=== PATIENT | female | born 1960 | race Caucasian/White ===

== ENCOUNTER → 2018-04-08 | Outpatient (CLI) | payer OTHER ==
--- NOTE | 2018-04-08 16:23 | XR ---
EXAMINATION TYPE: XR chest 2V DATE OF EXAM: 04/08/2018 COMPARISON: Chest x-ray October 20, 2015 HISTORY: History of breast cancer with asthma per order. TECHNIQUE: Frontal and lateral views of the chest are obtained. FINDINGS: Interval extubation noted. There is stable appearing left internal jugular Mediport cathete r. There is no focal air space opacity, pleural effusion, or pneumothorax seen. The cardiac silhouet te size is within normal limits. The osseous structures are intact. IMPRESSION: No acute cardiopulmonary process.
== END | disposition home or self-care (01) ==
LOC: RADXRYALE 16:02
PROVIDERS: ATTEND Internal Medicine
DX: J45.41 Moderate persistent asthma with (acute) exacerbation (principal)
CPT/HCPCS: 71046

== ENCOUNTER → 2018-04-22 | Outpatient (CLI) | payer OTHER ==
--- NOTE | 2018-04-25 13:59 | MM ---
Reason for exam: history of breast cancer, mastectomy. Last mammogram was performed 2 years and 9 months ago. History: Patient is postmenopausal, has history of breast cancer at age 52, and had first child at age 34. Family history of breast cancer in paternal cousin at age 60. Took hormonal contraceptives for 16 years. Taking antineoplastic for 5 years beginning at age 52. Physical Findings: Nurse Summary: A 0.5 cm mass at 1 o'clock left breast. MG Diagnostic Mammo LT w CAD CC, MLO, and ML view(s) were taken of the left breast. Prior study comparison: July 21, 2015, left breast MG diagnostic mammo LT w CAD. August 30, 2013, bilateral MG diagnostic mammo w CAD [place]. The breast tissue is heterogeneously dense. This may lower the sensitivity of mammography. There are stable benign calcifications. No discrete abnormality, including area of concern. ASSESSMENT: Incomplete: need additional imaging evaluation, BI-RAD 0 RECOMMENDATION: Ultrasound of the left breast. Plus the right axilla
--- NOTE | 2018-04-25 14:03 | USB ---
History: Patient is postmenopausal, has history of breast cancer at age 52, and had first child at age 34. Family history of breast cancer in paternal cousin at age 60. Took hormonal contraceptives for 16 years. Taking antineoplastic for 5 years beginning at age 52. US Breast Limited BILAT Left limited breast ultrasound including focal area of concern, retroareolar and axilla demonstrates No cystic or solid lesion seen. The right axilla was scanned and a 1.5 x 1.2 x 0.8 cm oval node was seen. a 3 month follow up of this area is recommended. These results were verbally communicated with the patient and result sheet given to the patient on 04/22/18. ASSESSMENT: Probably benign, BI-RAD 3 RECOMMENDATION: Clinical management. Ultrasound of the right breast in 3 months the axilla
== END | disposition home or self-care (01) ==
LOC: RADMAMWWP 12:40
PROVIDERS: ATTEND Internal Medicine
DX: R92.8 Other abnormal and inconclusive findings on diagnostic imaging of breast (principal); Z85.3 Personal history of malignant neoplasm of breast
CPT/HCPCS: 77065

== ENCOUNTER → 2018-07-15 | Outpatient (CLI) | payer OTHER | END | disposition home or self-care (01) | LOC: RADMAMWWP 12:40 | PROVIDERS: ATTEND Internal Medicine | DX: Z53.9 Procedure and treatment not carried out, unspecified reason (principal) ==

== ENCOUNTER → 2018-07-15 | Outpatient (CLI) | payer OTHER ==
--- NOTE | 2018-07-15 14:25 | USB ---
Reason for exam: clinical finding. History: Patient is postmenopausal, has history of breast cancer at age 52, and had first child at age 34. Family history of breast cancer in paternal cousin at age 60. Mastectomy of the right breast, 2013. Chemotherapy, 2013. Radiation therapy of the right breast, 2013. Took hormonal contraceptives for 16 years. Taking antineoplastic for 5 years beginning at age 52. Physical Findings: Nurse Summary: Patient complains of right axilla swelling, lateral itching (nurse rizwan). US Breast RT Right complete breast ultrasound includes all four quadrants, the retroareolar region and axilla. Finding demonstrates no cystic or solid lesion seen. These results were verbally communicated with the patient and result sheet given to the patient on 07/15/18. ASSESSMENT: Negative, BI-RAD 1 RECOMMENDATION: Clinical management of the right breast. Manage patient on a clinical basis.
== END | disposition home or self-care (01) ==
LOC: RADUSWWP 12:48
PROVIDERS: ATTEND Internal Medicine
DX: C50.211 Malignant neoplasm of upper-inner quadrant of right female breast (principal)

== ENCOUNTER → 2019-11-12 | Outpatient (CLI) | payer OTHER | END | disposition home or self-care (01) | LOC: RADMAMWWP 10-12 12:49 | PROVIDERS: ATTEND Internal Medicine Hematology & Oncology | DX: Z53.9 Procedure and treatment not carried out, unspecified reason (principal) | CPT/HCPCS: 77065 ==

== ENCOUNTER → 2020-02-09 | Outpatient (CLI) | payer OTHER | END | disposition home or self-care (01) | LOC: LABWHC1 15:21 | PROVIDERS: ATTEND Internal Medicine | DX: Z20.828 Contact with and (suspected) exposure to other viral communicable diseases (principal); R05 Cough; R50.9 Fever, unspecified | CPT/HCPCS: U0003; C9803 ==

== ENCOUNTER 2022-10-14 14:59 | Emergency (ER) | payer OTHER ==
[2022-10-14] MEDS ORDERED: SODIUM CHLORIDE 0.9% 1,000 ML IV ONE (15:50)
[2022-10-14] MEDS ORDERED: DICYCLOMINE 10 MG/ML 2 ML AMP IM STA (15:51)
[2022-10-14] MEDS ORDERED: ONDANSETRON 4 MG/2 ML VIAL IVP STA (15:51)
[2022-10-14 16:12] LABS: Basophils % (A) 0 %; Eosinophils # (A) 0.3 k/uL (0-0.7); Eosinophils % (A) 3 %; HGB 15.9 gm/dL (11.4-16.0); Lymphocytes % (A) 21 %; MCH 33.8 pg (25.0-35.0); MCHC 34.6 g/dL (31.0-37.0); MCV 97.7 fL (80.0-100.0); Mean Platelet Volume 7.6; Monocytes # (A) 0.9 k/uL (0-1.0); Monocytes % (A) 9 %; Neutrophils # (A) 6.4 k/uL (1.3-7.7); Neutrophils % (A) 66 %; Platelet Count 233 k/uL (150-450); RDW 12.6 % (11.5-15.5); WBC 9.7 k/uL (3.8-10.6)
[2022-10-14 16:16] LABS: Appearance,Urine Clear (Clear); Bilirubin,Urine Negative (Negative); Blood,Urine Trace (Negative); Color,Urine Yellow; Glucose,Urine (UA) Negative (Negative); Hyaline Casts,Urine 1 /lpf (0-2); Ketones,Urine Negative (Negative); Leukocyte Esterase,Urine Negative (Negative); Mucus,Urine Moderate /hpf; Nitrite,Urine Negative (Negative); PH, Urine 5.5 (5.0-8.0); Protein,Urine Negative (Negative); RBC,Urine 1 /hpf (0-5); Specific Gravity,Urine 1.007 (1.001-1.035); Squamous Epithelial Cell,Urine 2 /hpf (0-4); Urobilinogen,Urine <2.0 mg/dL (<2.0)
[2022-10-14 16:22] LABS: ALT 18 U/L (4-34); AST 22 U/L (14-36); African American GFR (CKD) >90 (>60 ml/min/1.73 sqM); Albumin 3.9 g/dL (3.5-5.0); Alkaline Phosphatase 70 U/L (38-126); Anion Gap 7 mmol/L; Blood Urea Nitrogen 9 mg/dL (7-17); Calcium 9.1 mg/dL (8.4-10.2); Carbon Dioxide 25 mmol/L (22-30); Chloride 104 mmol/L (98-107); Glucose 102 mg/dL (74-99); Non-African American GFR(CKD) >90 (>60 ml/min/1.73 sqM); Potassium 4.2 mmol/L (3.5-5.1); Sodium 136 mmol/L (137-145); Total Bilirubin 1.1 mg/dL (0.2-1.3); Total Protein 6.9 g/dL (6.3-8.2)
--- NOTE | 2022-10-14 16:41 | XR ---
EXAMINATION TYPE: XR KUB DATE OF EXAM: 10/14/2022 4:34 PM INDICATION: Patient age:Female; 61 years old; Reason for study: abdominal pain. COMPARISON: None. TECHNIQUE: One radiographic view of the abdomen was obtained. FINDINGS: The bowel gas pattern is nonspecific without dilated loops of small or large bowel. There i s no evidence for organomegaly or pneumoperitoneum. The osseous structures are intact. Multilevel de generation changes throughout the spine. Fecal material and gas are demonstrated throughout the colon and rectum. IMPRESSION: Nonspecific bowel gas pattern without radiographic evidence for acute process.
--- NOTE | 2022-10-14 17:37 | ED ---
General Adult HPI - General Chief complaint: Abdominal Pain Stated complaint: abd pain Time Seen by Provider: 10/14/22 15:31 Source: patient, RN notes reviewed Mode of arrival: ambulatory Limitations: no limitations - History of Present Illness Initial comments: 61-year-old female with past medical history significant for COPD presents to the emergency department with a chief complaint of lower abdominal pain 5 days. She reports the pain as a dull ache and rates the pain as 5 out of 10. It does not radiate. She is complaining of accompanying symptoms of nausea and one episode of vomiting 3 days ago. She denies any known fevers however reports feeling chills. She has not taken anything for his symptoms. She reports her last bowel movement was this morning and was harder than normal however denies any dysuria, flank pain, melena, hematochezia. Reports a history of diverticulosis - Related Data Home Medications Medication Instructions Recorded Confirmed ALPRAZolam [Xanax] 0.5 mg PO HS 10/20/15 10/14/22 Albuterol Inhaler [Ventolin Hfa 2 puff INHALATION RT-Q6H PRN 10/21/15 10/14/22 Inhaler] ALPRAZolam [Xanax] 0.125 mg PO BID PRN 10/14/22 10/14/22 Albuterol Nebulized [Ventolin 2.5 mg INHALATION RT-QID PRN 10/14/22 10/14/22 Nebulized] Anastrozole [Arimidex] 1 mg PO DAILY 10/14/22 10/14/22 Cetirizine HCl [Zyrtec] 10 mg PO DAILY 10/14/22 10/14/22 Citalopram Hydrobromide [CeleXA] 40 mg PO DAILY 10/14/22 10/14/22 Famotidine [Pepcid] 20 mg PO DAILY 10/14/22 10/14/22 Rosuvastatin Calcium 5 mg PO DAILY 10/14/22 10/14/22 Previous Rx's Medication Instructions Recorded Ondansetron Odt [Zofran Odt] 4 mg PO Q8HR PRN #10 tab 10/14/22 Allergies Allergy/AdvReac Type Severity Reaction Status Date / Time No Known Allergies Allergy Verified 10/14/22 16:21 Review of Systems ROS Statement: Those systems with pertinent positive or pertinent negative responses have been documented in the HPI. ROS Other: All systems not noted in ROS Statement are negative. Past Medical History Past Medical History: Asthma, Cancer, Hyperlipidemia Additional Past Medical History / Comment(s): 10-18-14 LT ANKLE FX, diverticulitis, RT BREAST CANCER, History of Any Multi-Drug Resistant Organisms: None Reported Past Surgical History: Hernia Repair Additional Past Surgical History / Comment(s): Right breast removal LT UPPER CHEST MEDIPORT, ECTOPIC , Past Anesthesia/Blood Transfusion Reactions: No Reported Reaction Past Psychological History: Anxiety, Depression Smoking Status: Current every day smoker Past Alcohol Use History: Occasional Past Drug Use History: Marijuana - Past Family History Father Family Medical History: Myocardial Infarction (AR) Additional Family Medical History / Comment(s): AGE 56 FROM [place] Mother Family Medical History: COPD, Myocardial Infarction ([place]) Additional Family Medical History / Comment(s): AGE 54 MASSIVE AR General Exam - General Exam Comments Initial Comments: General: Alert, in no acute distress Head: atraumatic normocephalic. Eyes PERRL, EOMI intact, mucous membranes moist Respiratory: Lungs clear to auscultation bilaterally Cardiovascular: Heart rate regular rate and rhythm Abdominal: Soft without guarding or rebound Extremities: Normal inspection with full range of motion and normal capillary refill Neuroogic: alert and oriented 3, CN II-XII intact, able to ambulate with steady gait Skin: warm dry and intact with normal color Limitations: no limitations Course Vital Signs 10/14/22 10/14/22 10/14/22 15:01 16:02 18:04 Temperature 97.9 F 97 F L Pulse Rate 106 H 93 86 Respiratory 18 20 16 Rate Blood Pressure 129/79 138/93 153/77 O2 Sat by Pulse 95 95 Oximetry Medical Decision Making - Medical Decision Making Was pt. sent in by a medical professional or institution (, PA, PROJECT DEVELOPMENT MANAGER, urgent care, hospital, or prison...) When possible be specific @ -[No] Did you speak to anyone other than the patient for history (EMS, parent, family, police, friend...)? What history was obtained from this source @ -[No] Did you review nursing and triage notes (agree or disagree)? Why? @ -[I reviewed and agree with nursing and triage notes] Were old charts reviewed (outside hosp., previous admission, EMS record, old EKG, old radiological studies, urgent care reports/EKG's, prison records)? Report findings @ -[No old charts were reviewed] Differential Diagnosis (chest pain, altered mental status, abdominal pain women, abdominal pain men, vaginal bleeding, weakness, fever, dyspnea, syncope, headache, dizziness, GI bleed, back pain, seizure, CVA, palpatations, mental health, musculoskeletal)? @ -[not applicable] EKG interpreted by me (3pts min.). @ -[As above] X-rays interpreted by me (1pt min.). @ KUB x-ray negative for any evidence of obstruction. There is nonspecific bowel pattern present CT interpreted by me (1pt min.). @ -[None done] U/S interpreted by me (1pt. min.). @ -[None done] What testing was considered but not performed or refused? (CT, X-rays, U/S, labs)? Why? @ -[None] What meds were considered but not given or refused? Why? @ -[None] Did you discuss the management of the patient with other professionals (professionals i.e. , PA, PROJECT DEVELOPMENT MANAGER, lab, RT, psych nurse, social worker masters, boot turner, teacher, flight communications officer, supportive employment case manager)? Give summary @ -[No] Was smoking cessation discussed for >3mins.? @ -[No] Was critical care preformed (if so, how long)? @ -[No] Were there social determinants of health that impacted care today? How? (Homelessness, low income, unemployed, alcoholism, drug addiction, transportation, low edu. Level, literacy, decrease access to med. care, group home, rehab)? @ -[No] Was there de-escalation of care discussed even if they declined (Discuss DNR or withdrawal of care, Hospice)? DNR status @ -[No] What co-morbidities impacted this encounter? (DM, HTN, Smoking, COPD, CAD, Cancer, CVA, ARF, Chemo, Hep., AIDS, mental health diagnosis, sleep apnea, morb id obesity)? @ -[None] Was patient admitted / discharged? Hospital course, mention meds given and route, prescriptions, significant lab abnormalities, going to OR and other pertinent info. @ -Discharged. This is a pleasant 61-year-old female who presents the emergency department with abdominal pain. Patient had a thorough history and physical exam performed on the ED. Physical exam is essentially unremarkable. Heart rate regular rate and rhythm lungs clear to auscultation bilaterally abdomen is soft and nontender. Patient had lab work and imaging were essentially unremarkable. I discussed with the patient patient verbalized understanding all questions were addressed. She was given Toradol, 1 L IV fluids for symptomatic relief. She'll be discharged home with a prescription for Zofran. Return precautions were discussed at length. Patient discharged in stable condition. Case discussed with Dr. Partida [facility] [place] who agrees with plan of care Undiagnosed new problem with uncertain prognosis? @ -[No] Drug Therapy requiring intensive monitoring for toxicity (Heparin, Nitro, Insulin, Cardizem)? @ -[No] Were any procedures done? @ -[No] Diagnosis/symptom? @ -Abdominal Pain Acute, or Chronic, or Acute on Chronic? @ -Acute Uncomplicated (without systemic symptoms) or Complicated (systemic symptoms)? @ -Uncomplicated Side effects of treatment? @ -[No] Exacerbation, Progression, or Severe Exacerbation? @ -[No] Poses a threat to life or bodily function? How? (Chest pain, [place], [place], pneumonia, PE, COPD, DKA, ARF, appy, cholecystitis, CVA, Diverticulitis, Homicidal, Suicidal, threat to staff... and all critical care pts) @ -Low likelihood - Lab Data Result diagrams: 10/14/22 15:49 10/14/22 15:49 Lab Results 10/14/22 10/14/22 10/14/22 Range/Units 15:49 15:49 15:49 WBC 9.7 (3.8-10.6) k/uL RBC 4.70 (3.80-5.40) m/uL Hgb 15.9 (11.4-16.0) gm/dL Hct 46.0 (34.0-46.0) % MCV 97.7 (80.0-100.0) fL MCH 33.8 (25.0-35.0) pg MCHC 34.6 (31.0-37.0) g/dL RDW 12.6 (11.5-15.5) % Plt Count 233 (150-450) k/uL MPV 7.6 Neutrophils % 66 % Lymphocytes % 21 % Monocytes % 9 % Eosinophils % 3 % Basophils % 0 % Neutrophils # 6.4 (1.3-7.7) k/uL Lymphocytes # 2.0 (1.0-4.8) k/uL Monocytes # 0.9 (0-1.0) k/uL Eosinophils # 0.3 (0-0.7) k/uL Basophils # 0.0 (0-0.2) k/uL Sodium 136 L (137-145) mmol/L Potassium 4.2 (3.5-5.1) mmol/L Chloride 104 (98-107) mmol/L Carbon Dioxide 25 (22-30) mmol/L Anion Gap 7 mmol/L BUN 9 (7-17) mg/dL Creatinine 0.60 (0.52-1.04) mg/dL Est GFR (CKD-EPI)AfAm >90 (>60 ml/min/1.73 sqM) Est GFR (CKD-EPI)NonAf >90 (>60 ml/min/1.73 sqM) Glucose 102 H (74-99) mg/dL Calcium 9.1 (8.4-10.2) mg/dL Total Bilirubin 1.1 (0.2-1.3) mg/dL AST 22 (14-36) U/L ALT 18 (4-34) U/L Alkaline Phosphatase 70 (38-126) U/L Total Protein 6.9 (6.3-8.2) g/dL Albumin 3.9 (3.5-5.0) g/dL Urine Color Yellow Urine Appearance Clear (Clear) Urine pH 5.5 (5.0-8.0) Ur Specific [place] 1.007 (1.001-1.035) Urine Protein Negative (Negative) Urine Glucose (UA) Negative (Negative) Urine Ketones Negative (Negative) Urine Blood Trace H (Negative) Urine Nitrite Negative (Negative) Urine Bilirubin Negative (Negative) Urine Urobilinogen <2.0 (<2.0) mg/dL Ur Leukocyte Esterase Negative (Negative) Urine RBC 1 (0-5) /hpf Ur Squamous Epith Cells 2 (0-4) /hpf Hyaline Casts 1 (0-2) /lpf Urine Mucus Moderate H (None) /hpf Influenza Type A (PCR) (Not Detectd) Influenza Type B (PCR) (Not Detectd) RSV (PCR) (Not Detectd) SARS-CoV-2 (PCR) (Not Detectd) 10/14/22 Range/Units 15:49 WBC (3.8-10.6) k/uL RBC (3.80-5.40) m/uL Hgb (11.4-16.0) gm/dL Hct (34.0-46.0) % MCV (80.0-100.0) fL MCH (25.0-35.0) pg MCHC (31.0-37.0) g/dL RDW (11.5-15.5) % Plt Count (150-450) k/uL MPV Neutrophils % % Lymphocytes % % Monocytes % % Eosinophils % % Basophils % % Neutrophils # (1.3-7.7) k/uL Lymphocytes # (1.0-4.8) k/uL Monocytes # (0-1.0) k/uL Eosinophils # (0-0.7) k/uL Basophils # (0-0.2) k/uL Sodium (137-145) mmol/L Potassium (3.5-5.1) mmol/L Chloride (98-107) mmol/L Carbon Dioxide (22-30) mmol/L Anion Gap mmol/L BUN (7-17) mg/dL Creatinine (0.52-1.04) mg/dL Est GFR (CKD-EPI)AfAm (>60 ml/min/1.73 sqM) Est GFR (CKD-EPI)NonAf (>60 ml/min/1.73 sqM) Glucose (74-99) mg/dL Calcium (8.4-10.2) mg/dL Total Bilirubin (0.2-1.3) mg/dL AST (14-36) U/L ALT (4-34) U/L Alkaline Phosphatase (38-126) U/L Total Protein (6.3-8.2) g/dL Albumin (3.5-5.0) g/dL Urine Color Urine Appearance (Clear) Urine pH (5.0-8.0) Ur Specific [place] (1.001-1.035) Urine Protein (Negative) Urine Glucose (UA) (Negative) Urine Ketones (Negative) Urine Blood (Negative) Urine Nitrite (Negative) Urine Bilirubin (Negative) Urine Urobilinogen (<2.0) mg/dL Ur Leukocyte Esterase (Negative) Urine RBC (0-5) /hpf Ur Squamous Epith Cells (0-4) /hpf Hyaline Casts (0-2) /lpf Urine Mucus (None) /hpf Influenza Type A (PCR) Not Detected (Not Detectd) Influenza Type B (PCR) Not Detected (Not Detectd) RSV (PCR) Not Detected (Not Detectd) SARS-CoV-2 (PCR) Not Detected (Not Detectd) Disposition Clinical Impression: Abdominal pain Disposition: HOME SELF-CARE Condition: Good Instructions (If sedation given, give patient instructions): Abdominal Pain (ED) Additional Instructions: Please return to the nearest emergency department if symptoms worsen or persist Prescriptions: Ondansetron Odt [Zofran Odt] 4 mg PO Q8HR PRN #10 tab PRN Reason: Nausea Is patient prescribed a controlled substance at d/c from ED?: No Referrals: Samreen Webb MD [Primary Care Provider] - 1-2 days Time of Disposition: 17:36
[2022-10-14 18:05] VITALS: BP 153/77; PULSE 86; RESP 16; TEMP 97
== END 2022-10-14 18:04 | disposition home or self-care (01) ==
LOC: EC 14:59
DX: R10.30 Lower abdominal pain, unspecified (principal); J45.909 Unspecified asthma, uncomplicated; E78.5 Hyperlipidemia, unspecified; F41.9 Anxiety disorder, unspecified; F32.A Depression, unspecified; F12.90 Cannabis use, unspecified, uncomplicated; F17.200 Nicotine dependence, unspecified, uncomplicated; Z79.899 Other long term (current) drug therapy; Z20.822 Contact with and (suspected) exposure to COVID-19
CPT/HCPCS: 36415; 80053; 85025; 81001; 87636; 74018; 99284; 96372; 96374; 96361 ×2; J0500; J2405

== ENCOUNTER 2023-05-13 11:37 | Inpatient (IN) | payer OTHER ==
--- NOTE | 2023-05-13 12:11 | ED ---
Abdominal Pain HPI - General Chief Complaint: Abdominal Pain Stated Complaint: Abd Pain, Back Pain Time Seen by Provider: 05/13/23 11:47 Source: patient, RN notes reviewed Mode of arrival: ambulatory Limitations: no limitations - History of Present Illness Initial Comments: This is a 62-year-old female who presents to the emergency department for abdominal pain. States that this is in the epigastric region with radiation into the back. Symptoms started about 5 days ago. She has had intermittent bouts of nausea and low-grade fevers. Pain is worse after eating, but she is unsure if this relates any specific foods. Denies any history of similar s ymptoms in the past. Denies any changes in bowel/bladder habits. Also denies any shortness of breath. MD Complaint: abdominal pain - Related Data Home Medications Medication Instructions Recorded Confirmed ALPRAZolam [Xanax] 0.5 mg PO HS 10/20/15 05/13/23 Albuterol Inhaler [Ventolin Hfa 2 puff INHALATION RT-Q6H PRN 10/21/15 05/13/23 Inhaler] ALPRAZolam [Xanax] 0.125 - 0.25 mg PO DAILY PRN 10/14/22 05/13/23 Anastrozole [Arimidex] 1 mg PO DAILY 10/14/22 05/13/23 Cetirizine HCl [Zyrtec] 10 mg PO DAILY PRN 10/14/22 05/13/23 Citalopram Hydrobromide [CeleXA] 40 mg PO DAILY 10/14/22 05/13/23 Famotidine [Pepcid] 20 mg PO DAILY 10/14/22 05/13/23 Rosuvastatin Calcium 5 mg PO DAILY 10/14/22 05/13/23 Allergies Allergy/AdvReac Type Severity Reaction Status Date / Time No Known Allergies Allergy Verified 05/13/23 14:20 Review of Systems ROS Statement: Those systems with pertinent positive or pertinent negative responses have been documented in the HPI. ROS Other: All systems not noted in ROS Statement are negative. Past Medical History Past Medical History: Asthma, Cancer, Hyperlipidemia Additional Past Medical History / Comment(s): 10-18-14 LT ANKLE FX, diverticulitis, RT BREAST CANCER, History of Any Multi-Drug Resistant Organisms: None Reported Past Surgical History: Hernia Repair Additional Past Surgical History / Comment(s): Right breast removal LT UPPER CHEST MEDIPORT, ECTOPIC , Past Anesthesia/Blood Transfusion Reactions: No Reported Reaction Past Psychological History: Anxiety, Depression Smoking Status: Current every day smoker Past Alcohol Use History: Occasional Past Drug Use History: Marijuana - Past Family History Father Family Medical History: Myocardial Infarction ([place]) Additional Family Medical History / Comment(s): AGE 56 FROM [place] Mother Family Medical History: COPD, Myocardial Infarction ([place]) Additional Family Medical History / Comment(s): AGE 54 MASSIVE [place] General Exam Limitations: no limitations General appearance: alert, in no apparent distress Head exam: Present: atraumatic, normocephalic, normal inspection Respiratory exam: Present: normal lung sounds bilaterally. Absent: respiratory distress, wheezes, rales, rhonchi, stridor Cardiovascular Exam: Present: regular rate, normal rhythm, normal heart sounds. Absent: systolic murmur, diastolic murmur, rubs, gallop, clicks GI/Abdominal exam: Present: soft, tenderness (epigastric), normal bowel sounds. Absent: distended Neurological exam: Present: alert, oriented X3, CN II-XII intact Psychiatric exam: Present: normal affect, normal mood Skin exam: Present: warm, dry, intact, normal color. Absent: rash Course Vital Signs 05/13/23 11:39 Temperature 98.1 F Pulse Rate 100 Respiratory 20 Rate Blood Pressure 167/86 O2 Sat by Pulse 100 Oximetry Medical Decision Making - Medical Decision Making This is a 62-year-old female who presents to the emergency department for abdominal pain. Was pt. sent in by a medical professional or institution? @ -No Did you speak to anyone other than the patient for history? @ -No Did you review nursing and triage notes? @ -Yes, and I agree, it is accurate with regards to the patient's symptoms. Were old charts reviewed? @ -No Differential Diagnosis? @ -Differential Abdominal Pain Women: Appendicitis, Cholecystitis, diverticulosis, ischemic bowel, pancreatitis, hepatitis, UTI, gastroenteritis, AAA, incarcerated hernia, bowel obstruction, constipation, inflammatory bowel, hepatitis, peptic ulcer disease, splenic infarction, perforated viscus, vulvitis, ovarian torsion, PID, kidney stone, placenta abruption, this is not meant to be an all-inclusive list EKG interpreted by me (3pts min.)? @ -EKG interpreted by me demonstrating the following: Sinus rhythm. Ve ntricular rate 90 beats per minute, SD interval 153 ms, QRS duration 88 ms, QTC 438 milliseconds. X-rays interpreted by me (1pt min.)? @ -Not obtained CT interpreted by me (1pt min.)? @ -Not obtained U/S interpreted by me (1pt. min.)? @ -Gallbladder US obtained. My interpretation identifies no evidence of cholelithiasis. What testing was considered but not performed? (CT, X-rays, U/S, labs)? Why? @ -None What meds were considered but not given? Why? @ -None Did you discuss the management of the patient with other professionals? @ -Yes, Dr. Butts, who accepts the patient for admission. Did you reconcile home meds? @ -No Was smoking cessation discussed for >3mins.? @ -I discussed smoking cessation for greater than 3 minutes. The risk of smoking were discussed with the patient including but not limited to risks of cancer, stroke, coronary artery disease and COPD. Also discussed with patient were multiple methods of quitting smoking. Lastly we discussed the financial cost of smoking. Was critical care preformed (if so, how long)? @ -No Were there social determinants of health that impacted care today? How? (Homelessness, low income, unemployed, alcoholism, drug addiction, transportation, low edu. Level, literacy, decrease access to med. care, custodial, rehab)? @ -No Was there de-escalation of care discussed even if they declined? (Discuss DNR or withdrawal of care, Hospice)? @ -No What co-morbidities impacted this encounter? (DM, HTN, Smoking, COPD, CAD, Cancer, CVA, Hep., AIDS, mental health diagnosis, sleep apnea, morbid obesity)? @ -Hyperlipidemia, smoking Was patient admitted / discharged? @ -Admitted. Lab work obtained revealing an elevated lipase of 2727 and elevated amylase of 198 suggestive of acute pancreatitis. LFTs are within normal limits. Covid, influenza, and RSV testing were negative. Given the associated right upper quadrant pain, gallbladder ultrasound was obtained. They did not identify any evidence of cholelithiasis. On the ultrasound they were unable to exclude an underlying 2.6 cm lesion of the pancreas at the junction of the neck and body. There is also a 3.9 cm mass at the posterior right liver lobe. They advised possible CT or MRI for further evaluation. Patient admitted to medicine for acute pancreatitis. Consult placed for GI. Undiagnosed new problem with uncertain prognosis? @ -None Drug Therapy requiring intensive monitoring for toxicity (Heparin, Nitro, Insulin, Cardizem)? @ -None Were any procedures done? @ -None Diagnosis/symptom? @ -Acute pancreatitis Acute, or Chronic, or Acute on Chronic? @ -Acute Uncomplicated (without systemic symptoms) or Complicated (systemic symptoms)? @ -Uncomplicated Side effects of treatment? @ -None Exacerbation, Progression, or Severe Exacerbation] @ -Not applicable Poses a threat to life or bodily function? @ -Yes This case was discussed in detail with the attending ED physician, Dr. Castillo. Presentation, findings, and treatment plan discussed in detail as well. - Lab Data Result diagrams: 05/13/23 12:05 05/13/23 12:05 Lab Results 05/13/23 05/13/23 05/13/23 Range/Units 11:48 12:05 12:05 WBC 7.3 (3.8-10.6) k/uL RBC 4.72 (3.80-5.40) m/uL Hgb 15.4 (11.4-16.0) gm/dL Hct 45.9 (34.0-46.0) % MCV 97.3 (80.0-100.0) fL MCH 32.7 (25.0-35.0) pg MCHC 33.6 (31.0-37.0) g/dL RDW 11.9 (11.5-15.5) % Plt Count 259 (150-450) k/uL MPV 7.3 Neutrophils % 62 % Lymphocytes % 22 % Monocytes % 9 % Eosinophils % 5 % Basophils % 1 % Neutrophils # 4.5 (1.3-7.7) k/uL Lymphocytes # 1.6 (1.0-4.8) k/uL Monocytes # 0.6 (0-1.0) k/uL Eosinophils # 0.3 (0-0.7) k/uL Basophils # 0.1 (0-0.2) k/uL Sodium 140 (137-145) mmol/L Potassium 4.1 (3.5-5.1) mmol/L Chloride 109 H (98-107) mmol/L Carbon Dioxide 23 (22-30) mmol/L Anion Gap 8 mmol/L BUN 14 (7-17) mg/dL Creatinine 0.53 (0.52-1.04) mg/dL Est GFR (CKD-EPI)AfAm >90 (>60 ml/min/1.73 sqM) Est GFR (CKD-EPI)NonAf >90 (>60 ml/min/1.73 sqM) Glucose 117 H (74-99) mg/dL Plasma Lactic Acid Bi (0.7-2.0) mmol/L Calcium 9.3 (8.4-10.2) mg/dL Total Bilirubin 0.6 (0.2-1.3) mg/dL AST 26 (14-36) U/L ALT 16 (4-34) U/L Alkaline Phosphatase 70 (38-126) U/L Troponin I (0.000-0.034) ng/mL Total Protein 6.9 (6.3-8.2) g/dL Albumin 4.0 (3.5-5.0) g/dL Amylase 198 H (30-110) U/L Lipase 2727 H (23-300) U/L Influenza Type A (PCR) Not Detected (Not Detectd) Influenza Type B (PCR) Not Detected (Not Detectd) RSV (PCR) Not Detected (Not Detectd) SARS-CoV-2 (PCR) Not Detected (Not Detectd) 05/13/23 05/13/23 Range/Units 12:05 12:12 WBC (3.8-10.6) k/uL RBC (3.80-5.40) m/uL Hgb (11.4-16.0) gm/dL Hct (34.0-46.0) % MCV (80.0-100.0) fL MCH (25.0-35.0) pg MCHC (31.0-37.0) g/dL RDW (11.5-15.5) % Plt Count (150-450) k/uL MPV Neutrophils % % Lymphocytes % % Monocytes % % Eosinophils % % Basophils % % Neutrophils # (1.3-7.7) k/uL Lymphocytes # (1.0-4.8) k/uL Monocytes # (0-1.0) k/uL Eosinophils # (0-0.7) k/uL Basophils # (0-0.2) k/uL Sodium (137-145) mmol/L Potassium (3.5-5.1) mmol/L Chloride (98-107) mmol/L Carbon Dioxide (22-30) mmol/L Anion Gap mmol/L BUN (7-17) mg/dL Creatinine (0.52-1.04) mg/dL Est GFR (CKD-EPI)AfAm (>60 ml/min/1.73 sqM) Est GFR (CKD-EPI)NonAf (>60 ml/min/1.73 sqM) Glucose (74-99) mg/dL Plasma Lactic Acid Bi 1.1 (0.7-2.0) mmol/L Calcium (8.4-10.2) mg/dL Total Bilirubin (0.2-1.3) mg/dL AST (14-36) U/L ALT (4-34) U/L Alkaline Phosphatase (38-126) U/L Troponin I <0.012 (0.000-0.034) ng/mL Total Protein (6.3-8.2) g/dL Albumin (3.5-5.0) g/dL Amylase (30-110) U/L Lipase (23-300) U/L Influenza Type A (PCR) (Not Detectd) Influenza Type B (PCR) (Not Detectd) RSV (PCR) (Not Detectd) SARS-CoV-2 (PCR) (Not Detectd) - Radiology Data Radiology results: report reviewed, image reviewed Disposition Clinical Impression: Pancreatitis, Nicotine dependence Disposition: ADMITTED IP TO THIS [facility] Time of Disposition: 13:55
[2023-05-13] MEDS: KETOROLAC 15 MG/ML 1 ML VIAL IVP STA (12:16)
[2023-05-13 12:17] LABS: Basophils # (A) 0.1 k/uL (0-0.2); Basophils % (A) 1 %; Eosinophils # (A) 0.3 k/uL (0-0.7); Eosinophils % (A) 5 %; HCT 45.9 % (34.0-46.0); HGB 15.4 gm/dL (11.4-16.0); Lymphocytes # (A) 1.6 k/uL (1.0-4.8); Lymphocytes % (A) 22 %; MCH 32.7 pg (25.0-35.0); MCHC 33.6 g/dL (31.0-37.0); MCV 97.3 fL (80.0-100.0); Mean Platelet Volume 7.3; Monocytes # (A) 0.6 k/uL (0-1.0); Monocytes % (A) 9 %; Neutrophils # (A) 4.5 k/uL (1.3-7.7); Neutrophils % (A) 62 %; Platelet Count 259 k/uL (150-450); RBC 4.72 m/uL (3.80-5.40); RDW 11.9 % (11.5-15.5); WBC 7.3 k/uL (3.8-10.6)
[2023-05-13] MEDS: SODIUM CHLORIDE 0.9% 1,000 ML IV STA (12:17)
[2023-05-13] MEDS: PANTOPRAZOLE 40 MG/10 ML VIAL IVP STA (12:17)
[2023-05-13 12:43] LABS: ALT 16 U/L (4-34); AST 26 U/L (14-36); African American GFR (CKD) >90 (>60 ml/min/1.73 sqM); Alkaline Phosphatase 70 U/L (38-126); Amylase 198 U/L (30-110); Anion Gap 8 mmol/L; Blood Urea Nitrogen 14 mg/dL (7-17); Calcium 9.3 mg/dL (8.4-10.2); Carbon Dioxide 23 mmol/L (22-30); Chloride 109 mmol/L (98-107); Glucose 117 mg/dL (74-99); Non-African American GFR(CKD) >90 (>60 ml/min/1.73 sqM); Potassium 4.1 mmol/L (3.5-5.1); Sodium 140 mmol/L (137-145); Total Bilirubin 0.6 mg/dL (0.2-1.3); Total Protein 6.9 g/dL (6.3-8.2)
[2023-05-13 12:51] LABS: Lipase 2727 U/L (23-300)
--- NOTE | 2023-05-13 13:36 | US ---
EXAMINATION TYPE: US gallbladder DATE OF EXAM: 05/13/2023 COMPARISON: CT 2012 CLINICAL INDICATION: Female, 62 years old with history of RUQ and epigastric pain; Pain x 6 days. TECHNIQUE: Multiple sonographic images of the right upper quadrant are obtained. FINDINGS: EXAM MEASUREMENTS: Liver Length: 15.4 cm Gallbladder Wall: 0.21 cm CBD: 0.6 cm Right Kidney: 10.7 x 5.4 x 4.9 cm [employer] NOTES: Exam is limited due to gas. Pancreas: Hypoechoic area at the neck/body junction measuring 1.6 x 2.6 x 1.1 cm. Liver: *Hypoechoic round lesion within the posterior right liver lobe measuring 3.5 x 3.9 x 3.3 cm. Gallbladder: Limited visibility of fundus due to gas. No abnormal distention, wall thickening, or sh adowing stones are seen. Evidence for sonographic Fang's sign: No CBD: Measures upper limits of normal. Right Kidney: No hydronephrosis or masses seen IMPRESSION: 1. Unable to exclude an underlying 2.6 cm lesion of the pancreas at the junction of the neck and body . Further evaluation with pancreas protocol CT or MRI is recommended. 2. There appears to be a 3.9 cm mass posterior right liver lobe as well. This can also be further go racterized on the patient's multiphasic, contrast-enhanced MRI. 3. No gallstones. Bile duct upper limits of normal in caliber at 6 mm may be acceptable for patient's age. Correlate with alkaline phosphatase and bilirubin levels.
[2023-05-13] MEDS ORDERED: KETOROLAC 15 MG/ML 1 ML VIAL IVP PRN (13:57)
[2023-05-13] MEDS ORDERED: NALOXONE 0.4 MG/ML 1 ML VIAL IV PRN ×2 (13:57→14:31)
[2023-05-13] MEDS ORDERED: HYDROmorphone 0.5 MG/0.5 ML SYRINGE IVP PRN (13:57)
[2023-05-13] MEDS ORDERED: ONDANSETRON 4 MG/2 ML VIAL IVP PRN (13:57)
[2023-05-13] MEDS ORDERED: ACETAMINOPHEN TAB 325 MG TAB PO PRN (13:57)
[2023-05-13] MEDS ORDERED: MAG HYDROX/AL HYDROX/SIMETH 30 ML CUP PO PRN (14:31)
[2023-05-13] MEDS ORDERED: MELATONIN 3 MG TABLET PO PRN (14:31)
[2023-05-13] MEDS ORDERED: TEMAZEPAM 15 MG CAP PO PRN (14:31)
[2023-05-13] MEDS ORDERED: ALBUTEROL NEBULIZED 2.5 MG/3 ML INHALATION PRN (14:32)
--- NOTE | 2023-05-13 14:33 | P.HPIM ---
History of Present Illness H&P Date: 05/13/23 History of present illness; 62-year-old lady with past medical history significant for breast cancer, hyperlipidemia who presented to the ER for abdominal pain. Patient stated that she was all right 5 days ago when she started developing abdominal pain that was located in epigastric area, constant, sharp in nature,Radiating to the back, aggravated by eating and drinking, no relieving factor associated with this epigastric pain. Patient was complaining of nausea but no vomiting. There was no complaint of altered bowel movements. Patient stated that initially she kept tolerating this pain and did not seek any medical help. Over the last 24 hours the pain has worsened and she decided to come to the ER Initial lab work done in the ER showed WBC 7.3, hemoglobin 15.4, platelet count 259, sodium 140, potassium 4.1, BUN 14, creatinine 0.53, glucose 117, calcium 9.3 AST 26, ALT 16, troponin 0.012 lipase 2727, amylase 198 Influenza A not detected Influenza B not detected RSV not detected COVID-19 not detected EKG done in the ER showed heart rate of 90, no ST segment elevation or depression seen, no T-wave inversions seen. Ultrasound abdominal done showed unable to exclude an underlying 2.6 cm lesion of the pancreas at the junction of the neck and and body. There appears to be a 3.9 cm mass posterior right liver lobe as well Patient admitted to internal medicine service REVIEW OF SYSTEMS: CONSTITUTIONAL: No fever, no malaise, no fatigue. HEENT: No recent visual problems or hearing problems. Denied any sore throat. CARDIOVASCULAR: No chest pain, orthopnea, PND, no palpitations, no syncope. PULMONARY: No shortness of breath, no cough, no hemoptysis. GASTROINTESTINAL: As mentioned above NEUROLOGICAL: No headaches, no weakness, no numbness. HEMATOLOGICAL: Denies any bleeding or petechiae. GENITOURINARY: Denies any burning micturition, frequency, or urgency. MUSCULOSKELETAL/RHEUMATOLOGICAL: Denies any joint pain, swelling, or any muscle pain. ENDOCRINE: Denies any polyuria or polydipsia. The rest of the 14-point review of systems is negative. PHYSICAL EXAMINATION: GENERAL: The patient is alert and oriented x3, not in any acute distress. Well developed, well nourished. HEENT: Pupils are round and equally reacting to light. EOMI. No scleral icterus. No conjunctival pallor. Normocephalic, atraumatic. No pharyngeal erythema. No thyromegaly. CARDIOVASCULAR: S1 and S2 present. No murmurs, rubs, or gallops. PULMONARY: Chest is clear to auscultation, no wheezing or crackles. ABDOMEN: Soft, tender in epigastric area, normoactive bowel sounds. No palpable organomegaly. MUSCULOSKELETAL: No joint swelling or deformity. EXTREMITIES: No cyanosis, clubbing, or pedal edema. NEUROLOGICAL: Gross neurological examination did not reveal any focal deficits. SKIN: No rashes. Assessment and plan Acute pancreatitis Pancreatic mass 3.9 cm liver lobe mass Hyperlipidemia History of breast cancer Monitor vital signs Monitor CBC Monitor CMP Continue IV fluid Continue pain management Continue antiemetics Ordered MRI of pancreas Ordered lipid panel Consult GI Labs and medication were reviewed.. Continue same treatment. Continue with symptomatic treatment. Resume home medication. Monitor labs and vitals. DVT and GI prophylaxis. Further recommendations as per clinical course of the patient Dictation was produced using [employer] dictation software. please excuse any grammatical, word or spelling errors. Past Medical History Past Medical History: Asthma, Cancer, Hyperlipidemia Additional Past Medical History / Comment(s): 10-18-14 LT ANKLE FX, diverticulitis, RT BREAST CANCER, History of Any Multi-Drug Resistant Organisms: None Reported Past Surgical History: Hernia Repair Additional Past Surgical History / Comment(s): Right breast removal LT UPPER CHEST MEDIPORT, ECTOPIC , Past Anesthesia/Blood Transfusion Reactions: No Reported Reaction Past Psychological History: Anxiety, Depression Smoking Status: Current every day smoker Past Alcohol Use History: Occasional Past Drug Use History: Marijuana - Past Family History Father Family Medical History: Myocardial Infarction ([place]) Additional Family Medical History / Comment(s): AGE 56 FROM [place] Mother Family Medical History: COPD, Myocardial Infarction ([place]) Additional Family Medical History / Comment(s): AGE 54 MASSIVE [place] Medications and Allergies Home Medications Medication Instructions Recorded Confirmed Type ALPRAZolam [Xanax] 0.5 mg PO HS 10/19/10/14/22 History Albuterol Inhaler [Ventolin Hfa 2 puff INHALATION RT-Q6H PRN 10/21/15 10/14/22 History Inhaler] ALPRAZolam [Xanax] 0.125 mg PO BID PRN 10/14/22 10/14/22 History Albuterol Nebulized [Ventolin 2.5 mg INHALATION RT-QID PRN 10/14/22 10/14/22 H istory Nebulized] Anastrozole [Arimidex] 1 mg PO DAILY 10/14/22 10/14/22 History Cetirizine HCl [Zyrtec] 10 mg PO DAILY 10/14/22 10/14/22 History Citalopram Hydrobromide [CeleXA] 40 mg PO DAILY 10/14/22 10/14/22 History Famotidine [Pepcid] 20 mg PO DAILY 10/14/22 10/14/22 History Ondansetron Odt [Zofran Odt] 4 mg PO Q8HR PRN #10 tab 10/14/22 Rx Rosuvastatin Calcium 5 mg PO DAILY 10/14/22 10/14/22 History Allergies Allergy/AdvReac Type Severity Reaction Status Date / Time No Known Allergies Allergy Verified 10/14/22 16:21 Physical Exam Vitals: Vital Signs Temp Pulse Resp BP Pulse Ox 05/13/23 11:39 98.1 F 100 20 167/86 100 Intake and Output 05/12/23 05/13/23 05/13/23 22:59 06:59 14:59 Other: Weight 66.224 kg Results CBC & Chem 7: 05/13/23 12:05 05/13/23 12:05 Labs: Abnormal Lab Results - Last 24 Hours (Table) 05/13/23 Range/Units 12:05 Chloride 109 H (98-107) mmol/L Glucose 117 H (74-99) mg/dL Amylase 198 H (30-110) U/L Lipase 2727 H (23-300) U/L
[2023-05-13] MEDS: SODIUM CHLORIDE 0.9% 1,000 ML IV SCH (14:43)
[2023-05-13] MEDS: HYDROcodone/APAP 5-325MG 1 EACH TAB PO PRN (17:41)
[2023-05-13] MEDS: ALPRAZolam 0.5 MG TAB PO SCH (21:29)
[2023-05-14 02:24] LABS: Chol/HDL Ratio 2.76 Ratio; LDL Cholesterol,Calculated 82.1 mg/dL (0.0-131.0); VLDL Calculation 15.44 mg/dL (5.00-40.00)
[2023-05-14] MEDS: PANTOPRAZOLE 40 MG/10 ML VIAL IVP SCH (08:05)
[2023-05-14] MEDS: ATORVASTATIN 10 MG TAB PO SCH (08:05)
[2023-05-14 11:06] LABS: Basophils # (A) 0.07 X 10*3/uL (0.00-0.10); Basophils % (A) 1.1 %; Eosinophils # (A) 0.48 X 10*3/uL (0.04-0.35); Eosinophils % (A) 7.7 %; HCT 40.3 % (37.2-46.3); HGB 13.6 g/dL (12.0-15.0); Immature Grans, Automated 0 %; Lymphocytes # (A) 2.16 X 10*3/uL (0.90-5.00); Lymphocytes % (A) 34.8 %; MCH 32.2 pg (27.0-32.0); MCHC 33.7 g/dL (32.0-37.0); MCV 95.3 FL (80.0-97.0); Monocytes # (A) 0.78 X 10*3/uL (0.20-1.00); Monocytes % (A) 12.6 %; NRBC Per 100 WBC 0 X 10*3/uL (0.00-0.01); Neutrophils # (A) 2.72 X 10*3/uL (1.80-7.70); Neutrophils % (A) 43.8 %; Platelet Count 222 X 10*3/uL (140-440); RBC 4.23 X 10*6/uL (4.10-5.20); RDW 11.8 % (11.5-14.5); WBC 6.21 X 10*3/uL (4.50-10.00)
--- NOTE | 2023-05-14 12:15 | P.CONS ---
History of Present Illness - Reason for Consult Consult date: 05/14/23 Pancreatitis Requesting physician: Geno Aaron - Chief Complaint Abdominal pain - History of Present Illness Is a pleasant 62-year-old white female who presented to the emergency department yesterday for complaints of abdominal pain mostly in the epigastric region and radiating to her back. States that have been ongoing for the last few days and she was concerned as it was not going away. She came into the emergency department for further evaluation was noted to have elevated amylase and lipase. She underwent ultrasound of the gallbladder that was concerning for pancreatic lesion as well as a liver lesion. Gastroenterology was consulted for pancreatitis. She has a past medical history fluting breast cancer status post right mastectomy, asthma, and hyperlipidemia. Patient is a current every day smoker. She denies any regular alcohol use or previous history of alcoholism. No previous history of pancreatitis or liver disease. WBC 6.2 hemoglobin 13.6 platelet count 222,000 triglycerides 77 total bilirubin 0.6 AST 26 ALT 16 alkaline phosphatase 70 amylase 198 lipase 2727 Review of Systems REVIEW OF SYSTEMS: CARDIOPULMONARY: No chest pain or shortness of breath. Gastrointestinal: Epiastric pain radiating to her back. No nausea or vomiting. No hematemesis, coffee-ground emesis. No rectal bleeding, or melena. GENITOURINARY: No dysuria or hematuria. MUSCULOSKELETAL: Reports normal range of motion., Joint pain. SKIN: No rashes. No jaundice. ENDOCRINE: No chills, fevers. No excessive weight gain or loss. No polydipsia or polyuria. PSYCHIATRIC: Unremarkable. NEUROLOGY: No change in mental status. Denies dizziness, headache. ENT: Vision unremarkable. CONSTITUTIONAL: No recent weight loss. No fever, chills, night sweats. Past Medical History Past Medical History: Asthma, Cancer, Hyperlipidemia Additional Past Medical History / Comment(s): 10-18-14 LT ANKLE FX, diverticulitis, RT BREAST CANCER, History of Any Multi-Drug Resistant Organisms: None Reported Past Surgical History: Hernia Repair Additional Past Surgical History / Comment(s): Right breast removal LT UPPER CHEST MEDIPORT (patient states it is 6 years old and hasnt been used since cancer) , ECTOPIC , Past Anesthesia/Blood Transfusion Reactions: No Reported Reaction Past Psychological History: Anxiety, Depression Additional Psychological History / Comment(s): CELEXA AND XANAX. LIVES WITH SIG OTHER FOR 30 YEARS. Smoking Status: Current every day smoker Past Alcohol Use History: Occasional Additional Past Alcohol Use History / Comment(s): STARTED SMOKING AT AGE 15 SMOKES LESS THAN 1 PPD Past Drug Use History: Marijuana Additional Drug Use History / Comment(s): 1/2 joint daily - Past Family History Father Family Medical History: Myocardial Infarction ([place]) Additional Family Medical History / Comment(s): AGE 56 FROM [place] Mother Family Medical History: COPD, Myocardial Infarction ([place]) Additional Family Medical History / Comment(s): AGE 54 MASSIVE [place] Medications and Allergies Home Medications Medication Instructions Recorded Confirmed Type ALPRAZolam [Xanax] 0.5 mg PO HS 10/20/15 05/13/23 History Albuterol Inhaler [Ventolin Hfa 2 puff INHALATION RT-Q6H PRN 10/21/15 05/13/23 H istory Inhaler] ALPRAZolam [Xanax] 0.125 - 0.25 mg PO DAILY PRN 10/14/22 05/13/23 History Anastrozole [Arimidex] 1 mg PO DAILY 10/14/22 05/13/23 History Cetirizine HCl [Zyrtec] 10 mg PO DAILY PRN 10/14/22 05/13/23 History Citalopram Hydrobromide [CeleXA] 40 mg PO DAILY 10/14/22 05/13/23 History Famotidine [Pepcid] 20 mg PO DAILY 10/14/22 05/13/23 History Rosuvastatin Calcium 5 mg PO DAILY 10/14/22 05/13/23 History Allergies Allergy/AdvReac Type Severity Reaction Status Date / Time No Known Allergies Allergy Verified 05/13/23 14:20 Physical Exam Vitals: Vital Signs Temp Pulse Pulse Resp BP BP Pulse Ox 05/14/23 07:26 14 05/14/23 07:00 97.8 F 70 18 122/76 95 05/14/23 01:40 97.9 F 83 18 134/82 95 05/13/23 20:45 98.1 F 65 18 146/76 93 L 05/13/23 20:00 78 18 139/80 96 05/13/23 19:15 97.4 F L 70 18 129/76 96 Intake and Output 05/13/23 05/14/23 05/14/23 22:59 06:59 14:59 Other: Voiding Method Toilet Toilet # Voids 0 0 Weight 66.224 kg General appearance: The patient is alert, oriented, appears in no acute distress. HET: Head is normocephalic and atraumatic. Conjunctiva pink. Sclera anicteric. Neck: Supple without lymphadenopathy. Trachea midline. Heart: Regular. Lungs: Equal expansion, normal respiratory effort. Abdomen: Soft, right upper quadrant and epigastric tenderness, nondistended with bowel sounds. No guarding or rigidity. Skin: No rashes. No jaundice. Extremities: Normal skin color and turgor. No pedal edema. Neurological: No focal deficits. Alert and oriented x3. Results CBC & Chem 7: 05/14/23 06:50 05/13/23 12:05 Labs: Abnormal Lab Results - Last 24 Hours (Table) 05/13/23 05/14/23 Range/Units 12:05 06:50 MCH 32.2 H (27.0-32.0) pg Eosinophils # 0.48 H (0.04-0.35) X 10*3/uL Chloride 109 H (98-107) mmol/L Glucose 117 H (74-99) mg/dL Amylase 198 H (30-110) U/L Lipase 2727 H (23-300) U/L Comments: Gallbladder ultrasound Unable to exclude an underlying 2.6 cm lesion of the pancreas at the junction of the neck and body. Further evaluation with pancreas protocol CT or MRI is recommended. There appears to be a 3.9 cm mass posterior right liver lobe as well. This can be further characterized on the patient with multiphasic contrast-enhanced MRI. No gallstones. Bile duct upper limits of normal in caliber at 6 mm may be acceptable for patient's age. Correlate with alkaline phosphatase and bilirubin levels. Assessment and Plan (1) Pancreatitis Narrative/Plan: 62-year-old female presenting to the emergency department with epigastric pain radiating to her back. She was noted to have elevated amylase and lipase consistent with pancreatitis and underwent ultrasound of the gallbladder. No previous history of pancreatitis no history of gallstones, and denies any new medications or history of alcoholism. Gallbladder ultrasound concerning for liver mass as well as pancreatic head lesion. CA 19-9 ordered, await MRI MRCP of pancreas. Likely etiology of pancreatitis is related to the pancreatic head lesion. Likely patient will need to follow-up with advanced civil engineering manager for ERCP with EUS for further evaluation and biopsy. Current Visit: Yes Status: Acute Code(s): K85.90 - ACUTE PANCREATITIS WITHOUT NECROSIS OR INFECTION, UNSP SNOMED Code(s): 71980239 (2) Nicotine dependence Current Visit: Yes Status: Acute Code(s): F17.200 - NICOTINE DEPENDENCE, UNSPECIFIED, UNCOMPLICATED SNOMED Code(s): 10807973 Plan: 1. Continue symptomatic and supportive care 2. Patient may have clear liquid diet 3. Agree with MRI MRCP of the pancreas 4. CA 19-9 ordered 5. Daily CMP, lipase 6. Further recommendations forthcoming based on clinical course Thank you for this consultation, we will continue to follow. Dr. Yolande Mendoza I agree with the dictator's note, documented as a scribe by Alexsandra Brandon.
[2023-05-14 12:37] LABS: ALT 16 U/L (8-44); AST 22 U/L (13-35); Albumin 3.4 g/dL (3.8-4.9); Albumin/Globulin Ratio 1.62 Ratio (1.60-3.17); Alkaline Phosphatase 57 U/L (41-126); Blood Urea Nitrogen 7.6 mg/dL (9.0-27.0); Calcium 8.5 mg/dL (8.7-10.3); Carbon Dioxide 22.7 mmol/L (21.6-31.8); Chloride 108 mmol/L (96-109); Chol/HDL Ratio 2.94 Ratio; Globulin 2.1 g/dL (1.6-3.3); Glucose 75 mg/dL (70-110); LDL Cholesterol,Calculated 75.8 mg/dL (0.0-131.0); Potassium 4.1 mmol/L (3.5-5.5); Sodium 141 mmol/L (135-145); Total Bilirubin 0.5 mg/dL (0.3-1.2); Total Protein 5.5 g/dL (6.2-8.2)
--- NOTE | 2023-05-14 13:20 | P.PN ---
Subjective Progress Note Date: 05/14/23 62-year-old lady with past medical history significant for breast cancer, hyperlipidemia who presented to the ER for abdominal pain. Patient stated that she was all right 5 days ago when she started developing abdominal pain that was located in epigastric area, constant, sharp in nature,Radiating to the back, aggravated by eating and drinking, no relieving factor associated with this epigastric pain. Patient was complaining of nausea but no vomiting. There was no complaint of altered bowel movements. Patient stated that initially she kept tolerating this pain and did not seek any medical help. Over the last 24 hours the pain has worsened and she decided to come to the ER Initial lab work done in the ER showed WBC 7.3, hemoglobin 15.4, platelet count 259, sodium 140, potassium 4.1, BUN 14, creatinine 0.53, glucose 117, calcium 9.3 AST 26, ALT 16, troponin 0.012 lipase 2727, amylase 198 Influenza A not detected Influenza B not detected RSV not detected COVID-19 not detected EKG done in the ER showed heart rate of 90, no ST segment elevation or depression seen, no T-wave inversions seen. Ultrasound abdominal done showed unable to exclude an underlying 2.6 cm lesion of the pancreas at the junction of the neck and and body. There appears to be a 3.9 cm mass posterior right liver lobe as well Patient admitted to internal medicine service 05/14. Patient seen and examined. Still having epigastric pain, denies any nausea or vomiting. Denies any fever or chills. REVIEW OF SYSTEMS: CONSTITUTIONAL: No fever, no malaise,. CARDIOVASCULAR: No chest pain, no palpitations, no syncope. PULMONARY: No shortness of breath, no cough, GASTROINTESTINAL: As mentioned above NEUROLOGICAL: No headaches, no weakness, PHYSICAL EXAMINATION: GENERAL: The patient is alert and oriented x3, not in any acute distress. Well developed, well nourished. HEENT: Pupils are round and equally reacting to light. EOMI. No scleral icterus. No conjunctival pallor. Normocephalic, atraumatic. No pharyngeal erythema. No thyromegaly. CARDIOVASCULAR: S1 and S2 present. No murmurs, rubs, or gallops. PULMONARY: Chest is clear to auscultation, no wheezing or crackles. ABDOMEN: Soft, nontender, nondistended, normoactive bowel sounds. No palpable organomegaly. MUSCULOSKELETAL: No joint swelling or deformity. EXTREMITIES: No cyanosis, clubbing, or pedal edema. NEUROLOGICAL: Gross neurological examination did not reveal any focal deficits. SKIN: No rashes. Assessment and plan Acute pancreatitis Pancreatic mass 3.9 cm liver lobe mass Hyperlipidemia History of breast cancer Monitor vital signs Monitor CBC Monitor CMP Continue IV fluid Continue pain management Continue antiemetics Ordered MRI of pancreas Results of lipid panel reviewed. Keep patient clear liquid diet. GI following Labs and medication were reviewed.. Continue same treatment. Continue with symptomatic treatment. Resume home medication. Monitor labs and vitals. DVT and GI prophylaxis. Further recommendations as per clinical course of the patient Dictation was produced using [employer] dictation software. please excuse any grammatical, word or spelling errors. Objective - Vital Signs Vital signs: Vital Signs Temp 97.8 F 05/14/23 07:00 Pulse 70 05/14/23 07:00 Resp 14 05/14/23 07:26 BP 122/76 05/14/23 07:00 Pulse Ox 95 05/14/23 07:00 FiO2 Intake & Output 05/13/23 05/14/23 05/14/23 18:59 06:59 18:59 Weight 66.224 kg 66.224 kg Other: Voiding Method Toilet Toilet # Voids 0 - Labs CBC & Chem 7: 05/14/23 06:50 05/14/23 06:50 Labs: Abnormal Lab Results - Last 24 Hours (Table) 05/14/23 05/14/23 Range/Units 06:50 06:50 MCH 32.2 H (27.0-32.0) pg Eosinophils # 0.48 H (0.04-0.35) X 10*3/uL BUN 7.6 L (9.0-27.0) mg/dL Creatinine 0.5 L (0.6-1.5) mg/dL Calcium 8.5 L (8.7-10.3) mg/dL Total Protein 5.5 L (6.2-8.2) g/dL Albumin 3.4 L (3.8-4.9) g/dL
[2023-05-15 10:23] LABS: HCT 40.9 % (37.2-46.3); HGB 14.1 g/dL (12.0-15.0); MCH 32.3 pg (27.0-32.0); MCHC 34.5 g/dL (32.0-37.0); MCV 93.6 FL (80.0-97.0); Mean Platelet Volume 9.9 FL (9.5-12.2); NRBC Per 100 WBC 0 X 10*3/uL (0.00-0.01); Platelet Count 230 X 10*3/uL (140-440); RBC 4.37 X 10*6/uL (4.10-5.20); RDW 11.4 % (11.5-14.5); WBC 5.84 X 10*3/uL (4.50-10.00)
[2023-05-15 10:50] LABS: ALT 13 U/L (8-44); AST 21 U/L (13-35); Albumin 3.5 g/dL (3.8-4.9); Albumin/Globulin Ratio 1.52 Ratio (1.60-3.17); Alkaline Phosphatase 58 U/L (41-126); BUN/Creat Ratio 10.67 Ratio (12.00-20.00); Blood Urea Nitrogen 6.4 mg/dL (9.0-27.0); Calcium 8.7 mg/dL (8.7-10.3); Carbon Dioxide 24.7 mmol/L (21.6-31.8); Chloride 104 mmol/L (96-109); Globulin 2.3 g/dL (1.6-3.3); Glucose 81 mg/dL (70-110); Potassium 4.1 mmol/L (3.5-5.5); Sodium 138 mmol/L (135-145); Total Bilirubin 0.4 mg/dL (0.3-1.2); Total Protein 5.8 g/dL (6.2-8.2)
--- NOTE | 2023-05-15 12:45 | P.PN ---
Subjective Progress Note Date: 05/15/23 62-year-old lady with past medical history significant for breast cancer, hyperlipidemia who presented to the ER for abdominal pain. Patient stated that she was all right 5 days ago when she started developing abdominal pain that was located in epigastric area, constant, sharp in nature,Radiating to the back, aggravated by eating and drinking, no relieving factor associated with this epigastric pain. Patient was complaining of nausea but no vomiting. There was no complaint of altered bowel movements. Patient stated that initially she kept tolerating this pain and did not seek any medical help. Over the last 24 hours the pain has worsened and she decided to come to the ER Initial lab work done in the ER showed WBC 7.3, hemoglobin 15.4, platelet count 259, sodium 140, potassium 4.1, BUN 14, creatinine 0.53, glucose 117, calcium 9.3 AST 26, ALT 16, troponin 0.012 lipase 2727, amylase 198 Influenza A not detected Influenza B not detected RSV not detected COVID-19 not detected EKG done in the ER showed heart rate of 90, no ST segment elevation or depression seen, no T-wave inversions seen. Ultrasound abdominal done showed unable to exclude an underlying 2.6 cm lesion of the pancreas at the junction of the neck and and body. There appears to be a 3.9 cm mass posterior right liver lobe as well Patient admitted to internal medicine service 05/14. Patient seen and examined. Still having epigastric pain, denies any nausea or vomiting. Denies any fever or chills. 05/15. Patient seen and examined. Abdominal pain has improved. CA 19-9 was normal. MRI pancreas still pending. Complaining of nausea this morning REVIEW OF SYSTEMS: CONSTITUTIONAL: No fever, no malaise,. CARDIOVASCULAR: No chest pain, no palpitations, no syncope. PULMONARY: No shortness of breath, no cough, GASTROINTESTINAL: As mentioned above NEUROLOGICAL: No headaches, no weakness, PHYSICAL EXAMINATION: GENERAL: The patient is alert and oriented x3, not in any acute distress. Well developed, well nourished. HEENT: Pupils are round and equally reacting to light. EOMI. No scleral icterus. No conjunctival pallor. Normocephalic, atraumatic. No pharyngeal erythema. No thyromegaly. CARDIOVASCULAR: S1 and S2 present. No murmurs, rubs, or gallops. PULMONARY: Chest is clear to auscultation, no wheezing or crackles. ABDOMEN: Soft, nontender, nondistended, normoactive bowel sounds. No palpable organomegaly. MUSCULOSKELETAL: No joint swelling or deformity. EXTREMITIES: No cyanosis, clubbing, or pedal edema. NEUROLOGICAL: Gross neurological examination did not reveal any focal deficits. SKIN: No rashes. Assessment and plan Acute pancreatitis Pancreatic mass 3.9 cm liver lobe mass Hyperlipidemia History of breast cancer Monitor vital signs Monitor CBC Monitor CMP Continue IV fluid Continue pain management Continue antiemetics Ordered MRI of pancreas Results of lipid panel reviewed. Keep patient clear liquid diet. GI following Labs and medication were reviewed.. Continue same treatment. Continue with symptomatic treatment. Resume home medication. Monitor labs and vitals. DVT a nd GI prophylaxis. Further recommendations as per clinical course of the patient Dictation was produced using [employer] dictation software. please excuse any grammatical, word or spelling errors. Objective - Vital Signs Vital signs: Vital Signs Temp 98.3 F 05/15/23 07:00 Pulse 77 05/15/23 07:45 Resp 19 05/15/23 07:45 BP 139/81 05/15/23 07:00 Pulse Ox 93 L 05/15/23 07:00 FiO2 Intake & Output 05/14/23 05/15/23 05/15/23 18:59 06:59 18:59 Other: Voiding Method Toilet Toilet Toilet # Voids 1 1 - Labs CBC & Chem 7: 05/15/23 07:34 05/15/23 07:34 Labs: Abnormal Lab Results - Last 24 Hours (Table) 05/14/23 05/14/23 05/14/23 Range/Units 06:50 06:50 06:50 MCH 32.2 H (27.0-32.0) pg Eosinophils # 0.48 H (0.04-0.35) X 10*3/uL BUN 7.6 L (9.0-27.0) mg/dL Creatinine 0.5 L (0.6-1.5) mg/dL Calcium 8.5 L (8.7-10.3) mg/dL Total Protein 5.5 L (6.2-8.2) g/dL Albumin 3.4 L (3.8-4.9) g/dL Lipase 537 H (14-63) U/L
--- NOTE | 2023-05-15 16:10 | P.PN ---
Subjective Progress Note Date: 05/15/23 Principal diagnosis: Abdominal pain, pancreatitis This is a pleasant 62-year-old white female who presented to the emergency department yesterday for complaints of abdominal pain mostly in the epigastric region and radiating to her back. States that have been ongoing for the last few days and she was concerned as it was not going away. She came into the emergency department for further evaluation was noted to have elevated amylase and lipase. She underwent ultrasound of the gallbladder that was concerning for pancreatic lesion as well as a liver lesion. Gastroenterology was consulted for pancreatitis. She has a past medical history fluting breast cancer status post right mastectomy, asthma, and hyperlipidemia. Patient is a current every day smoker. She denies any regular alcohol use or previous history of alcoholism. No previous history of pancreatitis or liver disease. WBC 6.2 hemoglobin 13.6 platelet count 222,000 triglycerides 77 total bilirubin 0.6 AST 26 ALT 16 alkaline phosphatase 70 amylase 198 lipase 2727 05/15/2023 Patient seen and examined today as a follow-up. States that she still having quite a bit of pain and requiring pain medication. Pain is mostly in the right upper quadrant and radiating into her right shoulder. However she is resting comfortably. She is awaiting MRI. WBC 5.8 hemoglobin 14 platelet count 230,000 total bilirubin 0.4 AST 21 ALT 13 alkaline phosphatase 58 lipase had come down to 537 from yesterday AFP less than 3.0 CA 19-9 less than 4.0 Objective - Vital Signs Vital signs: Vital Signs Temp 98.3 F 05/15/23 07:00 Pulse 77 05/15/23 07:45 Resp 19 05/15/23 07:45 BP 139/81 05/15/23 07:00 Pulse Ox 93 L 05/15/23 07:00 FiO2 Intake & Output 05/14/23 05/15/23 05/15/23 18:59 06:59 18:59 Other: Voiding Method Toilet Toilet Toilet # Voids 1 1 - Exam General appearance: The patient is alert, oriented, appears in no acute distress. HET: Head is normocephalic and atraumatic. Conjunctiva pink. Sclera anicteric. Neck: Supple without lymphadenopathy. Trachea midline. Heart: Regular. Lungs: Equal expansion, normal respiratory effort. Abdomen: Soft, right upper quadrant tenderness, nondistended with bowel sounds. No guarding or rigidity. Skin: No rashes. No jaundice. Extremities: Normal skin color and turgor. No pedal edema. Neurological: No focal deficits. Alert and oriented x3. - Labs CBC & Chem 7: 05/15/23 07:34 05/15/23 07:34 Labs: Abnormal Lab Results - Last 24 Hours (Table) 05/14/23 05/14/23 05/14/23 Range/Units 06:50 06:50 06:50 MCH 32.2 H (27.0-32.0) pg Eosinophils # 0.48 H (0.04-0.35) X 10*3/uL BUN 7.6 L (9.0-27.0) mg/dL Creatinine 0.5 L (0.6-1.5) mg/dL Calcium 8.5 L (8.7-10.3) mg/dL Total Protein 5.5 L (6.2-8.2) g/dL Albumin 3.4 L (3.8-4.9) g/dL Lipase 537 H (14-63) U/L Assessment and Plan (1) Pancreatitis Narrative/Plan: 62-year-old female presenting to the emergency department with epigastric pain radiating to her back. She was noted to have elevated amylase and lipase consistent with pancreatitis and underwent ultrasound of the gallbladder. No previous history of pancreatitis no history of gallstones, and denies any new medications or history of alcoholism. Gallbladder ultrasound concerning for liver mass as well as pancreatic head lesion. CA 19-9 ordered, await MRI MRCP of pancreas. Likely etiology of pancreatitis is related to the pancreatic head lesion. Likely patient will need to follow-up with advanced asset protection representative for ERCP with EUS for further evaluation and biopsy. Current Visit: Yes Status: Acute Code(s): K85.90 - ACUTE PANCREATITIS WITHOUT NECROSIS OR INFECTION, UNSP SNOMED Code(s): 31691989 (2) Nicotine dependence Current Visit: Yes Status: Acute Code(s): F17.200 - NICOTINE DEPENDENCE, UNSPECIFIED, UNCOMPLICATED SNOMED Code(s): 98507671 Plan: 1. Continue symptomatic and supportive care 2. Patient may advance to low-fat diet after MRCP 3. Await MRI MRCP of the pancreas 4. Repeat lipase tomorrow 6. Further recommendations forthcoming based on clinical course Thank you for this consultation, we will continue to follow. Dr. Yolande Mendoza I agree with the dictator's note, documented as a scribe by Alexsandra Brandon.
[2023-05-16 02:22] VITALS: TEMP 98.6
[2023-05-16 07:39] VITALS: BP 121/80; PULSE 80; RESP 19
[2023-05-16 11:04] LABS: Basophils # (A) 0.08 X 10*3/uL (0.00-0.10); Basophils % (A) 1.4 %; Eosinophils # (A) 0.43 X 10*3/uL (0.04-0.35); Eosinophils % (A) 7.5 %; HCT 41.8 % (37.2-46.3); HGB 14.3 g/dL (12.0-15.0); Lymphocytes # (A) 1.95 X 10*3/uL (0.90-5.00); Lymphocytes % (A) 34.2 %; MCHC 34.2 g/dL (32.0-37.0); MCV 93.5 FL (80.0-97.0); Mean Platelet Volume 9.6 FL (9.5-12.2); Monocytes # (A) 0.65 X 10*3/uL (0.20-1.00); Monocytes % (A) 11.4 %; NRBC Per 100 WBC 0 X 10*3/uL (0.00-0.01); Neutrophils # (A) 2.59 X 10*3/uL (1.80-7.70); Neutrophils % (A) 45.3 %; Platelet Count 228 X 10*3/uL (140-440); RBC 4.47 X 10*6/uL (4.10-5.20); RDW 11.4 % (11.5-14.5); WBC 5.71 X 10*3/uL (4.50-10.00)
--- NOTE | 2023-05-16 11:12 | MR ---
EXAMINATION TYPE: MR pancreas / mrcp wo/w con DATE OF EXAM: 05/15/2023 2:52 PM CLINICAL INDICATION:Female, 62 years old with history of pancreatic mass; COMPARISON: Ultrasound 05/13/2023 TECHNIQUE MRI ABDOMEN WITH CONTRAST: Multiplanar multi-sequence imaging was performed without and wit h IV contrast/gadolinium. The patient was given 7 cc gadolinium intravenously and dynamic post-VIBE (volumetric interpolated breath-hold gradient recall echo) imaging was performed. IV Contrast: 7 cc Gadavist TECHNIQUE MRCP ABDOMEN WITHOUT CONTRAST: Multi planar, T2-weighted imaging with and without fat satur ation and chemical shift imaging was performed of the abdomen. Then, heavily T2 weighted imaging (kane f-Fourier acquisition single-shot turbo spin-echo) was utilized in order to study the biliary system. Maximum intensity projection images were reconstructed from the original data of the biliary tree. 3D reconstructions and MIP imaging performed on a separate workstation. FINDINGS: MRCP: * The common bile duct at the level of the pancreatic head measures 7 mm in size. * The common hepatic duct measures 6 mm in size. * The pancreatic duct is prominent extending away from the mass in the pancreatic tail/body region. * The gallbladder demonstrates fundal adenomyomatosis. Series 301 image 7. LOWER CHEST: No gross irregularity. ABDOMEN Liver: No evidence for hepatic steatosis or cirrhosis. Gallbladder and Bile ducts: No evidence for ductal dilation, or biliary stricture or evidence of chol edocholithiasis. The gallbladder is within normal limits. Pancreas: Pancreatic body/tail mass measuring 29 x 27 mm. There is delayed heterogenous enhancement o f this mass. Mild dilation of the intra-arterial main pancreatic duct extending away from this lesion . Spleen: Normal for size. Adrenal glands: Right adrenal mass findings 37 x 33 mm. No dropout was identified on chemical shift i maging. There is heterogenous enhancement within this lesion. Kidneys: No evidence for obstructive uropathy. No suspicious renal masses. Stomach and Bowel: No evidence for bowel wall thickening or evidence for obstruction. Scattered colon ic diverticula are seen throughout the colon. Peritoneum: No evidence of pneumoperitoneum or free fluid. Vasculature: No aortic aneurysm. Musculoskeletal: The osseous structures appear intact. Lymph Nodes: No gross evidence for lymphadenopathy. Abdominal wall: Unremarkable. IMPRESSION: 1. Pancreatic tail/body mass measuring up to 29 mm concerning for pancreatic adenocarcinoma. 2. Indeterminate right adrenal mass concerning for metastatic disease until proven otherwise. No othe r adenopathy visualized. 3. No evidence to suggest ductal stricture, choledocholithiasis, or biliary ductal dilatation. 4. Gallbladder fundal adenomyomatosis. 5. Colonic diverticulosis.
[2023-05-16 11:25] LABS: ALT 12 U/L (8-44); AST 21 U/L (13-35); Albumin 3.5 g/dL (3.8-4.9); Albumin/Globulin Ratio 1.59 Ratio (1.60-3.17); Alkaline Phosphatase 55 U/L (41-126); Blood Urea Nitrogen 8.7 mg/dL (9.0-27.0); Carbon Dioxide 25.6 mmol/L (21.6-31.8); Chloride 110 mmol/L (96-109); Globulin 2.2 g/dL (1.6-3.3); Glucose 85 mg/dL (70-110); Potassium 4.1 mmol/L (3.5-5.5); Sodium 142 mmol/L (135-145); Total Bilirubin 0.3 mg/dL (0.3-1.2); Total Protein 5.7 g/dL (6.2-8.2)
[2023-05-16 11:37] LABS: Lipase 436 U/L (14-63)
--- NOTE | 2023-05-16 12:01 | P.PN ---
Subjective Progress Note Date: 05/16/23 Principal diagnosis: Abdominal pain, pancreatitis This is a pleasant 62-year-old white female who presented to the emergency department yesterday for complaints of abdominal pain mostly in the epigastric region and radiating to her back. States that have been ongoing for the last few days and she was concerned as it was not going away. She came into the emergency department for further evaluation was noted to have elevated amylase and lipase. She underwent ultrasound of the gallbladder that was concerning for pancreatic lesion as well as a liver lesion. Gastroenterology was consulted for pancreatitis. She has a past medical history fl[place] breast cancer status post right mastectomy, asthma, and hyperlipidemia. Patient is a current every day smoker. She denies any regular alcohol use or previous history of alcoholism. No previous history of pancreatitis or liver disease. WBC 6.2 hemoglobin 13.6 platelet count 222,000 triglycerides 77 total bilirubin 0.6 AST 26 ALT 16 alkaline phosphatase 70 amylase 198 lipase 2727 05/15/2023 Patient seen and examined today as a follow-up. States that she still having quite a bit of pain and requiring pain medication. Pain is mostly in the right upper quadrant and radiating into her right shoulder. However she is resting comfortably. She is awaiting MRI. WBC 5.8 hemoglobin 14 platelet count 230,000 total bilirubin 0.4 AST 21 ALT 13 alkaline phosphatase 58 lipase had come down to 537 from yesterday AFP less than 3.0 CA 19-9 less than 4.0 05/16/2023 Patient seen and examined today as a follow-up. She was resting comfortably. States she took a pain pill about 2 hours prior. Still having some abdominal pain mostly in that right upper quadrant radiating to the back. She had an MRI pancreas which reported pancreatic tail/body mass measuring up to 29 mm concerning for pancreatic adenocarcinoma. Indeterminate right adrenal mass concerning for metastatic disease until proven otherwise. No other adenopathy visualized. No evidence to suggest ductal stricture, choledocholithiasis or biliary ductal dilation. Gallbladder fundal adenomyomatosis. Colonic diverticulosis. Today's labs WBC 5.7 hemoglobin 14 platelet count 228,000 total bilirubin 0.3 AST 21 ALT 12 alkaline phosphatase 55 lipase 436 Objective - Vital Signs Vital signs: Vital Signs Temp 98.6 F 05/16/23 07:00 Pulse 80 05/16/23 08:00 Resp 19 05/16/23 08:00 BP 121/80 05/16/23 07:00 Pulse Ox 90 L 05/16/23 07:00 FiO2 Intake & Output 05/15/23 05/16/23 05/16/23 18:59 06:59 18:59 Other: Voiding Method Toilet Toilet Toilet # Voids 3 1 - Exam General appearance: The patient is alert, oriented, appears in no acute distress. HET: Head is normocephalic and atraumatic. Conjunctiva pink. Sclera anicteric. Neck: Supple without lymphadenopathy. Trachea midline. Heart: Regular. Lungs: Equal expansion, normal respiratory effort. Abdomen: Soft, right upper quadrant tenderness, nondistended with bowel sounds. No guarding or rigidity. Skin: No rashes. No jaundice. Extremities: Normal skin color and turgor. No pedal edema. Neurological: No focal deficits. Alert and oriented x3. - Labs CBC & Chem 7: 05/16/23 07:00 05/16/23 07:00 Labs: Abnormal Lab Results - Last 24 Hours (Table) 05/16/23 05/16/23 Range/Units 07:00 07:00 RDW 11.4 L (11.5-14.5) % Eosinophils # 0.43 H (0.04-0.35) X 10*3/uL Chloride 110 H (96-109) mmol/L BUN 8.7 L (9.0-27.0) mg/dL Total Protein 5.7 L (6.2-8.2) g/dL Albumin 3.5 L (3.8-4.9) g/dL Albumin/Globulin Ratio 1.59 L (1.60-3.17) Ratio Lipase 436 H (14-63) U/L Assessment and Plan (1) Pancreatitis Narrative/Plan: 62-year-old female presenting to the emergency department with epigastric pain radiating to her back. She was noted to have elevated amylase and lipase consistent with pancreatitis and underwent ultrasound of the gallbladder. No previous history of pancreatitis no history of gallstones, and denies any new medications or history of alcoholism. Gallbladder ultrasound concerning for liver mass as well as pancreatic head lesion. CA 19-9 ordered, await MRI MRCP of pancreas. Likely etiology of pancreatitis is related to the pancreatic head lesion. Likely patient will need to follow-up with [facility] [employer] [facility] for ERCP with EUS for further evaluation and biopsy. Current Visit: Yes Status: Acute Code(s): K85.90 - ACUTE PANCREATITIS WITHOUT NECROSIS OR INFECTION, UNSP SNOMED Code(s): 48158906 (2) Pancreatic mass Narrative/Plan: Pancreatic tail/body mass found on MRI of the pancreas concerning for pancreatic adenocarcinoma. No evidence to suggest ductal stricture, choledocholithiasis or biliary ductal dilation. Patient will follow-up with oncology as well as be referred to [facility] for EUS and biopsy Current Visit: Yes Status: Acute Code(s): K86.89 - OTHER SPECIFIED DISEASES OF PANCREAS SNOMED Code(s): 960790088 (3) Nicotine dependence Current Visit: Yes Status: Acute Code(s): F17.200 - NICOTINE DEPENDENCE, UNSPECIFIED, UNCOMPLICATED SNOMED Code(s): 86652550 Plan: 1. Continue symptomatic and supportive care 2. Continue pain management 3. Diet as tolerated 4. MRI reviewed, results reviewed with patient 5. Patient is cleared from gastroenterology for discharge. She will need outpatient follow-up with oncology and will need referral to [facility] for outpatient EUS Thank you for this consultation, we will sign off at this time. Dr. Yolande Mendoza I agree with the dictator's note, documented as a scribe by Alexsandra Brandon.
--- NOTE | 2023-05-16 13:29 | P.DS ---
Providers Date of admission: 05/13/23 13:51 Expected date of discharge: 05/16/23 Attending physician: Valeriano Butts MD Consults: 05/13/23 13:57 Consult Physician Urgent Consulting Provider: Ale Mendoza Consult Reason/Comments: Pancreatitis, abnormal US Do you want consulting provider notified?: Yes 05/16/23 11:14 Consult Physician Routine Consulting Provider: [place] Consult Reason/Comments: Pancreatic cancer Do you want consulting provider notified?: Yes Primary care physician: Samreen Webb [facility] Course: Discharge diagnoses; Acute pancreatitis Pancreatic mass Right adrenal mass 3.9 cm liver lobe mass Hyperlipidemia History of breast cancer Hospital course; 62-year-old lady with past medical history significant for breast cancer, hyperlipidemia who presented to the ER for abdominal pain. Patient stated that she was all right 5 days ago when she started developing abdominal pain that was located in epigastric area, constant, sharp in nature,Radiating to the back, aggravated by eating and drinking, no relieving factor associated with this epigastric pain. Patient was complaining of nausea but no vomiting. There was no complaint of altered bowel movements. Patient stated that initially she kept tolerating this pain and did not seek any medical help. Over the last 24 hours the pain has worsened and she decided to come to the ER Initial lab work done in the ER showed WBC 7.3, hemoglobin 15.4, platelet count 259, sodium 140, potassium 4.1, BUN 14, creatinine 0.53, glucose 117, calcium 9.3 AST 26, ALT 16, troponin 0.012 lipase 2727, amylase 198 Influenza A not detected Influenza B not detected RSV not detected COVID-19 not detected EKG done in the ER showed heart rate of 90, no ST segment elevation or depression seen, no T-wave inversions seen. Ultrasound abdominal done showed unable to exclude an underlying 2.6 cm lesion of the pancreas at the junction of the neck and and body. There appears to be a 3.9 cm mass posterior right liver lobe as well Patient admitted to internal medicine service 05/14. Patient seen and examined. Still having epigastric pain, denies any nausea or vomiting. Denies any fever or chills. 05/15. Patient seen and examined. Abdominal pain has improved. CA 19-9 was normal. MRI pancreas still pending. Complaining of nausea this morning 05/16. Patient seen and examined. MRI pancreas done showed pancreatic tail/body mass measuring up to 29 mm concerning for pancreatic adenocarcinoma. Intermediate right adrenal mass concerning for metastatic disease.discussed results of MRI with patient, discussed with her regarding need for her to be seen outpatient by oncology as well as GI. Discussed with oncology as well, they recommended to follow-up outpatient with them. Patient will follow-up with oncology as well as be referred to [facility] for EUS and biopsy PHYSICAL EXAMINATION: GENERAL: The patient is alert and oriented x3, not in any acute distress. Well developed, well nourished. HEENT: Pupils are round and equally reacting to light. EOMI. No scleral icterus. No conjunctival pallor. Normocephalic, atraumatic. No pharyngeal erythema. No thyromegaly. CARDIOVASCULAR: S1 and S2 present. No murmurs, rubs, or gallops. PULMONARY: Chest is clear to auscultation, no wheezing or crackles. ABDOMEN: Soft, nontender, nondistended, normoactive bowel sounds. No palpable organomegaly. MUSCULOSKELETAL: No joint swelling or deformity. EXTREMITIES: No cyanosis, clubbing, or pedal edema. NEUROLOGICAL: Gross neurological examination did not reveal any focal deficits. SKIN: No rashes. Dictation was produced using [employer] dictation software. please excuse any grammatical, word or spelling errors. Plan - Discharge Summary Discharge Rx Participant: Yes New Discharge Prescriptions: New HYDROcodone/APAP 5-325MG [Owanka 5-325] 1 each PO Q6HR PRN 3 Days #12 tab PRN Reason: Pain Continue ALPRAZolam [Xanax] 0.5 mg PO HS Albuterol Inhaler [Ventolin Hfa Inhaler] 2 puff INHALATION RT-Q6H PRN PRN Reason: Shortness Of Breath Or Wheezing Citalopram Hydrobromide [CeleXA] 40 mg PO DAILY Cetirizine HCl [Zyrtec] 10 mg PO DAILY PRN PRN Reason: Allergy Symptoms Anastrozole [Arimidex] 1 mg PO DAILY ALPRAZolam [Xanax] 0.125 - 0.25 mg PO DAILY PRN PRN Reason: Pain Rosuvastatin Calcium 5 mg PO DAILY Famotidine [Pepcid] 20 mg PO DAILY Discharge Medication List ALPRAZolam [Xanax] 0.5 mg PO HS 10/20/15 [History] Albuterol Inhaler [Ventolin Hfa Inhaler] 2 puff INHALATION RT-Q6H PRN 10/21/15 [History] ALPRAZolam [Xanax] 0.125 - 0.25 mg PO DAILY PRN 10/14/22 [History] Anastrozole [Arimidex] 1 mg PO DAILY 10/14/22 [History] Cetirizine HCl [Zyrtec] 10 mg PO DAILY PRN 10/14/22 [History] Citalopram Hydrobromide [CeleXA] 40 mg PO DAILY 10/14/22 [History] Famotidine [Pepcid] 20 mg PO DAILY 10/14/22 [History] Rosuvastatin Calcium 5 mg PO DAILY 10/14/22 [History] HYDROcodone/APAP 5-325MG [Owanka 5-325] 1 each PO Q6HR PRN 3 Days #12 tab 05/16/23 [Rx] Follow up Appointment(s)/Referral(s): Ale Mendoza MD [STAFF PHYSICIAN] - 05/20/23 (Call office Friday to make appointment for Friday05/20/23 for hospital follow up.) Samreen Webb MD [Primary Care Provider] - 1-2 days
== END 2023-05-16 14:53 | disposition home or self-care (01) | DRG 282 ==
LOC: EC 11:37 → 6NMEDSUR 13:50 → OBSVTOIN 13:51 → 4SSUR 17:33
PROVIDERS: ADMIT Internal Medicine; ATTEND Internal Medicine
DX: K85.90 Acute pancreatitis without necrosis or infection, unspecified (principal); E78.5 Hyperlipidemia, unspecified; F17.210 Nicotine dependence, cigarettes, uncomplicated; F32.A Depression, unspecified; Z11.52 Encounter for screening for COVID-19; F41.9 Anxiety disorder, unspecified; I10 Essential (primary) hypertension; K76.89 Other specified diseases of liver; Z85.3 Personal history of malignant neoplasm of breast; Z90.11 Acquired absence of right breast and nipple; E27.8 Other specified disorders of adrenal gland; K57.30 Diverticulosis of large intestine without perforation or abscess without bleeding; Z79.811 Long term (current) use of aromatase inhibitors; Z79.899 Other long term (current) drug therapy; Z82.49 Family history of ischemic heart disease and other diseases of the circulatory system
CPT/HCPCS: 36415; 74183; 76705; 80053; 80061; 82105; 82150; 83036; 83605; 83690; 84484; 85025; 85027; 86301; 87636; 93005; 96361; 96374; 96375; 99285

== ENCOUNTER → 2023-07-01 | Outpatient (CLI) | payer OTHER ==
--- NOTE | 2023-07-01 14:14 | MR ---
EXAMINATION TYPE: MR brain wo/w con DATE OF EXAM: 07/01/2023 1:19 PM COMPARISON: NONE HISTORY: Lung, breast, pancreatic cancer. CONTRAST: Patient received 6.5 mL intravenous Gadavist gadolinium contrast. Multiplanar and multispin-echo imaging of the brain was performed . Pre and post contrast enhanced i mages are obtained. Between 13 and 15 enhancing lesions scattered throughout the cerebellum measuring up to 1.1 cm. Appro ximately 5 right cerebral lesions noted the largest being adjacent to the right ventricular atrium me asuring 2.2 x 1.4 cm. Approximately 9 lesions are seen scattered throughout the left cerebrum. The la rgest lesion is seen within the left temporal lobe measuring 1.0 cm. Some of the lesions demonstrate early central necrotic change or cystic component. Left parietal bony metastatic lesion noted at 8.3 mm. Mild surrounding edema is noted about the largest lesion on the right. There is no evidence for m idline shift The ventricles, basal cisterns and sulci overlying the cerebral convexities are mildly enlarged. There is evidence of mild periventricular white matter ischemic demyelination. Remote deep white matter insults are also noted. No acute edema is seen on diffusion weighted imaging. There is no evidence for midline shift or mass effect. Acute intracranial hemorrhage or extra-axial collection is not evident. The paranasal sinuses and mastoid air cells are well-aerated. IMPRESSION: 1. Numerous enhancing lesions seen within the supra and infratentorial portions of the brain as discu ssed above. No evidence for midline shift. Suspected left parietal osseous bony metastatic lesion not ed as well.
== END | disposition home or self-care (01) ==
LOC: RADMRIMAIN 12:37
PROVIDERS: ATTEND Internal Medicine Hematology & Oncology
DX: G93.89 Other specified disorders of brain (principal); C34.90 Malignant neoplasm of unspecified part of unspecified bronchus or lung; C25.9 Malignant neoplasm of pancreas, unspecified
CPT/HCPCS: 70553; A9585

== ENCOUNTER 2023-07-15 02:03 | Inpatient (IN) | payer OTHER ==
--- NOTE | 2023-07-15 02:14 | ED ---
Fever HPI - General Chief Complaint: Abdominal Pain Stated Complaint: Abd NV Time Seen by Provider: 07/15/23 02:11 Source: patient, RN notes reviewed, old records reviewed Mode of arrival: EMS Limitations: no limitations - History of Present Illness Initial Comments: This is a 62-year-old female to ER for evaluation of severe abdominal pain severe anterior abdominal pain with nausea vomiting chest pain shortness of breath history of underlying lung cancer no travel history or sick contacts patient does have fever again does have known lung cancer. Patient's pain is severe with significant diaphoresis and nausea vomiting MD Complaint: fever, weakness, other (Abdominal pain) -: hour(s) Associated Symptoms: chills, myalgias, chest pain, shortness of breath, abdominal pain, nausea, vomiting Treatments Prior to Arrival: none - Related Data Home Medications Medication Instructions Recorded Confirmed Albuterol Inhaler [Ventolin Hfa 2 puff INHALATION RT-Q6H PRN 10/21/15 07/15/23 Inhaler] ALPRAZolam [Xanax] 0.25 mg PO TID PRN 10/14/22 07/15/23 Anastrozole [Arimidex] 1 mg PO DAILY 10/14/22 07/15/23 Cetirizine HCl [Zyrtec] 10 mg PO DAILY PRN 10/14/22 07/15/23 Citalopram Hydrobromide [CeleXA] 40 mg PO DAILY 10/14/22 07/15/23 Famotidine [Pepcid] 20 mg PO HS 10/14/22 07/15/23 Rosuvastatin Calcium 5 mg PO DAILY 10/14/22 07/15/23 Memantine HCl [Namenda Xr] 21 mg PO DIRECTED 07/15/23 07/15/23 dexAMETHasone 2 mg PO TID 07/15/23 07/15/23 fentaNYL 12MCG/HR PATCH [Duragesic 1 patch TRANSDERM Q72H 07/15/23 07/15/23 12MCG/HR] traMADol HCL 50 mg PO Q6H PRN 07/15/23 07/15/23 Allergies Allergy/AdvReac Type Severity Reaction Status Date / Time No Known Allergies Allergy Verified 07/15/23 08:01 Review of Systems ROS Statement: Those systems with pertinent positive or pertinent negative responses have been documented in the HPI. ROS Other: All systems not noted in ROS Statement are negative. Past Medical History Past Medical History: Asthma, Cancer, Hyperlipidemia Additional Past Medical History / Comment(s): 10-18-14 LT ANKLE FX, diverticulitis, RT BREAST CANCER, History of Any Multi-Drug Resistant Organisms: None Reported Past Surgical History: Hernia Repair Additional Past Surgical History / Comment(s): Right breast removal LT UPPER CHEST MEDIPORT (patient states it is 6 years old and hasnt been used since cancer) , ECTOPIC , Past Anesthesia/Blood Transfusion Reactions: No Reported Reaction Past Psychological History: Anxiety, Depression Smoking Status: Current every day smoker Past Alcohol Use History: Occasional Past Drug Use History: Marijuana - Past Family History Father Family Medical History: Myocardial Infarction ([place]) Additional Family Medical History / Comment(s): AGE 56 FROM [place] Mother Family Medical History: COPD, Myocardial Infarction ([place]) Additional Family Medical History / Comment(s): AGE 54 MASSIVE [place] General Exam General appearance: alert, anxious, in distress Head exam: Present: atraumatic, normocephalic, normal inspection Eye exam: Present: normal appearance, PERRL, EOMI. Absent: scleral icterus, conjunctival injection, periorbital swelling ENT exam: Present: normal exam, mucous membranes moist Neck exam: Present: normal inspection. Absent: tenderness, meningismus, lymp hadenopathy Respiratory exam: Present: normal lung sounds bilaterally. Absent: respiratory distress, wheezes, rales, rhonchi, stridor Cardiovascular Exam: Present: regular rate, normal rhythm, normal heart sounds. Absent: systolic murmur, diastolic murmur, rubs, gallop, clicks GI/Abdominal exam: Present: soft, normal bowel sounds. Absent: distended, tenderness, guarding, rebound, rigid Extremities exam: Present: normal inspection, full ROM, normal capillary refill. Absent: tenderness, pedal edema, joint swelling, calf tenderness Back exam: Present: normal inspection Neurological exam: Present: alert, oriented X3, CN II-XII intact Psychiatric exam: Present: normal affect, normal mood Skin exam: Present: warm, dry, intact, normal color. Absent: rash Course Vital Signs 07/15/23 07/15/23 07/15/23 02:06 02:52 03:53 Temperature 100.2 F H Pulse Rate 102 H 106 H 74 Pulse Rate [ Pulse Oximetery ] Respiratory 20 20 Rate Blood Pressure 193/118 187/143 Blood Pressure [Right Arm] O2 Sat by Pulse 90 L 96 Oximetry 07/15/23 07/15/23 07/15/23 04:18 04:36 06:22 Temperature Pulse Rate 70 125 H 127 H Pulse Rate [ Pulse Oximetery ] Respiratory 19 20 Rate Blood Pressure 157/105 151/102 Blood Pressure [Right Arm] O2 Sat by Pulse 96 97 Oximetry 07/15/23 07/15/23 07/15/23 08:40 14:48 20:00 Temperature 97.4 F L 98 F Pulse Rate 110 H Pulse Rate [ 123 H 102 H Pulse Oximetery ] Respiratory 18 18 20 Rate Blood Pressure 124/81 Blood Pressure 129/82 131/72 [Right Arm] O2 Sat by Pulse 93 L 94 L 92 L Oximetry - Reevaluation(s) Reevaluation #1: 07/15/23 02:13 Records reviewed Reevaluation #2: 07/15/23 06:11 Patient has difficult to control pain here in the ER with persistent nausea vomiting, unable to rest Reevaluation #3: 07/15/23 06:11 Patient informed of results and questions answered Reevaluation #4: 07/15/23 02:13 Was pt. sent in by a medical professional or institution (, PA, PURLER, urgent care, hospital, or assisted...) When possible be specific @ -no Did you speak to anyone other than the patient for history (EMS, parent, family, police, friend...)? What history was obtained from this source @ -no Did you review nursing and triage notes (agree or disagree)? Why? @ -agree Are old charts reviewed (outside hosp., previous admission, EMS record, old EKG, old radiological studies, urgent care reports/EKG's, assisted records)? Report findings @ -yes Differential Diagnosis (chest pain, altered mental status, abdominal pain women, abdominal pain men, vaginal bleeding, weakness, fever, dyspnea, syncope, headache, dizziness, GI bleed, back pain, seizure, CVA, palpatations, mental health, musculoskeletal)? @ -prior EKG interpreted by me (3pts min.). @ -yes X-rays interpreted by me (1pt min.). @ -no CT interpreted by me (1pt min.). @ -yes negative for acute disease U/S interpreted by me (1pt. min.). @ -no What testing was considered but not performed or refused? (CT, X-rays, U/S, labs)? Why? @ -none What meds were considered but not given or refused? Why? @ -none Did you discuss the management of the patient with other professionals (professionals i.e. Dr., PA, PURLER, lab, RT, psych nurse, social work associate, tutoring manager, teacher, patrol community service officer, case maker)? Give summary @ -no Was smoking cessation discussed for >3mins.? @ -no Was critical care preformed (if so, how long)? @ -no Were there social determinants of health that impacted care today? How? (Homelessness, low income, unemployed, alcoholism, drug addiction, transportation, low edu. Level, literacy, decrease access to med. care, intermediate, rehab)? @ -none Was there de-escalation of care discussed even if they declined (Discuss DNR or withdrawal of care, Hospice)? DNR status @ -no What co-morbidities impacted this encounter? (DM, HTN, Smoking, COPD, CAD, Cancer, CVA, ARF, Chemo, Hep., AIDS, mental health diagnosis, sleep apnea, morbid obesity)? @ -none Was patient admitted / discharged? Hospital course, mention meds given and route, prescriptions, significant lab abnormalities, going to OR and other pertinent info. @ -62 female for generalized pain with severe and persistent nausea vomiting intractable and uncontrolled pain. Patient feels unwell with significant cancer burden, patient will be admitted for symptom control Admitted Undiagnosed new problem with uncertain prognosis? @ -no Drug Therapy requiring intensive monitoring for toxicity (Heparin, Nitro, Insulin, Cardizem)? @ -no Were any procedures done? @ -no Diagnosis/symptom? @ -Significant cancer burden with metastasis Acute, or Chronic, or Acute on Chronic? @ -Acute Uncomplicated (without systemic symptoms) or Complicated (systemic symptoms)? @ -Complicated Side effects of treatment? @ -no Exacerbation, Progression, or Severe Exacerbation? @ -exacerbation Poses a threat to life or bodily function? How? (Chest pain, USA, PA, pneumonia, PE, COPD, DKA, ARF, appy, cholecystitis, CVA, Diverticulitis, Homicidal, Suicidal, threat to staff... and all critical care pts) @ -yes with significant cancer burden Reevaluation #5: Differential Abdominal Pain Men: Appendicitis, cholecystitis, diverticulosis, ischemic bowel, pancreatitis, hepatitis, UTI, gastroenteritis, AAA, incarcerated hernia, bowel obstruction, constipation, inflammatory bowel, hepatitis, peptic ulcer disease, splenic infarction, perforated viscus, testicular torsion, this is not meant to be an all-inclusive list Differential Fever: Pneumonia, viral URI, endocarditis, myocarditis, pericarditis, otitis, sinusitis, peritonsillar Abscess, retropharyngeal Abscess, epiglottitis, peritonitis, appendicitis, Leslie cystitis, diverticulitis, hepatitis, colitis, UTI, PID, TOA, pyelonephritis, prostatitis, epididymitis, meningitis, encephalitis, pulmonary embolism, CVA, thyroid storm, pancreatitis, adrenal crisis, cavernous sinus thrombosis, this is not meant to be an all-inclusive list. - Consultations Consultation #1: Spoke with [facility] who agrees to admit this patient Medical Decision Making - Medical Decision Making 62 female for generalized pain with severe and persistent nausea vomiting intractable and uncontrolled pain. Patient feels unwell with significant cancer burden, patient will be admitted for symptom control - Lab Data Result diagrams: 07/22/23 10:09 07/22/23 10:09 Lab Results 07/15/23 07/15/23 07/15/23 Range/Units 02:13 02:13 02:13 WBC 11.8 H (3.8-10.6) k/uL RBC 4.54 (3.80-5.40) m/uL Hgb 14.8 (11.4-16.0) gm/dL Hct 43.8 (34.0-46.0) % MCV 96.6 (80.0-100.0) fL MCH 32.5 (25.0-35.0) pg MCHC 33.7 (31.0-37.0) g/dL RDW 13.2 (11.5-15.5) % Plt Count 241 (150-450) k/uL MPV 7.7 Neutrophils % 83 % Lymphocytes % 8 % Monocytes % 7 % Eosinophils % 1 % Basophils % 0 % Neutrophils # 9.7 H (1.3-7.7) k/uL Lymphocytes # 0.9 L (1.0-4.8) k/uL Monocytes # 0.9 (0-1.0) k/uL Eosinophils # 0.1 (0-0.7) k/uL Basophils # 0.0 (0-0.2) k/uL Sodium 133 L (137-145) mmol/L Potassium 4.0 (3.5-5.1) mmol/L Chloride 99 (98-107) mmol/L Carbon Dioxide 29 (22-30) mmol/L Anion Gap 5 mmol/L BUN 23 H (7-17) mg/dL Creatinine 0.56 (0.52-1.04) mg/dL Est GFR (CKD-EPI)AfAm >90 (>60 ml/min/1.73 sqM) Est GFR (CKD-EPI)NonAf >90 (>60 ml/min/1.73 sqM) Glucose 260 H (74-99) mg/dL Plasma Lactic Acid Bi 1.9 (0.7-2.0) mmol/L Calcium 9.0 (8.4-10.2) mg/dL Total Bilirubin 0.9 (0.2-1.3) mg/dL AST 30 (14-36) U/L ALT 19 (4-34) U/L Alkaline Phosphatase 82 (38-126) U/L Total Protein 6.7 (6.3-8.2) g/dL Albumin 4.0 (3.5-5.0) g/dL Amylase 66 (30-110) U/L Lipase 476 H (23-300) U/L Influenza Type A (PCR) (Not Detectd) Influenza Type B (PCR) (Not Detectd) RSV (PCR) (Not Detectd) SARS-CoV-2 (PCR) (Not Detectd) 07/15/23 Range/Units 02:35 WBC (3.8-10.6) k/uL RBC (3.80-5.40) m/uL Hgb (11.4-16.0) gm/dL Hct (34.0-46.0) % MCV (80.0-100.0) fL MCH (25.0-35.0) pg MCHC (31.0-37.0) g/dL RDW (11.5-15.5) % Plt Count (150-450) k/uL MPV Neutrophils % % Lymphocytes % % Monocytes % % Eosinophils % % Basophils % % Neutrophils # (1.3-7.7) k/uL Lymphocytes # (1.0-4.8) k/uL Monocytes # (0-1.0) k/uL Eosinophils # (0-0.7) k/uL Basophils # (0-0.2) k/uL Sodium (137-145) mmol/L Potassium (3.5-5.1) mmol/L Chloride (98-107) mmol/L Carbon Dioxide (22-30) mmol/L Anion Gap mmol/L BUN (7-17) mg/dL Creatinine (0.52-1.04) mg/dL Est GFR (CKD-EPI)AfAm (>60 ml/min/1.73 sqM) Est GFR (CKD-EPI)NonAf (>60 ml/min/1.73 sqM) Glucose (74-99) mg/dL Plasma Lactic Acid Bi (0.7-2.0) mmol/L Calcium (8.4-10.2) mg/dL Total Bilirubin (0.2-1.3) mg/dL AST (14-36) U/L ALT (4-34) U/L Alkaline Phosphatase (38-126) U/L Total Protein (6.3-8.2) g/dL Albumin (3.5-5.0) g/dL Amylase (30-110) U/L Lipase (23-300) U/L Influenza Type A (PCR) Not Detected (Not Detectd) Influenza Type B (PCR) Not Detected (Not Detectd) RSV (PCR) Not Detected (Not Detectd) SARS-CoV-2 (PCR) Not Detected (Not Detectd) - Radiology Data Radiology results: report reviewed (CT chest abdomen pelvis positive for significant cancer burden for metastasis), image reviewed Critical Care Time Critical Care Time: Yes Total Critical Care Time: 31 Disposition Clinical Impression: Pancreatic mass, Abdominal pain, Cancer, metastatic, Metastasis to brain, Fever, Leukocytosis Disposition: ADMITTED IP TO THIS [facility] Condition: Critical Is patient prescribed a controlled substance at d/c from ED?: No Time of Disposition: 06:00
[2023-07-15] MEDS: ONDANSETRON 4 MG/2 ML VIAL IVP STA (02:17)
[2023-07-15] MEDS: SODIUM CHLORIDE 0.9% 500 ML 500 ML IV STA (02:21)
[2023-07-15] MEDS: SODIUM CHLORIDE 0.9% 1,000 ML IV STA ×2 (02:21→02:22)
[2023-07-15] MEDS: PANTOPRAZOLE 40 MG/10 ML VIAL IVP STA (02:22)
[2023-07-15] MEDS: HYDROmorphone 1 MG/ML 1 ML SYRINGE IVP STA ×2 (02:25→03:49)
[2023-07-15 02:26] LABS: Basophils % (A) 0 %; Eosinophils # (A) 0.1 k/uL (0-0.7); Eosinophils % (A) 1 %; HCT 43.8 % (34.0-46.0); HGB 14.8 gm/dL (11.4-16.0); Lymphocytes # (A) 0.9 k/uL (1.0-4.8); Lymphocytes % (A) 8 %; MCH 32.5 pg (25.0-35.0); MCHC 33.7 g/dL (31.0-37.0); MCV 96.6 fL (80.0-100.0); Mean Platelet Volume 7.7; Monocytes # (A) 0.9 k/uL (0-1.0); Monocytes % (A) 7 %; Neutrophils # (A) 9.7 k/uL (1.3-7.7); Neutrophils % (A) 83 %; Platelet Count 241 k/uL (150-450); RBC 4.54 m/uL (3.80-5.40); RDW 13.2 % (11.5-15.5); WBC 11.8 k/uL (3.8-10.6)
[2023-07-15] MEDS: ACETAMINOPHEN TAB 500 MG TAB PO STA (02:28)
[2023-07-15] MEDS: IBUPROFEN 600 MG TAB PO STA (02:28)
[2023-07-15 02:35] LABS: ALT 19 U/L (4-34); AST 30 U/L (14-36); African American GFR (CKD) >90 (>60 ml/min/1.73 sqM); Alkaline Phosphatase 82 U/L (38-126); Amylase 66 U/L (30-110); Anion Gap 5 mmol/L; Blood Urea Nitrogen 23 mg/dL (7-17); Carbon Dioxide 29 mmol/L (22-30); Chloride 99 mmol/L (98-107); Glucose 260 mg/dL (74-99); Lipase 476 U/L (23-300); Non-African American GFR(CKD) >90 (>60 ml/min/1.73 sqM); Sodium 133 mmol/L (137-145); Total Bilirubin 0.9 mg/dL (0.2-1.3); Total Protein 6.7 g/dL (6.3-8.2)
[2023-07-15] MEDS: ACETAMINOPHEN IV (For NPO) 1,000 MG in EMPTY BAG 1 BAG IVPB STA (02:52)
[2023-07-15] MEDS: diphenhydrAMINE 50 MG/ML 1 ML VIAL IVP STA (03:08)
[2023-07-15] MEDS: IPRATROPIUM-ALBUTEROL 3 ML NEB INHALATION STA (03:49)
[2023-07-15] MEDS: IBUPROFEN IV 800 MG in SODIUM CHLORIDE 0.9% 250 ML IV ONE (03:55)
--- NOTE | 2023-07-15 05:33 | CT ---
EXAM: CT Angiography Chest and CT Abdomen and Pelvis With Intravenous Contrast CLINICAL HISTORY: ITS.REASON CT Reason: pain TECHNIQUE: Axial computed tomographic angiography images of the chest and axial computed tomography images of the abdomen and pelvis with intravenous contrast. CTDI is 38.77 mGy and DLP is 333.1 mGy-cm. This CT exam was performed using one or more of the following dose reduction techniques: automated exposure control, adjustment of the mA and/or kV according to patient size, and/or use of iterative reconstruction technique. MIP reconstructed images were created and reviewed. COMPARISON: No relevant prior studies available. FINDINGS: CHEST: Aorta: No acute findings. No aortic aneurysm. No dissection. Pulmonary arteries: No pulmonary embolism detected. Great vessels of aortic arch: No acute findings. No dissection. No arterial occlusion or significant stenosis. Lungs: Innumerable pulmonary nodules which are likely metastatic in nature. Right apical scarring with masslike appearance which may be metastatic in nature. Ground-glass opacities within the right upper lobe which may be infectious or metastatic in nature. Pleural space: Unremarkable. No significant effusion. No pneumothorax. Heart: Coronary artery calcifications. No cardiomegaly. No significant pericardial effusion. Mediastinum: 7.6 x 7.7 x 7.4 cm mediastinal mass. This is favored to be metastatic in nature. ABDOMEN: Liver: See below. Gallbladder and bile ducts: Unremarkable. No calcified stones. No ductal dilation. Pancreas: Multiple centrally necrotic pancreatic masses which are favored to relate to neoplasm. The largest of this is in the pancreatic body measuring 3.3 x 3.9 x 3.6 cm. Spleen: Unremarkable. No splenomegaly. Adrenals: 4.6 x 4.6 x 4.2 cm centrally necrotic right adrenal mass. This appears to have invasion of the liver and is favored to relate to metastatic disease.. Left adrenal mass measuring 3.0 x 4.3 x 4.0 cm. Adjacent hemorrhage noted with hemorrhage in the left retroperitoneal space. Findings likely relate to hemorrhagic focus of neoplasm. Kidneys and ureters: Unremarkable. No hydronephrosis. No solid mass. Stomach and bowel: No evidence of bowel obstruction. Colonic diverticulosis. No evidence of diverticulitis. PELVIS: Appendix: Normal appendix. Bladder: Unremarkable. No mass. Reproductive: Unremarkable as visualized. CHEST, ABDOMEN and PELVIS: Intraperitoneal space: Unremarkable. No significant fluid collection. No free air. Bones/joints: Degenerative changes in the spine. No acute fracture. No dislocation. Soft tissues: Partially visualized metastatic left abdominal wall subcutaneous mass measuring up to 3.2 cm. This is central necrosis. Vasculature: Atherosclerotic disease. Tumor thrombus noted within the portosystemic confluence from the previously described pancreatic masses. Lymph nodes: Centrally necrotic left inguinal lymph node measuring up to 3.3 cm. Tubes, lines and devices: Left chest port terminates with tip in the mid SVC. IMPRESSION: 1. 7.6 x 7.7 x 7.4 cm mediastinal mass. This is favored to be metastatic in nature. 2. Innumerable pulmonary nodules which are likely metastatic in nature. 3. Multiple centrally necrotic pancreatic masses which are favored to relate to neoplasm. The largest of this is in the pancreatic body measuring 3.3 x 3.9 x 3.6 cm. 4. Tumor thrombus noted within the portosystemic confluence from the previously described pancreatic masses. 5. 4.6 x 4.6 x 4.2 cm centrally necrotic right adrenal mass. This appears to have invasion of the liver and is favored to relate to metastatic disease.. 6. Left adrenal mass measuring 3.0 x 4.3 x 4.0 cm. Adjacent hemorrhage noted with hemorrhage in the left retroperitoneal space. Findings likely relate to hemorrhagic focus of neoplasm. 7. Centrally necrotic left inguinal lymph node measuring up to 3.3 cm. 8. Recommend continued follow-up as dictated per patient's primary malignancy. Please note that no history of neoplasm was provided, making it possible that this was not known by primary ordering team as indication was "ITS.REASON CT Reason: pain." <MYCVCSECTION> Communications: 07/15/23 05:40 Verify Receipt Verified receipt with William PADILLA on 07/14 05:40 (-04:00)
[2023-07-15] MEDS ORDERED: NALOXONE 0.4 MG/ML 1 ML VIAL IV PRN (06:08)
[2023-07-15] MEDS ORDERED: LORazepam 2 MG/ML INJ IV PRN (06:09)
[2023-07-15] MEDS: SODIUM CHLORIDE 0.9% 1,000 ML IV SCH (06:43)
[2023-07-15] MEDS: LORazepam 2 MG/ML INJ IV STA (06:49)
[2023-07-15] MEDS: HYDROmorphone 1 MG/ML 1 ML SYRINGE IVP PRN (11:44)
[2023-07-15] MEDS: ONDANSETRON 4 MG/2 ML VIAL IVP PRN (11:46)
[2023-07-15 11:55] LABS: Glucose,Whole Blood 199 mg/dL (70-110)
[2023-07-15] MEDS ORDERED: traMADol 50 MG TAB PO PRN (13:29)
[2023-07-15] MEDS: MEMANTINE HCL 21 MG PO SCH (15:32)
[2023-07-15] MEDS: dexAMETHasone 2 MG TAB PO SCH (15:51)
--- NOTE | 2023-07-15 16:24 | XR ---
EXAMINATION TYPE: XR chest 1V portable DATE OF EXAM: 07/15/2023 COMPARISON: 04/18/2018 INDICATION: CHF TECHNIQUE: Single frontal view of the chest is obtained. FINDINGS: The heart size is normal. The pulmonary vasculature is normal. Infiltrate within the lingula at the left costophrenic angle is present. Some right upper lobe infilt rate is present. Correlate for atelectasis and pneumonia. Follow-up is recommended. Port is on the left with the tip in the superior vena cava region. IMPRESSION: 1. Left costophrenic angle and right apical infiltrates. Correlate for atelectasis and pneumonia. Fol low-up to clearing is recommended.
--- NOTE | 2023-07-15 19:26 | P.CONS ---
History of Present Illness - Reason for Consult Consult date: 07/15/23 metastatic pancreatic adenocarcinoma Requesting physician: Lars Partida - Chief Complaint N,V, abd pain - History of Present Illness Ms. Bains is a pleasant female pt of Dr. Gurrola who initially presented in 2013 with a persistent lump in her right breast. Mammogram 08/30/13 revealed a new 2.8 cm nodule between 9 and 12:00. Ultrasound showed 5.2 x 1.8 x 5 cm tumor. She had a core biopsy 08/31/2013 revealing invasive ductal carcinoma, grade 2, ER/NY positive, HER2 1-2+ by IHC, FISH was negative. She was referred to medical oncology for possible neoadjuvant therapy. MRI and PET scan showed no metastatic disease. BRCA testing was negative. She completed dose dense AC and Taxol 02/10/2014. She had a right mastectomy 04/22/2014 revealing a 6 x 3 cm grade 2 IDC, 0/3 nodes positive. ER/NY positive, HER2 1-2+ by IHC, negative by FISH. Radiation was recommended based on tumor size after discussion at tumor board. She completed RT in 09/12. She did not f/u after that secondary to breaking her ankle, limited mobility and ultimately depression. She was finally seen in February 2015. Tamoxifen was prescribed. She started it in May 2015. She did not follow-up until November 2015. She did not follow-up between March 2016 and June 2018 due to complex social issues. She was seen a few times in 2018, she was switched to anastrozole September 2018, abnormal findings on a follow-up mammogram November 2019, ultimately was found to be negative. She was lost to follow-up again until June 2021, then was again lost to f/u. She was admitted to [facility] 05/13/2023 with progressive abdominal pain, located to the central abdomen, radiating through the back and up to the chest. CT concerns for possibly a mass in the tail of pancreas as well as a right adrenal mass. MRI of the pancreas 05/16/2021 showed a 2.9 x 2.7 cm mass in the pancreatic body/tail with heterogeneous enhancement. Right adrenal mass 3.7 x 3.3 cm with heterogeneous enhancement. AFP and CA 19-9 were within normal limits. She was seen in the office 05/28/2023. She reported she continued on anastrozole until about 2 weeks prior when the prescription ran out. Patient ended up having an EUS at [facility] 06/03/2023, this showed 2.6 x 2.8 cm mass in the pancreatic body, FNA was positive for neuroendocrine carcinoma. She had excisional biopsy of an abdominal wall mass, revealed small cell neuroendocrine carcinoma. PET showed metastatic malignancy with a 5 cm pr ecarinal mass, positive right supraclavicular nodes, large right adrenal met, smaller left adrenal met, pancreatic body mass as well as bony lesions involving the calvarium. [place] to be small so metastatic cancer, most likely lung primary. Patient was scheduled to have a chemotherapy teach, she was contacted on 07/01, 07/07, 07/08, 07/09. Patient stated at that time that she was going to have radiation first. She has not started treatment She is currently admitted for severe abdominal pain associated with nausea, vomiting, chest pain and shortness of breath. She had a fever of 100.2 on admission, severely tachycardic, hypertensive, troponins elevated 1.27. She has been given multiple analgesics prior to being seen and is a bit tired Review of Systems 10 point ROS is as stated in HPI Past Medical History Past Medical History: Asthma, Cancer, Hyperlipidemia Additional Past Medical History / Comment(s): 10-18-14 LT ANKLE FX, diverticulitis, RT BREAST CANCER, History of Any Multi-Drug Resistant Organisms: None Reported Past Surgical History: Hernia Repair Additional Past Surgical History / Comment(s): Right breast removal LT UPPER CHEST MEDIPORT (patient states it is 6 years old and hasnt been used since cancer) , ECTOPIC , Past Anesthesia/Blood Transfusion Reactions: No Reported Reaction Past Psychological History: Anxiety, Depression Smoking Status: Current every day smoker Past Alcohol Use History: Occasional Past Drug Use History: Marijuana - Past Family History Father Family Medical History: Myocardial Infarction ([place]) Additional Family Medical History / Comment(s): AGE 56 FROM [place] Mother Family Medical History: COPD, Myocardial Infarction ([place]) Additional Family Medical History / Comment(s): AGE 54 MASSIVE [place] Medications and Allergies Home Medications Medication Instructions Recorded Confirmed Type Albuterol Inhaler [Ventolin Hfa 2 puff INHALATION RT-Q6H PRN 10/21/15 07/15/23 History Inhaler] ALPRAZolam [Xanax] 0.25 mg PO TID PRN 10/14/22 07/15/23 History Anastrozole [Arimidex] 1 mg PO DAILY 10/14/22 07/15/23 History Cetirizine HCl [Zyrtec] 10 mg PO DAILY PRN 10/14/22 07/15/23 History Citalopram Hydrobromide [CeleXA] 40 mg PO DAILY 10/14/22 07/15/23 History Famotidine [Pepcid] 20 mg PO HS 10/14/22 07/15/23 History Rosuvastatin Calcium 5 mg PO DAILY 10/14/22 07/15/23 History Memantine HCl [Namenda Xr] 21 mg PO DIRECTED 07/15/23 07/15/23 History dexAMETHasone 2 mg PO TID 07/15/23 07/15/23 History fentaNYL 12MCG/HR PATCH [Duragesic 1 patch TRANSDERM Q72H 07/15/23 07/15/23 History 12MCG/HR] traMADol HCL 50 mg PO Q6H PRN 07/15/23 07/15/23 History Allergies Allergy/AdvReac Type Severity Reaction Status Date / Time No Known Allergies Allergy Verified 07/15/23 08:01 Physical Exam Vitals: Vital Signs Temp Pulse Pulse Resp BP BP Pulse Ox 07/15/23 08:40 97.4 F L 123 H 18 129/82 93 L 07/15/23 06:22 127 H 20 151/102 97 07/15/23 04:36 125 H 19 157/105 96 07/15/23 04:18 70 07/15/23 03:53 74 07/15/23 02:52 106 H 20 187/143 96 07/15/23 02:06 100.2 F H 102 H 20 193/118 90 L Intake and Output 07/14/23 07/15/23 07/15/23 22:59 06:59 14:59 Other: Weight 81.647 kg - Constitutional General appearance: average body habitus, cooperative, mild distress - EENT Eyes: anicteric sclerae, EOMI ENT: hearing grossly normal, normal oropharynx - Neck Neck: no lymphadenopathy - Respiratory Respiratory: bilateral: diminished - Cardiovascular tachycardia leg Peripheral Edema: bilateral: None - Gastrointestinal General gastrointestinal: no absent bowel sounds, no decreased bowel sounds, no distended, no hepatomegaly, no hyperactive bowel sounds, no normal bowel sounds, no organomegaly, no rigid, no scaphoid, soft, no splenomegaly, tenderness, no umbilical hernia, no ventral hernia - Integumentary Integumentary: normal - Neurologic Neurologic: CNII-XII intact (grossly) - Musculoskeletal Musculoskeletal: strength equal bilaterally - Psychiatric Psychiatric: A&O x's 3, appropriate affect, intact judgment & insight Results CBC & Chem 7: 07/15/23 02:13 07/15/23 02:13 Labs: Abnormal Lab Results - Last 24 Hours (Table) 07/15/23 07/15/23 07/15/23 Range/Units 02:13 02:13 11:54 WBC 11.8 H (3.8-10.6) k/uL Neutrophils # 9.7 H (1.3-7.7) k/uL Lymphocytes # 0.9 L (1.0-4.8) k/uL Sodium 133 L (137-145) mmol/L BUN 23 H (7-17) mg/dL Glucose 260 H (74-99) mg/dL POC Glucose (mg/dL) 199 H (70-110) mg/dL Lipase 476 H (23-300) U/L Chest x-ray: report reviewed CT scan - abdomen: report reviewed CT scan - chest: report reviewed CT scan - pelvis: report reviewed Assessment and Plan (1) Cancer, metastatic Current Visit: Yes Status: Acute Priority: High Code(s): C79.9 - SECONDARY MALIGNANT NEOPLASM OF UNSPECIFIED SITE SNOMED Code(s): 229383918 (2) Pancreatitis Current Visit: Yes Status: Acute Priority: High Code(s): K85.90 - ACUTE PANCREATITIS WITHOUT NECROSIS OR INFECTION, UNSP SNOMED Code(s): 61644236 (3) Metastasis to brain Current Visit: Yes Status: Acute Priority: High Code(s): C79.31 - SECONDARY MALIGNANT NEOPLASM OF BRAIN SNOMED Code(s): 24106964 Plan: Intractable pain, nausea, vomiting -Elevated lipase, suggestive of degree of pancreatitis -Elevated troponin, Cardiology consulted -Both of the above can be explanations for patient's presentation -NPO diet, supportive medications for symptoms, pain medications Metastatic small cell cancer -Patient reporting that she was going to receive radiation to the brain first no t sure how many treatments into the she is, will clarify and update medical record -Patient has yet to start carbo/PREFINISH OPERATOR/Tecentriq. She has been contacted at least 4 times in the last 2 weeks trying to get her in for an appointment to discuss the drugs individually but, have not been able to get patient in for an appointment -There has been discussion about possible hospice. This is not an unreasonable conversation but, would like patient to at least have pain controlled and feeling a little more comfortable before having this very sensitive discussion. Case discussed with nursing. Will follow-up with patient in the a.m. and see how she is doing. Doctor attests: I performed a history and physical examination of this patient, developed impression and plan of care. Discussed with dictator. I agree with dictators note, documented as a scribe.
[2023-07-15] MEDS: ALPRAZolam 0.25 MG TAB PO PRN (21:49)
[2023-07-15] MEDS: PANTOPRAZOLE 40 MG/10 ML VIAL IVP SCH (21:49)
[2023-07-15] MEDS: HEPARIN SODIUM,PORCINE 5,000 UNIT/ML 1 ML VIAL SQ SCH (21:50)
[2023-07-15] MEDS: HYDROcodone/APAP 5-325MG 1 EACH TAB PO PRN (22:36)
--- NOTE | 2023-07-15 23:48 | HP ---
HISTORY AND PHYSICAL CHIEF COMPLAINT: Abdominal pain. HISTORY OF PRESENT ILLNESS: This is a 62-year-old woman with past medical history of breast cancer with metastases was complaining of severe abdominal pain and epigastric pain. The patient had multiple evaluations suggestive of acute pancreatitis as well as multiple metastases in the mediastinal and pancreatic and as well as left adrenal and inguinal nodes were also noted. Some of the metastases were necrotic and tumor thrombus was also noted. The patient is being admitted for further evaluation and treatment for failure of outpatient treatment and severe pain, which is 10/10 at this time. There is no history of any fever, rigors, or chills. PAST MEDICAL HISTORY: Reviewed, include metastatic breast cancer. The rest of history and chart is also reviewed. HOME MEDICATIONS: Reviewed, include dexamethasone, dose and rest of medications reviewed. ALLERGIES: None known. FAMILY HISTORY: History of myocardial infarction. SOCIAL HISTORY: THC, smoking. REVIEW OF SYSTEMS: A 14-point review is negative except as mentioned. PHYSICAL EXAMINATION: VITAL SIGNS: Pulse is 123, blood pressure 110/80, respirations 18. HEENT: Conjunctivae normal. NECK: No jugular venous distention. CARDIOVASCULAR: n RESPIRATIONS: scattered rhonchi and crackles. ABDOMEN: Soft. Mild diffuse tenderness present. No guarding. No rigidity. No mass palpable. LEGS: No edema. NERVOUS SYSTEM: No focal deficits. LABORATORY DATA: WBC is 11.8, sodium 133. ASSESSMENT: 1. Severe intractable abdominal pain with failure of outpatient treatment, possibly multiple metastases and acute pancreatitis. 2. Breast cancer with necrotic metastases. 3. Mediastinal adenopathy. 4. Left adrenal metastases. 5. History of asthma. 6. Hernia repair. 7. Anxiety and depression. 8. History of nicotine dependence. RECOMMENDATIONS AND DISCUSSION: This 62-year-old woman presented with multiple complex medical issues. We will monitor the patient closely, continue the current pain management. We will keep the patient n.p.o. for the pancreatitis. Otherwise, CAT scan is reviewed. Prognosis is extremely guarded, at this time we will continue with the pain management. Radiation Oncology consultation and as well as Hematology Oncology consultation. Guarded prognosis, further recommendations to follow. We will monitor the blood pressure and heart rate closely. The patient is tachycardic, we will obtain a set of cultures for the possible infection also. MMODL / IJN: [id number] / [facility]
[2023-07-16 07:19] LABS: Glucose,Whole Blood 181 mg/dL (70-110)
[2023-07-16] MEDS: ALBUTEROL HFA INHALER INHALATION PRN (08:11)
[2023-07-16 11:17] LABS: HCT 41.3 % (37.2-46.3); HGB 13.8 g/dL (12.0-15.0); MCH 32.7 pg (27.0-32.0); MCHC 33.4 g/dL (32.0-37.0); MCV 97.9 FL (80.0-97.0); NRBC Per 100 WBC 0 X 10*3/uL (0.00-0.01); Platelet Count 229 X 10*3/uL (140-440); RBC 4.22 X 10*6/uL (4.10-5.20); RDW 13.2 % (11.5-14.5); WBC 13.51 X 10*3/uL (4.50-10.00)
[2023-07-16 11:36] LABS: ALT 17 U/L (8-44); AST 47 U/L (13-35); Albumin 3.7 g/dL (3.8-4.9); Albumin/Globulin Ratio 1.61 Ratio (1.60-3.17); Alkaline Phosphatase 71 U/L (41-126); Amylase 52 U/L (23-121); Blood Urea Nitrogen 17.9 mg/dL (9.0-27.0); Calcium 8.8 mg/dL (8.7-10.3); Carbon Dioxide 24.9 mmol/L (21.6-31.8); Chloride 103 mmol/L (96-109); Globulin 2.3 g/dL (1.6-3.3); Glucose 190 mg/dL (70-110); Potassium 4.4 mmol/L (3.5-5.5); Sodium 142 mmol/L (135-145); Total Bilirubin 0.5 mg/dL (0.3-1.2)
[2023-07-16 11:37] LABS: Lipase 69 U/L (14-63)
[2023-07-16] MEDS: METOPROLOL SUCCINATE (ER) 25 MG TAB.ER.24H PO SCH (11:46)
[2023-07-16] MEDS: CITALOPRAM HYDROBROMIDE 20 MG TAB PO SCH (11:46)
[2023-07-16] MEDS: ASPIRIN 81 MG PO SCH (11:46)
[2023-07-16] MEDS: ISOSORBIDE MONONITRATE ER 30 MG TAB.ER.24H PO SCH (11:48)
[2023-07-16 11:55] LABS: Basophils # (A) 0.03 X 10*3/uL (0.00-0.10); Basophils % (A) 0.2 %; Eosinophils # (A) 0.01 X 10*3/uL (0.04-0.35); Eosinophils % (A) 0.1 %; Lymphocytes # (A) 0.68 X 10*3/uL (0.90-5.00); Monocytes # (A) 1.55 X 10*3/uL (0.20-1.00); Monocytes % (A) 11.5 %; Neutrophils # (A) 11.19 X 10*3/uL (1.80-7.70); Neutrophils % (A) 82.8 %; RBC Morphology Normal (Normal)
[2023-07-16] MEDS: DEXAMETHASONE SOD PHOSPHATE 4 MG/ML 1 ML VIAL IVP SCH (17:14)
--- NOTE | 2023-07-16 17:43 | CA ---
Transthoracic Echo Report Name: Corrina Bains Age: 62 Gender: F : 1960 Exam Date: 07/16/2023 15:42 Exam Location: [facility] Ht (in): 66 Wt (lb): 180 Ordering Physician: Saniya Castillo MD Attending/Referring Phys: Dog Track Kennel Manager Lizett Millard RDCS Procedure CPT: Indications: [place] Cardiac Hx: Technical Quality: Poor Contrast 1: Total Dose (mL): Contrast 2: Total Dose (mL): MEASUREMENTS (Male / Female) Normal Values 2D ECHO LV Diastolic Diameter PLAX 4.0 cm 4.2 - 5.9 / 3.9 - 5.3 cm LV Systolic Diameter PLAX 3.6 cm IVS Diastolic Thickness 1.1 cm 0.6 - 1.0 / 0.6 - 0.9 cm LVPW Diastolic Thickness 1.4 cm 0.6 - 1.0 / 0.6 - 0.9 cm LV Relative Wall Thickness 0.6 M-MODE Aortic Root Diameter MM 2.5 cm LA Systolic Diameter MM 2.9 cm LA Ao Ratio MM 1.2 AV Cusp Separation MM 1.9 cm DOPPLER AV Peak Velocity 87.4 cm/s AV Peak Gradient 3.1 mmHg AV Mean Velocity 61.4 cm/s AV Mean Gradient 1.7 mmHg AV Velocity Time Integral 13.3 cm LVOT Peak Velocity 86.0 cm/s LVOT Peak Gradient 3.0 mmHg LVOT Velocity Time Integral 13.9 cm FINDINGS Left Ventricle Mildly increased left ventricular wall thickness. Left ventricular cavity size normal. Severely reduced global left ventricular systolic function. Left ventricular ejection fraction is estimated at 25-30 %. Global left ventricular hypokinesis. Right Ventricle Right ventricle not well visualized. Right Atrium Right atrium not well visualized. Left Atrium Left atrium not well visualized. Mitral Valve Mitral valve not well visualized. Aortic Valve Aortic valve not well visualized. Tricuspid Valve Tricuspid valve not well visualized. Pulmonic Valve Pulmonic valve not well visualized. Pericardium No pericardial effusion. Aorta Aortic root and proximal ascending aorta not well visualized. CONCLUSIONS Diffuse global hypokinesis with severe LV dysfunction with an ejection fraction of 25-30% Previewed by: Dr. Christiano Mendoza MD (Electronically Signed) Final Date: 16 July 2023 17:43
--- NOTE | 2023-07-16 19:51 | PN ---
PROGRESS NOTE DATE OF SERVICE: 07/16/2023 SUBJECTIVE: This is a 62-year-old woman who was admitted with severe intractable abdominal pain and failure of outpatient treatment and metastatic malignancy. The patient also had features of acute pancreatitis. The troponin is also elevated. Cardiology is also being consulted at this time. Today's labs are not available. PAST MEDICAL HISTORY: Reviewed. REVIEW OF SYSTEMS: A 14-point review is negative except as mentioned earlier. CURRENT MEDICATIONS: Reviewed include aspirin. PHYSICAL EXAMINATION: VITAL SIGNS: Pulse is 117, blood pressure 120/81, respirations 22. HEENT: Conjunctivae normal. NECK: No JVD. CARDIOVASCULAR: S1, S2. RESPIRATIONS: Breath sounds diminished at the bases. Scattered rhonchi and crackles. ABDOMEN: Soft, nontender. LEGS: No edema. NERVOUS SYSTEM: No focal deficits. LABORATORY DATA: Reviewed. ASSESSMENT: 1. Severe intractable abdominal pain with failure of outpatient treatment, possibly multiple metastases and acute pancreatitis. 2. Breast cancer with necrotic metastases. 3. Rule out sepsis. 4. Possible acute gnl-FB-[id number] elevation myocardial infarction with troponin 1.040. 5. Mediastinal adenopathy. 6. Left adrenal metastases. 7. History of asthma. 8. Hernia repair. 9. Anxiety, depression. 10.History of nicotine dependence. RECOMMENDATIONS AND DISCUSSION: Recommend to continue current medications, continue symptomatic treatment. Continue with pain management. I would also recommend closely follow with Cardiology and multiple consultants, otherwise also recommend 2D echo with Doppler and as well as empiric antibiotics, Infectious Disease evaluation, possibility of sepsis also to be considered. Overall prognosis remains extremely guarded. Further recommendations to follow. MMODL / IJN: [id number] /
[2023-07-16] MEDS: ATORVASTATIN 40 MG TAB PO SCH (21:46)
--- NOTE | 2023-07-16 22:40 | P.PN ---
Subjective Progress Note Date: 07/16/23 Principal diagnosis: Pancreatitis -Afebrile, no acute events overnight -Abdominal pain persistent, but improved. Continues to be n.p.o. Objective - Vital Signs Vital signs: Vital Signs Temp 97.6 F 07/16/23 20:00 Pulse 113 H 07/16/23 20:00 Resp 18 07/16/23 21:00 BP 127/76 07/16/23 20:00 Pulse Ox 94 L 07/16/23 20:00 FiO2 Intake & Output 07/16/23 07/16/23 07/17/23 06:59 18:59 06:59 Weight 81.647 kg 81.647 kg Other: Voiding Method Bedside Commode Bedside Commode Bedside Commode Diaper Diaper Diaper # Voids 2 1 - Constitutional Constitutional Comment(s): Appears more comfortable on today's encounter General appearance: Present: cooperative, no acute distress - Respiratory Details: Nonlabored breathing - Cardiovascular Details: Warm and well-perfused - Gastrointestinal General gastrointestinal: Present: soft, tenderness. Absent: distended Localized gastrointestinal: tender: epigastric periumbilical - Integumentary Integumentary: Absent: rash - Neurologic Neurologic: Present: CNII-XII intact. Absent: focal deficits - Psychiatric Psychiatric: Present: A&O x's 3 - Labs CBC & Chem 7: 07/16/23 07:07 07/16/23 07:07 Labs: Abnormal Lab Results - Last 24 Hours (Table) 07/16/23 07/16/23 07/16/23 Range/Units 07:07 07:07 07:14 WBC 13.51 H (4.50-10.00) X 10*3/uL MCV 97.9 H (80.0-97.0) FL MCH 32.7 H (27.0-32.0) pg Immature Gran # 0.05 H (0.00-0.04) X 10*3/uL Neutrophils # 11.19 H (1.80-7.70) X 10*3/uL Lymphocytes # 0.68 L (0.90-5.00) X 10*3/uL Monocytes # 1.55 H (0.20-1.00) X 10*3/uL Eosinophils # 0.01 L (0.04-0.35) X 10*3/uL Anion Gap 14.10 H (4.00-12.00) mmol/L Creatinine 0.5 L (0.6-1.5) mg/dL BUN/Creatinine Ratio 35.80 H (12.00-20.00) Ratio Glucose 190 H (70-110) mg/dL POC Glucose (mg/dL) 181 H (70-110) mg/dL AST 47 H (13-35) U/L Total Protein 6.0 L (6.2-8.2) g/dL Albumin 3.7 L (3.8-4.9) g/dL Lipase 69 H (14-63) U/L Microbiology - Last 24 Hours (Table) 07/15/23 02:30 Blood Culture - Preliminary Blood 07/15/23 02:15 Blood Culture - Preliminary Blood Assessment and Plan (1) Extensive stage primary small cell carcinoma of lung Current Visit: Yes Status: Acute Code(s): C34.90 - MALIGNANT NEOPLASM OF UNSP PART OF UNSP BRONCHUS OR LUNG SNOMED Code(s): 653358039109280 (2) Pancreatitis Current Visit: Yes Status: Acute Priority: High Code(s): K85.90 - ACUTE PANCREATITIS WITHOUT NECROSIS OR INFECTION, UNSP SNOMED Code(s): 89239360 Plan: Pancreatitis -Presented with nausea, vomiting, and abdominal pain radiating to the back -Elevated lipase, suggestive of degree of pancreatitis -Likely secondary to known metastatic pancreatic lesion -Improved today with supportive measures -NPO diet, supportive medications for symptoms, pain medications Extensive stage small cell lung cancer -Was scheduled to receive first treatment of whole brain radiation therapy on 07/16/[address] Kruger at [facility] -Patient has yet to start carbo/SORTING SUPERVISOR/Tecentriq. She has been contacted at least 4 times in the last 2 weeks trying to get her in for an appointment to discuss the drugs individually but, have not been able to get patient in for an appointment -Hospice was consulted for informational discussion on admission. Corrina was upset with this and would like to at least proceed with whole brain radiation therapy and then possibly consider systemic treatment -The goal during this admission will be to treat her pancreatitis and pursue a dditional cancer directed treatment outpatient Bharath Irizarry MD
--- NOTE | 2023-07-16 22:52 | P.CONS ---
History of Present Illness - Reason for Consult Consult date: 07/16/23 Sepsis Requesting physician: Saniya Castillo - Chief Complaint Abdominal pain x few days - History of Present Illness Patient is a 62-year-old female past medical history significant for hyperlipidemia asthma diverticulitis and right breast cancer as well as small c ell cancer of the lung presenting to the hospital for evaluation of severe abdominal pain along with nausea and vomiting patient symptom has been going on for a day or 2 before presentation to the hospital describes the pain to be sharp moderate to severe intensity without radiation also complains of nausea vomiting and some constipation did not mention any high-grade fever on presentation to the hospital the patient did have a low-grade fever 100.2 F patient was tachycardic but not hypotensive mildly hypoxic currently on 3 L nasal cannula oxygen patient did have a white count of 11.8 which is up to 13.5 today creatinine has been normal liver enzymes are normal lipase elevated at 476 amylase was normal influenza RSV and COVID testing was negative patient did have a CT abdominal pelvis mediastinal mass also with pulmonary nodules necrotic pancreatic masses tumor thrombus within the portosystemic confluence necrotic right adrenal mass centrally necrotic left inguinal lymph node infectious disease was consulted today consulted for possible sepsis in this patient currently being treated with empiric Rocephin therapy patient do not have any allergies Review of Systems Positive point and negatives has been mentioned in the HPI, complete review of systems was performed and all other systems are negative Past Medical History Past Medical History: Asthma, Cancer, Hyperlipidemia Additional Past Medical History / Comment(s): 10-18-14 LT ANKLE FX, diverticulitis, RT BREAST CANCER 6 years ago. History of Any Multi-Drug Resistant Organisms: None Reported Past Surgical History: Hernia Repair Additional Past Surgical History / Comment(s): Right breast removal LT UPPER CHEST MEDIPORT (patient states it is 6 years old and hasnt been used since cancer) , ECTOPIC , Past Anesthesia/Blood Transfusion Reactions: No Reported Reaction Smoking Status: Current every day smoker - Past Family History Father Family Medical History: Myocardial Infarction ([place]) Additional Family Medical History / Comment(s): AGE 56 FROM [place] Mother Family Medical History: COPD, Myocardial Infarction ([place]) Additional Family Medical History / Comment(s): AGE 54 MASSIVE [place] Medications and Allergies Home Medications Medication Instructions Recorded Confirmed Type Albuterol Inhaler [Ventolin Hfa 2 puff INHALATION RT-Q6H PRN 10/21/15 07/15/23 History Inhaler] ALPRAZolam [Xanax] 0.25 mg PO TID PRN 10/14/22 07/15/23 History Cetirizine HCl [Zyrtec] 10 mg PO DAILY PRN 10/14/22 07/15/23 History Citalopram Hydrobromide [CeleXA] 40 mg PO DAILY 10/14/22 07/15/23 History Famotidine [Pepcid] 20 mg PO HS 10/14/22 07/15/23 History Memantine HCl [Namenda Xr] 21 mg PO DIRECTED 07/15/23 07/15/23 History dexAMETHasone 2 mg PO TID 07/15/23 07/15/23 History traMADol HCL 50 mg PO Q6H PRN 07/15/23 07/15/23 History Aspirin 81 mg PO DAILY #30 tab 07/28/23 Rx Atorvastatin [Lipitor] 40 mg PO HS #30 tab 07/28/23 Rx Furosemide [Lasix] 20 mg PO DAILY #30 tab 07/28/23 Rx Ipratropium-Albuterol Nebulize 3 ml INHALATION RT-QID #100 each 07/28/23 Rx [Duoneb 0.5 mg-3 mg/3 ml Soln] Ipratropium-Albuterol Nebulize 3 ml INHALATION RT-TID PRN each 07/28/23 Rx [Duoneb 0.5 mg-3 mg/3 ml Soln] Isosorbide Mononitrate ER [Imdur] 30 mg PO DAILY #30 tab 07/28/23 Rx Magnesium Hydroxide [Milk of 2,400 mg PO DAILY PRN ml 07/28/23 Rx Magnesia] Metoprolol Succinate (ER) [Toprol 25 mg PO DAILY #30 tab 07/28/23 Rx XL] Potassium Chloride 10 meq PO DAILY #60 cap 07/28/23 Rx Sennosides-Docusate Sodium 2 each PO BID #60 tab 07/28/23 Rx [Senokot-S] Allergies Allergy/AdvReac Type Severity Reaction Status Date / Time No Known Allergies Allergy Verified 07/15/23 08:01 Physical Exam Vitals: Vital Signs Temp Pulse Pulse Resp BP BP Pulse Ox 07/16/23 08:00 97.9 F 117 H 22 120/81 95 07/16/23 02:00 98 F 98 16 114/65 98 07/15/23 21:00 97.5 F L 119 H 16 122/83 91 L 07/15/23 20:00 110 H 20 124/81 92 L 07/15/23 14:48 98 F 102 H 18 131/72 94 L Intake and Output 07/15/23 07/16/23 07/16/23 22:59 06:59 14:59 Intake Total 400 Balance 400 Intake: Intake, IV Titration 400 Amount Sodium Chloride 0.9% 1, 400 000 ml @ 125 mls/hr IV . Q8H [facility] Rx#:[id number] Other: Voiding Method Bedside Commode Bedside Commode Diaper Diaper # Voids 2 Weight 81.647 kg GENERAL DESCRIPTION: Middle-aged female lying in bed, no distress. No tachypnea or accessory muscle of respiration use. HEENT: Shows Pallor , no scleral icterus. Oral mucous membrane is dry. No pharyngeal erythema or thrush NECK: Trachea central, no thyromegaly. LUNGS: Unlabored breathing. Coarse breath sounds bilaterally HEART: S1, S2, regular rate and rhythm. No loud murmur ABDOMEN: Soft, mild tenderness EXTREMITIES: No edema of feet. SKIN: No rash, no masses palpable. NEUROLOGICAL: The patient is awake, alert, oriented x3, mood and affect normal. Results CBC & Chem 7: 07/28/23 12:37 07/28/23 09:43 Labs: Abnormal Lab Results - Last 24 Hours (Table) 07/15/23 07/15/23 07/15/23 Range/Units 15:28 15:28 18:46 WBC (4.50-10.00) X 10*3/uL MCV (80.0-97.0) FL MCH (27.0-32.0) pg Immature Gran # (0.00-0.04) X 10*3/uL Neutrophils # (1.80-7.70) X 10*3/uL Lymphocytes # (0.90-5.00) X 10*3/uL Monocytes # (0.20-1.00) X 10*3/uL Eosinophils # (0.04-0.35) X 10*3/uL Anion Gap (4.00-12.00) mmol/L Creatinine (0.6-1.5) mg/dL BUN/Creatinine Ratio (12.00-20.00) Ratio Glucose (70-110) mg/dL POC Glucose (mg/dL) (70-110) mg/dL AST (13-35) U/L Troponin I 1.270 H* 1.040 H* (0.000-0.034) ng/mL Total Protein (6.2-8.2) g/dL Albumin (3.8-4.9) g/dL Lipase (14-63) U/L Cortisol 34.5 H (3.1-22.4) UG/DL 07/16/23 07/16/23 07/16/23 Range/Units 07:07 07:07 07:14 WBC 13.51 H (4.50-10.00) X 10*3/uL MCV 97.9 H (80.0-97.0) FL MCH 32.7 H (27.0-32.0) pg Immature Gran # 0.05 H (0.00-0.04) X 10*3/uL Neutrophils # 11.19 H (1.80-7.70) X 10*3/uL Lymphocytes # 0.68 L (0.90-5.00) X 10*3/uL Monocytes # 1.55 H (0.20-1.00) X 10*3/uL Eosinophils # 0.01 L (0.04-0.35) X 10*3/uL Anion Gap 14.10 H (4.00-12.00) mmol/L Creatinine 0.5 L (0.6-1.5) mg/dL BUN/Creatinine Ratio 35.80 H (12.00-20.00) Ratio Glucose 190 H (70-110) mg/dL POC Glucose (mg/dL) 181 H (70-110) mg/dL AST 47 H (13-35) U/L Troponin I (0.000-0.034) ng/mL Total Protein 6.0 L (6.2-8.2) g/dL Albumin 3.7 L (3.8-4.9) g/dL Lipase 69 H (14-63) U/L Cortisol (3.1-22.4) UG/DL Microbiology - Last 24 Hours (Table) 07/15/23 02:30 Blood Culture - Preliminary Blood 07/15/23 02:15 Blood Culture - Preliminary Blood Assessment and Plan (1) Abdominal pain Status: Acute Priority: High Code(s): R10.9 - UNSPECIFIED ABDOMINAL PAIN SNOMED Code(s): 94446796 (2) Leukocytosis Status: Acute Code(s): D72.829 - ELEVATED WHITE BLOOD CELL COUNT, UNSPECIFIED SNOMED Code(s): 948304493 Plan: 1patient presented to hospital with intractable abdominal pain nausea vomiting and this patient who did have a extensive abnormality seen on the CT of the chest abdominal pelvis concerning for necrotic masses in the pancreas and renal could be responsible for most of her symptomatology with a low-grade fever elevated white count could be reactive underlying infectious etiology less likel y but not entirely excluded 2-blood culture has been obtained we will check inflammatory markers 3-discontinue Rocephin 4-start the patient on Zosyn while waiting for the workup to be completed We will follow on clinical condition and cultures to further adjust medication if needed Thank you for this consultation we will follow the patient along with you Dictation was produced using [employer] dictation software. please excuse any grammatical, word or spelling errors. Time with Patient: Greater than 30
[2023-07-16] MEDS: PIPERACILLIN-TAZOBACTAM 3.375 GM in SODIUM CHLORIDE 0.9% 100 ML IVPB SCH (23:17)
[2023-07-17 08:43] LABS: HGB 12.6 g/dL (12.0-15.0); MCH 32.7 pg (27.0-32.0); MCHC 33.2 g/dL (32.0-37.0); MCV 98.7 FL (80.0-97.0); Mean Platelet Volume 10.6 FL (9.5-12.2); NRBC Per 100 WBC 0 X 10*3/uL (0.00-0.01); Platelet Count 207 X 10*3/uL (140-440); RBC 3.85 X 10*6/uL (4.10-5.20); RDW 13.2 % (11.5-14.5); WBC 10.98 X 10*3/uL (4.50-10.00)
[2023-07-17 08:44] LABS: Basophils # (A) 0.02 X 10*3/uL (0.00-0.10); Basophils % (A) 0.2 %; Eosinophils # (A) 0 X 10*3/uL (0.04-0.35); Eosinophils % (A) 0 %; Lymphocytes # (A) 0.48 X 10*3/uL (0.90-5.00); Lymphocytes % (A) 4.4 %; Monocytes # (A) 1.35 X 10*3/uL (0.20-1.00); Monocytes % (A) 12.3 %; Neutrophils % (A) 82.8 %
[2023-07-17 09:05] LABS: ALT 18 U/L (8-44); AST 45 U/L (13-35); Albumin 3.5 g/dL (3.8-4.9); Albumin/Globulin Ratio 1.52 Ratio (1.60-3.17); Alkaline Phosphatase 60 U/L (41-126); Amylase 41 U/L (23-121); Blood Urea Nitrogen 22.1 mg/dL (9.0-27.0); Calcium 8.7 mg/dL (8.7-10.3); Carbon Dioxide 26.9 mmol/L (21.6-31.8); Chloride 105 mmol/L (96-109); Chol/HDL Ratio 2.44 Ratio; Globulin 2.3 g/dL (1.6-3.3); Glucose 174 mg/dL (70-110); LDL Cholesterol,Calculated 61.7 mg/dL (0.0-131.0); Lipase 54 U/L (14-63); Potassium 4.1 mmol/L (3.5-5.5); Sodium 143 mmol/L (135-145); Total Bilirubin 0.7 mg/dL (0.3-1.2); Total Protein 5.8 g/dL (6.2-8.2)
--- NOTE | 2023-07-17 11:39 | P.CRDCN ---
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 She has a past medical history of breast cancer, hyperlipidemia, tobacco use and dependence. We have been asked to evaluate the patient for elevated troponins and chest pain. Patient presented to the hospital due to back pain in the lower back area. She denies having any chest pain. She also has abdominal pain and nausea and vomiting, cough with sputum production. She states the pain in her back hurts more with movement. Pain has been ongoing for couple of days. When she is active she does not experience chest pain. Her initial blood pressure 193/118 and heart rate 125, temperature 100.2. She denies having any fevers at home but states she is having sweats. She continues to smoke down to 8 to 10 cigarettes/day down to less than 1 pack/day for many years. She also drinks a sixpack of alcohol per month and u ses marijuana daily. She denies history of diabetes but blood sugar on presentation was 260. Patient denies family history of coronary artery disease. Telemetry: Sinus tachycardia with ventricular rate of 118 Chest x-ray: Left costophrenic angle and right apical infiltrates. Correlate for atelectasis and pneumonia. CTA chest, abdomen and pelvis: 7.6 x 7.7 x 7.4 cm mediastinal mass. Innumerable pulmonary nodules. Multiple necrotic pancreatic masses. Tumor thrombus noted within the portosystemic confluence from pancreatic masses. 4.6 x 4.6 x 4.2 necrotic right adrenal mass. There appears to be invasion of the liver. Left adrenal mass. Adjacent hemorrhage noted in the left retroperitoneal space. Findings likely related to hemorrhagic focus of neoplasm. WBC 11.8, hemoglobin 14.8. Sodium 133, potassium 4, BUN 23 creatinine 0.56. Troponin 0.27, 1.04. Lipase 476. Cortisol level 34.5. Influenza A, influenza B, RSV, COVID-19 not detected. Home cardiac medications: Crestor 5 mg daily. Echocardiogram performed in 2013 revealed mild concentric left ventricular hypertrophy. EF 55 to 60%. Mild mitral regurgitation. Mild tricuspid regurgitation. Review Of Systems: At the time of my exam: CONSTITUTIONAL: Denies fever or chills. HEENT: Denies blurred vision, vision changes, or eye pain. Denies hemoptysis CARDIOVASCULAR: Denies chest pain. Denies orthopnea. Denies PND. Denies palpitations RESPIRATORY: Denies shortness of breath. GASTROINTESTINAL: Reports flank pain, and abdominal pain. Reports nausea or vomiting. HEMATOLOGIC: Denies bleeding disorders. GENITOURINARY: Denies any blood in urine. SKIN: Denies pruitis. Denies rash. Physical examination: Gen: This is a 62-year-old female appears to be uncomfortable. VS: reviewed blood pressure 120/81, heart rate 117, pulse ox 95% on 3 L nasal cannula. HEENT: Head is atraumatic, normocephalic. Pupils equal, round. Sclerae is anicteric. NECK: Supple. No JVD. LUNGS: Rhonchi and coarse wheezing. No intercostal retractions. HEART: Regular rate and rhythm. No murmur. ABDOMEN: Soft No tenderness. EXTREMITIES: No pedal edema. No calf tenderness. NEUROLOGICAL: Patient is awake, alert and oriented x3. 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 Nurse practitioner note has been reviewed, I agree with documented findings and plan of care. Patient was seen and examined. Past Medical History Past Medical History: Asthma, Cancer, Hyperlipidemia Additional Past Medical History / Comment(s): 10-18-14 LT ANKLE FX, diverticulitis, RT BREAST CANCER 6 years ago. History of Any Multi-Drug Resistant Organisms: None Reported Past Surgical History: Hernia Repair Additional Past Surgical History / Comment(s): Right breast removal LT UPPER CHEST MEDIPORT (patient states it is 6 years old and hasnt been used since cancer) , ECTOPIC , Past Anesthesia/Blood Transfusion Reactions: No Reported Reaction Smoking Status: Current every day smoker - Past Family History Father Family Medical History: Myocardial Infarction ([place]) Additional Family Medical History / Comment(s): AGE 56 FROM [place] Mother Family Medical History: COPD, Myocardial Infarction ([place]) Additional Family Medical History / Comment(s): AGE 54 MASSIVE [place] Medications and Allergies Home Medications Medication Instructions Recorded Confirmed Type Albuterol Inhaler [Ventolin Hfa 2 puff INHALATION RT-Q6H PRN 10/21/15 07/15/23 History Inhaler] ALPRAZolam [Xanax] 0.25 mg PO TID PRN 10/14/22 07/15/23 History Anastrozole [Arimidex] 1 mg PO DAILY 10/14/22 07/15/23 History Cetirizine HCl [Zyrtec] 10 mg PO DAILY PRN 10/14/22 07/15/23 History Citalopram Hydrobromide [CeleXA] 40 mg PO DAILY 10/14/22 07/15/23 History Famotidine [Pepcid] 20 mg PO HS 10/14/22 07/15/23 History Rosuvastatin Calcium 5 mg PO DAILY 10/14/22 07/15/23 History Memantine HCl [Namenda Xr] 21 mg PO DIRECTED 07/15/23 07/15/23 History dexAMETHasone 2 mg PO TID 07/15/23 07/15/23 History fentaNYL 12MCG/HR PATCH [Duragesic 1 patch TRANSDERM Q72H 07/15/23 07/15/23 History 12MCG/HR] traMADol HCL 50 mg PO Q6H PRN 07/15/23 07/15/23 History Allergies Allergy/AdvReac Type Severity Reaction Status Date / Time No Known Allergies Allergy Verified 07/15/23 08:01 Physical Exam Vitals: Vital Signs Temp Pulse Pulse Resp BP BP Pulse Ox 07/16/23 08:00 97.9 F 117 H 22 120/81 95 07/16/23 02:00 98 F 98 16 114/65 98 07/15/23 21:00 97.5 F L 119 H 16 122/83 91 L 07/15/23 20:00 110 H 20 124/81 92 L 07/15/23 14:48 98 F 102 H 18 131/72 94 L 07/15/23 08:40 97.4 F L 123 H 18 129/82 93 L Intake and Output 07/15/23 07/16/23 07/16/23 22:59 06:59 14:59 Intake Total 400 Balance 400 Intake: Intake, IV Titration 400 Amount Sodium Chloride 0.9% 1, 400 000 ml @ 125 mls/hr IV . Q8H [facility] Rx#:[id number] Other: Voiding Method Bedside Commode Diaper # Voids 2 Weight 81.647 kg Results 07/15/23 02:13 07/15/23 02:13 Cardiac Enzymes 07/15/23 07/15/23 Range/Units 15:28 18:46 Troponin I 1.270 H* 1.040 H* (0.000-0.034) ng/mL Current Medications Generic Name Dose Route Start Last Admin Trade Name Freq PRN Reason Stop Dose Admin Hydrocodone Bitart/Acetaminophen 1 each 07/15/23 13:30 07/15/23 22:36 Hydrocodone/Apap 5-325mg 1 Each Tab PO 1 each Q6HR PRN Administration Pain Albuterol Sulfate 2 puff 07/15/23 13:29 07/16/23 08:11 Albuterol Hfa Inhaler INHALATION 2 puff RT-Q6H PRN Administration Shortness Of Breath Or Wheezing Alprazolam 0.25 mg 07/15/23 13:29 07/15/23 21:49 Alprazolam 0.25 Mg Tab PO 0.25 mg TID PRN Administration Anxiety Citalopram Hydrobromide 40 mg 07/16/23 09:00 Citalopram Hydrobromide 20 Mg Tab PO DAILY [facility] Dexamethasone 2 mg 07/15/23 16:00 07/15/23 21:49 Dexamethasone 2 Mg Tab PO 2 mg TID [facility] Administration Heparin Sodium (Porcine) 5,000 unit 07/15/23 21:00 07/15/23 21:50 Heparin Sodium,Porcine 5,000 Unit/Ml 1 Ml Vial SQ 5,000 unit Q12HR [facility] Administration Hydromorphone HCl 1 mg 07/15/23 06:08 07/16/23 03:10 Hydromorphone 1 Mg/Ml 1 Ml Syringe IVP 1 mg Q3HR PRN Administration Severe Pain (Scale 7 to 10) Sodium Chloride 1,000 mls @ 125 mls/hr 07/15/23 06:15 07/16/23 03:11 Saline 0.9% IV 125 mls/hr .Q8H [facility] Administration Lorazepam 0.5 mg 07/15/23 06:09 Lorazepam 2 Mg/Ml Inj IV Q6HR PRN Anxiety Naloxone HCl 0.2 mg 07/15/23 06:08 Naloxone 0.4 Mg/Ml 1 Ml Vial IV Q2M PRN Opioid Reversal Ondansetron HCl 4 mg 07/15/23 06:08 07/15/23 22:36 Ondansetron 4 Mg/2 Ml Vial IVP 4 mg Q8HR PRN Administration Nausea And Vomiting Pantoprazole Sodium 40 mg 07/15/23 21:00 07/15/23 21:49 Pantoprazole 40 Mg/10 Ml Vial IVP 40 mg BID [facility] Administration Intake and Output 07/15/23 07/16/23 07/16/23 22:59 06:59 14:59 Intake Total 400 Balance 400 Intake: Intake, IV Titration 400 Amount Sodium Chloride 0.9% 1, 400 000 ml @ 125 mls/hr IV . Q8H [facility] Rx#:[id number] Other: Voiding Method Bedside Commode Diaper # Voids 2 Weight 81.647 kg 07/15/23 02:13 07/15/23 02:13
--- NOTE | 2023-07-17 11:54 | P.PN ---
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 She has a past medical history of breast cancer, hyperlipidemia, tobacco use and dependence. We have been asked to evaluate the patient for elevated troponins and chest pain. Patient presented to the hospital due to back pain in the lower back area. She denies having any chest pain. She also has abdominal pain and nausea and vomiting, cough with sputum production. She states the pain in her back hurts more with movement. Pain has been ongoing for couple of days. When she is active she does not experience chest pain. Her initial blood pressure 193/118 and heart rate 125, temperature 100.2. She denies having any fevers at home but states she is having sweats. She continues to smoke down to 8 to 10 cigarettes/day down to less than 1 pack/day for many years. She also drinks a sixpack of alcohol per month and uses marijuana daily. She denies history of diabetes but blood sugar on presentation was 260. Patient denies family history of coronary artery disease. Telemetry: Sinus tachycardia with ventricular rate of 118 Chest x-ray: Left costophrenic angle and right apical infiltrates. Correlate for atelectasis and pneumonia. CTA chest, abdomen and pelvis: 7.6 x 7.7 x 7.4 cm mediastinal mass. Innumerable pulmonary nodules. Multiple necrotic pancreatic masses. Tumor thrombus noted within the portosystemic confluence from pancreatic masses. 4.6 x 4.6 x 4.2 necrotic right adrenal mass. There appears to be invasion of the liver. Left adrenal mass. Adjacent hemorrhage noted in the left retroperitoneal space. Findings likely related to hemorrhagic focus of neoplasm. WBC 11.8, hemoglobin 14.8. Sodium 133, potassium 4, BUN 23 creatinine 0.56. Troponin 0.27, 1.04. Lipase 476. Cortisol level 34.5. Influenza A, influenza B, RSV, COVID-19 not detected. Home cardiac medications: Crestor 5 mg daily. Echocardiogram performed in 2013 revealed mild concentric left ventricular hypertrophy. EF 55 to 60%. Mild mitral regurgitation. Mild tricuspid regurgitation. 07/16 EKG sinus rhythm with left axis deviation. Blood pressure 121/71, heart rate 100, pulse ox 90% on 4 L nasal cannula. Repeat blood work reveals WBC 10.9, hemoglobin 12.6. Electrolytes within normal limits. Creatinine 0.5. Triglyce rides 152, cholesterol 156, LDL 61, HDL 63. Procalcitonin 0.47. Echocardiogram reveals EF of 25 to 30%. Results of the echocardiogram reviewed with the patient. Patient continues to have abdominal pain, no chest pain. Physical examination: Gen: This is a 62-year-old female appears to be uncomfortable. VS: reviewed HEENT: Head is atraumatic, normocephalic. Pupils equal, round. Sclerae is anic teric. LUNGS: Rhonchi and coarse wheezing. No intercostal retractions. HEART: Regular rate and rhythm. No murmur. EXTREMITIES: No pedal edema. No calf tenderness. NEUROLOGICAL: Patient is awake, alert and oriented x3. 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 Patient was seen and examined. Objective - Vital Signs Vital signs: Vital Signs Temp 98.7 F 07/17/23 07:34 Pulse 111 H 07/17/23 07:34 Resp 19 07/17/23 07:34 BP 121/71 07/17/23 07:34 Pulse Ox 92 L 07/17/23 07:44 FiO2 Intake & Output 07/16/23 07/17/23 07/17/23 18:59 06:59 18:59 Weight 81.647 kg Other: Voiding Method Bedside Commode Bedside Commode Bedside Commode Diaper Diaper Diaper # Voids 1 3 - Labs CBC & Chem 7: 07/17/23 06:07 07/17/23 06:07 Labs: Abnormal Lab Results - Last 24 Hours (Table) 07/16/23 07/17/23 07/17/23 Range/Units 07:07 06:07 06:07 WBC 10.98 H (4.50-10.00) X 10*3/uL RBC 3.85 L (4.10-5.20) X 10*6/uL MCV 98.7 H (80.0-97.0) FL MCH 32.7 H (27.0-32.0) pg Immature Gran # 0.05 H (0.00-0.04) X 10*3/uL Neutrophils # 11.19 H 9.10 H (1.80-7.70) X 10*3/uL Lymphocytes # 0.68 L 0.48 L (0.90-5.00) X 10*3/uL Monocytes # 1.55 H 1.35 H (0.20-1.00) X 10*3/uL Eosinophils # 0.01 L 0 L (0.04-0.35) X 10*3/uL Creatinine 0.5 L (0.6-1.5) mg/dL BUN/Creatinine Ratio 44.20 H (12.00-20.00) Ratio Glucose 174 H (70-110) mg/dL AST 45 H (13-35) U/L C-Reactive Protein 5.20 H (0.00-0.80) mg/dL Total Protein 5.8 L (6.2-8.2) g/dL Albumin 3.5 L (3.8-4.9) g/dL Albumin/Globulin Ratio 1.52 L (1.60-3.17) Ratio Triglycerides 152.00 H (0.00-149.00) mg/dL HDL Cholesterol 63.90 H (40.00-60.00) mg/dL Procalcitonin (0.02-0.09) ng/mL 07/17/23 Range/Units 06:07 WBC (4.50-10.00) X 10*3/uL RBC (4.10-5.20) X 10*6/uL MCV (80.0-97.0) FL MCH (27.0-32.0) pg Immature Gran # (0.00-0.04) X 10*3/uL Neutrophils # (1.80-7.70) X 10*3/uL Lymphocytes # (0.90-5.00) X 10*3/uL Monocytes # (0.20-1.00) X 10*3/uL Eosinophils # (0.04-0.35) X 10*3/uL Creatinine (0.6-1.5) mg/dL BUN/Creatinine Ratio (12.00-20.00) Ratio Glucose (70-110) mg/dL AST (13-35) U/L C-Reactive Protein (0.00-0.80) mg/dL Total Protein (6.2-8.2) g/dL Albumin (3.8-4.9) g/dL Albumin/Globulin Ratio (1.60-3.17) Ratio Triglycerides (0.00-149.00) mg/dL HDL Cholesterol (40.00-60.00) mg/dL Procalcitonin 0.47 H (0.02-0.09) ng/mL Microbiology - Last 24 Hours (Table) 07/15/23 02:30 Blood Culture - Preliminary Blood 07/15/23 02:15 Blood Culture - Preliminary Blood
--- NOTE | 2023-07-17 18:23 | P.PN ---
Subjective Progress Note Date: 07/17/23 Principal diagnosis: intractable pain, metastatic small cell lung cancer In follow-up today patient reports that she is doing better than on admit, she is still having pain in the epigastric area, no recent vomiting. Objective - Vital Signs Vital signs: Vital Signs Temp 97.4 F L 07/17/23 13:41 Pulse 105 H 07/17/23 13:41 Resp 20 07/17/23 13:41 BP 135/88 07/17/23 13:41 Pulse Ox 95 07/17/23 13:41 FiO2 Intake & Output 07/16/23 07/17/23 07/17/23 18:59 06:59 18:59 Weight 81.647 kg Other: Voiding Method Bedside Commode Bedside Commode Bedside Commode Diaper Diaper Diaper # Voids 1 3 2 - Constitutional General appearance: Present: average body habitus, cooperative, no acute distress - EENT ENT: Present: hearing grossly normal - Respiratory Respiratory: bilateral: CTA, diminished (bases) - Cardiovascular Rhythm: regular - Gastrointestinal General gastrointestinal: Present: tenderness Localized gastrointestinal: tender: RUQ, epigastric periumbilical - Integumentary Integumentary: Present: normal - Musculoskeletal Musculoskeletal: Present: generalized weakness - Psychiatric Psychiatric: Present: A&O x's 3, appropriate affect, intact judgment & insight - Labs CBC & Chem 7: 07/17/23 06:07 07/17/23 06:07 Labs: Abnormal Lab Results - Last 24 Hours (Table) 07/17/23 07/17/23 07/17/23 Range/Units 06:07 06:07 06:07 WBC 10.98 H (4.50-10.00) X 10*3/uL RBC 3.85 L (4.10-5.20) X 10*6/uL MCV 98.7 H (80.0-97.0) FL MCH 32.7 H (27.0-32.0) pg Neutrophils # 9.10 H (1.80-7.70) X 10*3/uL Lymphocytes # 0.48 L (0.90-5.00) X 10*3/uL Monocytes # 1.35 H (0.20-1.00) X 10*3/uL Eosinophils # 0 L (0.04-0.35) X 10*3/uL Creatinine 0.5 L (0.6-1.5) mg/dL BUN/Creatinine Ratio 44.20 H (12.00-20.00) Ratio Glucose 174 H (70-110) mg/dL AST 45 H (13-35) U/L C-Reactive Protein 5.20 H (0.00-0.80) mg/dL Total Protein 5.8 L (6.2-8.2) g/dL Albumin 3.5 L (3.8-4.9) g/dL Albumin/Globulin Ratio 1.52 L (1.60-3.17) Ratio Triglycerides 152.00 H (0.00-149.00) mg/dL HDL Cholesterol 63.90 H (40.00-60.00) mg/dL Procalcitonin 0.47 H (0.02-0.09) ng/mL Microbiology - Last 24 Hours (Table) 07/15/23 02:30 Blood Culture - Preliminary Blood 07/15/23 02:15 Blood Culture - Preliminary Blood Assessment and Plan (1) Pancreatitis Current Visit: Yes Status: Acute Priority: High Code(s): K85.90 - ACUTE PANCREATITIS WITHOUT NECROSIS OR INFECTION, UNSP SNOMED Code(s): 73087988 (2) Metastasis to brain Current Visit: Yes Status: Acute Priority: High Code(s): C79.31 - SECONDARY MALIGNANT NEOPLASM OF BRAIN SNOMED Code(s): 47474904 (3) Extensive stage primary small cell carcinoma of lung Current Visit: Yes Status: Acute Priority: High Code(s): C34.90 - MALIG NANT NEOPLASM OF UNSP PART OF UNSP BRONCHUS OR LUNG SNOMED Code(s): 13153 5585283231 Plan: Pancreatitis -Presented with nausea, vomiting, and abdominal pain radiating to the back -Elevated lipase, suggestive of degree of pancreatitis -Likely secondary to known metastatic pancreatic lesion -She continues to show improvement today -Continue NPO diet, supportive medications for symptoms, pain medications Extensive stage small cell lung cancer -Was scheduled to receive first treatment of whole brain radiation therapy on 07/16/[address] Kruger at [facility]. Spoke with patient today, she does plan on going for radiation treatment once she is discharged. -Patient not committing yet to systemic treatment. She can follow-up with her primary oncologist after radiation is complete to discuss her wishes regarding treatment as she moves forward. Goals during this admission will be to treat her pancreatitis and pursue additional cancer directed treatment outpatient
--- NOTE | 2023-07-17 21:45 | PN ---
PROGRESS NOTE DATE OF SERVICE: 07/17/2023 SUBJECTIVE: This is a 62-year-old woman, who was admitted with severe intractable abdominal pain with failure of outpatient treatment, possibly multiple metastases, also had acute pancreatitis. The patient is being closely monitored at this time. Multiple consultants are following the patient closely. The patient had extensive staged primary small cell carcinoma of the lung. 2D echo showed LV dysfunction ejection fraction to be 30%. PAST MEDICAL HISTORY: Reviewed. REVIEW OF SYSTEMS: Fourteen-point review is negative except as mentioned earlier. CURRENT MEDICATIONS: Reviewed. PHYSICAL EXAMINATION: VITAL SIGNS: Pulse 105, blood pressure 135/80, respirations 20. HEENT: Conjunctivae normal. CARDIOVASCULAR: S1, S2. RESPIRATIONS: Breath sounds diminished at the bases. A few scattered rhonchi. ABDOMEN: Soft, minimal diffuse tenderness. NERVOUS SYSTEM: Diffusely weak. LABORATORY DATA: Reviewed. Troponin 1.270. ASSESSMENT: 1. Severe intractable abdominal pain with failure of outpatient treatment, possibly multiple metastases and acute pancreatitis. 2. Extensive history of primary small-cell lung cancer of the lung. 3. Congestive heart failure with chronic systolic dysfunction, ejection fraction 25% to 30%. 4. Elevated troponin up to 1.270. Acute cwk-BN-kjerjxx elevation myocardial infarction. 5. Mediastinal adenopathy. 6. Left adrenal metastases. 7. History of asthma. 8. Hernia repair. 9. Multiple complex medical issues. 10.Full code. RECOMMENDATIONS AND DISCUSSION: Recommend to continue current management and continue symptomatic treatment. Pain management. Closely follow with multiple consultants. We will consult Cardiology as well and Infectious Disease. Cultures are negative so far. Guarded prognosis. Further recommendations to follow. Amylase and lipase are improving at this time. MMODL / IJN: [id number] /
--- NOTE | 2023-07-17 22:27 | P.PN ---
Subjective Progress Note Date: 07/17/23 Principal diagnosis: Reason for follow-up is fever Patient is a 62-year-old female past medical history significant for hyperlipidemia asthma diverticulitis and right breast cancer as well as small cell cancer of the lung presenting to the hospital for evaluation of severe abdominal pain along with nausea and vomiting, CT abdominal pelvis with metastatic mass and necrotic pancreatic masses did have low-grade fever prompting this consultation. On today's evaluation that is 07/17/2023, patient did have resolution of her fever and is afebrile today, patient is breathing comfortably and is currently on 4 L nasal cannula oxygen, patient denies having any significant cough no chest pain shortness of breath, patient denies nausea vomiting and abdominal pain has improved no diarrhea. Patient white count is down to 10.98, creatinine 0.5 procalcitonin 0.47 CRP is 5.20 cultures are pending Objective - Vital Signs Vital signs: Vital Signs Temp 97.4 F L 07/17/23 13:41 Pulse 105 H 07/17/23 13:41 Resp 20 07/17/23 13:41 BP 135/88 07/17/23 13:41 Pulse Ox 95 07/17/23 13:41 FiO2 Intake & Output 07/16/23 07/17/23 07/17/23 18:59 06:59 18:59 Weight 81.647 kg Other: Voiding Method Bedside Commode Bedside Commode Bedside Commode Diaper Diaper Diaper # Voids 1 3 - Exam GENERAL DESCRIPTION: Middle-aged female lying in bed in no distress RESPIRATORY SYSTEM: Unlabored breathing , decreased breath sounds at bases HEART: S1 S2 regular rate and rhythm , ABDOMEN: Soft , no tenderness EXTREMITIES: No edema feet - Labs CBC & Chem 7: 07/17/23 06:07 07/17/23 06:07 Labs: Abnormal Lab Results - Last 24 Hours (Table) 07/17/23 07/17/23 07/17/23 Range/Units 06:07 06:07 06:07 WBC 10.98 H (4.50-10.00) X 10*3/uL RBC 3.85 L (4.10-5.20) X 10*6/uL MCV 98.7 H (80.0-97.0) FL MCH 32.7 H (27.0-32.0) pg Neutrophils # 9.10 H (1.80-7.70) X 10*3/uL Lymphocytes # 0.48 L (0.90-5.00) X 10*3/uL Monocytes # 1.35 H (0.20-1.00) X 10*3/uL Eosinophils # 0 L (0.04-0.35) X 10*3/uL Creatinine 0.5 L (0.6-1.5) mg/dL BUN/Creatinine Ratio 44.20 H (12.00-20.00) Ratio Glucose 174 H (70-110) mg/dL AST 45 H (13-35) U/L C-Reactive Protein 5.20 H (0.00-0.80) mg/dL Total Protein 5.8 L (6.2-8.2) g/dL Albumin 3.5 L (3.8-4.9) g/dL Albumin/Globulin Ratio 1.52 L (1.60-3.17) Ratio Triglycerides 152.00 H (0.00-149.00) mg/dL HDL Cholesterol 63.90 H (40.00-60.00) mg/dL Procalcitonin 0.47 H (0.02-0.09) ng/mL Microbiology - Last 24 Hours (Table) 07/15/23 02:30 Blood Culture - Preliminary Blood 07/15/23 02:15 Blood Culture - Preliminary Blood Assessment and Plan (1) Fever Current Visit: Yes Status: Acute Code(s): R50.9 - FEVER, UNSPECIFIED SNOMED Code(s): 984509448 (2) Leukocytosis Current Visit: Yes Status: Acute Code(s): D72.829 - ELEVATED WHITE BLOOD CELL COUNT, UNSPECIFIED SNOMED Code(s): 393323419 Plan: 1patient presented to hospital with intractable abdominal pain nausea vomiting and this patient who did have a extensive abnormality seen on the CT of the chest abdominal pelvis concerning for necrotic masses in the pancreas and renal could be responsible for most of her symptomatology with a low-grade fever elevated white count could be reactive underlying infectious etiology less like ly but not entirely excluded 2-blood culture has been obtained which are currently pending, inflammatory markers are mildly elevated 3-patient to continue with Zosyn while waiting for the cultures to finalize Dictation was produced using [employer] software. please excuse any grammatical, word or spelling errors. Time with Patient: Less than 30
--- NOTE | 2023-07-18 08:19 | XR ---
EXAMINATION TYPE: XR chest 1V portable DATE OF EXAM: 07/18/2023 COMPARISON: 07/15/2023 INDICATION: Short of breath TECHNIQUE: Single frontal view of the chest is obtained. FINDINGS: The heart size is normal. The pulmonary vasculature is normal. Increased upper lobe filtrate is present. Left costophrenic angle infiltrate and/or effusion is prese nt. IMPRESSION: 1. Mildly increasing infiltrates. Small left pleural effusion is likely present. Follow-up recommende d
--- NOTE | 2023-07-18 09:43 | P.PN ---
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 She has a past medical history of breast cancer, hyperlipidemia, tobacco use and dependence. We have been asked to evaluate the patient for elevated troponins and chest pain. Patient presented to the hospital due to back pain in the lower back area. She denies having any chest pain. She also has abdominal pain and nausea and vomiting, cough with sputum production. She states the pain in her back hurts more with movement. Pain has been ongoing for couple of days. When she is active she does not experience chest pain. Her initial blood pressure 193/118 and heart rate 125, temperature 100.2. She denies having any fevers at home but states she is having sweats. She continues to smoke down to 8 to 10 cigarettes/day down to less than 1 pack/day for many years. She also drinks a sixpack of alcohol per month and uses marijuana daily. She denies history of diabetes but blood sugar on presentation was 260. Patient denies family history of coronary artery disease. Telemetry: Sinus tachycardia with ventricular rate of 118 Chest x-ray: Left costophrenic angle and right apical infiltrates. Correlate for atelectasis and pneumonia. CTA chest, abdomen and pelvis: 7.6 x 7.7 x 7.4 cm mediastinal mass. Innumerable pulmonary nodules. Multiple necrotic pancreatic masses. Tumor thrombus noted within the portosystemic confluence from pancreatic masses. 4.6 x 4.6 x 4.2 necrotic right adrenal mass. There appears to be invasion of the liver. Left adrenal mass. Adjacent hemorrhage noted in the left retroperitoneal space. Findings likely related to hemorrhagic focus of neoplasm. WBC 11.8, hemoglobin 14.8. Sodium 133, potassium 4, BUN 23 creatinine 0.56. Troponin 0.27, 1.04. Lipase 476. Cortisol level 34.5. Influenza A, influenza B, RSV, COVID-19 not detected. Home cardiac medications: Crestor 5 mg daily. Echocardiogram performed in 2013 revealed mild concentric left ventricular hypertrophy. EF 55 to 60%. Mild mitral regurgitation. Mild tricuspid regurgitation. 07/16 EKG sinus rhythm with left axis deviation. Blood pressure 121/71, heart rate 100, pulse ox 90% on 4 L nasal cannula. Repeat blood work reveals WBC 10.9, hemoglobin 12.6. Electrolytes within normal limits. Creatinine 0.5. Triglyce rides 152, cholesterol 156, LDL 61, HDL 63. Procalcitonin 0.47. Echocardiogram reveals EF of 25 to 30%. Results of the echocardiogram reviewed with the patient. Patient continues to have abdominal pain, no chest pain. 07/17 Patient seen today in follow-up. She continues to have significant pain 7 out of 10 and not gone away. She also complains of nausea that is improved but not gone. Blood pressure 119/77, heart rate 96, pulse ox 91% on 4 L nasal cannula. Physical examination: Gen: This is a 62-year-old female appears to be uncomfortable. VS: reviewed HEENT: Head is atraumatic, normocephalic. Pupils equal, round. Sclerae is anicteric. LUNGS: Rhonchi and coarse wheezing. No intercostal retractions. HEART: Regular rate and rhythm. No murmur. EXTREMITIES: No pedal edema. No calf tenderness. NEUROLOGICAL: Patient is awake, alert and oriented x3. Assessment: Elevated troponin of unclear significance Severe cardiomyopathy of unclear etiology No chest pain Fever, abdominal pain, back pain, nausea and vomiting Primary small cell carcinoma of the lung with metastatic disease Uncontrolled hypertension Hyperlipidemia Tobacco use and dependence Daily marijuana use Plan: Continue Crestor Continue patient on aspirin 81 mg daily, Lipitor 40 mg at bedtime, metoprolol succinate 25 mg daily No further cardiac workup at this time due to patient's multiple comorbidities Cardiology will sign off this case and follow on an as-needed basis. Please reconsult for any new concerns. Patient may follow-up in the office in 2 weeks. Nurse practitioner note has been reviewed, I agree with documented findings and plan of care. Patient was seen and examined. Objective - Vital Signs Vital signs: Vital Signs Temp 97.5 F L 07/18/23 07:06 Pulse 96 07/18/23 07:06 Resp 20 07/18/23 07:06 BP 119/77 07/18/23 07:06 Pulse Ox 91 L 07/18/23 08:03 FiO2 Intake & Output 07/17/23 07/18/23 07/18/23 18:59 06:59 18:59 Other: Voiding Method Bedside Commode Bedside Commode Diaper # Voids 2 1 - Labs CBC & Chem 7: 07/17/23 06:07 07/17/23 06:07 Labs: Abnormal Lab Results - Last 24 Hours (Table) 07/17/23 07/17/23 07/17/23 Range/Units 06:07 06:07 06:07 WBC 10.98 H (4.50-10.00) X 10*3/uL RBC 3.85 L (4.10-5.20) X 10*6/uL MCV 98.7 H (80.0-97.0) FL MCH 32.7 H (27.0-32.0) pg Neutrophils # 9.10 H (1.80-7.70) X 10*3/uL Lymphocytes # 0.48 L (0.90-5.00) X 10*3/uL Monocytes # 1.35 H (0.20-1.00) X 10*3/uL Eosinophils # 0 L (0.04-0.35) X 10*3/uL Creatinine 0.5 L (0.6-1.5) mg/dL BUN/Creatinine Ratio 44.20 H (12.00-20.00) Ratio Glucose 174 H (70-110) mg/dL AST 45 H (13-35) U/L C-Reactive Protein 5.20 H (0.00-0.80) mg/dL Total Protein 5.8 L (6.2-8.2) g/dL Albumin 3.5 L (3.8-4.9) g/dL Albumin/Globulin Ratio 1.52 L (1.60-3.17) Ratio Triglycerides 152.00 H (0.00-149.00) mg/dL HDL Cholesterol 63.90 H (40.00-60.00) mg/dL Procalcitonin 0.47 H (0.02-0.09) ng/mL Microbiology - Last 24 Hours (Table) 07/16/23 11:10 Blood Culture - Preliminary Blood 07/15/23 02:30 Blood Culture - Preliminary Blood 07/15/23 02:15 Blood Culture - Preliminary Blood
[2023-07-18 12:14] LABS: Basophils # (A) 0.01 X 10*3/uL (0.00-0.10); Basophils % (A) 0.1 %; Eosinophils # (A) 0 X 10*3/uL (0.04-0.35); Eosinophils % (A) 0 %; HCT 37.6 % (37.2-46.3); HGB 12.4 g/dL (12.0-15.0); Lymphocytes # (A) 0.42 X 10*3/uL (0.90-5.00); Lymphocytes % (A) 3.9 %; MCH 32.4 pg (27.0-32.0); MCV 98.2 FL (80.0-97.0); Mean Platelet Volume 10.3 FL (9.5-12.2); Monocytes # (A) 1.14 X 10*3/uL (0.20-1.00); Monocytes % (A) 10.6 %; NRBC Per 100 WBC 0 X 10*3/uL (0.00-0.01); Neutrophils # (A) 9.16 X 10*3/uL (1.80-7.70); Platelet Count 186 X 10*3/uL (140-440); RBC 3.83 X 10*6/uL (4.10-5.20); RDW 13.3 % (11.5-14.5); WBC 10.77 X 10*3/uL (4.50-10.00)
[2023-07-18 12:24] LABS: ALT 14 U/L (8-44); AST 43 U/L (13-35); Albumin 3.5 g/dL (3.8-4.9); Albumin/Globulin Ratio 1.75 Ratio (1.60-3.17); Alkaline Phosphatase 59 U/L (41-126); Blood Urea Nitrogen 25.5 mg/dL (9.0-27.0); Calcium 8.9 mg/dL (8.7-10.3); Carbon Dioxide 26.1 mmol/L (21.6-31.8); Chloride 104 mmol/L (96-109); Glucose 163 mg/dL (70-110); Potassium 3.9 mmol/L (3.5-5.5); Sodium 142 mmol/L (135-145); Total Bilirubin 0.8 mg/dL (0.3-1.2); Total Protein 5.5 g/dL (6.2-8.2)
[2023-07-18] MEDS ORDERED: IPRATROPIUM-ALBUTEROL 3 ML NEB INHALATION PRN (14:09)
--- NOTE | 2023-07-18 16:01 | P.PN ---
Subjective Progress Note Date: 07/18/23 Principal diagnosis: Reason for follow-up is fever Patient is a 62-year-old female past medical history significant for hyperlipidemia asthma diverticulitis and right breast cancer as well as small cell cancer of the lung presenting to the hospital for evaluation of severe abdominal pain along with nausea and vomiting, CT abdominal pelvis with metastatic mass and necrotic pancreatic masses did have low-grade fever prompting this consultation. On today's evaluation that is 07/18/2023,the patient denies any fever or any chills, patient is breathing comfortably currently on 4 L nasal cannula oxygen, the patient denies chest pain complaining of some cough with occasional sputum production still complaining of abdominal pain and nausea no further vomiting has been reported by the nursing staff or any diarrhea. Patient white count is down to 10.77, creatinine 0.5 procalcitonin was 0.47 blood cultures are currently pending Objective - Vital Signs Vital signs: Vital Signs Temp 97.5 F L 07/18/23 07:06 Pulse 96 07/18/23 07:06 Resp 20 07/18/23 07:06 BP 119/77 07/18/23 07:06 Pulse Ox 91 L 07/18/23 08:03 FiO2 Intake & Output 07/17/23 07/18/23 07/18/23 18:59 06:59 18:59 Other: Voiding Method Bedside Commode Bedside Commode Diaper # Voids 2 1 - Exam GENERAL DESCRIPTION: Middle-aged female lying in bed in no distress RESPIRATORY SYSTEM: Unlabored breathing , decreased breath sounds at bases HEART: S1 S2 regular rate and rhythm , ABDOMEN: Soft , no tenderness EXTREMITIES: No edema feet - Labs CBC & Chem 7: 07/18/23 06:07 07/18/23 06:07 Labs: Abnormal Lab Results - Last 24 Hours (Table) 07/17/23 07/17/23 07/17/23 Range/Units 06:07 06:07 06:07 WBC 10.98 H (4.50-10.00) X 10*3/uL RBC 3.85 L (4.10-5.20) X 10*6/uL MCV 98.7 H (80.0-97.0) FL MCH 32.7 H (27.0-32.0) pg Neutrophils # 9.10 H (1.80-7.70) X 10*3/uL Lymphocytes # 0.48 L (0.90-5.00) X 10*3/uL Monocytes # 1.35 H (0.20-1.00) X 10*3/uL Eosinophils # 0 L (0.04-0.35) X 10*3/uL Creatinine 0.5 L (0.6-1.5) mg/dL BUN/Creatinine Ratio 44.20 H (12.00-20.00) Ratio Glucose 174 H (70-110) mg/dL AST 45 H (13-35) U/L C-Reactive Protein 5.20 H (0.00-0.80) mg/dL Total Protein 5.8 L (6.2-8.2) g/dL Albumin 3.5 L (3.8-4.9) g/dL Albumin/Globulin Ratio 1.52 L (1.60-3.17) Ratio Triglycerides 152.00 H (0.00-149.00) mg/dL HDL Cholesterol 63.90 H (40.00-60.00) mg/dL Procalcitonin 0.47 H (0.02-0.09) ng/mL Microbiology - Last 24 Hours (Table) 07/16/23 11:10 Blood Culture - Preliminary Blood 07/15/23 02:30 Blood Culture - Preliminary Blood 07/15/23 02:15 Blood Culture - Preliminary Blood Assessment and Plan (1) Fever Current Visit: Yes Status: Acute Code(s): R50.9 - FEVER, UNSPECIFIED SNOMED Code(s): 180385249 (2) Leukocytosis Current Visit: Yes Status: Acute Code(s): D72.829 - ELEVATED WHITE BLOOD CELL COUNT, UNSPECIFIED SNOMED Code(s): 640145118 Plan: 1patient presented to hospital with intractable abdominal pain nausea vomiting and this patient who did have a extensive abnormality seen on the CT of the chest abdominal pelvis concerning for necrotic masses in the pancreas and renal could be responsible for most of her symptomatology with a low-grade fever elevated white count could be reactive underlying infectious etiology less likely but not entirely excluded 2-blood culture has been obtained which are currently pending, inflammatory markers are mildly elevated with a procalcitonin 0.47 3-patient white count has normalized cultures currently pending we will continue patient on Zosyn and monitor clinical course closely Dictation was produced using [employer] dictation software. please excuse any grammatical, word or spelling errors. Time with Patient: Less than 30
[2023-07-18] MEDS: FUROSEMIDE 10 MG/ML 2 ML VIAL IV SCH (17:34)
[2023-07-18] MEDS: IPRATROPIUM-ALBUTEROL 3 ML NEB INHALATION SCH (19:17)
[2023-07-18] MEDS: DOCUSATE 100 MG CAP PO SCH (20:37)
--- NOTE | 2023-07-18 20:51 | PN ---
PROGRESS NOTE DATE OF SERVICE: 07/18/2023 SUBJECTIVE: This is a 62-year-old woman who was admitted with severe intractable abdominal pain, failure of outpatient treatment, she hs been closely monitored. The patient had CHF and multiple other complex medical issues also. The patient also has significant pain also. The most recent chest x-ray which I reviewed. Multiple consultants are following the patient closely. X-ray shows some shadows in the right upper lobe. PAST MEDICAL HISTORY: Reviewed. REVIEW OF SYSTEMS: A 14-point review is negative. CURRENT MEDICATIONS: Reviewed include Ventolin HFA and rest of medications noted. PHYSICAL EXAMINATION: VITAL SIGNS: Pulse is 96, blood pressure 119/70, respirations 20. HEENT: Conjunctivae normal. NECK: No jugular venous distention. CARDIOVASCULAR: S1, S2. RESPIRATIONS: Diminished at the bases, few scattered rhonchi and crackles. ABDOMEN: Soft. NERVOUS SYSTEM: Nonfocal. LABORATORY DATA: Reviewed. ASSESSMENT: 1. Severe intractable abdominal pain with failure of outpatient treatment, possibly multiple mental status and acute pancreatitis. 2. Extensive history of primary small-cell lung cancer of the lungs. 3. CHF acute exacerbation, acute on chronic systolic dysfunction, ejection fraction 25% to 30%. 4. Elevated troponin up to 1.270, acute gvw-HA-erswseh elevation myocardial infarction. 5. Mediastinal adenopathy. 6. Possible COPD. 7. Left adrenal metastasis. 8. History of asthma. 9. Hernia repair. 10.Multiple complex medical issues. 11.Full code. RECOMMENDATIONS: Recommended to continue current management, continue symptomatic treatment. I would recommend bronchodilators and nebulization because of continued hypoxia and persistent chest x-ray findings. Closely follow with multiple consultants. Cultures are negative so far, PT OT evaluation. Increase ambulation. The patient is on steroids also. Guarded prognosis and assess broad-spectrum IV antibiotics. We will continue IV fluids since the patient is n.p.o. and when it is okay with Oncology will initiate p.o. feeds and gradually cut down the IV fluids. Otherwise, continue to monitor. The amylase and lipase are almost normalized. MMODL / IJN: [id number] /
[2023-07-19 04:46] LABS: Basophils % (A) 0 %; Eosinophils % (A) 0 %; HGB 12.2 gm/dL (11.4-16.0); Lymphocytes # (A) 0.3 k/uL (1.0-4.8); Lymphocytes % (A) 3 %; MCH 32.7 pg (25.0-35.0); MCHC 32.2 g/dL (31.0-37.0); Macrocytosis Slight; Mean Platelet Volume 8.2; Monocytes # (A) 0.6 k/uL (0-1.0); Monocytes % (A) 7 %; Neutrophils # (A) 8.2 k/uL (1.3-7.7); Neutrophils % (A) 89 %; Platelet Count 176 k/uL (150-450); RBC 3.74 m/uL (3.80-5.40); RDW 13.3 % (11.5-15.5); WBC 9.2 k/uL (3.8-10.6)
[2023-07-19 05:07] LABS: ALT 19 U/L (4-34); AST 40 U/L (14-36); African American GFR (CKD) >90 (>60 ml/min/1.73 sqM); Albumin 3.1 g/dL (3.5-5.0); Albumin/Globulin Ratio 1.3; Alkaline Phosphatase 63 U/L (38-126); Amylase 60 U/L (30-110); Anion Gap 4 mmol/L; Blood Urea Nitrogen 29 mg/dL (7-17); Calcium 8.5 mg/dL (8.4-10.2); Carbon Dioxide 32 mmol/L (22-30); Chloride 101 mmol/L (98-107); Globulin 2.4 g/dL; Glucose 187 mg/dL (74-99); Lipase 297 U/L (23-300); Non-African American GFR(CKD) >90 (>60 ml/min/1.73 sqM); Potassium 3.8 mmol/L (3.5-5.1); Sodium 137 mmol/L (137-145); Total Protein 5.5 g/dL (6.3-8.2)
[2023-07-19 07:16] LABS: MCV 101.6 fL (80.0-100.0)
--- NOTE | 2023-07-19 08:59 | P.PN ---
Subjective Progress Note Date: 07/18/23 In follow-up today patient is resting comfortably in bed, family at bedside. Patient is reporting improvement in abdominal pain. She is tolerating ice chips, reporting mild nausea but once she belches symptoms resolve. Denies vomiting. Reports last bowel movement was 4 to 5 days ago. Will start Colace daily. Patient remains afebrile. Lipase now normal at 54. Objective - Vital Signs Vital signs: Vital Signs Temp 98.0 F 07/18/23 15:35 Pulse 93 07/18/23 15:35 Resp 17 07/18/23 15:35 BP 129/78 07/18/23 15:35 Pulse Ox 89 L 07/18/23 15:35 FiO2 Intake & Output 07/17/23 07/18/23 07/18/23 18:59 06:59 18:59 Weight 81.647 kg Other: Voiding Method Bedside Commode Bedside Commode Bedside Commode Diaper # Voids 2 1 1 - Constitutional General appearance: Present: no acute distress - EENT Eyes: Present: anicteric sclerae, EOMI ENT: Present: hearing grossly normal - Respiratory Details: breathing is even and unlabored - Cardiovascular Details: skin warm and dry - Gastrointestinal Gastrointestinal Comment(s): mild tenderness in epigastrium, no guarding General gastrointestinal: Present: soft, tenderness - Integumentary Integumentary: Absent: cyanotic - Neurologic Neurologic: Present: CNII-XII intact - Musculoskeletal Musculoskeletal: Present: strength equal bilaterally - Psychiatric Psychiatric: Present: A&O x's 3 - Labs CBC & Chem 7: 07/19/23 03:57 07/19/23 03:57 Labs: Abnormal Lab Results - Last 24 Hours (Table) 07/18/23 07/18/23 Range/Units 06:07 06:07 WBC 10.77 H (4.50-10.00) X 10*3/uL RBC 3.83 L (4.10-5.20) X 10*6/uL MCV 98.2 H (80.0-97.0) FL MCH 32.4 H (27.0-32.0) pg Neutrophils # 9.16 H (1.80-7.70) X 10*3/uL Lymphocytes # 0.42 L (0.90-5.00) X 10*3/uL Monocytes # 1.14 H (0.20-1.00) X 10*3/uL Eosinophils # 0 L (0.04-0.35) X 10*3/uL Creatinine 0.5 L (0.6-1.5) mg/dL BUN/Creatinine Ratio 51.00 H (12.00-20.00) Ratio Glucose 163 H (70-110) mg/dL AST 43 H (13-35) U/L Total Protein 5.5 L (6.2-8.2) g/dL Albumin 3.5 L (3.8-4.9) g/dL Microbiology - Last 24 Hours (Table) 07/15/23 02:30 Blood Culture - Preliminary Blood 07/15/23 02:15 Blood Culture - Preliminary Blood 07/16/23 11:10 Blood Culture - Preliminary Blood Assessment and Plan (1) Abdominal pain Current Visit: Yes Status: Acute Priority: High Code(s): R10.9 - UNSPECIFIED ABDOMINAL PAIN SNOMED Code(s): 93256997 (2) Extensive stage primary small cell carcinoma of lung Current Visit: Yes Status: Acute Priority: High Code(s): C34.90 - MALIGNANT NEOPLASM OF UNSP PART OF UNSP BRONCHUS OR LUNG SNOMED Code(s): 905159486582215 (3) Pancreatitis Current Visit: Yes Status: Acute Priority: High Code(s): K85.90 - ACUTE PANCREATITIS WITHOUT NECROSIS OR INFECTION, UNSP SNOMED Code(s): 17966285 Plan: Pancreatitis -Presented with nausea, vomiting, and abdominal pain radiating to the back -Elevated lipase, suggestive of pancreatitis -Likely secondary to known metastatic pancreatic lesion -She continues to show improvement today -Will start clear liquid diet, supportive medications for symptoms, pain medications Weakness: -Reporting generalized weakness, and having some difficulties taking care of self at home. Would benefit from in home care -Order placed for PT consult, and home care referral for nursing/PT Extensive stage small cell lung cancer -Was scheduled to receive first treatment of whole brain radiation therapy on 07/16/[address] Kruger at [facility]. Spoke with patient today, she does plan on going for radiation treatment once she is discharged. -Patient not committing yet to systemic treatment. She can follow-up with her primary oncologist after radiation is complete to discuss her wishes regarding treatment as she moves forward. Goals during this admission will be to treat her pancreatitis and pursue additional cancer directed treatment outpatient
[2023-07-19] MEDS: FUROSEMIDE 10 MG/ML 2 ML VIAL IV STA (10:03)
--- NOTE | 2023-07-19 10:41 | XR ---
EXAMINATION TYPE: XR chest 1V portable DATE OF EXAM: 07/19/2023 Comparison: 07/18/2023 Clinical History: 62-year-old female shortness of breath Findings: Left anterior chest wall injection port with catheter tip at the upper SVC level. Left heart margin o bscured by adjacent pleural parenchymal opacity. A [id number] left pleural effusion appears to be increasing. Patchy bilateral upper and midlung opacities persist. Right hilar soft tissue process es. Impression: Ongoing patchy upper and mid lung opacities and slight increasing, now [id number] left pleural effusion. Right hilar soft tissue also persists.
[2023-07-19] MEDS: IPRATROPIUM-ALBUTEROL 3 ML NEB INHALATION SCH (11:37)
[2023-07-19] MEDS: FUROSEMIDE 10 MG/ML 2 ML VIAL IV ONE (12:33)
--- NOTE | 2023-07-19 12:54 | US ---
EXAMINATION TYPE: US chest DATE OF EXAM: 07/19/2023 COMPARISON: NONE CLINICAL INDICATION: Female, 62 years old with history of Markings for thoracentesis by pulmonary sta ff; TECHNIQUE: Targeted ultrasound of the posterior lower EXAM MEASUREMENTS: Right Pleural Effusion pocket size: no sizeable fluid pocket Left Pleural Effusion pocket size: 7.8 cm -atelectatic lung noted within Left skin surface to fluid distance: 4.0 cm Right side NOT marked for possible thoracentesis outside the dept. Left side marked for possible thoracentesis outside the dept. Pulmonologists are able to review the images in the patient?s EMR. IMPRESSIONS: Small to moderate left pleural effusion with underlying atelectatic lung.
--- NOTE | 2023-07-19 12:59 | P.CNPUL ---
History of Present Illness Consult date: 07/19/23 Requesting physician: Saniya Castillo Reason for consult: pleural effusion, abnormal CXR/CT Chief complaint: Abdominal pain, nausea, vomiting History of present illness: This is a 62-year-old female patient with a history of hyperlipidemia, mild intermittent chronic bronchial asthma, chronic tobacco dependence, anxiety/depression, previous right breast cancer status postmastectomy and chemotherapy over 6 years ago. 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 She had recently undergone a biopsy at [facility] with Dr. Wray of the abdominal mass. He was found to have metastatic lesions. She was to start whole brain radiation at [facility] on 07/16/2023 however she ended up coming here on 07/15/2023 with abdominal pain, nausea and vomiting. CT scan of the chest revealed a 7.6 x 7.7 x 7.4 cm mediastinal mass. Innumerable pulmonary nodules likely metastatic in nature. Multiple centrally necrotic pancreatic masses. Tumor thrombosis within the portosystemic confluence from the previously described pancreatic masses. Right adrenal mass. Metastatic lesions to the liver. Left adrenal mass. Centrally necrotic left inguinal lymph node. She was initially maintaining good O2 saturations in the 90s on 2 L/min per nasal cannula. The last few hours her oxygen requirements have gone up to 10 L high flow oxygen. We are consulted today for the same. Chest x-ray today reveals ongoing patchy upper and midlung opacities. Now with small to moderate left pleural effusion. She is currently sitting up in bed. Awake and alert in no acute distress. Somewhat of a poor historian. She is dyspneic with conversation. Dyspneic with exertion. She denies any worsening cough or congestion. No hemoptysis. She is currently on DuoNeb ventilations, Decadron, heparin for DVT prophylaxis. She has been given additional Lasix today. She is on antibiotics in the form of Zosyn. White count 9.2. Hemoglobin 12.2. Platelets 176. Sodium 137. Potassium 3.8. Bicarb 32. BUN 29. Creatinine 0.54. Glucose 187. Amylase 60. Lipase 297. Procalcitonin was 0.47. Review of Systems REVIEW OF SYSTEMS: CONSTITUTIONAL: Positive for weight loss. EYES: Denies change in vision. EARS, NOSE, MOUTH, THROAT: Denies headaches, denies sore throat. CARDIOVASCULAR: Denies chest pain, palpitations or syncopal episodes. RESPIRATORY: Positive for shortness of breath, cough, congestion no hemoptysis. GASTROINTESTINAL: Positive for abdominal pain, nausea GENITOURINARY: Denies hematuria, denies infections. MUSKULOSKELETAL: Denies pain, denies swelling. INTEGUMENTARY: Denies rash, denies eczema. NEUROLOGICAL: Denies recent memory loss, no recent seizure activity. PSYCHIATRIC: Denies anxiety, denies depression. HEMATOLOGIC/LYMPHATIC: Denies anemia, denies enlarged lymph nodes. Past Medical History Past Medical History: Asthma, Cancer, Hyperlipidemia Additional Past Medical History / Comment(s): 10-18-14 LT ANKLE FX, diverticulitis, RT BREAST CANCER 6 years ago. History of Any Multi-Drug Resistant Organisms: None Reported Past Surgical History: Hernia Repair Additional Past Surgical History / Comment(s): Right breast removal LT UPPER CHEST MEDIPORT (patient states it is 6 years old and hasnt been used since cancer) , ECTOPIC , Past Anesthesia/Blood Transfusion Reactions: No Reported Reaction Smoking Status: Current every day smoker - Past Family History Father Family Medical History: Myocardial Infarction (AR) Additional Family Medical History / Comment(s): AGE 56 FROM [place] Mother Family Medical History: COPD, Myocardial Infarction ([place]) Additional Family Medical History / Comment(s): AGE 54 MASSIVE AR Medications and Allergies Home Medications Medication Instructions Recorded Confirmed Type Albuterol Inhaler [Ventolin Hfa 2 puff INHALATION RT-Q6H PRN 10/21/15 07/15/23 History Inhaler] ALPRAZolam [Xanax] 0.25 mg PO TID PRN 10/14/22 07/15/23 History Anastrozole [Arimidex] 1 mg PO DAILY 10/14/22 07/15/23 History Cetirizine HCl [Zyrtec] 10 mg PO DAILY PRN 10/14/22 07/15/23 History Citalopram Hydrobromide [CeleXA] 40 mg PO DAILY 10/14/22 07/15/23 History Famotidine [Pepcid] 20 mg PO HS 10/14/22 07/15/23 History Rosuvastatin Calcium 5 mg PO DAILY 10/14/22 07/15/23 History Memantine HCl [Namenda Xr] 21 mg PO DIRECTED 07/15/23 07/15/23 History dexAMETHasone 2 mg PO TID 07/15/23 07/15/23 History fentaNYL 12MCG/HR PATCH [Duragesic 1 patch TRANSDERM Q72H 07/15/23 07/15/23 History 12MCG/HR] traMADol HCL 50 mg PO Q6H PRN 07/15/23 07/15/23 History Allergies Allergy/AdvReac Type Severity Reaction Status Date / Time No Known Allergies Allergy Verified 07/15/23 08:01 Physical Exam Vitals: Vital Signs Temp Pulse Pulse Resp BP BP Pulse Ox 07/19/23 11:50 88 07/19/23 11:37 91 07/19/23 11:19 91 L 07/19/23 08:21 91 L 07/19/23 08:06 90 07/19/23 07:50 90 L 07/19/23 07:46 98 07/19/23 07:34 98 24 145/89 89 L 07/19/23 07:16 97.7 F 99 16 139/87 86 L 07/19/23 02:00 97.9 F 90 18 118/72 94 L 07/18/23 19:32 98.3 F 99 17 145/80 93 L 07/18/23 19:26 94 07/18/23 19:25 97.9 F 94 18 115/71 85 L 07/18/23 19:17 64 07/18/23 15:35 98.0 F 93 17 129/78 89 L 07/18/23 13:34 97.4 F L 93 16 113/74 90 L Intake and Output 07/18/23 07/19/23 07/19/23 22:59 06:59 14:59 Intake Total 480 Balance 480 Intake: Oral 480 Other: Voiding Method Bedside Commode Bedside Commode # Voids 1 2 Weight 81.647 kg GENERAL EXAM: Alert, pleasant, 62-year-old female, on 10 L high flow nasal cannula, fair comfortable in no apparent distress. HEAD: Normocephalic. EYES: Normal reaction of pupils, equal size. NOSE: Clear with pink turbinates. THROAT: No erythema or exudates. NECK: No JVD. Palpable lymph node CHEST: No chest wall deformity. LUNGS: Equal air entry with few scattered rhonchi, crackles in the bases left greater than right. CVS: S1 and S2 normal with no audible murmur, regular rhythm. ABDOMEN: Palpable left abdominal mass. Normal bowel sounds, no guarding or rigidity. SPINE: No scoliosis or deformity SKIN: No rashes CENTRAL NERVOUS SYSTEM: No focal deficits, tone is normal in all 4 extremities. EXTREMITIES: There is no peripheral edema. No clubbing, no cyanosis. Peripheral pulses are intact. Results - Laboratory Findings CBC and BMP: 07/19/23 03:57 07/19/23 03:57 Abnormal lab findings: Abnormal Labs 07/15/23 07/15/23 07/15/23 02:13 02:13 11:54 WBC 11.8 H RBC MCV MCH Immature Gran # Neutrophils # 9.7 H Lymphocytes # 0.9 L Monocytes # Eosinophils # Sodium 133 L Carbon Dioxide Anion Gap BUN 23 H Creatinine BUN/Creatinine Ratio Glucose 260 H POC Glucose (mg/dL) 199 H AST Troponin I C-Reactive Protein Total Protein Albumin Albumin/Globulin Ratio Triglycerides HDL Cholesterol Lipase 476 H Procalcitonin Cortisol 07/15/23 07/15/23 07/15/23 15:28 15:28 18:46 WBC RBC MCV MCH Immature Gran # Neutrophils # Lymphocytes # Monocytes # Eosinophils # Sodium Carbon Dioxide Anion Gap BUN Creatinine BUN/Creatinine Ratio Glucose POC Glucose (mg/dL) AST Troponin I 1.270 H* 1.040 H* C-Reactive Protein Total Protein Albumin Albumin/Globulin Ratio Triglycerides HDL Cholesterol Lipase Procalcitonin Cortisol 34.5 H 07/16/23 07/16/23 07/16/23 07:07 07:07 07:14 WBC 13.51 H RBC MCV 97.9 H MCH 32.7 H Immature Gran # 0.05 H Neutrophils # 11.19 H Lymphocytes # 0.68 L Monocytes # 1.55 H Eosinophils # 0.01 L Sodium Carbon Dioxide Anion Gap 14.10 H BUN Creatinine 0.5 L BUN/Creatinine Ratio 35.80 H Glucose 190 H POC Glucose (mg/dL) 181 H AST 47 H Troponin I C-Reactive Protein Total Protein 6.0 L Albumin 3.7 L Albumin/Globulin Ratio Triglycerides HDL Cholesterol Lipase 69 H Procalcitonin Cortisol 07/17/23 07/17/23 07/17/23 06:07 06:07 06:07 WBC 10.98 H RBC 3.85 L MCV 98.7 H MCH 32.7 H Immature Gran # Neutrophils # 9.10 H Lymphocytes # 0.48 L Monocytes # 1.35 H Eosinophils # 0 L Sodium Carbon Dioxide Anion Gap BUN Creatinine 0.5 L BUN/Creatinine Ratio 44.20 H Glucose 174 H POC Glucose (mg/dL) AST 45 H Troponin I C-Reactive Protein 5.20 H Total Protein 5.8 L Albumin 3.5 L Albumin/Globulin Ratio 1.52 L Triglycerides 152.00 H HDL Cholesterol 63.90 H Lipase Procalcitonin 0.47 H Cortisol 07/18/23 07/18/23 07/19/23 06:07 06:07 03:57 WBC 10.77 H RBC 3.83 L 3.74 L MCV 98.2 H 101.6 H D MCH 32.4 H Immature Gran # Neutrophils # 9.16 H 8.2 H Lymphocytes # 0.42 L 0.3 L Monocytes # 1.14 H Eosinophils # 0 L Sodium Carbon Dioxide Anion Gap BUN Creatinine 0.5 L BUN/Creatinine Ratio 51.00 H Glucose 163 H POC Glucose (mg/dL) AST 43 H Troponin I C-Reactive Protein Total Protein 5.5 L Albumin 3.5 L Albumin/Globulin Ratio Triglycerides HDL Cholesterol Lipase Procalcitonin Cortisol 07/19/23 03:57 WBC RBC MCV MCH Immature Gran # Neutrophils # Lymphocytes # Monocytes # Eosinophils # Sodium Carbon Dioxide 32 H Anion Gap BUN 29 H Creatinine BUN/Creatinine Ratio Glucose 187 H POC Glucose (mg/dL) AST 40 H Troponin I C-Reactive Protein Total Protein 5.5 L Albumin 3.1 L Albumin/Globulin Ratio Triglycerides HDL Cholesterol Lipase Procalcitonin Cortisol - Diagnostic Findings Chest x-ray: image reviewed CT scan - chest: image reviewed Assessment and Plan Assessment: Extensive stage primary small cell carcinoma of the lung. CT scan of the chest revealed a 7.6 x 7.7 x 7.4 cm mediastinal mass. Innumerable pulmonary nodules likely metastatic in nature. Multiple centrally necrotic pancreatic masses. Tumor thrombosis within the portosystemic confluence from the previously described pancreatic masses. Right adrenal mass. Metastatic lesions to the liver. Left adrenal mass. Centrally necrotic left inguinal lymph node. The patient was to start whole brain radiation therapy this week at [facility] Acute abdominal pain secondary to acute pancreatitis secondary to above, known metastatic pancreatic lesion Severe cardiomyopathy with reduced global left ventricular systolic function. Ejection fraction 25 to 30%. Increasing bilateral pleural effusions left greater than right Acute hypoxemic respiratory failure secondary to above Generalized weakness secondary to above Chronic tobacco dependence Hyperlipidemia Hypertension Marijuana use Previous history of breast cancer status post right mastectomy and chemotherapy greater than 6 years ago Plan: The patient was seen and evaluated CT scan of the chest, chest x-ray, echocardiogram, labs and medications reviewed Will obtain an ultrasound of the chest Will plan for thoracentesis if significant fluid noted Give additional Lasix 40 mg IV today Titrate the FiO2 as tolerated Educated regarding the importance of smoking cessation NicoDerm patch will be offered Repeat chest x-ray in a.m. We will continue to follow and make further recommendations based on her clinical status I have personally seen and examined the patient, performed the documentation and the assessment and plan as written. Number of minutes spent on the visit: 20.
[2023-07-19] MEDS: methylPREDNISolone SOD SUCCI 125 MG/2 ML VIAL IV SCH (13:44)
--- NOTE | 2023-07-19 19:54 | P.PN ---
Subjective Progress Note Date: 07/19/23 Principal diagnosis: Reason for follow-up is fever Patient is a 62-year-old female past medical history significant for hyperlipidemia asthma diverticulitis and right breast cancer as well as small cell cancer of the lung presenting to the hospital for evaluation of severe abdominal pain along with nausea and vomiting, CT abdominal pelvis with metastatic mass and necrotic pancreatic masses did have low-grade fever prompting this consultation. On today's evaluation that is 07/19/2023,the patient remains to be afebrile, patient however did have slight worsening of her respiratory status and is requiring more supplemental oxygen denies any chest pain or worsening cough some nausea but no vomiting no worsening abdominal pain no diarrhea has been reported. The patient white count normalized to 9.2 creatinine 0.54 sputum culture pending blood culture so far negative Objective - Vital Signs Vital signs: Vital Signs Temp 97.7 F 07/19/23 07:16 Pulse 88 07/19/23 11:50 Resp 24 07/19/23 07:34 BP 145/89 07/19/23 07:34 Pulse Ox 91 L 07/19/23 11:19 FiO2 Intake & Output 07/18/23 07/19/23 07/19/23 18:59 06:59 18:59 Intake Total 480 Balance 480 Weight 81.647 kg Intake: Oral 480 Other: Voiding Method Bedside Commode Bedside Commode Bedside Commode # Voids 1 2 - Exam GENERAL DESCRIPTION: Middle-aged female lying in bed in no distress RESPIRATORY SYSTEM: Unlabored breathing , decreased breath sounds at bases HEART: S1 S2 regular rate and rhythm , ABDOMEN: Soft , no tenderness EXTREMITIES: No edema feet exam completed with the help of FIELD MARKETER - Labs CBC & Chem 7: 07/19/23 03:57 07/19/23 03:57 Labs: Abnormal Lab Results - Last 24 Hours (Table) 07/18/23 07/18/23 07/19/23 Range/Units 06:07 06:07 03:57 WBC 10.77 H (4.50-10.00) X 10*3/uL RBC 3.83 L 3.74 L (4.10-5.20) X 10*6/uL MCV 98.2 H 101.6 H D (80.0-97.0) FL MCH 32.4 H (27.0-32.0) pg Neutrophils # 9.16 H 8.2 H (1.80-7.70) X 10*3/uL Lymphocytes # 0.42 L 0.3 L (0.90-5.00) X 10*3/uL Monocytes # 1.14 H (0.20-1.00) X 10*3/uL Eosinophils # 0 L (0.04-0.35) X 10*3/uL Carbon Dioxide (22-30) mmol/L BUN (7-17) mg/dL Creatinine 0.5 L (0.6-1.5) mg/dL BUN/Creatinine Ratio 51.00 H (12.00-20.00) Ratio Glucose 163 H (70-110) mg/dL AST 43 H (13-35) U/L Total Protein 5.5 L (6.2-8.2) g/dL Albumin 3.5 L (3.8-4.9) g/dL 07/19/23 Range/Units 03:57 WBC (4.50-10.00) X 10*3/uL RBC (4.10-5.20) X 10*6/uL MCV (80.0-97.0) FL MCH (27.0-32.0) pg Neutrophils # (1.80-7.70) X 10*3/uL Lymphocytes # (0.90-5.00) X 10*3/uL Monocytes # (0.20-1.00) X 10*3/uL Eosinophils # (0.04-0.35) X 10*3/uL Carbon Dioxide 32 H (22-30) mmol/L BUN 29 H (7-17) mg/dL Creatinine (0.6-1.5) mg/dL BUN/Creatinine Ratio (12.00-20.00) Ratio Glucose 187 H (70-110) mg/dL AST 40 H (13-35) U/L Total Protein 5.5 L (6.2-8.2) g/dL Albumin 3.1 L (3.8-4.9) g/dL Microbiology - Last 24 Hours (Table) 07/18/23 06:50 Gram Stain - Preliminary Sputum 07/16/23 11:10 Blood Culture - Preliminary Blood 07/15/23 02:30 Blood Culture - Preliminary Blood 07/15/23 02:15 Blood Culture - Preliminary Blood Assessment and Plan (1) Fever Current Visit: Yes Status: Acute Code(s): R50.9 - FEVER, UNSPECIFIED SNOMED Code(s): 951536881 (2) Leukocytosis Current Visit: Yes Status: Acute Code(s): D72.829 - ELEVATED WHITE BLOOD CELL COUNT, UNSPECIFIED SNOMED Code(s): 315824307 Plan: 1patient presented to hospital with intractable abdominal pain nausea vomiting and this patient who did have a extensive abnormality seen on the CT of the chest abdominal pelvis concerning for necrotic masses in the pancreas and renal could be responsible for most of her symptomatology with a low-grade fever elevated white count could be reactive underlying infectious etiology less likely but not entirely excluded 2-blood culture has been obtained which are currently pending, inflammatory markers are mildly elevated with a procalcitonin 0.47 3-patient did have resolution of her fever and white count has normalized however did have slight worsening of the respiratory status, pulmonary has been consulted we will continue patient on Zosyn and wait for the sputum cultures to be finalized Dictation was produced using [employer] dictation software. please excuse any grammatical, word or spelling errors. Time with Patient: Less than 30
[2023-07-19] MEDS: PIPERACILLIN-TAZOBACTAM 3.375 GM in SODIUM CHLORIDE 0.9% 100 ML IVPB SCH (20:01)
--- NOTE | 2023-07-20 07:47 | XR ---
EXAMINATION TYPE: XR chest 1V portable DATE OF EXAM: 07/20/2023 Comparison: 07/19/2023 Clinical History: 62-year-old female pleural effusion Findings: Left anterior chest wall injection port with catheter tip at the upper SVC. Heart upper limits normal in size. Right hilar soft tissue prominence is similar. Small to moderate left pleural effusion pers ists. Similar mild patchy densities in the upper lungs, right greater than left. Impression: 1. Similar right hilar soft tissue and mild patchy upper lung densities, right greater than left. 2. Similar small to moderate left pleural effusion with adjacent atelectasis and/or consolidation.
--- NOTE | 2023-07-20 08:24 | PN ---
PROGRESS NOTE DATE OF SERVICE: 07/19/2023 SUBJECTIVE: This is a 62-year-old woman who was admitted with severe abdominal pain and multiple complex medical issues, also had CHF acute exacerbation, increasing shortness of breath. The patient had hypoxia. CT revealed a mediastinal mass also. The patient also has severe cardiomyopathy. The most recent chest x-ray which I reviewed personally showed some left pleural effusion and chest ultrasound showed fluid up to 7.8 cm. No chest pain, no palpitation. PAST MEDICAL HISTORY: Reviewed. REVIEW OF SYSTEMS: A 14-point review of systems is negative except as mentioned earlier. MEDICATIONS: DuoNeb, rest of the doses noted. PHYSICAL EXAMINATION: VITAL SIGNS: Pulse is 97, blood pressure 127/70, respirations 18. HEENT: Conjunctivae normal. NECK: No jugular venous distention. CARDIOVASCULAR: S1, S2. RESPIRATION: Breath sounds diminished at the bases. A few scattered rhonchi. ABDOMEN: Soft, minimal tenderness. No guarding, no rigidity. LEGS: No edema, no swelling. NERVOUS SYSTEM: Nonfocal. LABORATORY DATA: rest of the labs are noted. ASSESSMENT: 1. Severe intractable abdominal pain with failure of outpatient treatment, possibly multiple mets as well as acute pancreatitis present on admission. 2. Acute hypoxic respiratory failure, multifactorial with CHF acute exacerbation as well as possibly COPD acute exacerbation. 3. Cardiomyopathy with ejection fraction 25% to 30%. 4. Extensive history of primary small-cell lung cancer. 5. Elevated troponin 1.270, acute lbo-[id number]-elevation myocardial infarction. 6. Mediastinal adenopathy. 7. Left adrenal mets. 8. History of asthma. 9. Multiple complex medical issues. 10.Full code. RECOMMENDATIONS: Recommended to continue current management, continue symptomatic treatment. Continue with extensive bronchodilators. I would also recommend to continue with Lasix carefully, otherwise I would also add broad-spectrum IV antibiotics and IV steroids also. Continue the IV steroids. Overall prognosis guarded because of the multiple complex medical issues and further recommendations to follow IV Solu- Medrol and repeat x-ray. Closely follow with Pulmonary. Multiple consultants. Cultures are negative so far. Repeat labs. Further recommendations to follow. MMODL / IJN: [id number] / REYNA
[2023-07-20 10:31] LABS: Basophils % (A) 0 %; Eosinophils % (A) 0 %; HCT 40.2 % (34.0-46.0); HGB 12.9 gm/dL (11.4-16.0); Lymphocytes # (A) 0.2 k/uL (1.0-4.8); Lymphocytes % (A) 2 %; MCH 32.9 pg (25.0-35.0); MCHC 32.2 g/dL (31.0-37.0); MCV 102.1 fL (80.0-100.0); Macrocytosis Slight; Mean Platelet Volume 8.2; Monocytes # (A) 0.4 k/uL (0-1.0); Monocytes % (A) 4 %; Neutrophils # (A) 8.6 k/uL (1.3-7.7); Neutrophils % (A) 93 %; Platelet Count 175 k/uL (150-450); RBC 3.94 m/uL (3.80-5.40); WBC 9.3 k/uL (3.8-10.6)
[2023-07-20 10:54] LABS: ALT 20 U/L (4-34); AST 40 U/L (14-36); African American GFR (CKD) >90 (>60 ml/min/1.73 sqM); Albumin 3.2 g/dL (3.5-5.0); Alkaline Phosphatase 65 U/L (38-126); Anion Gap 4 mmol/L; Blood Urea Nitrogen 22 mg/dL (7-17); Calcium 8.4 mg/dL (8.4-10.2); Carbon Dioxide 34 mmol/L (22-30); Chloride 99 mmol/L (98-107); Glucose 215 mg/dL (74-99); Non-African American GFR(CKD) >90 (>60 ml/min/1.73 sqM); Potassium 3.5 mmol/L (3.5-5.1); Sodium 137 mmol/L (137-145); Total Protein 5.9 g/dL (6.3-8.2)
--- NOTE | 2023-07-20 15:43 | P.PN ---
Subjective Progress Note Date: 07/20/23 Principal diagnosis: Acute hypoxic respiratory failure secondary to small cell lung cancer with metastasis and small left pleural effusion and severe cardiomyopathy with LV dysfunction This is a 62-year-old female patient with a history of hyperlipidemia, mild intermittent chronic bronchial asthma, chronic tobacco dependence, anxiety/depression, previous right breast cancer status postmastectomy and chemotherapy over 6 years ago. 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 She had recently undergone a biopsy at [facility] with Dr. Wray of the abdominal mass. He was found to have metastatic lesions. She was to start whole brain radiation at [facility] on 07/16/2023 however she ended up coming here on 07/15/2023 with abdominal pain, nausea and vomiting. CT scan of the chest revealed a 7.6 x 7.7 x 7.4 cm mediastinal mass. Innumerable pulmonary nodules likely metastatic in nature. Multiple centrally necrotic pancreatic masses. Tumor thrombosis within the portosystemic confluence from the previously described pancreatic masses. Right adrenal mass. Metastatic lesions to the liver. Left adrenal mass. Centrally necrotic left inguinal lymph node. She was initially maintaining good O2 saturations in the 90s on 2 L/min per nasal cannula. The last few hours her oxygen requirements have gone up to 10 L high flow oxygen. We are consulted today for the same. Chest x-ray today reveals ongoing patchy upper and midlung opacities. Now with small to moderate left pleural effusion. She is currently sitting up in bed. Awake and alert in no acute distress. Somewhat of a poor historian. She is dyspneic with conversation. Dyspneic with exertion. She denies any worsening cough or congestion. No hemoptysis. She is currently on DuoNeb ventilations, Decadron, heparin for DVT prophylaxis. She has been given additional Lasix today. She is on antibiotics in the form of Zosyn. White count 9.2. Hemoglobin 12.2. Platelets 176. Sodium 137. Potassium 3.8. Bicarb 32. BUN 29. Creatinine 0.54. Glucose 187. Amylase 60. Lipase 297. Procalcitonin was 0.47. Patient was reevaluated today on 07/20/2023, patient is now on Airvo 60% FiO2 and 40 L flow, feels comfortable, does not seem to be in any distress, reviewed the CT of the chest also reviewed ultrasound of the chest, the pleural effusion is rather small, and there is all lung tissue floating in the pocket of pleural effusion, makes thoracentesis less safe, and again the effusion is not large enough to proceed with thoracentesis at this point. I believe the patient's shortness of breath is multifactorial related to her underlying small cell lung cancer patient does have a very large mediastinal mass, she has small pleural effusion, she has cardiomyopathy and LV dysfunction, and she came in with acute pancreatitis. Overall prognosis extremely poor, nonetheless the patient will be treated for her issues as they are accordingly. And she will be receiving bronchodilators for her underlying COPD. WBC count today is 9.3 hemoglobin 12.9 basic metabolic profile is normal renal profile is normal bicarb is 34 Objective - Vital Signs Vital signs: Vital Signs Temp 98.2 F 07/20/23 11:56 Pulse 92 07/20/23 11:56 Resp 18 07/20/23 11:56 BP 133/85 07/20/23 11:56 Pulse Ox 93 L 07/20/23 11:56 FiO2 60 07/20/23 11:45 Intake & Output 07/19/23 07/20/23 07/20/23 18:59 06:59 18:59 Weight 67 kg Other: Voiding Method Bedside Commode Bedside Commode # Voids 5 2 - Exam GENERAL EXAM: Reveals 62-year-old female on Airvo in no distress 60% FiO2 40 L flow HEAD: Normocephalic. EYES: Normal reaction of pupils, equal size. NOSE: Clear with pink turbinates. THROAT: No erythema or exudates. NECK: No JVD. Palpable lymph node CHEST: No chest wall deformity. LUNGS: Diminished breath sound bilaterally scattered rhonchi noted. CVS: S1 and S2 normal with no audible murmur, regular rhythm. ABDOMEN: Soft nontender no megaly no rebound no guarding SKIN: No rashes CENTRAL NERVOUS SYSTEM: Alert oriented x 3 no gross focal deficit EXTREMITIES: No clubbing edema or cyanosis - Labs CBC & Chem 7: 07/20/23 09:15 07/20/23 09:15 Labs: Abnormal Lab Results - Last 24 Hours (Table) 07/20/23 07/20/23 Range/Units 09:15 09:15 MCV 102.1 H (80.0-100.0) fL Neutrophils # 8.6 H (1.3-7.7) k/uL Lymphocytes # 0.2 L (1.0-4.8) k/uL Carbon Dioxide 34 H (22-30) mmol/L BUN 22 H (7-17) mg/dL Creatinine 0.48 L (0.52-1.04) mg/dL Glucose 215 H (74-99) mg/dL AST 40 H (14-36) U/L Total Protein 5.9 L (6.3-8.2) g/dL Albumin 3.2 L (3.5-5.0) g/dL Microbiology - Last 24 Hours (Table) 07/15/23 02:30 Blood Culture - Final Blood 07/15/23 02:15 Blood Culture - Final Blood 07/18/23 06:50 Gram Stain - Final Sputum Sputum Culture - Final 07/16/23 11:10 Blood Culture - Preliminary Blood Assessment and Plan Assessment: Impression: Acute hypoxic respiratory failure, multifactorial Extensive small cell lung cancer as noted on CT of the chest Acute pancreatitis Left pleural effusion/small could be related to her systolic congestive heart failure or related to pancreatitis could also be related to her malignancy. How ever it is small and I do not believe thoracentesis of any value at this point. Except may be done if does not improve chest for diagnostic purpose of the etiology of the pleural effusion Abdominal pain secondary to pancreatitis and she does have known history of pancreatic lesion Severe LV dysfunction with ejection fraction of 25 to 30% Bilateral pleural effusions most likely cardiac in nature left more so than right Generalized weakness Tobacco dependence syndrome Benign essential hypertension History of breast cancer and previous right mastectomy followed by chemotherapy over 6 years ago. Recommendation: Continue oxygen and titrate accordingly Reviewed ultrasound of the chest and did not feel if thoracentesis is almost at this point. Continue Lasix/diuresing the patient Titrate FiO2 accordingly Continue bronchodilators Will continue to follow Overall prognosis is extremely poor and guarded Time with Patient: Less than 30
--- NOTE | 2023-07-21 00:59 | PN ---
PROGRESS NOTE DATE OF SERVICE: 07/20/2023 SUBJECTIVE: This is a 62-year-old woman who was initially admitted with severe abdominal pain, possibly secondary to mild pancreatitis as well as combination of multiple necrotic mets. Has developed respiratory difficulties, the patient was hypoxic, patient was transferred to telemetry at this time. The chest x-ray which I reviewed showed some left pleural effusion, also pulmonary is also following the patient. PAST MEDICAL HISTORY: Reviewed. REVIEW OF SYSTEMS: A 14-point review of systems negative except mentioned earlier. CURRENT MEDICATIONS: Reviewed include DuoNeb, rest of medications, rest of doses also reviewed. OBJECTIVE: VITAL SIGNS: Pulse 92, blood pressure 130/85, respirations 18. HEENT: Conjunctivae normal. NECK: No jugular venous distention. CARDIOVASCULAR: S1, S2. RESPIRATIONS: Few scattered rhonchi, no crackles. ABDOMEN: Soft. NERVOUS SYSTEM: Nonfocal. LABS: Reviewed, Procardia is 0.47. ASSESSMENT: 1. Severe intractable abdominal pain with failure of outpatient treatment. On admission possibly secondary to multiple medications as well as acute pancreatitis, present on admission. 2. Acute hypoxic respiratory failure, multifactorial. 3. CHF with acute exacerbation as well as possible COPD acute exacerbation. 4. Left pleural effusion, possibly sacrum malignancy per Pulmonary. 5. Cardiomyopathy, ejection fraction 25% to 30%. 6. Extensive history of primary small-cell lung cancer. 7. Elevated troponin 1.270, possible acute skj-CT-fuzrwli-elevation myocardial infarction, present on admission. 8. Mediastinal adenopathy. 9. Left adrenal mass. 10.History of asthma. 11.Multiple complex medical issues. 12.Full code. RECOMMENDATIONS: Recommended to continue current management, continue symptomatic treatment. Otherwise continue with bronchodilators. Continue with rest of medications. Closely follow with Pulmonary. Guarded prognosis and empiric antibiotics also been initiated. The cultures are negative. We will repeat the labs, closely follow with multiple consultants. Further recommendations to follow. MMODL / IJN: [id number] /
[2023-07-21 09:19] LABS: Basophils % (A) 0 %; Eosinophils # (A) 0.1 k/uL (0-0.7); Eosinophils % (A) 1 %; HCT 40.7 % (34.0-46.0); HGB 13.1 gm/dL (11.4-16.0); Lymphocytes # (A) 0.2 k/uL (1.0-4.8); Lymphocytes % (A) 2 %; MCH 32.8 pg (25.0-35.0); MCHC 32.2 g/dL (31.0-37.0); MCV 101.9 fL (80.0-100.0); Macrocytosis Slight; Mean Platelet Volume 8.6; Monocytes # (A) 0.5 k/uL (0-1.0); Monocytes % (A) 5 %; Neutrophils # (A) 9.1 k/uL (1.3-7.7); Neutrophils % (A) 92 %; Platelet Count 177 k/uL (150-450); RDW 13.2 % (11.5-15.5); WBC 9.9 k/uL (3.8-10.6)
[2023-07-21 09:47] LABS: ALT 23 U/L (4-34); AST 40 U/L (14-36); African American GFR (CKD) >90 (>60 ml/min/1.73 sqM); Albumin 3.3 g/dL (3.5-5.0); Alkaline Phosphatase 65 U/L (38-126); Anion Gap 0 mmol/L; Blood Urea Nitrogen 24 mg/dL (7-17); Calcium 8.5 mg/dL (8.4-10.2); Carbon Dioxide 38 mmol/L (22-30); Chloride 98 mmol/L (98-107); Glucose 233 mg/dL (74-99); Non-African American GFR(CKD) >90 (>60 ml/min/1.73 sqM); Potassium 3.8 mmol/L (3.5-5.1); Sodium 136 mmol/L (137-145); Total Protein 5.9 g/dL (6.3-8.2)
[2023-07-21] MEDS ORDERED: DEXTROSE 50% SYRINGE 50 ML IVP PRN ×2 (10:23)
[2023-07-21 11:33] LABS: Glucose,Whole Blood 297 mg/dL (70-110)
[2023-07-21] MEDS: INSULIN ASPART (NovoLOG) 100 UNIT/ML VIAL SQ SCH (11:54)
--- NOTE | 2023-07-21 13:54 | P.PN ---
Subjective Progress Note Date: 07/21/23 Principal diagnosis: Shortness of breath. This is a 62-year-old female patient with a history of hyperlipidemia, mild intermittent chronic bronchial asthma, chronic tobacco dependence, anxiety/depression, previous right breast cancer status postmastectomy and chemotherapy over 6 years ago. 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 She had recently undergone a biopsy at [facility] with Dr. Wray of the abdominal mass. He was found to have metastatic lesions. She was to start whole brain radiation at [facility] on 07/16/2023 however she ended up coming here on 07/15/2023 with abdominal pain, nausea and vomiting. CT scan of the chest revealed a 7.6 x 7.7 x 7.4 cm mediastinal mass. Innumerable pulmonary nodules likely metastatic in nature. Multiple centrally necrotic pancreatic masses. Tumor thrombosis within the portosystemic confluence from the previously described pancreatic masses. Right adrenal mass. Metastatic lesions to the liver. Left adrenal mass. Centrally necrotic left inguinal lymph node. She was initially maintaining good O2 saturations in the 90s on 2 L/min per nasal cannula. The last few hours her oxygen requirements h ave gone up to 10 L high flow oxygen. We are consulted today for the same. Chest x-ray today reveals ongoing patchy upper and midlung opacities. Now with small to moderate left pleural effusion. She is currently sitting up in bed. Awake and alert in no acute distress. Somewhat of a poor historian. She is dyspneic with conversation. Dyspneic with exertion. She denies any worsening cough or congestion. No hemoptysis. She is currently on DuoNeb ventilations, Decadron, heparin for DVT prophylaxis. She has been given additional Lasix today. She is on antibiotics in the form of Zosyn. White count 9.2. Hemoglobin 12.2. Platelets 176. Sodium 137. Potassium 3.8. Bicarb 32. BUN 29. Creatinine 0.54. Glucose 187. Amylase 60. Lipase 297. Procalcitonin was 0.47. Patient was reevaluated today on 07/20/2023, patient is now on Airvo 60% FiO2 and 40 L flow, feels comfortable, does not seem to be in any distress, reviewed the CT of the chest also reviewed ultrasound of the chest, the pleural effusion is rather small, and there is all lung tissue floating in the pocket of pleural effusion, makes thoracentesis less safe, and again the effusion is not large enough to proceed with thoracentesis at this point. I believe the patient's shortness of breath is multifactorial related to her underlying small cell lung cancer patient does have a very large mediastinal mass, she has small pleural effusion, she has cardiomyopathy and LV dysfunction, and she came in with acute pancreatitis. Overall prognosis extremely poor, nonetheless the patient will be treated for her issues as they are accordingly. And she will be receiving bronchodilators for her underlying COPD. WBC count today is 9.3 hemoglobin 12.9 basic metabolic profile is normal renal profile is normal bicarb is 34 Progress note dated July 21, 2023. The patient is seen today in room 363. The patient is getting saline at 20 cc an hour. The patient is on Airvo, at 35 L/min, with an FiO2 of 55%. She appears relatively comfortable. She does have a history of small cell lung cancer. Current laboratory data includes a white count of 9.9, hemoglobin 13.1, hematocrit 40.7, and a normal platelet count. Sodium 136, potassium 3.8, chlorides 98, CO2 38, BUN 24, and creatinine 0.52. Glucose is 297. Albumin is 3.3. Sputum and blood cultures are thus far negative. X-ray from July 19 shows similar right hilar soft tissue and mild patchy upper lobe densities, right greater than left. In addition, there is a left-sided pleural effusion, which is small to moderate. Objective - Vital Signs Vital signs: Vital Signs Temp 97.6 F 07/21/23 08:07 Pulse 84 07/21/23 12:50 Resp 18 07/21/23 11:49 BP 128/78 07/21/23 11:49 Pulse Ox 93 L 07/21/23 13:03 FiO2 54 07/21/23 12:36 Intake & Output 07/20/23 07/21/23 07/21/23 18:59 06:59 18:59 Intake Total 596 Output Total 400 Balance 196 Weight 67.1 kg 67.1 kg Intake: Oral 596 Output: Urine 400 Other: Voiding Method Bedside Commode Bedside Commode Bedside Commode # Voids 3 1 0 # Bowel Movements 0 - Exam No acute distress, oriented 3. Patient is currently on Airvo. HEENT examination is grossly unremarkable. Mucous membranes are moist. No oral lesions. Neck supple. Full range of motion. No adenopathy thyromegaly or neck vein distention. Cardiovascular examination reveals regular rhythm rate. S1-S2 normal. No S3 or S4. No discernible murmur noted. Lungs reveal scattered rhonchi. Breath sounds are equal bilaterally. No crackles. Abdomen soft bowel sounds are heard. No masses or tenderness. Extremities are intact. No cyanosis clubbing or edema. Skin is without rash or lesion. Neurologic examination is brief but nonfocal. - Labs CBC & Chem 7: 07/21/23 08:47 07/21/23 08:47 Labs: Abnormal Lab Results - Last 24 Hours (Table) 07/21/23 07/21/23 07/21/23 Range/Units 08:47 08:47 11:31 MCV 101.9 H (80.0-100.0) fL Neutrophils # 9.1 H (1.3-7.7) k/uL Lymphocytes # 0.2 L (1.0-4.8) k/uL Sodium 136 L (137-145) mmol/L Carbon Dioxide 38 H (22-30) mmol/L BUN 24 H (7-17) mg/dL Glucose 233 H (74-99) mg/dL POC Glucose (mg/dL) 297 H (70-110) mg/dL AST 40 H (14-36) U/L Total Protein 5.9 L (6.3-8.2) g/dL Albumin 3.3 L (3.5-5.0) g/dL Microbiology - Last 24 Hours (Table) 07/15/23 02:30 Blood Culture - Final Blood 07/15/23 02:15 Blood Culture - Final Blood Assessment and Plan Assessment: Acute hypoxemic respiratory failure, multifactorial. Extensive small cell lung cancer, as noted on CT scan. Acute pancreatitis. Left pleural effusion. Abdominal pain, secondary to pancreatitis. Severe LV dysfunction with an ejection fraction of 25 to 30%. Bilateral pleural effusions, most likely related to cardiac issues. Generalized weakness. Tobacco dependence syndrome. Benign essential hypertension. History of breast cancer, and previous right mastectomy. Plan: Plan dated July 21, 2023. The patient is seen today in room 363. The patient is on Airvo, at 35 L/min with an FiO2 of 55%. She appears relatively comfortable. Labs, x-rays, medications are reviewed. We will continue to titrate down the oxygen. The patient is overall prognosis remains guarded. She does continue on bronchodilators. Additional recommendations and suggestions are forthcoming. Time with Patient: Less than 30
--- NOTE | 2023-07-21 16:35 | P.PN ---
Subjective Progress Note Date: 07/21/23 Principal diagnosis: intractable pain, metastatic small cell lung cancer In follow-up today patient reports epigastric pain has resolved, she is tolerating oral intake, she is breathing comfortably on Airvo. She is not on oxygen at home currently. Objective - Vital Signs Vital signs: Vital Signs Temp 97.6 F 07/21/23 08:07 Pulse 86 07/21/23 10:27 Resp 18 07/21/23 10:27 BP 158/88 07/21/23 08:07 Pulse Ox 97 07/21/23 09:14 FiO2 60 07/21/23 09:14 Intake & Output 07/20/23 07/21/23 07/21/23 18:59 06:59 18:59 Intake Total 596 Output Total 400 Balance 196 Weight 67.1 kg Intake: Oral 596 Output: Urine 400 Other: Voiding Method Bedside Commode Bedside Commode Bedside Commode # Voids 3 1 0 # Bowel Movements 0 - Constitutional General appearance: Present: average body habitus, cooperative, no acute distress - EENT Eyes: Present: anicteric sclerae, EOMI ENT: Present: hearing grossly normal - Respiratory Respiratory: bilateral: CTA, diminished - Cardiovascular Rhythm: regular Heart sounds: normal: S1, S2 - Peripheral edema leg Peripheral Edema: bilateral: None - Gastrointestinal General gastrointestinal: Present: normal bowel sounds - Neurologic Neurologic: Present: CNII-XII intact (Grossly) - Musculoskeletal Musculoskeletal: Present: strength equal bilaterally - Psychiatric Psychiatric: Present: A&O x's 3, appropriate affect, intact judgment & insight - Labs CBC & Chem 7: 07/21/23 08:47 07/21/23 08:47 Labs: Abnormal Lab Results - Last 24 Hours (Table) 07/20/23 07/21/23 07/21/23 Range/Units 09:15 08:47 08:47 MCV 101.9 H (80.0-100.0) fL Neutrophils # 9.1 H (1.3-7.7) k/uL Lymphocytes # 0.2 L (1.0-4.8) k/uL Sodium 136 L (137-145) mmol/L Carbon Dioxide 34 H 38 H (22-30) mmol/L BUN 22 H 24 H (7-17) mg/dL Creatinine 0.48 L (0.52-1.04) mg/dL Glucose 215 H 233 H (74-99) mg/dL AST 40 H 40 H (14-36) U/L Total Protein 5.9 L 5.9 L (6.3-8.2) g/dL Albumin 3.2 L 3.3 L (3.5-5.0) g/dL Microbiology - Last 24 Hours (Table) 07/15/23 02:30 Blood Culture - Final Blood 07/15/23 02:15 Blood Culture - Final Blood 07/18/23 06:50 Gram Stain - Final Sputum Sputum Culture - Final Assessment and Plan (1) Pancreatitis Current Visit: Yes Status: Resolved Priority: High Code(s): K85.90 - ACUTE PANCREATITIS WITHOUT NECROSIS OR INFECTION, UNSP SNOMED Code(s): 14390472 (2) Metastasis to brain Current Visit: Yes Status: Acute Priority: High Code(s): C79.31 - SECONDARY MALIGNANT NEOPLASM OF BRAIN SNOMED Code(s): 06322709 (3) Extensive stage primary small cell carcinoma of lung Current Visit: Yes Status: Acute Priority: High Code(s): C34.90 - MALIGNANT NEOPLASM OF UNSP PART OF UNSP BRONCHUS OR LUNG SNOMED Code(s): 539157697195742 Plan: Pancreatitis -Presented with nausea, vomiting, and abdominal pain radiating to the back. Pt now reporting she thinks it was due to over indulgence -No further N,V, abd pain, she is tolerating liquids. Extensive stage small cell lung cancer -Was scheduled to receive first treatment of whole brain radiation therapy on 07/16/[address] Kruger at [facility]. She cont to plan on going for radiation treatment once she is discharged. -Patient not committing yet to systemic treatment. She can follow-up with her primary oncologist after radiation is complete to discuss her wishes regarding treatment as she moves forward. She cont to agree with this plan SOB -Pulm following -Pt was not previously O2 dependent, she may be now. Pending how she dose with weaning O2 Doctor attests: I performed a history and physical examination of this patient, developed impression and plan of care. Discussed with dictator. I agree with dictators note, documented as a scribe.
[2023-07-21 16:44] LABS: Glucose,Whole Blood 213 mg/dL (70-110)
[2023-07-21 20:15] LABS: Glucose,Whole Blood 203 mg/dL (70-110)
[2023-07-22 06:06] LABS: Glucose,Whole Blood 179 mg/dL (70-110)
--- NOTE | 2023-07-22 09:51 | P.PN ---
Subjective Progress Note Date: 07/21/23 Patient is a 62-year-old female presents to hospital with severe abdominal pain secondary to mild pancreatitis as well as combination of multiple patient became hypoxic and was transferred to [facility]. Patient developed went into hypoxic respiratory failure telemetry unit.. 07/21/2023 Patient is currently lying in the bed. Awake alert and oriented x 3. Requiring oxygen via Airvo 35 L with FiO2 55%. Denied any complaints of chest pain or worsening shortness of breath. Patient has been afebrile. Laboratory data showed WBC 9.9 hemoglobin 13.1 and platelets 177 Sodium 136 potassium 3.8 chloride 98 bicarb is 38 BUN 24 and creatinine 0.52 and blood sugar 233. Sliding scale was added. Blood culture and sputum cultures negative. Patient is being continued on DuoNebs and also on IV Solu-Medrol. Also antibiotics in the form of Zosyn. Chest x-ray on 07/20/2023 showed similar right hilar soft tissue and mild patchy upper lung densities, right greater than left. Similar small to moderate left pleural effusion with adjacent atelectasis and or consolidation. Oncology and pulmonary is on board. Current medications reviewed. Objective - Vital Signs Vital signs: Vital Signs Temp 97.6 F 07/21/23 08:07 Pulse 96 07/21/23 09:30 Resp 18 07/21/23 08:07 BP 158/88 07/21/23 08:07 Pulse Ox 97 07/21/23 09:14 FiO2 60 07/21/23 09:14 Intake & Output 07/20/23 07/21/23 07/21/23 18:59 06:59 18:59 Weight 67.1 kg Other: Voiding Method Bedside Commode Bedside Commode # Voids 3 1 - Exam PHYSICAL EXAMINATION: Patient is lying in the bed comfortably, no acute distress, awake alert and oriented.. HEENT: Normocephalic. Neck is supple. Pupils reactive. Nostrils clear. Oral cavity is moist. Neck reveals no JVD, carotid bruits, or thyromegaly. CHEST EXAMINATION: Trachea is central. Symmetrical expansion. Bibasilar diminished sounds. No wheezing or rhonchi. CARDIAC: Normal S1, S2 with no gallops. No murmurs ABDOMEN: Soft. Bowel sounds normal. No organomegaly. No abdominal bruits. Extremities: reveal no edema. Bilateral upper extremity swelling. No clubbing or cyanosis Neurologically awake, alert, oriented x3 with well-coordinated movements. No focal deficits noted Skin: No rash or skin lesions. Psychiatric: Coperative. Nonsuicidal Musculoskeletal: No joint swelling or deformity. Normal range of motion. - Labs CBC & Chem 7: 07/21/23 08:47 07/21/23 08:47 Labs: Abnormal Lab Results - Last 24 Hours (Table) 07/20/23 07/20/23 07/21/23 Range/Units 09:15 09:15 08:47 MCV 102.1 H 101.9 H (80.0-100.0) fL Neutrophils # 8.6 H 9.1 H (1.3-7.7) k/uL Lymphocytes # 0.2 L 0.2 L (1.0-4.8) k/uL Sodium (137-145) mmol/L Carbon Dioxide 34 H (22-30) mmol/L BUN 22 H (7-17) mg/dL Creatinine 0.48 L (0.52-1.04) mg/dL Glucose 215 H (74-99) mg/dL AST 40 H (14-36) U/L Total Protein 5.9 L (6.3-8.2) g/dL Albumin 3.2 L (3.5-5.0) g/dL 07/21/23 Range/Units 08:47 MCV (80.0-100.0) fL Neutrophils # (1.3-7.7) k/uL Lymphocytes # (1.0-4.8) k/uL Sodium 136 L (137-145) mmol/L Carbon Dioxide 38 H (22-30) mmol/L BUN 24 H (7-17) mg/dL Creatinine (0.52-1.04) mg/dL Glucose 233 H (74-99) mg/dL AST 40 H (14-36) U/L Total Protein 5.9 L (6.3-8.2) g/dL Albumin 3.3 L (3.5-5.0) g/dL Microbiology - Last 24 Hours (Table) 07/15/23 02:30 Blood Culture - Final Blood 07/15/23 02:15 Blood Culture - Final Blood 07/18/23 06:50 Gram Stain - Final Sputum Sputum Culture - Final Assessment and Plan Assessment: Acute pancreatitis without necrosis or infection. 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 Currently on high flow Airvo Hypertension History of breast cancer with prior mastectomy Left pleural effusion Chronic CHF with systolic dysfunction ejection fraction 25 to 30% Generalized weakness History of smoking Plan: Patient be continued on high flow oxygen. Continue with DuoNebs and IV Solu- Medrol and dose will be reduce it to 40 mg every 8 hourly. Continue to titrate down oxygen. Continue with pain management and follow-up closely. Patient will be started on insulin sliding scale for better blood sugar control. Patient to follow-up with radiation oncology as an outpatient. Oncology and pulmonary is on board. Prognosis is guarded. Time with Patient: Greater than 30
[2023-07-22 10:41] LABS: Basophils % (A) 0 %; Eosinophils % (A) 0 %; HCT 41.5 % (34.0-46.0); HGB 13.9 gm/dL (11.4-16.0); Lymphocytes # (A) 0.2 k/uL (1.0-4.8); Lymphocytes % (A) 2 %; MCH 33.3 pg (25.0-35.0); MCHC 33.4 g/dL (31.0-37.0); MCV 99.7 fL (80.0-100.0); Mean Platelet Volume 8.6; Monocytes # (A) 0.4 k/uL (0-1.0); Monocytes % (A) 4 %; Neutrophils # (A) 9.2 k/uL (1.3-7.7); Neutrophils % (A) 93 %; Platelet Count 167 k/uL (150-450); RBC 4.17 m/uL (3.80-5.40); RDW 13.3 % (11.5-15.5); WBC 9.9 k/uL (3.8-10.6)
[2023-07-22 11:11] LABS: African American GFR (CKD) >90 (>60 ml/min/1.73 sqM); Anion Gap -1 mmol/L; Blood Urea Nitrogen 26 mg/dL (7-17); Calcium 8.6 mg/dL (8.4-10.2); Carbon Dioxide 37 mmol/L (22-30); Chloride 99 mmol/L (98-107); Glucose 260 mg/dL (74-99); Non-African American GFR(CKD) >90 (>60 ml/min/1.73 sqM); Potassium 3.6 mmol/L (3.5-5.1); Sodium 135 mmol/L (137-145)
[2023-07-22 11:46] LABS: Glucose,Whole Blood 240 mg/dL (70-110)
--- NOTE | 2023-07-22 12:16 | P.PN ---
Subjective Progress Note Date: 07/22/23 Principal diagnosis: Shortness of breath. This is a 62-year-old female patient with a history of hyperlipidemia, mild intermittent chronic bronchial asthma, chronic tobacco dependence, anxiety/depression, previous right breast cancer status postmastectomy and chemotherapy over 6 years ago. 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 She had recently undergone a biopsy at [facility] with Dr. Wray of the abdominal mass. He was found to have metastatic lesions. She was to start whole brain radiation at [facility] on 07/16/2023 however she ended up coming here on 07/15/2023 with abdominal pain, nausea and vomiting. CT scan of the chest revealed a 7.6 x 7.7 x 7.4 cm mediastinal mass. Innumerable pulmonary nodules likely metastatic in nature. Multiple centrally necrotic pancreatic masses. Tumor thrombosis within the portosystemic confluence from the previously described pancreatic masses. Right adrenal mass. Metastatic lesions to the liver. Left adrenal mass. Centrally necrotic left inguinal lymph node. She was initially maintaining good O2 saturations in the 90s on 2 L/min per nasal cannula. The last few hours her oxygen requirements h ave gone up to 10 L high flow oxygen. We are consulted today for the same. Chest x-ray today reveals ongoing patchy upper and midlung opacities. Now with small to moderate left pleural effusion. She is currently sitting up in bed. Awake and alert in no acute distress. Somewhat of a poor historian. She is dyspneic with conversation. Dyspneic with exertion. She denies any worsening cough or congestion. No hemoptysis. She is currently on DuoNeb ventilations, Decadron, heparin for DVT prophylaxis. She has been given additional Lasix today. She is on antibiotics in the form of Zosyn. White count 9.2. Hemoglobin 12.2. Platelets 176. Sodium 137. Potassium 3.8. Bicarb 32. BUN 29. Creatinine 0.54. Glucose 187. Amylase 60. Lipase 297. Procalcitonin was 0.47. Patient was reevaluated today on 07/20/2023, patient is now on Airvo 60% FiO2 and 40 L flow, feels comfortable, does not seem to be in any distress, reviewed the CT of the chest also reviewed ultrasound of the chest, the pleural effusion is rather small, and there is all lung tissue floating in the pocket of pleural effusion, makes thoracentesis less safe, and again the effusion is not large enough to proceed with thoracentesis at this point. I believe the patient's shortness of breath is multifactorial related to her underlying small cell lung cancer patient does have a very large mediastinal mass, she has small pleural effusion, she has cardiomyopathy and LV dysfunction, and she came in with acute pancreatitis. Overall prognosis extremely poor, nonetheless the patient will be treated for her issues as they are accordingly. And she will be receiving bronchodilators for her underlying COPD. WBC count today is 9.3 hemoglobin 12.9 basic metabolic profile is normal renal profile is normal bicarb is 34 Progress note dated July 21, 2023. The patient is seen today in room 363. The patient is getting saline at 20 cc an hour. The patient is on Airvo, at 35 L/min, with an FiO2 of 55%. She appears relatively comfortable. She does have a history of small cell lung cancer. Current laboratory data includes a white count of 9.9, hemoglobin 13.1, hematocrit 40.7, and a normal platelet count. Sodium 136, potassium 3.8, chlorides 98, CO2 38, BUN 24, and creatinine 0.52. Glucose is 297. Albumin is 3.3. Sputum and blood cultures are thus far negative. X-ray from July 19 shows similar right hilar soft tissue and mild patchy upper lobe densities, right greater than left. In addition, there is a left-sided pleural effusion, which is small to moderate. Progress note dated July 22, 2023. The patient is again seen today in room 363. The patient is getting saline at 20 cc an hour. Yesterday, she was on Airvo. Today, the patient is on high flow O2, at 8 L. She looks relatively comfortable today, and states that her breathing is improved. Labs today include a white count 9.9, hemoglobin 13.9, hematocrit 41.5, and a normal platelet count. Sodium 135, potassium 3.6, chloride 79, CO2 37, BUN 26, and creatinine 0.51. Glucose is 240. Calcium is 8.6. Sputum and blood cultures are all negative. No recent chest x-ray. Objective - Vital Signs Vital signs: Vital Signs Temp 97.9 F 07/22/23 04:00 Pulse 88 07/22/23 12:03 Resp 16 07/22/23 08:51 BP 151/93 07/22/23 08:51 Pulse Ox 90 L 07/22/23 08:51 FiO2 54 07/21/23 12:36 Intake & Output 07/21/23 07/22/23 07/22/23 18:59 06:59 18:59 Intake Total 776 358 Output Total 1000 Balance -224 358 Weight 67.1 kg 67.8 kg Intake: Oral 776 358 Output: Urine 1000 Other: Voiding Method Bedside Commode Bedside Commode # Voids 0 1 # Bowel Movements 0 1 - Exam No acute distress, oriented 3. Patient is currently on 8 L high flow oxygen. Saturations are 93%. HEENT examination is grossly unremarkable. Mucous membranes are moist. No oral lesions. Neck supple. Full range of motion. No adenopathy thyromegaly or neck vein distention. Cardiovascular examination reveals regular rhythm rate. S1-S2 normal. No S3 or S4. No discernible murmur noted. Heart sounds are distant. Heart rate 96 bpm. Lungs reveal scattered rhonchi. Breath sounds are equal bilaterally. No crackles. No wheezes are appreciated. Abdomen soft bowel sounds are heard. No masses or tenderness. Extremities are intact. No cyanosis clubbing or edema. Skin is without rash or lesion. Neurologic examination is brief but nonfocal. - Labs CBC & Chem 7: 07/22/23 10:09 07/22/23 10:09 Labs: Abnormal Lab Results - Last 24 Hours (Table) 07/21/23 07/21/23 07/22/23 Range/Units 16:39 20:13 06:04 Neutrophils # (1.3-7.7) k/uL Lymphocytes # (1.0-4.8) k/uL Sodium (137-145) mmol/L Carbon Dioxide (22-30) mmol/L BUN (7-17) mg/dL Creatinine (0.52-1.04) mg/dL Glucose (74-99) mg/dL POC Glucose (mg/dL) 213 H 203 H 179 H (70-110) mg/dL 07/22/23 07/22/23 07/22/23 Range/Units 10:09 10:09 11:43 Neutrophils # 9.2 H (1.3-7.7) k/uL Lymphocytes # 0.2 L (1.0-4.8) k/uL Sodium 135 L (137-145) mmol/L Carbon Dioxide 37 H (22-30) mmol/L BUN 26 H (7-17) mg/dL Creatinine 0.51 L (0.52-1.04) mg/dL Glucose 260 H (74-99) mg/dL POC Glucose (mg/dL) 240 H (70-110) mg/dL Microbiology - Last 24 Hours (Table) 07/16/23 11:10 Blood Culture - Final Blood Assessment and Plan Assessment: Acute hypoxemic respiratory failure, multifactorial. Extensive small cell lung cancer, as noted on CT scan. Acute pancreatitis. Left pleural effusion. Abdominal pain, secondary to pancreatitis. Severe LV dysfunction with an ejection fraction of 25 to 30%. Bilateral pleural effusions, most likely related to cardiac issues. Generalized weakness. Tobacco dependence syndrome. Benign essential hypertension. History of breast cancer, and previous right mastectomy. Plan: Plan dated July 21, 2023. The patient is seen today in room 363. The patient is on Airvo, at 35 L/min with an FiO2 of 55%. She appears relatively comfortable. Labs, x-rays, medications are reviewed. We will continue to titrate down the oxygen. The patient is overall prognosis remains guarded. She does continue on bronchodilators. Additional recommendations and suggestions are forthcoming. Plan dated July 22, 2023. The patient appears to be doing better. Yesterday, she was on Airvo. Today she has been weaned down to 8 L high flow oxygen. The patient continues on saline, at 20 cc an hour. Labs, x-rays, and all medications are reviewed. The patient is overall prognosis remains guarded. Will continue to follow the patient, make recommendations along the way. She denies any worsening shortness of breath, cough, wheezing, chest tightness, or phlegm production. She also denies any chest pain or chest discomfort. Time with Patient: Less than 30
--- NOTE | 2023-07-22 14:45 | P.PN ---
Subjective Progress Note Date: 07/20/23 Principal diagnosis: Reason for follow-up is fever Patient is a 62-year-old female past medical history significant for hyperlipidemia asthma diverticulitis and right breast cancer as well as small cell cancer of the lung presenting to the hospital for evaluation of severe abdominal pain along with nausea and vomiting, CT abdominal pelvis with metastatic mass and necrotic pancreatic masses did have low-grade fever prompting this consultation. On today's evaluation that is 07/20/2023, the patient continues to be afebrile, the patient is on nasal cannula 40% FiO2 and breathing comfortably, the Pt denies having any chest pain denies any worsening cough or sputum production, the patient denies any worsening abdominal pain no vomiting or any diarrhea has been reported by the nursing staff Patient white count of 9.3 creatinine 0.48 Objective - Vital Signs Vital signs: Vital Signs Temp 97.7 F 07/20/23 08:23 Pulse 90 07/20/23 08:40 Resp 18 07/20/23 08:23 BP 145/84 07/20/23 08:23 Pulse Ox 96 07/20/23 08:34 FiO2 80 07/20/23 08:34 Intake & Output 07/19/23 07/20/23 07/20/23 18:59 06:59 18:59 Weight 67 kg Other: Voiding Method Bedside Commode Bedside Commode # Voids 5 - Exam GENERAL DESCRIPTION: Middle-aged female lying in bed in no distress RESPIRATORY SYSTEM: Unlabored breathing , decreased breath sounds at bases HEART: S1 S2 regular rate and rhythm , ABDOMEN: Soft , no tenderness EXTREMITIES: No edema feet exam completed with the help of [employer] - Labs CBC & Chem 7: 07/22/23 10:09 07/22/23 10:09 Labs: Microbiology - Last 24 Hours (Table) 07/18/23 06:50 Gram Stain - Final Sputum Sputum Culture - Final 07/16/23 11:10 Blood Culture - Preliminary Blood Assessment and Plan (1) Fever Current Visit: Yes Status: Acute Code(s): R50.9 - FEVER, UNSPECIFIED SNOMED Code(s): 589909718 (2) Leukocytosis Current Visit: Yes Status: Acute Code(s): D72.829 - ELEVATED WHITE BLOOD CELL COUNT, UNSPECIFIED SNOMED Code(s): 168336656 Plan: 1patient presented to hospital with intractable abdominal pain nausea vomiting and this patient who did have a extensive abnormality seen on the CT of the chest abdominal pelvis concerning for necrotic masses in the pancreas and renal could be responsible for most of her symptomatology with a low-grade fever elevated white count could be reactive underlying infectious etiology less likely but not entirely excluded 2-blood culture has been obtained which are currently pending, inflammatory mar kers are mildly elevated with a procalcitonin 0.47 3-patient did have resolution of her fever and white count has normalized, however the patient still requiring high flow oxygen [facility] while waiting for the sputum culture to finalize Dictation was produced using [employer] dictation software. please excuse any grammatical, word or spelling errors. Time with Patient: Less than 30
--- NOTE | 2023-07-22 14:46 | P.PN ---
Subjective Progress Note Date: 07/21/23 Principal diagnosis: Reason for follow-up is fever Patient is a 62-year-old female past medical history significant for hyperlipidemia asthma diverticulitis and right breast cancer as well as small cell cancer of the lung presenting to the hospital for evaluation of severe abdominal pain along with nausea and vomiting, CT abdominal pelvis with metastatic mass and necrotic pancreatic masses did have low-grade fever prompting this consultation. On today's evaluation that is 07/21/2023, Patient is afebrile patient is currently on 35% FiO2 and denies having any worsening shortness of breath, the patient denies any chest pain or any worsening cough, the patient denies any nausea vomiting did not have any abdominal pain and no diarrhea Patient white count of 9.9, creatinine 0.52 Objective - Vital Signs Vital signs: Vital Signs Temp 97.2 F L 07/21/23 20:00 Pulse 90 07/21/23 20:35 Resp 20 07/21/23 20:00 BP 163/84 07/21/23 20:00 Pulse Ox 96 07/21/23 20:00 FiO2 54 07/21/23 12:36 Intake & Output 07/21/23 07/21/23 07/22/23 06:59 18:59 06:59 Intake Total 776 Output Total 1000 Balance -224 Weight 67.1 kg 67.1 kg Intake: Oral 776 Output: Urine 1000 Other: Voiding Method Bedside Commode Bedside Commode # Voids 1 0 # Bowel Movements 0 - Exam GENERAL DESCRIPTION: Middle-aged female lying in bed in no distress RESPIRATORY SYSTEM: Unlabored breathing , decreased breath sounds at bases HEART: S1 S2 regular rate and rhythm , ABDOMEN: Soft , no tenderness EXTREMITIES: No edema feet - Labs CBC & Chem 7: 07/22/23 10:09 07/22/23 10:09 Labs: Abnormal Lab Results - Last 24 Hours (Table) 07/21/23 07/21/23 07/21/23 Range/Units 08:47 08:47 11:31 MCV 101.9 H (80.0-100.0) fL Neutrophils # 9.1 H (1.3-7.7) k/uL Lymphocytes # 0.2 L (1.0-4.8) k/uL Sodium 136 L (137-145) mmol/L Carbon Dioxide 38 H (22-30) mmol/L BUN 24 H (7-17) mg/dL Glucose 233 H (74-99) mg/dL POC Glucose (mg/dL) 297 H (70-110) mg/dL AST 40 H (14-36) U/L Total Protein 5.9 L (6.3-8.2) g/dL Albumin 3.3 L (3.5-5.0) g/dL 07/21/23 07/21/23 Range/Units 16:39 20:13 MCV (80.0-100.0) fL Neutrophils # (1.3-7.7) k/uL Lymphocytes # (1.0-4.8) k/uL Sodium (137-145) mmol/L Carbon Dioxide (22-30) mmol/L BUN (7-17) mg/dL Glucose (74-99) mg/dL POC Glucose (mg/dL) 213 H 203 H (70-110) mg/dL AST (14-36) U/L Total Protein (6.3-8.2) g/dL Albumin (3.5-5.0) g/dL Microbiology - Last 24 Hours (Table) 07/16/23 11:10 Blood Culture - Final Blood Assessment and Plan (1) Fever Current Visit: Yes Status: Acute Code(s): R50.9 - FEVER, UNSPECIFIED SNOMED Code(s): 443551453 (2) Leukocytosis Current Visit: Yes Status: Acute Code(s): D72.829 - ELEVATED WHITE BLOOD CELL COUNT, UNSPECIFIED SNOMED Code(s): 164503019 Plan: 1patient presented to hospital with intractable abdominal pain nausea vomiting and this patient who did have a extensive abnormality seen on the CT of the chest abdominal pelvis concerning for necrotic masses in the pancreas and renal could be responsible for most of her symptomatology with a low-grade fever elevated white count could be reactive underlying infectious etiology less likely but not entirely excluded 2-blood culture has been negative, inflammatory markers are mildly elevated with a procalcitonin 0.47, sputum cultures pending 3-patient did have resolution of her fever and white count has normalized, did have some improvement her respiratory status continue with the Zosyn while waiting for the culture to finalize Dictation was produced using [employer] dictation software. please excuse any grammatical, word or spelling errors. Time with Patient: Less than 30
--- NOTE | 2023-07-22 14:47 | P.PN ---
Subjective Progress Note Date: 07/22/23 Principal diagnosis: Reason for follow-up is fever Patient is a 62-year-old female past medical history significant for hyperlipidemia asthma diverticulitis and right breast cancer as well as small cell cancer of the lung presenting to the hospital for evaluation of severe abdominal pain along with nausea and vomiting, CT abdominal pelvis with metastatic mass and necrotic pancreatic masses did have low-grade fever prompting this consultation. On today's evaluation that is 07/22/2023, patient has been afebrile, patient is breathing comfortably and is down to 8 L nasal cannula oxygen patient denies having any chest pain cough is decreased intensity mostly dry in nature abdominal discomfort has improved tolerating her diet no vomiting or any diarrhea has been reported Patient white count is 9.9 same as yesterday creatinine 0.51, blood and sputum culture has been negative so far Objective - Vital Signs Vital signs: Vital Signs Temp 97.9 F 07/22/23 04:00 Pulse 97 07/22/23 12:25 Resp 18 07/22/23 12:25 BP 134/85 07/22/23 12:25 Pulse Ox 93 L 07/22/23 12:25 FiO2 54 07/21/23 12:36 Intake & Output 07/21/23 07/22/23 07/22/23 18:59 06:59 18:59 Intake Total 776 598 Output Total 1000 Balance -224 598 Weight 67.1 kg 67.8 kg Intake: Oral 776 598 Output: Urine 1000 Other: Voiding Method Bedside Commode Bedside Commode # Voids 0 1 # Bowel Movements 0 1 - Exam GENERAL DESCRIPTION: Middle-aged female lying in bed in no distress RESPIRATORY SYSTEM: Unlabored breathing , coarse breath sounds bilaterally HEART: S1 S2 regular rate and rhythm , ABDOMEN: Soft , no tenderness EXTREMITIES: No edema feet - Labs CBC & Chem 7: 07/22/23 10:09 07/22/23 10:09 Labs: Abnormal Lab Results - Last 24 Hours (Table) 07/21/23 07/21/23 07/22/23 Range/Units 16:39 20:13 06:04 Neutrophils # (1.3-7.7) k/uL Lymphocytes # (1.0-4.8) k/uL Sodium (137-145) mmol/L Carbon Dioxide (22-30) mmol/L BUN (7-17) mg/dL Creatinine (0.52-1.04) mg/dL Glucose (74-99) mg/dL POC Glucose (mg/dL) 213 H 203 H 179 H (70-110) mg/dL 07/22/23 07/22/23 07/22/23 Range/Units 10:09 10:09 11:43 Neutrophils # 9.2 H (1.3-7.7) k/uL Lymphocytes # 0.2 L (1.0-4.8) k/uL Sodium 135 L (137-145) mmol/L Carbon Dioxide 37 H (22-30) mmol/L BUN 26 H (7-17) mg/dL Creatinine 0.51 L (0.52-1.04) mg/dL Glucose 260 H (74-99) mg/dL POC Glucose (mg/dL) 240 H (70-110) mg/dL Microbiology - Last 24 Hours (Table) 07/16/23 11:10 Blood Culture - Final Blood Assessment and Plan (1) Fever Current Visit: Yes Status: Acute Code(s): R50.9 - FEVER, UNSPECIFIED SNOMED Code(s): 312430160 (2) Leukocytosis Current Visit: Yes Status: Acute Code(s): D72.829 - ELEVATED WHITE BLOOD CELL COUNT, UNSPECIFIED SNOMED Code(s): 575344802 Plan: 1patient presented to hospital with intractable abdominal pain nausea vomiting and this patient who did have a extensive abnormality seen on the CT of the chest abdominal pelvis concerning for necrotic masses in the pancreas and renal could be responsible for most of her symptomatology with a low-grade fever elevated white count could be reactive underlying infectious etiology less likely but not entirely excluded 2-blood culture has been negative, inflammatory markers are mildly elevated with a procalcitonin 0.47, sputum cultures pending 3-patient did have resolution of her fever and white count has normalized, sputum culture has been negative for resistant pathogen continue Zosyn consider short course of Augmentin on discharge Dictation was produced using [employer] dictation software. please excuse any grammatical, word or spelling errors. Time with Patient: Less than 30
[2023-07-22 16:44] LABS: Glucose,Whole Blood 132 mg/dL (70-110)
[2023-07-22] MEDS: methylPREDNISolone SOD SUCCI 40 MG/ML 1 ML VIAL IV SCH (17:22)
[2023-07-22 20:02] LABS: Glucose,Whole Blood 176 mg/dL (70-110)
[2023-07-23 06:16] LABS: Glucose,Whole Blood 157 mg/dL (70-110)
[2023-07-23 10:25] LABS: African American GFR (CKD) >90 (>60 ml/min/1.73 sqM); Anion Gap 5 mmol/L; Blood Urea Nitrogen 27 mg/dL (7-17); Calcium 8.4 mg/dL (8.4-10.2); Carbon Dioxide 38 mmol/L (22-30); Chloride 95 mmol/L (98-107); Glucose 188 mg/dL (74-99); Non-African American GFR(CKD) >90 (>60 ml/min/1.73 sqM); Potassium 3.7 mmol/L (3.5-5.1); Sodium 138 mmol/L (137-145)
--- NOTE | 2023-07-23 10:44 | P.PN ---
Subjective Progress Note Date: 07/22/23 Patient is a 62-year-old female presents to hospital with severe abdominal pain secondary to mild pancreatitis as well as combination of multiple patient became hypoxic and was transferred to [facility]. Patient developed went into hypoxic respiratory failure telemetry unit.. 07/21/2023 Patient is currently lying in the bed. Awake alert and oriented x 3. Requiring oxygen via Airvo 35 L with FiO2 55%. Denied any complaints of chest pain or worsening shortness of breath. Patient has been afebrile. Laboratory data showed WBC 9.9 hemoglobin 13.1 and platelets 177 Sodium 136 potassium 3.8 chloride 98 bicarb is 38 BUN 24 and creatinine 0.52 and blood sugar 233. Sliding scale was added. Blood culture and sputum cultures negative. Patient is being continued on DuoNebs and also on IV Solu-Medrol. Also antibiotics in the form of Zosyn. Chest x-ray on 07/20/2023 showed similar right hilar soft tissue and mild patchy upper lung densities, right greater than left. Similar small to moderate left pleural effusion with adjacent atelectasis and or consolidation. Oncology and pulmonary is on board. 07/22/2023 Patient is currently resting in the bed. Awake alert and oriented x 3. Denied any complaints of chest pain or worsening shortness of breath. Patient is on high flow oxygen at 8 L today. Patient has been afebrile. No nausea vomiting abdominal pain. Tolerating oral diet. Laboratory data showed WBC 9.9 hemoglobin 13.9 and platelets 167, sodium 135 potassium 3.6 chloride 99 bicarb is 37 BUN 26 and creatinine 0.51 blood sugar is 268 A1c level is 7.0 Patient has been continued on antibiotics on home Zosyn. ID and pulmonary is on board. Current medications reviewed. Objective - Vital Signs Vital signs: Vital Signs Temp 97.9 F 07/22/23 04:00 Pulse 97 07/22/23 12:25 Resp 18 07/22/23 12:25 BP 134/85 07/22/23 12:25 Pulse Ox 93 L 07/22/23 12:25 FiO2 54 07/21/23 12:36 Intake & Output 07/21/23 07/22/23 07/22/23 18:59 06:59 18:59 Intake Total 776 598 Output Total 1000 Balance -224 598 Weight 67.1 kg 67.8 kg Intake: Oral 776 598 Output: Urine 1000 Other: Voiding Method Bedside Commode Bedside Commode # Voids 0 1 # Bowel Movements 0 1 - Exam PHYSICAL EXAMINATION: Patient is lying in the bed comfortably, no acute distress, awake alert and oriented.. HEENT: Normocephalic. Neck is supple. Pupils reactive. Nostrils clear. Oral cavity is moist. Neck reveals no JVD, carotid bruits, or thyromegaly. CHEST EXAMINATION: Trachea is central. Symmetrical expansion. Bibasilar diminished sounds. No wheezing or rhonchi. CARDIAC: Normal S1, S2 with no gallops. No murmurs ABDOMEN: Soft. Bowel sounds normal. No organomegaly. No abdominal bruits. Extremities: reveal no edema. Bilateral upper extremity swelling. No clubbing or cyanosis Neurologically awake, alert, oriented x3 with well-coordinated movements. No focal deficits noted Skin: No rash or skin lesions. Psychiatric: Coperative. Nonsuicidal Musculoskeletal: No joint swelling or deformity. Normal range of motion. - Labs CBC & Chem 7: 07/22/23 10:09 07/23/23 09:33 Labs: Abnormal Lab Results - Last 24 Hours (Table) 07/21/23 07/21/23 07/22/23 Range/Units 16:39 20:13 06:04 Neutrophils # (1.3-7.7) k/uL Lymphocytes # (1.0-4.8) k/uL Sodium (137-145) mmol/L Carbon Dioxide (22-30) mmol/L BUN (7-17) mg/dL Creatinine (0.52-1.04) mg/dL Glucose (74-99) mg/dL POC Glucose (mg/dL) 213 H 203 H 179 H (70-110) mg/dL 07/22/23 07/22/23 07/22/23 Range/Units 10:09 10:09 11:43 Neutrophils # 9.2 H (1.3-7.7) k/uL Lymphocytes # 0.2 L (1.0-4.8) k/uL Sodium 135 L (137-145) mmol/L Carbon Dioxide 37 H (22-30) mmol/L BUN 26 H (7-17) mg/dL Creatinine 0.51 L (0.52-1.04) mg/dL Glucose 260 H (74-99) mg/dL POC Glucose (mg/dL) 240 H (70-110) mg/dL Microbiology - Last 24 Hours (Table) 07/16/23 11:10 Blood Culture - Final Blood Assessment and Plan Assessment: Acute pancreatitis without necrosis or infection. 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 Currently on high flow 8 L Hypertension History of breast cancer with prior mastectomy Left pleural effusion Chronic CHF with systolic dysfunction ejection fraction 25 to 30% Generalized weakness History of smoking Plan: Patient be continued on high flow oxygen. Continue with DuoNebs and IV Solu- Medrol 40 mg every 8 hourly. Patient is also on IV Lasix 40 mg daily Continue to titrate down oxygen. Continue with pain management and follow-up closely. Patient will be started on insulin sliding scale for better blood sugar control. Patient to follow-up with radiation oncology as an outpatient. Oncology and pulmonary is on board. Prognosis is guarded. Time with Patient: Greater than 30
[2023-07-23 11:47] LABS: Glucose,Whole Blood 192 mg/dL (70-110)
--- NOTE | 2023-07-23 14:01 | P.PN ---
Subjective Progress Note Date: 07/23/23 Principal diagnosis: Shortness of breath. This is a 62-year-old female patient with a history of hyperlipidemia, mild intermittent chronic bronchial asthma, chronic tobacco dependence, anxiety/depression, previous right breast cancer status postmastectomy and chemotherapy over 6 years ago. 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 She had recently undergone a biopsy at [facility] with Dr. Wray of the abdominal mass. He was found to have metastatic lesions. She was to start whole brain radiation at [facility] on 07/16/2023 however she ended up coming here on 07/15/2023 with abdominal pain, nausea and vomiting. CT scan of the chest revealed a 7.6 x 7.7 x 7.4 cm mediastinal mass. Innumerable pulmonary nodules likely metastatic in nature. Multiple centrally necrotic pancreatic masses. Tumor thrombosis within the portosystemic confluence from the previously described pancreatic masses. Right adrenal mass. Metastatic lesions to the liver. Left adrenal mass. Centrally necrotic left inguinal lymph node. She was initially maintaining good O2 saturations in the 90s on 2 L/min per nasal cannula. The last few hours her oxygen requirements h ave gone up to 10 L high flow oxygen. We are consulted today for the same. Chest x-ray today reveals ongoing patchy upper and midlung opacities. Now with small to moderate left pleural effusion. She is currently sitting up in bed. Awake and alert in no acute distress. Somewhat of a poor historian. She is dyspneic with conversation. Dyspneic with exertion. She denies any worsening cough or congestion. No hemoptysis. She is currently on DuoNeb ventilations, Decadron, heparin for DVT prophylaxis. She has been given additional Lasix today. She is on antibiotics in the form of Zosyn. White count 9.2. Hemoglobin 12.2. Platelets 176. Sodium 137. Potassium 3.8. Bicarb 32. BUN 29. Creatinine 0.54. Glucose 187. Amylase 60. Lipase 297. Procalcitonin was 0.47. Patient was reevaluated today on 07/20/2023, patient is now on Airvo 60% FiO2 and 40 L flow, feels comfortable, does not seem to be in any distress, reviewed the CT of the chest also reviewed ultrasound of the chest, the pleural effusion is rather small, and there is all lung tissue floating in the pocket of pleural effusion, makes thoracentesis less safe, and again the effusion is not large enough to proceed with thoracentesis at this point. I believe the patient's shortness of breath is multifactorial related to her underlying small cell lung cancer patient does have a very large mediastinal mass, she has small pleural effusion, she has cardiomyopathy and LV dysfunction, and she came in with acute pancreatitis. Overall prognosis extremely poor, nonetheless the patient will be treated for her issues as they are accordingly. And she will be receiving bronchodilators for her underlying COPD. WBC count today is 9.3 hemoglobin 12.9 basic metabolic profile is normal renal profile is normal bicarb is 34 Progress note dated July 21, 2023. The patient is seen today in room 363. The patient is getting saline at 20 cc an hour. The patient is on Airvo, at 35 L/min, with an FiO2 of 55%. She appears relatively comfortable. She does have a history of small cell lung cancer. Current laboratory data includes a white count of 9.9, hemoglobin 13.1, hematocrit 40.7, and a normal platelet count. Sodium 136, potassium 3.8, chlorides 98, CO2 38, BUN 24, and creatinine 0.52. Glucose is 297. Albumin is 3.3. Sputum and blood cultures are thus far negative. X-ray from July 19 shows similar right hilar soft tissue and mild patchy upper lobe densities, right greater than left. In addition, there is a left-sided pleural effusion, which is small to moderate. Progress note dated July 22, 2023. The patient is again seen today in room 363. The patient is getting saline at 20 cc an hour. Yesterday, she was on Airvo. Today, the patient is on high flow O2, at 8 L. She looks relatively comfortable today, and states that her breathing is improved. Labs today include a white count 9.9, hemoglobin 13.9, hematocrit 41.5, and a normal platelet count. Sodium 135, potassium 3.6, chloride 79, CO2 37, BUN 26, and creatinine 0.51. Glucose is 240. Calcium is 8.6. Sputum and blood cultures are all negative. No recent chest x-ray. Progress note dated July 23, 2023. The patient is seen today in room 363. Currently, the patient is on 8 L high flow nasal cannula. The patient is receiving Zosyn. The patient's procalcitonin level was elevated at 0.47. She appears in no distress. Her respiratory status is improved. She denies any cough, phlegm production, chest tightness, or wheezing. Laboratory data includes a sodium 138, potassium 3.7, chloride 95, CO2 38, BUN 27, creatinine 0.67. Glucose is 192. Calcium 8.4. Blood and sputum sampling is thus far all negative. No recent chest x-ray. Objective - Vital Signs Vital signs: Vital Signs Temp 97.7 F 07/23/23 11:11 Pulse 87 07/23/23 11:34 Resp 20 07/23/23 11:34 BP 134/79 07/23/23 11:11 Pulse Ox 92 L 07/23/23 11:11 FiO2 54 07/21/23 12:36 Intake & Output 07/22/23 07/23/23 07/23/23 18:59 06:59 18:59 Intake Total 838 118 Balance 838 118 Weight 68.1 kg 68.1 kg Intake: Oral 838 118 Other: Voiding Method Bedside Commode Bedside Commode # Voids 3 # Bowel Movements 1 - Exam No acute distress, oriented 3. Patient is currently on 8 L high flow oxygen. Saturations are 92%. HEENT examination is grossly unremarkable. Mucous membranes are moist. No oral lesions. Neck supple. Full range of motion. No adenopathy thyromegaly or neck vein distention. Cardiovascular examination reveals regular rhythm rate. S1-S2 normal. No S3 or S4. No discernible murmur noted. Heart sounds are distant. Heart rate 87 bpm. Lungs reveal scattered rhonchi. Breath sounds are equal bilaterally. No crackles. No wheezes are appreciated. Abdomen soft bowel sounds are heard. No masses or tenderness. Extremities are intact. No cyanosis clubbing or edema. Skin is without rash or lesion. Neurologic examination is brief but nonfocal. - Labs CBC & Chem 7: 07/22/23 10:09 07/23/23 09:33 Labs: Abnormal Lab Results - Last 24 Hours (Table) 07/22/23 07/22/23 07/22/23 Range/Units 10:09 16:43 20:00 Chloride (98-107) mmol/L Carbon Dioxide (22-30) mmol/L BUN (7-17) mg/dL Glucose (74-99) mg/dL POC Glucose (mg/dL) 132 H 176 H (70-110) mg/dL Hemoglobin A1c 7.0 H (<=6.0) % 07/23/23 07/23/23 07/23/23 Range/Units 06:15 09:33 11:46 Chloride 95 L (98-107) mmol/L Carbon Dioxide 38 H (22-30) mmol/L BUN 27 H (7-17) mg/dL Glucose 188 H (74-99) mg/dL POC Glucose (mg/dL) 157 H 192 H (70-110) mg/dL Hemoglobin A1c (<=6.0) % Assessment and Plan Assessment: Acute hypoxemic respiratory failure, multifactorial. Extensive small cell lung cancer, as noted on CT scan. Acute pancreatitis. Left pleural effusion. Abdominal pain, secondary to pancreatitis. Severe LV dysfunction with an ejection fraction of 25 to 30%. Bilateral pleural effusions, most likely related to cardiac issues. Generalized weakness. Tobacco dependence syndrome. Benign essential hypertension. History of breast cancer, and previous right mastectomy. Plan: Plan dated July 21, 2023. The patient is seen today in room 363. The patient is on Airvo, at 35 L/min with an FiO2 of 55%. She appears relatively comfortable. Labs, x-rays, medications are reviewed. We will continue to titrate down the oxygen. The patient is overall prognosis remains guarded. She does continue on bronchodilators. Additional recommendations and suggestions are forthcoming. Plan dated July 22, 2023. The patient appears to be doing better. Yesterday, she was on Airvo. Today she has been weaned down to 8 L high flow oxygen. The patient continues on saline, at 20 cc an hour. Labs, x-rays, and all medications are reviewed. The patient is overall prognosis remains guarded. Will continue to follow the patient, make recommendations along the way. She denies any worsening shortness of breath, cough, wheezing, chest tightness, or phlegm production. She also denies any chest pain or chest discomfort. Plan dated July 23, 2023. The patient again appears reasonably stable. Like yesterday, she continues on nasal O2, high flow, 8 L. Saturations are in the low to mid 90s. The patient continues on Zosyn. The patient has a procalcitonin level which is elevated at 0.47. Labs, x-rays, and medications are reviewed. We will continue to follow the patient, make recommendations along the way. The patient is overall pro gnosis remains guarded. As above, the patient denies any shortness of breath, cough, wheezing, chest tightness, or phlegm production. Time with Patient: Less than 30
[2023-07-23 16:15] LABS: Glucose,Whole Blood 225 mg/dL (70-110)
[2023-07-23] MEDS: traMADol 50 MG TAB PO PRN (17:03)
--- NOTE | 2023-07-23 18:08 | P.PN ---
Subjective Progress Note Date: 07/23/23 Principal diagnosis: intractable pain, metastatic small cell lung cancer In follow-up pt reports pain control but is using dilaudid almost ATC. She is currently on 8L. Not moving much Objective - Vital Signs Vital signs: Vital Signs Temp 98.1 F 07/23/23 07:55 Pulse 90 07/23/23 08:28 Resp 20 07/23/23 08:28 BP 142/88 07/23/23 07:55 Pulse Ox 94 L 07/23/23 08:19 FiO2 54 07/21/23 12:36 Intake & Output 07/22/23 07/23/23 07/23/23 18:59 06:59 18:59 Intake Total 838 118 Balance 838 118 Weight 68.1 kg Intake: Oral 838 118 Other: Voiding Method Bedside Commode Bedside Commode # Voids 3 # Bowel Movements 1 - Constitutional General appearance: Present: average body habitus, cooperative, no acute distress - EENT Eyes: Present: anicteric sclerae, EOMI ENT: Present: hearing grossly normal - Respiratory Details: resp even and unlabored at rest - Cardiovascular Details: well perfused - Peripheral edema leg Peripheral Edema: bilateral: None - Gastrointestinal General gastrointestinal: Present: soft - Integumentary Integumentary: Present: normal - Neurologic Neurologic: Present: CNII-XII intact - Musculoskeletal Musculoskeletal: Present: generalized weakness - Psychiatric Psychiatric: Present: A&O x's 3, appropriate affect, intact judgment & insight - Labs CBC & Chem 7: 07/22/23 10:09 07/23/23 09:33 Labs: Abnormal Lab Results - Last 24 Hours (Table) 07/22/23 07/22/23 07/22/23 Range/Units 10:09 10:09 11:43 Sodium 135 L (137-145) mmol/L Chloride (98-107) mmol/L Carbon Dioxide 37 H (22-30) mmol/L BUN 26 H (7-17) mg/dL Creatinine 0.51 L (0.52-1.04) mg/dL Glucose 260 H (74-99) mg/dL POC Glucose (mg/dL) 240 H (70-110) mg/dL Hemoglobin A1c 7.0 H (<=6.0) % 07/22/23 07/22/23 07/23/23 Range/Units 16:43 20:00 06:15 Sodium (137-145) mmol/L Chloride (98-107) mmol/L Carbon Dioxide (22-30) mmol/L BUN (7-17) mg/dL Creatinine (0.52-1.04) mg/dL Glucose (74-99) mg/dL POC Glucose (mg/dL) 132 H 176 H 157 H (70-110) mg/dL Hemoglobin A1c (<=6.0) % 07/23/23 Range/Units 09:33 Sodium (137-145) mmol/L Chloride 95 L (98-107) mmol/L Carbon Dioxide 38 H (22-30) mmol/L BUN 27 H (7-17) mg/dL Creatinine (0.52-1.04) mg/dL Glucose 188 H (74-99) mg/dL POC Glucose (mg/dL) (70-110) mg/dL Hemoglobin A1c (<=6.0) % Assessment and Plan (1) Pancreatitis Current Visit: Yes Status: Resolved Priority: High Code(s): K85.90 - ACUTE PANCREATITIS WITHOUT NECROSIS OR INFECTION, UNSP SNOMED Code(s): 75937857 (2) Metastasis to brain Current Visit: Yes Status: Acute Priority: High Code(s): C79.31 - SECONDARY MALIGNANT NEOPLASM OF BRAIN SNOMED Code(s): 40700615 (3) Extensive stage primary small cell carcinoma of lung Current Visit: Yes Status: Acute Priority: High Code(s): C34.90 - MALIGNANT NEOPLASM OF UNSP PART OF UNSP BRONCHUS OR LUNG SNOMED Code(s): 879813300559094 Plan: Pancreatitis -Presented with nausea, vomiting, and abdominal pain radiating to the back. Pt now reporting she thinks it was due to over indulgence -No further N,V, abd pain, on dilaudid. -Diet advavnced to heart healthy. Extensive stage small cell lung cancer -Was scheduled to receive first treatment of whole brain radiation therapy on 07/16/[address] Kruger at [facility]. She cont to plan on going for radiation treatment once she is discharged. -Patient not committing yet to systemic treatment. She can follow-up with her primary oncologist after radiation is complete to discuss her wishes regarding treatment as she moves forward. She cont to agree with this plan SOB -Pulm following -Pt was not previously O2 dependent, she may be now. Pending how she dose with weaning O2 Doctor attests: I performed a history and physical examination of this patient, developed impression and plan of care. Discussed with dictator. I agree with dictators note, documented as a scribe.
[2023-07-23 19:54] LABS: Glucose,Whole Blood 210 mg/dL (70-110)
[2023-07-24 06:03] LABS: Glucose,Whole Blood 124 mg/dL (70-110)
--- NOTE | 2023-07-24 10:22 | P.PN ---
Subjective Progress Note Date: 07/23/23 Patient is a 62-year-old female presents to hospital with severe abdominal pain secondary to mild pancreatitis as well as combination of multiple patient became hypoxic and was transferred to [facility]. Patient developed went into hypoxic respiratory failure telemetry unit.. 07/21/2023 Patient is currently lying in the bed. Awake alert and oriented x 3. Requiring oxygen via Airvo 35 L with FiO2 55%. Denied any complaints of chest pain or worsening shortness of breath. Patient has been afebrile. Laboratory data showed WBC 9.9 hemoglobin 13.1 and platelets 177 Sodium 136 potassium 3.8 chloride 98 bicarb is 38 BUN 24 and creatinine 0.52 and blood sugar 233. Sliding scale was added. Blood culture and sputum cultures negative. Patient is being continued on DuoNebs and also on IV Solu-Medrol. Also antibiotics in the form of Zosyn. Chest x-ray on 07/20/2023 showed similar right hilar soft tissue and mild patchy upper lung densities, right greater than left. Similar small to moderate left pleural effusion with adjacent atelectasis and or consolidation. Oncology and pulmonary is on board. 07/22/2023 Patient is currently resting in the bed. Awake alert and oriented x 3. Denied any complaints of chest pain or worsening shortness of breath. Patient is on high flow oxygen at 8 L today. Patient has been afebrile. No nausea vomiting abdominal pain. Tolerating oral diet. Laboratory data showed WBC 9.9 hemoglobin 13.9 and platelets 167, sodium 135 potassium 3.6 chloride 99 bicarb is 37 BUN 26 and creatinine 0.51 blood sugar is 268 A1c level is 7.0 Patient has been continued on antibiotics on home Zosyn. ID and pulmonary is on board. 07/23/2023 Patient is lying in the bed. Awake alert and oriented x 3. Currently still on 8 L high flow oxygen. Patient is being continued on antibiotics in the form of Zosyn. Also on Lasix 20 mg daily IV. Continued on Solu-Medrol 40 mg IV every 8 hourly. Denies any complaints of fever or chills. No complaints of chest pain or worsening shortness of breath. No headache or dizziness or lightheadedness. Blood sugar is controlled. Laboratory data showed sodium 138 potassium 3.7 chloride 95 bicarb is 38 BUN 27 and creatinine 0.67 and blood sugar 188 and calcium 8.4 Pulmonary is on board. Current medications reviewed. Objective - Vital Signs Vital signs: Vital Signs Temp 98.1 F 07/23/23 07:55 Pulse 90 07/23/23 08:28 Resp 20 07/23/23 08:28 BP 142/88 07/23/23 07:55 Pulse Ox 94 L 07/23/23 08:19 FiO2 54 07/21/23 12:36 Intake & Output 07/22/23 07/23/23 07/23/23 18:59 06:59 18:59 Intake Total 838 118 Balance 838 118 Weight 68.1 kg Intake: Oral 838 118 Other: Voiding Method Bedside Commode Bedside Commode # Voids 3 # Bowel Movements 1 - Exam PHYSICAL EXAMINATION: Patient is lying in the bed comfortably, no acute distress, awake alert and oriented.. HEENT: Normocephalic. Neck is supple. Pupils reactive. Nostrils clear. Oral cav ity is moist. Neck reveals no JVD, carotid bruits, or thyromegaly. CHEST EXAMINATION: Trachea is central. Symmetrical expansion. Bibasilar diminished sounds. No wheezing or rhonchi. CARDIAC: Normal S1, S2 with no gallops. No murmurs ABDOMEN: Soft. Bowel sounds normal. No organomegaly. No abdominal bruits. Extremities: reveal no edema. Bilateral upper extremity swelling. No clubbing or cyanosis Neurologically awake, alert, oriented x3 with well-coordinated movements. No focal deficits noted Skin: No rash or skin lesions. Psychiatric: Coperative. Nonsuicidal Musculoskeletal: No joint swelling or deformity. Normal range of motion. - Labs CBC & Chem 7: 07/22/23 10:09 07/23/23 09:33 Labs: Abnormal Lab Results - Last 24 Hours (Table) 07/22/23 07/22/23 07/22/23 Range/Units 10:09 10:09 11:43 Sodium 135 L (137-145) mmol/L Chloride (98-107) mmol/L Carbon Dioxide 37 H (22-30) mmol/L BUN 26 H (7-17) mg/dL Creatinine 0.51 L (0.52-1.04) mg/dL Glucose 260 H (74-99) mg/dL POC Glucose (mg/dL) 240 H (70-110) mg/dL Hemoglobin A1c 7.0 H (<=6.0) % 07/22/23 07/22/23 07/23/23 Range/Units 16:43 20:00 06:15 Sodium (137-145) mmol/L Chloride (98-107) mmol/L Carbon Dioxide (22-30) mmol/L BUN (7-17) mg/dL Creatinine (0.52-1.04) mg/dL Glucose (74-99) mg/dL POC Glucose (mg/dL) 132 H 176 H 157 H (70-110) mg/dL Hemoglobin A1c (<=6.0) % 07/23/23 Range/Units 09:33 Sodium (137-145) mmol/L Chloride 95 L (98-107) mmol/L Carbon Dioxide 38 H (22-30) mmol/L BUN 27 H (7-17) mg/dL Creatinine (0.52-1.04) mg/dL Glucose 188 H (74-99) mg/dL POC Glucose (mg/dL) (70-110) mg/dL Hemoglobin A1c (<=6.0) % Assessment and Plan Assessment: Acute pancreatitis without necrosis or infection. Improved clinically. 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 Currently on high flow 8 L Hypertension History of breast cancer with prior mastectomy Left pleural effusion Chronic CHF with systolic dysfunction ejection fraction 25 to 30% Generalized weakness History of smoking Plan: Patient be continued on high flow oxygen. Continue with DuoNebs and IV Solu- Medrol 40 mg every 8 hourly. Patient is also on IV Lasix 20 mg daily Continue to titrate down oxygen. Continue with pain management and follow-up closely. Patient will be started on insulin sliding scale for better blood sugar control. Patient to follow-up with radiation oncology as an outpatient. Oncology and pulmonary is on board. Prognosis is guarded. Time with Patient: Greater than 30
[2023-07-24 11:37] LABS: Glucose,Whole Blood 155 mg/dL (70-110)
[2023-07-24 13:14] VITALS: BMI 24.5
--- NOTE | 2023-07-24 14:40 | P.PN ---
Subjective Progress Note Date: 07/24/23 Principal diagnosis: Shortness of breath. This is a 62-year-old female patient with a history of hyperlipidemia, mild intermittent chronic bronchial asthma, chronic tobacco dependence, anxiety/depression, previous right breast cancer status postmastectomy and chemotherapy over 6 years ago. 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 She had recently undergone a biopsy at [facility] with Dr. Wray of the abdominal mass. He was found to have metastatic lesions. She was to start whole brain radiation at [facility] on 07/16/2023 however she ended up coming here on 07/15/2023 with abdominal pain, nausea and vomiting. CT scan of the chest revealed a 7.6 x 7.7 x 7.4 cm mediastinal mass. Innumerable pulmonary nodules likely metastatic in nature. Multiple centrally necrotic pancreatic masses. Tumor thrombosis within the portosystemic confluence from the previously described pancreatic masses. Right adrenal mass. Metastatic lesions to the liver. Left adrenal mass. Centrally necrotic left inguinal lymph node. She was initially maintaining good O2 saturations in the 90s on 2 L/min per nasal cannula. The last few hours her oxygen requirements h ave gone up to 10 L high flow oxygen. We are consulted today for the same. Chest x-ray today reveals ongoing patchy upper and midlung opacities. Now with small to moderate left pleural effusion. She is currently sitting up in bed. Awake and alert in no acute distress. Somewhat of a poor historian. She is dyspneic with conversation. Dyspneic with exertion. She denies any worsening cough or congestion. No hemoptysis. She is currently on DuoNeb ventilations, Decadron, heparin for DVT prophylaxis. She has been given additional Lasix today. She is on antibiotics in the form of Zosyn. White count 9.2. Hemoglobin 12.2. Platelets 176. Sodium 137. Potassium 3.8. Bicarb 32. BUN 29. Creatinine 0.54. Glucose 187. Amylase 60. Lipase 297. Procalcitonin was 0.47. Patient was reevaluated today on 07/20/2023, patient is now on Airvo 60% FiO2 and 40 L flow, feels comfortable, does not seem to be in any distress, reviewed the CT of the chest also reviewed ultrasound of the chest, the pleural effusion is rather small, and there is all lung tissue floating in the pocket of pleural effusion, makes thoracentesis less safe, and again the effusion is not large enough to proceed with thoracentesis at this point. I believe the patient's shortness of breath is multifactorial related to her underlying small cell lung cancer patient does have a very large mediastinal mass, she has small pleural effusion, she has cardiomyopathy and LV dysfunction, and she came in with acute pancreatitis. Overall prognosis extremely poor, nonetheless the patient will be treated for her issues as they are accordingly. And she will be receiving bronchodilators for her underlying COPD. WBC count today is 9.3 hemoglobin 12.9 basic metabolic profile is normal renal profile is normal bicarb is 34 Progress note dated July 21, 2023. The patient is seen today in room 363. The patient is getting saline at 20 cc an hour. The patient is on Airvo, at 35 L/min, with an FiO2 of 55%. She appears relatively comfortable. She does have a history of small cell lung cancer. Current laboratory data includes a white count of 9.9, hemoglobin 13.1, hematocrit 40.7, and a normal platelet count. Sodium 136, potassium 3.8, chlorides 98, CO2 38, BUN 24, and creatinine 0.52. Glucose is 297. Albumin is 3.3. Sputum and blood cultures are thus far negative. X-ray from July 19 shows similar right hilar soft tissue and mild patchy upper lobe densities, right greater than left. In addition, there is a left-sided pleural effusion, which is small to moderate. Progress note dated July 22, 2023. The patient is again seen today in room 363. The patient is getting saline at 20 cc an hour. Yesterday, she was on Airvo. Today, the patient is on high flow O2, at 8 L. She looks relatively comfortable today, and states that her breathing is improved. Labs today include a white count 9.9, hemoglobin 13.9, hematocrit 41.5, and a normal platelet count. Sodium 135, potassium 3.6, chloride 79, CO2 37, BUN 26, and creatinine 0.51. Glucose is 240. Calcium is 8.6. Sputum and blood cultures are all negative. No recent chest x-ray. Progress note dated July 23, 2023. The patient is seen today in room 363. Currently, the patient is on 8 L high flow nasal cannula. The patient is receiving Zosyn. The patient's procalcitonin level was elevated at 0.47. She appears in no distress. Her respiratory status is improved. She denies any cough, phlegm production, chest tightness, or wheezing. Laboratory data includes a sodium 138, potassium 3.7, chloride 95, CO2 38, BUN 27, creatinine 0.67. Glucose is 192. Calcium 8.4. Blood and sputum sampling is thus far all negative. No recent chest x-ray. Progress note dated July 24, 2023. 62-year-old female seen today in room 363. Currently, the patient is on saline at 20 cc an hour. She is receiving oxygen by high flow nasal cannula at 8 L/min. This is what she was on yesterday. Today, we will switch her Solu- Medrol to prednisone, 30 mg a day. No new labs today other than a glucose of 155. Clinically, she appears to be relatively stable. Blood and sputum cultures are negative. No recent chest x-ray. Objective - Vital Signs Vital signs: Vital Signs Temp 98.4 F 07/24/23 12:00 Pulse 91 07/24/23 12:00 Resp 15 07/24/23 12:00 BP 134/81 07/24/23 12:00 Pulse Ox 94 L 07/24/23 12:00 FiO2 54 07/21/23 12:36 Intake & Output 07/23/23 07/24/23 07/24/23 18:59 06:59 18:59 Intake Total 358 0 Output Total 300 Balance 58 0 Weight 68.1 kg 69 kg 69 kg Intake: Oral 358 0 Output: Urine 300 Other: Voiding Method Bedside Commode Bedside Commode Bedside Commode # Voids 3 2 - Exam No acute distress, oriented 3. Patient is currently on 8 L high flow oxygen. Saturations are 94 %. HEENT examination is grossly unremarkable. Mucous membranes are moist. No oral lesions. Neck supple. Full range of motion. No adenopathy thyromegaly or neck vein distention. Cardiovascular examination reveals regular rhythm rate. S1-S2 normal. No S3 or S4. No discernible murmur noted. Heart sounds are distant. Heart rate 91 bpm. Lungs reveal scattered rhonchi. Breath sounds are equal bilaterally. No crackles. No wheezes are appreciated. Abdomen soft bowel sounds are heard. No masses or tenderness. Extremities are intact. No cyanosis clubbing or edema. Skin is without rash or lesion. Neurologic examination is brief but nonfocal. - Labs CBC & Chem 7: 07/22/23 10:09 07/23/23 09:33 Labs: Abnormal Lab Results - Last 24 Hours (Table) 07/23/23 07/23/23 07/24/23 Range/Units 16:14 19:52 06:01 POC Glucose (mg/dL) 225 H 210 H 124 H (70-110) mg/dL 07/24/23 Range/Units 11:35 POC Glucose (mg/dL) 155 H (70-110) mg/dL Assessment and Plan Assessment: Acute hypoxemic respiratory failure, multifactorial. Extensive small cell lung cancer, as noted on CT scan. Acute pancreatitis. Left pleural effusion. Abdominal pain, secondary to pancreatitis. Severe LV dysfunction with an ejection fraction of 25 to 30%. Bilateral pleural effusions, most likely related to cardiac issues. Generalized weakness. Tobacco dependence syndrome. Benign essential hypertension. History of breast cancer, and previous right mastectomy. Plan: Plan dated July 21, 2023. The patient is seen today in room 363. The patient is on Airvo, at 35 L/min with an FiO2 of 55%. She appears relatively comfortable. Labs, x-rays, medications are reviewed. We will continue to titrate down the oxygen. The patient is overall prognosis remains guarded. She does continue on br onchodilators. Additional recommendations and suggestions are forthcoming. Plan dated July 22, 2023. The patient appears to be doing better. Yesterday, she was on Airvo. Today she has been weaned down to 8 L high flow oxygen. The patient continues on saline, at 20 cc an hour. Labs, x-rays, and all medications are reviewed. The patient is overall prognosis remains guarded. Will continue to follow the patient, make recommendations along the way. She denies any worsening shortness of breath, cough, wheezing, chest tightness, or phlegm production. She also denies any chest pain or chest discomfort. Plan dated July 23, 2023. The patient again appears reasonably stable. Like yesterday, she continues on nasal O2, high flow, 8 L. Saturations are in the low to mid 90s. The patient continues on Zosyn. The patient has a procalcitonin level which is elevated at 0.47. Labs, x-rays, and medications are reviewed. We will continue to follow the patient, make recommendations along the way. The patient is overall prognosis remains guarded. As above, the patient denies any shortness of breath, cough, wheezing, chest tightness, or phlegm production. Plan dated July 24, 2023. The patient appears to be doing relatively well. She is on 8 L high flow nasal cannula. Saturations are in the mid 90s. The patient is getting saline at 20 cc an hour. The patient's Solu-Medrol will be converted to prednisone, 30 mg a day. Labs, x-rays, medications are reviewed. Will continue to follow patient, make recommendations along the way. The patient's prognosis is guarded. Time with Patient: Less than 30
--- NOTE | 2023-07-24 15:20 | P.PN ---
Subjective Progress Note Date: 07/24/23 Principal diagnosis: intractable pain, metastatic small cell lung cancer In follow-up pt reports she is having trouble figuring out what is going on. Her pain is controlled but still is using dilaudid nearly ATC. Her fentanyl was not continued when she was admitted. When asked about trying norco as short acting pain med for breakthrough pain she states it made her "violent". She is reporting RDZ today. She is currently on 8L. Reports significant weakness, sleeping a lot. Objective - Vital Signs Vital signs: Vital Signs Temp 97.7 F 07/24/23 00:00 Pulse 90 07/24/23 00:00 Resp 20 07/24/23 04:00 BP 122/74 07/24/23 04:00 Pulse Ox 92 L 07/24/23 04:00 FiO2 54 07/21/23 12:36 Intake & Output 07/23/23 07/24/23 07/24/23 18:59 06:59 18:59 Intake Total 358 0 Output Total 300 Balance 58 0 Weight 68.1 kg 69 kg Intake: Oral 358 0 Output: Urine 300 Other: Voiding Method Bedside Commode Bedside Commode # Voids 3 2 - Constitutional General appearance: Present: average body habitus, cooperative, no acute distress - EENT Eyes: Present: anicteric sclerae, EOMI ENT: Present: hearing grossly normal - Respiratory Respiratory: bilateral: diminished - Cardiovascular Details: skin warm and dry - Peripheral edema leg Peripheral Edema: bilateral: None - Integumentary Integumentary: Present: normal - Neurologic Neurologic: Present: CNII-XII intact (grossly) - Musculoskeletal Musculoskeletal Comment(s): p[t was able to reposition herself from laying in bed to sitting up at bedside without assistance - Psychiatric Psychiatric: Present: A&O x's 3, appropriate affect, intact judgment & insight - Labs CBC & Chem 7: 07/22/23 10:09 07/23/23 09:33 Labs: Abnormal Lab Results - Last 24 Hours (Table) 07/23/23 07/23/23 07/23/23 Range/Units 09:33 11:46 16:14 Chloride 95 L (98-107) mmol/L Carbon Dioxide 38 H (22-30) mmol/L BUN 27 H (7-17) mg/dL Glucose 188 H (74-99) mg/dL POC Glucose (mg/dL) 192 H 225 H (70-110) mg/dL 07/23/23 07/24/23 Range/Units 19:52 06:01 Chloride (98-107) mmol/L Carbon Dioxide (22-30) mmol/L BUN (7-17) mg/dL Glucose (74-99) mg/dL POC Glucose (mg/dL) 210 H 124 H (70-110) mg/dL Assessment and Plan (1) Pancreatitis Current Visit: Yes Status: Resolved Priority: High Code(s): K85.90 - ACUTE PANCREATITIS WITHOUT NECROSIS OR INFECTION, UNSP SNOMED Code(s): 36556271 (2) Metastasis to brain Current Visit: Yes Status: Acute Priority: High Code(s): C79.31 - SECONDA RY MALIGNANT NEOPLASM OF BRAIN SNOMED Code(s): 66489764 (3) Extensive stage primary small cell carcinoma of lung Current Visit: Yes Status: Acute Priority: High Code(s): C34.90 - MALIGNANT NEOPLASM OF UNSP PART OF UNSP BRONCHUS OR LUNG SNOMED Code(s): 252651832008506 Plan: Pancreatitis -resolved Pain -Now reported as generalized vs abdomen -pain from malignancy? So far, poor pain control -Resumed fentanyl with dose increase, discussed with PharmD -added MS IR for breakthrough pain as pt reports adverse effect with norco (violence) -Medications for prevention of narcotic induced constipation ordered -Pt understands that pain may not be zero but, manageable so she can be discharged home Extensive stage small cell lung cancer -Was scheduled to receive first treatment of whole brain radiation therapy on 07/16/[address] Kruger at [facility]. She cont to plan on going for radiation treatment once she is discharged. -Patient not committing yet to systemic treatment. She can follow-up with her primary oncologist after radiation is complete to discuss her wishes regarding treatment as she moves forward. She cont to agree with this plan SOB -Pulm following -Pt was not previously O2 dependent, she is now. Pending weaning O2 to tolerable level to be discharged on Doctor attests: I performed a history and physical examination of this patient, developed impression and plan of care. Discussed with dictator. I agree with dictators note, documented as a scribe. Time with Patient: Greater than 30
[2023-07-24] MEDS: MORPHINE SULFATE IR 15 MG TABLET PO PRN (15:34)
[2023-07-24] MEDS: MAGNESIUM HYDROXIDE 2,400 MG/30 ML CUP PO PRN (15:34)
--- NOTE | 2023-07-24 16:41 | P.PN ---
Subjective Progress Note Date: 07/23/23 Principal diagnosis: Reason for follow-up is fever Patient is a 62-year-old female past medical history significant for hyperlipidemia asthma diverticulitis and right breast cancer as well as small cell cancer of the lung presenting to the hospital for evaluation of severe abdominal pain along with nausea and vomiting, CT abdominal pelvis with metastatic mass and necrotic pancreatic masses did have low-grade fever prompting this consultation. On today's evaluation that is 07/23/2023,the patient denies any fever or any chills, patient is breathing comfortably currently requiring 8 L nasal cannula oxygen, the patient denies chest pain shortness of breath and no worsening cough, patient denies abdominal pain, no nausea vomiting or diarrhea. Patient did have a creatinine 0.60 no CBC was done today Objective - Vital Signs Vital signs: Vital Signs Temp 97.7 F 07/23/23 11:11 Pulse 87 07/23/23 11:34 Resp 20 07/23/23 11:34 BP 134/79 07/23/23 11:11 Pulse Ox 92 L 07/23/23 11:11 FiO2 54 07/21/23 12:36 Intake & Output 07/22/23 07/23/23 07/23/23 18:59 06:59 18:59 Intake Total 838 118 Balance 838 118 Weight 68.1 kg 68.1 kg Intake: Oral 838 118 Other: Voiding Method Bedside Commode Bedside Commode # Voids 3 # Bowel Movements 1 - Exam GENERAL DESCRIPTION: Middle-aged female lying in bed in no distress RESPIRATORY SYSTEM: Unlabored breathing , coarse breath sounds bilaterally HEART: S1 S2 regular rate and rhythm , ABDOMEN: Soft , no tenderness EXTREMITIES: No edema feet - Labs CBC & Chem 7: 07/22/23 10:09 07/23/23 09:33 Labs: Abnormal Lab Results - Last 24 Hours (Table) 07/22/23 07/22/23 07/22/23 Range/Units 10:09 16:43 20:00 Chloride (98-107) mmol/L Carbon Dioxide (22-30) mmol/L BUN (7-17) mg/dL Glucose (74-99) mg/dL POC Glucose (mg/dL) 132 H 176 H (70-110) mg/dL Hemoglobin A1c 7.0 H (<=6.0) % 07/23/23 07/23/23 07/23/23 Range/Units 06:15 09:33 11:46 Chloride 95 L (98-107) mmol/L Carbon Dioxide 38 H (22-30) mmol/L BUN 27 H (7-17) mg/dL Glucose 188 H (74-99) mg/dL POC Glucose (mg/dL) 157 H 192 H (70-110) mg/dL Hemoglobin A1c (<=6.0) % Assessment and Plan (1) Fever Current Visit: Yes Status: Acute Code(s): R50.9 - FEVER, UNSPECIFIED SNOMED Code(s): 167113415 (2) Leukocytosis Current Visit: Yes Status: Acute Code(s): D72.829 - ELEVATED WHITE BLOOD CELL COUNT, UNSPECIFIED SNOMED Code(s): 308196101 Plan: 1patient presented to hospital with intractable abdominal pain nausea vomiting and this patient who did have a extensive abnormality seen on the CT of the chest abdominal pelvis concerning for necrotic masses in the pancreas and renal could be responsible for most of her symptomatology with a low-grade fever elevated white count could be reactive underlying infectious etiology less likely but not entirely excluded 2-blood culture has been negative, inflammatory markers are mildly elevated with a procalcitonin 0.47, sputum cultures pending 3-patient did have resolution of her fever and white count has normalized, sputum culture has been negative for resistant pathogen 4-patient currently on Zosyn to continue and monitor clinical course closely Dictation was produced using [employer] dictation software. please excuse any grammatical, word or spelling errors. Time with Patient: Less than 30
--- NOTE | 2023-07-24 16:42 | P.PN ---
Subjective Progress Note Date: 07/24/23 Principal diagnosis: Reason for follow-up is fever Patient is a 62-year-old female past medical history significant for hyperlipidemia asthma diverticulitis and right breast cancer as well as small cell cancer of the lung presenting to the hospital for evaluation of severe abdominal pain along with nausea and vomiting, CT abdominal pelvis with metastatic mass and necrotic pancreatic masses did have low-grade fever prompting this consultation. On today's evaluation that is 07/24/2023,the patient remains to be afebrile, patient is on 8 L nasal cannula supplemental oxygen and denies any shortness of breath no chest pain or any worsening cough.Patient denies having any nausea or vomiting, no abdominal pain and no diarrhea has been reported. No new labs has been repeated today Objective - Vital Signs Vital signs: Vital Signs Temp 97.5 F L 07/24/23 15:37 Pulse 90 07/24/23 15:37 Resp 17 07/24/23 15:37 BP 135/81 07/24/23 15:37 Pulse Ox 95 07/24/23 15:37 FiO2 54 07/21/23 12:36 Intake & Output 07/23/23 07/24/23 07/24/23 18:59 06:59 18:59 Intake Total 358 0 Output Total 300 Balance 58 0 Weight 68.1 kg 69 kg 69 kg Intake: Oral 358 0 Output: Urine 300 Other: Voiding Method Bedside Commode Bedside Commode Bedside Commode # Voids 3 2 - Exam GENERAL DESCRIPTION: Middle-aged female lying in bed in no distress RESPIRATORY SYSTEM: Unlabored breathing , coarse breath sounds bilaterally HEART: S1 S2 regular rate and rhythm , ABDOMEN: Soft , no tenderness EXTREMITIES: No edema feet - Labs CBC & Chem 7: 07/22/23 10:09 07/23/23 09:33 Labs: Abnormal Lab Results - Last 24 Hours (Table) 07/23/23 07/24/23 07/24/23 Range/Units 19:52 06:01 11:35 POC Glucose (mg/dL) 210 H 124 H 155 H (70-110) mg/dL Assessment and Plan (1) Fever Current Visit: Yes Status: Acute Code(s): R50.9 - FEVER, UNSPECIFIED SNOMED Code(s): 432465735 (2) Leukocytosis Current Visit: Yes Status: Acute Code(s): D72.829 - ELEVATED WHITE BLOOD CELL COUNT, UNSPECIFIED SNOMED Code(s): 998066835 Plan: 1patient presented to hospital with intractable abdominal pain nausea vomiting and this patient who did have a extensive abnormality seen on the CT of the chest abdominal pelvis concerning for necrotic masses in the pancreas and renal could be responsible for most of her symptomatology with a low-grade fever elevated white count could be reactive underlying infectious etiology less likely but not entirely excluded 2-blood culture has been negative, inflammatory markers are mildly elevated with a procalcitonin 0.47, sputum cultures negative and resistant pathogen 3-patient did have resolution of her fever and white count has normalized, 4-patient currently on Zosyn and a short course of Augmentin on discharge when stable from pulmonary side Dictation was produced using [employer] dictation software. please excuse any grammatical, word or spelling errors. Time with Patient: Less than 30
[2023-07-24 16:43] LABS: Glucose,Whole Blood 176 mg/dL (70-110)
[2023-07-24 19:58] LABS: Glucose,Whole Blood 194 mg/dL (70-110)
[2023-07-24] MEDS: SENNOSIDES-DOCUSATE SODIUM 1 EACH TAB PO SCH (21:23)
--- NOTE | 2023-07-24 23:06 | P.PN ---
Subjective Progress Note Date: 07/24/23 Patient is a 62-year-old female presents to hospital with severe abdominal pain secondary to mild pancreatitis and became hypoxic with respiratory failure. And was transferred to MICU. 07/21/2023 Patient is currently lying in the bed. Awake alert and oriented x 3. Requiring oxygen via Airvo 35 L with FiO2 55%. Denied any complaints of chest pain or worsening shortness of breath. Patient has been afebrile. Laboratory data showed WBC 9.9 hemoglobin 13.1 and platelets 177 Sodium 136 potassium 3.8 chloride 98 bicarb is 38 BUN 24 and creatinine 0.52 and blood sugar 233. Sliding scale was added. Blood culture and sputum cultures negative. Patient is being continued on DuoNebs and also on IV Solu-Medrol. Also antibiotics in the form of Zosyn. Chest x-ray on 07/20/2023 showed similar right hilar soft tissue and mild patchy upper lung densities, right greater than left. Similar small to moderate left pleural effusion with adjacent atelectasis and or consolidation. Oncology and pulmonary is on board. 07/22/2023 Patient is currently resting in the bed. Awake alert and oriented x 3. Denied any complaints of chest pain or worsening shortness of breath. Patient is on high flow oxygen at 8 L today. Patient has been afebrile. No nausea vomiting abdominal pain. Tolerating oral diet. Laboratory data showed WBC 9.9 hemoglobin 13.9 and platelets 167, sodium 135 potassium 3.6 chloride 99 bicarb is 37 BUN 26 and creatinine 0.51 blood sugar is 268 A1c level is 7.0 Patient has been continued on antibiotics on home Zosyn. ID and pulmonary is on board. 07/23/2023 Patient is lying in the bed. Awake alert and oriented x 3. Currently still on 8 L high flow oxygen. Patient is being continued on antibiotics in the form of Zosyn. Also on Lasix 20 mg daily IV. Continued on Solu-Medrol 40 mg IV every 8 hourly. Denies any complaints of fever or chills. No complaints of chest pain or worsening shortness of breath. No headache or dizziness or lightheadedness. Blood sugar is controlled. Laboratory data showed sodium 138 potassium 3.7 chloride 95 bicarb is 38 BUN 27 and creatinine 0.67 and blood sugar 188 and calcium 8.4 Pulmonary is on board. 07/24/2023 Patient is sitting in the bed. Awake alert and oriented x 3. Denied any complaints of chest pain or worsening shortness of breath. Still on high flow oxygen at 8 L via nasal cannula. Patient is being continued on antibiotics in [facility]. Patient is also on IV Solu-Medrol 40 every 8 hourly and also Lasix IV 20 mg daily. Patient has been afebrile. No nausea vomiting abdominal pain or diarrhea. Laboratory data reviewed. Blood sugar is better controlled. Pulmonary and ID is on board. Current medications reviewed. Objective - Vital Signs Vital signs: Vital Signs Temp 97.8 F 07/24/23 08:55 Pulse 89 07/24/23 08:55 Resp 19 07/24/23 08:55 BP 137/83 07/24/23 08:55 Pulse Ox 94 L 07/24/23 08:55 FiO2 54 07/21/23 12:36 Intake & Output 07/23/23 07/24/23 07/24/23 18:59 06:59 18:59 Intake Total 358 0 Output Total 300 Balance 58 0 Weight 68.1 kg 69 kg Intake: Oral 358 0 Output: Urine 300 Other: Voiding Method Bedside Commode Bedside Commode Bedside Commode # Voids 3 2 - Exam PHYSICAL EXAMINATION: Patient is lying in the bed comfortably, no acute distress, awake alert and oriented.. HEENT: Normocephalic. Neck is supple. Pupils reactive. Nostrils clear. Oral cavity is moist. Neck reveals no JVD, carotid bruits, or thyromegaly. CHEST EXAMINATION: Trachea is central. Symmetrical expansion. Bibasilar diminished sounds. No wheezing or rhonchi. CARDIAC: Normal S1, S2 with no gallops. No murmurs ABDOMEN: Soft. Bowel sounds normal. No organomegaly. No abdominal bruits. Extremities: reveal no edema. Bilateral upper extremity swelling. No clubbing or cyanosis Neurologically awake, alert, oriented x3 with well-coordinated movements. No focal deficits noted Skin: No rash or skin lesions. Psychiatric: Coperative. Nonsuicidal Musculoskeletal: No joint swelling or deformity. Normal range of motion. - Labs CBC & Chem 7: 07/22/23 10:09 07/23/23 09:33 Labs: Abnormal Lab Results - Last 24 Hours (Table) 07/23/23 07/23/23 07/23/23 Range/Units 09:33 11:46 16:14 Chloride 95 L (98-107) mmol/L Carbon Dioxide 38 H (22-30) mmol/L BUN 27 H (7-17) mg/dL Glucose 188 H (74-99) mg/dL POC Glucose (mg/dL) 192 H 225 H (70-110) mg/dL 07/23/23 07/24/23 Range/Units 19:52 06:01 Chloride (98-107) mmol/L Carbon Dioxide (22-30) mmol/L BUN (7-17) mg/dL Glucose (74-99) mg/dL POC Glucose (mg/dL) 210 H 124 H (70-110) mg/dL Assessment and Plan Assessment: Acute pancreatitis without necrosis or infection. Improved clinically. 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 Currently on high flow 8 L Hypertension History of breast cancer with prior mastectomy Left pleural effusion Chronic CHF with systolic dysfunction ejection fraction 25 to 30% Generalized weakness History of smoking Plan: Patient be continued on high flow oxygen at 8 L. Continue with DuoNebs and IV Solu-Medrol 40 mg every 8 hourly. Patient is also on IV Lasix 20 mg daily Continue to titrate down oxygen. Continue with pain management and follow-up closely. Patient will be started on insulin sliding scale for better blood sugar control. Patient to follow-up with radiation oncology as an outpatient. Oncology and pulmonary is on board. Prognosis is guarded. Time with Patient: Greater than 30
[2023-07-25 06:13] LABS: Glucose,Whole Blood 119 mg/dL (70-110)
[2023-07-25] MEDS: predniSONE 10 MG TAB PO SCH (09:10)
[2023-07-25 10:35] LABS: Basophils % (A) 0 %; Eosinophils # (A) 0.1 k/uL (0-0.7); Eosinophils % (A) 1 %; HCT 40.6 % (34.0-46.0); HGB 13.1 gm/dL (11.4-16.0); Lymphocytes # (A) 0.4 k/uL (1.0-4.8); Lymphocytes % (A) 4 %; MCH 32.1 pg (25.0-35.0); MCHC 32.3 g/dL (31.0-37.0); MCV 99.4 fL (80.0-100.0); Mean Platelet Volume 9.6; Monocytes # (A) 0.6 k/uL (0-1.0); Monocytes % (A) 7 %; Neutrophils # (A) 8.5 k/uL (1.3-7.7); Neutrophils % (A) 88 %; Platelet Count 154 k/uL (150-450); RBC 4.08 m/uL (3.80-5.40); RDW 12.8 % (11.5-15.5); WBC 9.6 k/uL (3.8-10.6)
[2023-07-25 10:43] LABS: African American GFR (CKD) >90 (>60 ml/min/1.73 sqM); Anion Gap 2 mmol/L; Blood Urea Nitrogen 22 mg/dL (7-17); Calcium 8.4 mg/dL (8.4-10.2); Carbon Dioxide 38 mmol/L (22-30); Chloride 95 mmol/L (98-107); Glucose 124 mg/dL (74-99); Non-African American GFR(CKD) >90 (>60 ml/min/1.73 sqM); Potassium 3.6 mmol/L (3.5-5.1); Sodium 135 mmol/L (137-145)
[2023-07-25 12:12] LABS: Glucose,Whole Blood 131 mg/dL (70-110)
--- NOTE | 2023-07-25 12:41 | P.PN ---
Subjective Progress Note Date: 07/25/23 Principal diagnosis: Shortness of breath. This is a 62-year-old female patient with a history of hyperlipidemia, mild intermittent chronic bronchial asthma, chronic tobacco dependence, anxiety/depression, previous right breast cancer status postmastectomy and chemotherapy over 6 years ago. 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 She had recently undergone a biopsy at [facility] with Dr. Wray of the abdominal mass. He was found to have metastatic lesions. She was to start whole brain radiation at [facility] on 07/16/2023 however she ended up coming here on 07/15/2023 with abdominal pain, nausea and vomiting. CT scan of the chest revealed a 7.6 x 7.7 x 7.4 cm mediastinal mass. Innumerable pulmonary nodules likely metastatic in nature. Multiple centrally necrotic pancreatic masses. Tumor thrombosis within the portosystemic confluence from the previously described pancreatic masses. Right adrenal mass. Metastatic lesions to the liver. Left adrenal mass. Centrally necrotic left inguinal lymph node. She was initially maintaining good O2 saturations in the 90s on 2 L/min per nasal cannula. The last few hours her oxygen requirements h ave gone up to 10 L high flow oxygen. We are consulted today for the same. Chest x-ray today reveals ongoing patchy upper and midlung opacities. Now with small to moderate left pleural effusion. She is currently sitting up in bed. Awake and alert in no acute distress. Somewhat of a poor historian. She is dyspneic with conversation. Dyspneic with exertion. She denies any worsening cough or congestion. No hemoptysis. She is currently on DuoNeb ventilations, Decadron, heparin for DVT prophylaxis. She has been given additional Lasix today. She is on antibiotics in the form of Zosyn. White count 9.2. Hemoglobin 12.2. Platelets 176. Sodium 137. Potassium 3.8. Bicarb 32. BUN 29. Creatinine 0.54. Glucose 187. Amylase 60. Lipase 297. Procalcitonin was 0.47. Patient was reevaluated today on 07/20/2023, patient is now on Airvo 60% FiO2 and 40 L flow, feels comfortable, does not seem to be in any distress, reviewed the CT of the chest also reviewed ultrasound of the chest, the pleural effusion is rather small, and there is all lung tissue floating in the pocket of pleural effusion, makes thoracentesis less safe, and again the effusion is not large enough to proceed with thoracentesis at this point. I believe the patient's shortness of breath is multifactorial related to her underlying small cell lung cancer patient does have a very large mediastinal mass, she has small pleural effusion, she has cardiomyopathy and LV dysfunction, and she came in with acute pancreatitis. Overall prognosis extremely poor, nonetheless the patient will be treated for her issues as they are accordingly. And she will be receiving bronchodilators for her underlying COPD. WBC count today is 9.3 hemoglobin 12.9 basic metabolic profile is normal renal profile is normal bicarb is 34 Progress note dated July 21, 2023. The patient is seen today in room 363. The patient is getting saline at 20 cc an hour. The patient is on Airvo, at 35 L/min, with an FiO2 of 55%. She appears relatively comfortable. She does have a history of small cell lung cancer. Current laboratory data includes a white count of 9.9, hemoglobin 13.1, hematocrit 40.7, and a normal platelet count. Sodium 136, potassium 3.8, chlorides 98, CO2 38, BUN 24, and creatinine 0.52. Glucose is 297. Albumin is 3.3. Sputum and blood cultures are thus far negative. X-ray from July 19 shows similar right hilar soft tissue and mild patchy upper lobe densities, right greater than left. In addition, there is a left-sided pleural effusion, which is small to moderate. Progress note dated July 22, 2023. The patient is again seen today in room 363. The patient is getting saline at 20 cc an hour. Yesterday, she was on Airvo. Today, the patient is on high flow O2, at 8 L. She looks relatively comfortable today, and states that her breathing is improved. Labs today include a white count 9.9, hemoglobin 13.9, hematocrit 41.5, and a normal platelet count. Sodium 135, potassium 3.6, chloride 79, CO2 37, BUN 26, and creatinine 0.51. Glucose is 240. Calcium is 8.6. Sputum and blood cultures are all negative. No recent chest x-ray. Progress note dated July 23, 2023. The patient is seen today in room 363. Currently, the patient is on 8 L high flow nasal cannula. The patient is receiving Zosyn. The patient's procalcitonin level was elevated at 0.47. She appears in no distress. Her respiratory status is improved. She denies any cough, phlegm production, chest tightness, or wheezing. Laboratory data includes a sodium 138, potassium 3.7, chloride 95, CO2 38, BUN 27, creatinine 0.67. Glucose is 192. Calcium 8.4. Blood and sputum sampling is thus far all negative. No recent chest x-ray. Progress note dated July 24, 2023. 62-year-old female seen today in room 363. Currently, the patient is on saline at 20 cc an hour. She is receiving oxygen by high flow nasal cannula at 8 L/min. This is what she was on yesterday. Today, we will switch her Solu- Medrol to prednisone, 30 mg a day. No new labs today other than a glucose of 155. Clinically, she appears to be relatively stable. Blood and sputum cultures are negative. No recent chest x-ray. Progress note dated July 25, 2023. 62-year-old female seen today in room 363. Currently, the patient is on 6 L high flow nasal cannula. That was turned down from 8 L yesterday. She does continue on Zosyn. She is not receiving any IV fluids. Labs include a white count 9.6, hemoglobin 13.1, hematocrit 40.6, and a platelet count of 154,000. Sodium 135, potassium 3.6, chloride 95, CO2 38, BUN 22, creatinine 0.41. Glucose is 124. Calcium is 8.4. Blood and sputum sampling has been negative thus far. No recent chest x-ray today. Objective - Vital Signs Vital signs: Vital Signs Temp 97.5 F L 07/25/23 08:00 Pulse 83 07/25/23 11:55 Resp 18 07/25/23 11:55 BP 124/78 07/25/23 11:55 Pulse Ox 94 L 07/25/23 11:55 FiO2 54 07/21/23 12:36 Intake & Output 07/24/23 07/25/23 07/25/23 18:59 06:59 18:59 Intake Total 0 540 240 Output Total 500 Balance 0 540 -260 Weight 69 kg Intake: Oral 0 540 240 Output: Urine 500 Other: Voiding Method Bedside Commode Bedside Commode Bedside Commode # Voids 2 1 1 # Bowel Movements 1 - Exam No acute distress, oriented 3. Patient is currently on 6 L high flow oxygen. Saturations are 95 %. HEENT examination is grossly unremarkable. Mucous membranes are moist. No oral lesions. Neck supple. Full range of motion. No adenopathy thyromegaly or neck vein distention. Cardiovascular examination reveals regular rhythm rate. S1-S2 normal. No S3 or S4. No discernible murmur noted. Heart sounds are distant. Heart rate 83 bpm. Lungs reveal scattered rhonchi. Breath sounds are equal bilaterally. No crackles. No wheezes are appreciated. Abdomen soft bowel sounds are heard. No masses or tenderness. Extremities are intact. No cyanosis clubbing or edema. Skin is without rash or lesion. Neurologic examination is brief but nonfocal. - Labs CBC & Chem 7: 07/25/23 08:57 07/25/23 08:57 Labs: Abnormal Lab Results - Last 24 Hours (Table) 07/24/23 07/24/23 07/25/23 Range/Units 16:41 19:56 06:10 Neutrophils # (1.3-7.7) k/uL Lymphocytes # (1.0-4.8) k/uL Sodium (137-145) mmol/L Chloride (98-107) mmol/L Carbon Dioxide (22-30) mmol/L BUN (7-17) mg/dL Creatinine (0.52-1.04) mg/dL Glucose (74-99) mg/dL POC Glucose (mg/dL) 176 H 194 H 119 H (70-110) mg/dL 07/25/23 07/25/23 07/25/23 Range/Units 08:57 08:57 12:10 Neutrophils # 8.5 H (1.3-7.7) k/uL Lymphocytes # 0.4 L (1.0-4.8) k/uL Sodium 135 L (137-145) mmol/L Chloride 95 L (98-107) mmol/L Carbon Dioxide 38 H (22-30) mmol/L BUN 22 H (7-17) mg/dL Creatinine 0.41 L (0.52-1.04) mg/dL Glucose 124 H (74-99) mg/dL POC Glucose (mg/dL) 131 H (70-110) mg/dL Assessment and Plan Assessment: Acute hypoxemic respiratory failure, multifactorial. Extensive small cell lung cancer, as noted on CT scan. Acute pancreatitis. Left pleural effusion. Abdominal pain, secondary to pancreatitis. Severe LV dysfunction with an ejection fraction of 25 to 30%. Bilateral pleural effusions, most likely related to cardiac issues. Generalized weakness. Tobacco dependence syndrome. Benign essential hypertension. History of breast cancer, and previous right mastectomy. Plan: Plan dated July 21, 2023. The patient is seen today in room 363. The patient is on Airvo, at 35 L/min with an FiO2 of 55%. She appears relatively comfortable. Labs, x-rays, medications are reviewed. We will continue to titrate down the oxygen. The pa tient is overall prognosis remains guarded. She does continue on bronchodilators. Additional recommendations and suggestions are forthcoming. Plan dated July 22, 2023. The patient appears to be doing better. Yesterday, she was on Airvo. Today she has been weaned down to 8 L high flow oxygen. The patient continues on saline, at 20 cc an hour. Labs, x-rays, and all medications are reviewed. The patient is overall prognosis remains guarded. Will continue to follow the patient, make recommendations along the way. She denies any worsening shortness of breath, cough, wheezing, chest tightness, or phlegm production. She also denies any chest pain or chest discomfort. Plan dated July 23, 2023. The patient again appears reasonably stable. Like yesterday, she continues on nasal O2, high flow, 8 L. Saturations are in the low to mid 90s. The patient continues on Zosyn. The patient has a procalcitonin level which is elevated at 0.47. Labs, x-rays, and medications are reviewed. We will continue to follow the patient, make recommendations along the way. The patient is overall prognosis remains guarded. As above, the patient denies any shortness of breath, cough, wheezing, chest tightness, or phlegm production. Plan dated July 24, 2023. The patient appears to be doing relatively well. She is on 8 L high flow nasal cannula. Saturations are in the mid 90s. The patient is getting saline at 20 cc an hour. The patient's Solu-Medrol will be converted to prednisone, 30 mg a day. Labs, x-rays, medications are reviewed. Will continue to follow patient, make recommendations along the way. The patient's prognosis is guarded. Plan dated July 25, 2023. The patient's oxygen has been turned down from 8 L, down to 6 L. Saturations are in the mid 90s. She is not receiving any IV fluids. The patient does continue on Zosyn. We will continue to follow and make recommendations along the way. Labs, x-rays, and medications are reviewed. Will continue to follow t he patient. Prognosis is guarded. Time with Patient: Less than 30
[2023-07-25 16:23] LABS: Glucose,Whole Blood 175 mg/dL (70-110)
--- NOTE | 2023-07-25 16:25 | P.PN ---
Subjective Progress Note Date: 07/25/23 62-year-old female patient with a history of hyperlipidemia, mild intermittent chronic bronchial asthma, chronic tobacco dependence, anxiety/depression, previous right breast cancer status postmastectomy and chemotherapy over 6 years ago. 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 She had recently undergone a biopsy at [facility] with Dr. Wray of the abdominal mass. He was found to have metastatic lesions. She was to start whole brain radiation at [facility] on 07/16/2023 however she ended up coming here on 07/15/2023 with abdominal pain, nausea and vomiting. CT scan of the c hest revealed a 7.6 x 7.7 x 7.4 cm mediastinal mass. Innumerable pulmonary nodules likely metastatic in nature. Multiple centrally necrotic pancreatic masses. Tumor thrombosis within the portosystemic confluence from the previously described pancreatic masses. Right adrenal mass. Metastatic lesions to the liver. Left adrenal mass. Centrally necrotic left inguinal lymph node. She was initially maintaining good O2 saturations in the 90s on 2 L/min per nasal cannula. The last few hours her oxygen requirements have gone up to 10 L high flow oxygen. We are consulted today for the same. Chest x-ray today reveals ongoing patchy upper and midlung opacities. Now with small to moderate left pleural effusion. She is currently sitting up in bed. Awake and alert in no acute distress. Somewhat of a poor historian. She is dyspneic with conversation. Dyspneic with exertion. She denies any worsening cough or congestion. No hemoptysis. She is currently on DuoNeb ventilations, Decadron, heparin for DVT prophylaxis. Objective - Vital Signs Vital signs: Vital Signs Temp 97.5 F L 07/25/23 08:00 Pulse 80 07/25/23 09:03 Resp 20 07/25/23 08:00 BP 137/82 07/25/23 08:00 Pulse Ox 94 L 07/25/23 08:00 FiO2 54 07/21/23 12:36 Intake & Output 07/24/23 07/25/23 07/25/23 18:59 06:59 18:59 Intake Total 0 540 Balance 0 540 Weight 69 kg Intake: Oral 0 540 Other: Voiding Method Bedside Commode Bedside Commode Bedside Commode # Voids 2 1 # Bowel Movements 1 - Exam Patient is lying in the bed comfortably, no acute distress, awake alert and oriented.. HEENT: Normocephalic. Neck is supple. Pupils reactive. Nostrils clear. Oral cavity is moist. Neck reveals no JVD, carotid bruits, or thyromegaly. CHEST EXAMINATION: Trachea is central. Symmetrical expansion. Bibasilar diminished sounds. No wheezing or rhonchi. CARDIAC: Normal S1, S2 with no gallops. No murmurs ABDOMEN: Soft. Bowel sounds normal. No organomegaly. No abdominal bruits. Extremities: reveal no edema. Bilateral upper extremity swelling. No clubbing or cyanosis Neurologically awake, alert, oriented x3 with well-coordinated movements. No focal deficits noted Skin: No rash or skin lesions. Psychiatric: Coperative. Nonsuicidal Musculoskeletal: No joint swelling or deformity. Normal range of motion. - Labs CBC & Chem 7: 07/25/23 08:57 07/25/23 08:57 Labs: Abnormal Lab Results - Last 24 Hours (Table) 07/24/23 07/24/23 07/24/23 Range/Units 11:35 16:41 19:56 Neutrophils # (1.3-7.7) k/uL Lymphocytes # (1.0-4.8) k/uL Sodium (137-145) mmol/L Chloride (98-107) mmol/L Carbon Dioxide (22-30) mmol/L BUN (7-17) mg/dL Creatinine (0.52-1.04) mg/dL Glucose (74-99) mg/dL POC Glucose (mg/dL) 155 H 176 H 194 H (70-110) mg/dL 07/25/23 07/25/23 07/25/23 Range/Units 06:10 08:57 08:57 Neutrophils # 8.5 H (1.3-7.7) k/uL Lymphocytes # 0.4 L (1.0-4.8) k/uL Sodium 135 L (137-145) mmol/L Chloride 95 L (98-107) mmol/L Carbon Dioxide 38 H (22-30) mmol/L BUN 22 H (7-17) mg/dL Creatinine 0.41 L (0.52-1.04) mg/dL Glucose 124 H (74-99) mg/dL POC Glucose (mg/dL) 119 H (70-110) mg/dL Assessment and Plan Assessment: Acute pancreatitis without necrosis or infection. Improved clinically. 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 Currently on high flow 8 L Hypertension History of breast cancer with prior mastectomy Left pleural effusion Chronic CHF with systolic dysfunction ejection fraction 25 to 30% Generalized weakness History of smoking Plan: Patient be continued on high flow oxygen at 8 L. Continue with DuoNebs and IV Solu-Medrol 40 mg every 8 hourly. Patient is also on IV Lasix 20 mg daily Continue to titrate down oxygen. Continue with pain management and follow-up closely. Patient will be started on insulin sliding scale for better blood sugar control. Patient to follow-up with radiation oncology as an outpatient. Oncology and pulmonary is on board. Prognosis is guarded.
[2023-07-25 20:23] LABS: Glucose,Whole Blood 202 mg/dL (70-110)
--- NOTE | 2023-07-25 21:28 | P.PN ---
Subjective Progress Note Date: 07/25/23 Principal diagnosis: Reason for follow-up is fever Patient is a 62-year-old female past medical history significant for hyperlipidemia asthma diverticulitis and right breast cancer as well as small cell cancer of the lung presenting to the hospital for evaluation of severe abdominal pain along with nausea and vomiting, CT abdominal pelvis with metastatic mass and necrotic pancreatic masses did have low-grade fever prompting this consultation. On today's evaluation that is 07/25/2023, the patient continues to be afebrile, the patient is on 7 L nasal cannula oxygen and breathing comfortably, the Pt denies having any chest pain or cough, the patient denies having any abdominal pain no vomiting or any diarrhea has been reported by the nursing staff. Patient white count is 9.6, creatinine 0.41 Objective - Vital Signs Vital signs: Vital Signs Temp 97.6 F 07/25/23 15:52 Pulse 88 07/25/23 15:52 Resp 20 07/25/23 15:52 BP 121/66 07/25/23 15:52 Pulse Ox 91 L 07/25/23 15:52 FiO2 54 07/21/23 12:36 Intake & Output 07/25/23 07/25/23 07/26/23 06:59 18:59 06:59 Intake Total 540 580 Output Total 800 Balance 540 -220 Intake: Oral 540 580 Output: Urine 800 Other: Voiding Method Bedside Commode Bedside Commode # Voids 1 1 # Bowel Movements 1 0 - Exam GENERAL DESCRIPTION: Middle-aged female lying in bed in no distress RESPIRATORY SYSTEM: Unlabored breathing , coarse breath sounds bilaterally HEART: S1 S2 regular rate and rhythm , ABDOMEN: Soft , no tenderness EXTREMITIES: No edema feet - Labs CBC & Chem 7: 07/25/23 08:57 07/25/23 08:57 Labs: Abnormal Lab Results - Last 24 Hours (Table) 07/25/23 07/25/23 07/25/23 Range/Units 06:10 08:57 08:57 Neutrophils # 8.5 H (1.3-7.7) k/uL Lymphocytes # 0.4 L (1.0-4.8) k/uL Sodium 135 L (137-145) mmol/L Chloride 95 L (98-107) mmol/L Carbon Dioxide 38 H (22-30) mmol/L BUN 22 H (7-17) mg/dL Creatinine 0.41 L (0.52-1.04) mg/dL Glucose 124 H (74-99) mg/dL POC Glucose (mg/dL) 119 H (70-110) mg/dL 07/25/23 07/25/23 07/25/23 Range/Units 12:10 16:22 20:21 Neutrophils # (1.3-7.7) k/uL Lymphocytes # (1.0-4.8) k/uL Sodium (137-145) mmol/L Chloride (98-107) mmol/L Carbon Dioxide (22-30) mmol/L BUN (7-17) mg/dL Creatinine (0.52-1.04) mg/dL Glucose (74-99) mg/dL POC Glucose (mg/dL) 131 H 175 H 202 H (70-110) mg/dL Assessment and Plan (1) Fever Current Visit: Yes Status: Acute Code(s): R50.9 - FEVER, UNSPECIFIED SNOMED Code(s): 123012664 (2) Leukocytosis Current Visit: Yes Status: Acute Code(s): D72.829 - ELEVATED WHITE BLOOD CELL COUNT, UNSPECIFIED SNOMED Code(s): 303805758 Plan: 1patient presented to hospital with intractable abdominal pain nausea vomiting and this patient who did have a extensive abnormality seen on the CT of the chest abdominal pelvis concerning for necrotic masses in the pancreas and renal could be responsible for most of her symptomatology with a low-grade fever elevated white count could be reactive underlying infectious etiology less likely but not entirely excluded 2-blood culture has been negative, inflammatory markers are mildly elevated with a procalcitonin 0.47, sputum cultures negative and resistant pathogen 3-patient did have resolution of her fever and white count has normalized, 4-patient slowly clinically improving continue Zosyn and monitor clinical course closely Dictation was produced using [employer] dictation software. please excuse any grammatical, word or spelling errors. Time with Patient: Less than 30
[2023-07-26 06:29] LABS: Glucose,Whole Blood 143 mg/dL (70-110)
[2023-07-26 11:34] LABS: Glucose,Whole Blood 135 mg/dL (70-110)
--- NOTE | 2023-07-26 14:23 | P.PN ---
Subjective Progress Note Date: 07/26/23 62-year-old female patient with a history of hyperlipidemia, mild intermittent chronic bronchial asthma, chronic tobacco dependence, anxiety/depression, previous right breast cancer status postmastectomy and chemotherapy over 6 years ago. 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 She had recently undergone a biopsy at [facility] with Dr. Wray of the abdominal mass. He was found to have metastatic lesions. She was to start whole brain radiation at [facility] on 07/16/2023 however she ended up coming here on 07/15/2023 with abdominal pain, nausea and vomiting. CT scan of the c hest revealed a 7.6 x 7.7 x 7.4 cm mediastinal mass. Innumerable pulmonary nodules likely metastatic in nature. Multiple centrally necrotic pancreatic masses. Tumor thrombosis within the portosystemic confluence from the previously described pancreatic masses. Right adrenal mass. Metastatic lesions to the liver. Left adrenal mass. Centrally necrotic left inguinal lymph node. She was initially maintaining good O2 saturations in the 90s on 2 L/min per nasal cannula. The last few hours her oxygen requirements have gone up to 10 L high flow oxygen. We are consulted today for the same. Chest x-ray today reveals ongoing patchy upper and midlung opacities. Now with small to moderate left pleural effusion. She is currently sitting up in bed. Awake and alert in no acute distress. Somewhat of a poor historian. She is dyspneic with conversation. Dyspneic with exertion. She denies any worsening cough or congestion. No hemoptysis. She is currently on DuoNeb ventilations, Decadron, heparin for DVT prophylaxis. 24-hour interval change 07/26/2023 Patient is seen and evaluated in room at bedside; sitting up in bedside chair; per nursing staff patient has pulled out IV and refusing all treatment and refusing to wear cardiac monitor --Patient sitting up in bedside chair; somewhat agitated; reports she wants to go home; according to patient she was told she was going home this morning by pulmonary team -- Patient remains on O2 at 7 L per nasal cannula; plan is still to titrate or wean as able patient presented to hospital with intractable abdominal pain nausea vomiting and this patient who did have a extensive abnormality seen on the CT of the chest abdominal pelvis concerning for necrotic masses in the pancreas and renal could be responsible for most of her symptomatology with a low-grade fever elevated white count could be reactive underlying infectious etiology less likely but not entirely excluded -blood culture has been negative, inflammatory markers are mildly elevated with a procalcitonin 0.47, sputum cultures negative and resistant pathogen -patient did have resolution of her fever and white count has normalized, -patient slowly clinically improving continue Zosyn and monitor clinical course closely Objective - Vital Signs Vital signs: Vital Signs Temp 97.8 F 07/26/23 04:00 Pulse 78 07/26/23 04:00 Resp 18 07/26/23 04:00 BP 120/68 07/26/23 04:00 Pulse Ox 92 L 07/26/23 04:00 FiO2 54 07/21/23 12:36 Intake & Output 07/25/23 07/26/23 07/26/23 18:59 06:59 18:59 Intake Total 580 Output Total 800 Balance -220 Intake: Oral 580 Output: Urine 800 Other: Voiding Method Bedside Commode Bedside Commode # Voids 1 2 0 # Bowel Movements 0 - Exam Patient is lying in the bed comfortably, no acute distress, awake alert and oriented.. HEENT: Normocephalic. Neck is supple. Pupils reactive. Nostrils clear. Oral cavity is moist. Neck reveals no JVD, carotid bruits, or thyromegaly. CHEST EXAMINATION: Trachea is central. Symmetrical expansion. Bibasilar diminished sounds. No wheezing or rhonchi. CARDIAC: Normal S1, S2 with no gallops. No murmurs ABDOMEN: Soft. Bowel sounds normal. No organomegaly. No abdominal bruits. Extremities: reveal no edema. Bilateral upper extremity swelling. No clubbing or cyanosis Neurologically awake, alert, oriented x3 with well-coordinated movements. No focal deficits noted Skin: No rash or skin lesions. Psychiatric: Coperative. Nonsuicidal Musculoskeletal: No joint swelling or deformity. Normal range of motion. - Labs CBC & Chem 7: 07/25/23 08:57 07/25/23 08:57 Labs: Abnormal Lab Results - Last 24 Hours (Table) 07/25/23 07/25/23 07/25/23 Range/Units 08:57 08:57 12:10 Neutrophils # 8.5 H (1.3-7.7) k/uL Lymphocytes # 0.4 L (1.0-4.8) k/uL Sodium 135 L (137-145) mmol/L Chloride 95 L (98-107) mmol/L Carbon Dioxide 38 H (22-30) mmol/L BUN 22 H (7-17) mg/dL Creatinine 0.41 L (0.52-1.04) mg/dL Glucose 124 H (74-99) mg/dL POC Glucose (mg/dL) 131 H (70-110) mg/dL 07/25/23 07/25/23 07/26/23 Range/Units 16:22 20:21 06:26 Neutrophils # (1.3-7.7) k/uL Lymphocytes # (1.0-4.8) k/uL Sodium (137-145) mmol/L Chloride (98-107) mmol/L Carbon Dioxide (22-30) mmol/L BUN (7-17) mg/dL Creatinine (0.52-1.04) mg/dL Glucose (74-99) mg/dL POC Glucose (mg/dL) 175 H 202 H 143 H (70-110) mg/dL Assessment and Plan Assessment: Acute pancreatitis without necrosis or infection. Improved clinically. 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 Currently on high flow 8 L Hypertension History of breast cancer with prior mastectomy Left pleural effusion Chronic CHF with systolic dysfunction ejection fraction 25 to 30% Generalized weakness History of smoking Plan: Patient be continued on high flow oxygen at 8 L. Continue with DuoNebs and IV Solu-Medrol 40 mg every 8 hourly. Patient is also on IV Lasix 20 mg daily Continue to titrate down oxygen. Continue with pain management and follow-up closely. Patient will be started on insulin sliding scale for better blood sugar control. Patient to follow-up with radiation oncology as an outpatient. Oncology and pul monary is on board. Prognosis is guarded.
--- NOTE | 2023-07-26 15:08 | P.PN ---
Subjective Progress Note Date: 07/26/23 Principal diagnosis: Shortness of breath. This is a 62-year-old female patient with a history of hyperlipidemia, mild intermittent chronic bronchial asthma, chronic tobacco dependence, anxiety/depression, previous right breast cancer status postmastectomy and chemotherapy over 6 years ago. 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 She had recently undergone a biopsy at [facility] with Dr. Wray of the abdominal mass. He was found to have metastatic lesions. She was to start whole brain radiation at [facility] on 07/16/2023 however she ended up coming here on 07/15/2023 with abdominal pain, nausea and vomiting. CT scan of the chest revealed a 7.6 x 7.7 x 7.4 cm mediastinal mass. Innumerable pulmonary nodules likely metastatic in nature. Multiple centrally necrotic pancreatic masses. Tumor thrombosis within the portosystemic confluence from the previously described pancreatic masses. Right adrenal mass. Metastatic lesions to the liver. Left adrenal mass. Centrally necrotic left inguinal lymph node. She was initially maintaining good O2 saturations in the 90s on 2 L/min per nasal cannula. The last few hours her oxygen requirements h ave gone up to 10 L high flow oxygen. We are consulted today for the same. Chest x-ray today reveals ongoing patchy upper and midlung opacities. Now with small to moderate left pleural effusion. She is currently sitting up in bed. Awake and alert in no acute distress. Somewhat of a poor historian. She is dyspneic with conversation. Dyspneic with exertion. She denies any worsening cough or congestion. No hemoptysis. She is currently on DuoNeb ventilations, Decadron, heparin for DVT prophylaxis. She has been given additional Lasix today. She is on antibiotics in the form of Zosyn. White count 9.2. Hemoglobin 12.2. Platelets 176. Sodium 137. Potassium 3.8. Bicarb 32. BUN 29. Creatinine 0.54. Glucose 187. Amylase 60. Lipase 297. Procalcitonin was 0.47. Patient was reevaluated today on 07/20/2023, patient is now on Airvo 60% FiO2 and 40 L flow, feels comfortable, does not seem to be in any distress, reviewed the CT of the chest also reviewed ultrasound of the chest, the pleural effusion is rather small, and there is all lung tissue floating in the pocket of pleural effusion, makes thoracentesis less safe, and again the effusion is not large enough to proceed with thoracentesis at this point. I believe the patient's shortness of breath is multifactorial related to her underlying small cell lung cancer patient does have a very large mediastinal mass, she has small pleural effusion, she has cardiomyopathy and LV dysfunction, and she came in with acute pancreatitis. Overall prognosis extremely poor, nonetheless the patient will be treated for her issues as they are accordingly. And she will be receiving bronchodilators for her underlying COPD. WBC count today is 9.3 hemoglobin 12.9 basic metabolic profile is normal renal profile is normal bicarb is 34 Progress note dated July 21, 2023. The patient is seen today in room 363. The patient is getting saline at 20 cc an hour. The patient is on Airvo, at 35 L/min, with an FiO2 of 55%. She appears relatively comfortable. She does have a history of small cell lung cancer. Current laboratory data includes a white count of 9.9, hemoglobin 13.1, hematocrit 40.7, and a normal platelet count. Sodium 136, potassium 3.8, chlorides 98, CO2 38, BUN 24, and creatinine 0.52. Glucose is 297. Albumin is 3.3. Sputum and blood cultures are thus far negative. X-ray from July 19 shows similar right hilar soft tissue and mild patchy upper lobe densities, right greater than left. In addition, there is a left-sided pleural effusion, which is small to moderate. Progress note dated July 22, 2023. The patient is again seen today in room 363. The patient is getting saline at 20 cc an hour. Yesterday, she was on Airvo. Today, the patient is on high flow O2, at 8 L. She looks relatively comfortable today, and states that her breathing is improved. Labs today include a white count 9.9, hemoglobin 13.9, hematocrit 41.5, and a normal platelet count. Sodium 135, potassium 3.6, chloride 79, CO2 37, BUN 26, and creatinine 0.51. Glucose is 240. Calcium is 8.6. Sputum and blood cultures are all negative. No recent chest x-ray. Progress note dated July 23, 2023. The patient is seen today in room 363. Currently, the patient is on 8 L high flow nasal cannula. The patient is receiving Zosyn. The patient's procalcitonin level was elevated at 0.47. She appears in no distress. Her respiratory status is improved. She denies any cough, phlegm production, chest tightness, or wheezing. Laboratory data includes a sodium 138, potassium 3.7, chloride 95, CO2 38, BUN 27, creatinine 0.67. Glucose is 192. Calcium 8.4. Blood and sputum sampling is thus far all negative. No recent chest x-ray. Progress note dated July 24, 2023. 62-year-old female seen today in room 363. Currently, the patient is on saline at 20 cc an hour. She is receiving oxygen by high flow nasal cannula at 8 L/min. This is what she was on yesterday. Today, we will switch her Solu- Medrol to prednisone, 30 mg a day. No new labs today other than a glucose of 155. Clinically, she appears to be relatively stable. Blood and sputum cultures are negative. No recent chest x-ray. Progress note dated July 25, 2023. 62-year-old female seen today in room 363. Currently, the patient is on 6 L high flow nasal cannula. That was turned down from 8 L yesterday. She does continue on Zosyn. She is not receiving any IV fluids. Labs include a white count 9.6, hemoglobin 13.1, hematocrit 40.6, and a platelet count of 154,000. Sodium 135, potassium 3.6, chloride 95, CO2 38, BUN 22, creatinine 0.41. Glucose is 124. Calcium is 8.4. Blood and sputum sampling has been negative thus far. No recent chest x-ray today. Progress note dated July 26, 2023. The patient is seen today in room 363. The patient apparently is refusing treatments, and does not want anything done more at this point. The patient is currently on 7 L high flow oxygen. She continues on Zosyn. No new labs today other than a glucose of 135. Objective - Vital Signs Vital signs: Vital Signs Temp 97.4 F L 07/26/23 08:00 Pulse 99 07/26/23 12:00 Resp 18 07/26/23 08:00 BP 138/84 07/26/23 12:00 Pulse Ox 91 L 07/26/23 12:00 FiO2 54 07/21/23 12:36 Intake & Output 07/25/23 07/26/23 07/26/23 18:59 06:59 18:59 Intake Total 580 Output Total 800 Balance -220 Intake: Oral 580 Output: Urine 800 Other: Voiding Method Bedside Commode Bedside Commode # Voids 1 2 0 # Bowel Movements 0 - Exam No acute distress, oriented 3. Patient is currently on 7 L high flow oxygen. Saturations are 92 %. HEENT examination is grossly unremarkable. Mucous membranes are moist. No oral lesions. Neck supple. Full range of motion. No adenopathy thyromegaly or neck vein distention. Cardiovascular examination reveals regular rhythm rate. S1-S2 normal. No S3 or S4. No discernible murmur noted. Heart sounds are distant. Heart rate 99 bpm. Lungs reveal scattered rhonchi. Breath sounds are equal bilaterally. No crackles. No wheezes are appreciated. Abdomen soft bowel sounds are heard. No masses or tenderness. Extremities are intact. No cyanosis clubbing or edema. Skin is without rash or lesion. Neurologic examination is brief but nonfocal. - Labs CBC & Chem 7: 07/25/23 08:57 07/25/23 08:57 Labs: Abnormal Lab Results - Last 24 Hours (Table) 07/25/23 07/25/23 07/26/23 Range/Units 16:22 20:21 06:26 POC Glucose (mg/dL) 175 H 202 H 143 H (70-110) mg/dL 07/26/23 Range/Units 11:32 POC Glucose (mg/dL) 135 H (70-110) mg/dL Assessment and Plan Assessment: Acute hypoxemic respiratory failure, multifactorial. Extensive small cell lung cancer, as noted on CT scan. Acute pancreatitis. Left pleural effusion. Abdominal pain, secondary to pancreatitis. Severe LV dysfunction with an ejection fraction of 25 to 30%. Bilateral pleural effusions, most likely related to cardiac issues. Generalized weakness. Tobacco dependence syndrome. Benign essential hypertension. History of breast cancer, and previous right mastectomy. Plan: Plan dated July 21, 2023. The patient is seen today in room 363. The patient is on Airvo, at 35 L/min with an FiO2 of 55%. She appears relatively comfortable. Labs, x-rays, medications are reviewed. We will continue to titrate down the oxygen. The patient is overall prognosis remains guarded. She does continue on bronchodilators. Additional recommendations and suggestions are forthcoming. Plan dated July 22, 2023. The patient appears to be doing better. Yesterday, she was on Airvo. Today she has been weaned down to 8 L high flow oxygen. The patient continues on saline, at 20 cc an hour. Labs, x-rays, and all medications are reviewed. The patient is overall prognosis remains guarded. Will continue to follow the patient, make recommendations along the way. She denies any worsening shortness of breath, cough, wheezing, chest tightness, or phlegm production. She also denies any chest pain or chest discomfort. Plan dated July 23, 2023. The patient again appears reasonably stable. Like yesterday, she continues on nasal O2, high flow, 8 L. Saturations are in the low to mid 90s. The patient continues on Zosyn. The patient has a procalcitonin level which is elevated at 0.47. Labs, x-rays, and medications are reviewed. We will continue to follow the patient, make recommendations along the way. The patient is overall prognosis remains guarded. As above, the patient denies any shortness of breath, cough, wheezing, chest tightness, or phlegm production. Plan dated July 24, 2023. The patient appears to be doing relatively well. She is on 8 L high flow nasal cannula. Saturations are in the mid 90s. The patient is getting saline at 20 cc an hour. The patient's Solu-Medrol will be converted to prednisone, 30 mg a day. Labs, x-rays, medications are reviewed. Will continue to follow patient, make recommendations along the way. The patient's prognosis is guarded. Plan dated July 25, 2023. The patient's oxygen has been turned down from 8 L, down to 6 L. Saturations are in the mid 90s. She is not receiving any IV fluids. The patient does c ontinue on Zosyn. We will continue to follow and make recommendations along the way. Labs, x-rays, and medications are reviewed. Will continue to follow the patient. Prognosis is guarded. Plan dated July 26, 2023. The patient is currently on 7 L high flow oxygen. She is not on any IV fluids. She continues on Zosyn. Apparently she was given the nurse a hard time, refusing treatments, and pulling on IVs, and refusing various treatments. Labs, x-rays, and medications are reviewed. The patient's overall prognosis remains guarded. We will continue to follow. Time with Patient: Less than 30
[2023-07-26 15:17] LABS: Basophils % (A) 0 %; Eosinophils # (A) 0.1 k/uL (0-0.7); Eosinophils % (A) 1 %; HCT 39.9 % (34.0-46.0); HGB 13.4 gm/dL (11.4-16.0); Lymphocytes # (A) 0.5 k/uL (1.0-4.8); Lymphocytes % (A) 5 %; MCH 33.2 pg (25.0-35.0); MCHC 33.6 g/dL (31.0-37.0); MCV 98.9 fL (80.0-100.0); Mean Platelet Volume 9.4; Monocytes # (A) 0.6 k/uL (0-1.0); Monocytes % (A) 5 %; Neutrophils # (A) 9.3 k/uL (1.3-7.7); Neutrophils % (A) 88 %; Platelet Count 145 k/uL (150-450); RBC 4.03 m/uL (3.80-5.40); RDW 13.3 % (11.5-15.5); WBC 10.6 k/uL (3.8-10.6)
[2023-07-26 15:18] LABS: African American GFR (CKD) >90 (>60 ml/min/1.73 sqM); Anion Gap 0 mmol/L; Blood Urea Nitrogen 22 mg/dL (7-17); Calcium 8.2 mg/dL (8.4-10.2); Carbon Dioxide 38 mmol/L (22-30); Chloride 97 mmol/L (98-107); Glucose 116 mg/dL (74-99); Non-African American GFR(CKD) >90 (>60 ml/min/1.73 sqM); Sodium 135 mmol/L (137-145)
[2023-07-26 15:19] LABS: Potassium 4.2 mmol/L (3.5-5.1)
[2023-07-26 16:47] LABS: Glucose,Whole Blood 122 mg/dL (70-110)
[2023-07-26 20:17] LABS: Glucose,Whole Blood 180 mg/dL (70-110)
--- NOTE | 2023-07-26 21:54 | P.PN ---
Subjective Progress Note Date: 07/26/23 Principal diagnosis: Reason for follow-up is fever Patient is a 62-year-old female past medical history significant for hyperlipidemia asthma diverticulitis and right breast cancer as well as small cell cancer of the lung presenting to the hospital for evaluation of severe abdominal pain along with nausea and vomiting, CT abdominal pelvis with metastatic mass and necrotic pancreatic masses did have low-grade fever prompting this consultation. On today's evaluation that is 07/26/2023, Patient is afebrile patient is currently on 7 L nasal cannula oxygen and mention breathing more comfortably patient denies having any chest pain cough is decreased in intensity, patient denies having any nausea no vomiting no abdominal pain and no diarrhea. Patient white count of 10.6, creatinine 0.29 Objective - Vital Signs Vital signs: Vital Signs Temp 97.4 F L 07/26/23 08:00 Pulse 97 07/26/23 08:00 Resp 18 07/26/23 08:00 BP 131/74 07/26/23 08:00 Pulse Ox 94 L 07/26/23 08:00 FiO2 54 07/21/23 12:36 Intake & Output 07/25/23 07/26/23 07/26/23 18:59 06:59 18:59 Intake Total 580 Output Total 800 Balance -220 Intake: Oral 580 Output: Urine 800 Other: Voiding Method Bedside Commode Bedside Commode # Voids 1 2 0 # Bowel Movements 0 - Exam GENERAL DESCRIPTION: Middle-aged female lying in bed in no distress RESPIRATORY SYSTEM: Unlabored breathing , coarse breath sounds bilaterally HEART: S1 S2 regular rate and rhythm , ABDOMEN: Soft , no tenderness EXTREMITIES: No edema feet - Labs CBC & Chem 7: 07/26/23 14:32 07/26/23 14:32 Labs: Abnormal Lab Results - Last 24 Hours (Table) 07/25/23 07/25/23 07/25/23 Range/Units 12:10 16:22 20:21 POC Glucose (mg/dL) 131 H 175 H 202 H (70-110) mg/dL 07/26/23 07/26/23 Range/Units 06:26 11:32 POC Glucose (mg/dL) 143 H 135 H (70-110) mg/dL Assessment and Plan (1) Fever Current Visit: Yes Status: Acute Code(s): R50.9 - FEVER, UNSPECIFIED SNOMED Code(s): 640371438 (2) Leukocytosis Current Visit: Yes Status: Acute Code(s): D72.829 - ELEVATED WHITE BLOOD CELL COUNT, UNSPECIFIED SNOMED Code(s): 240718030 Plan: 1patient presented to hospital with intractable abdominal pain nausea vomiting and this patient who did have a extensive abnormality seen on the CT of the chest abdominal pelvis concerning for necrotic masses in the pancreas and renal could be responsible for most of her symptomatology with a low-grade fever elevated white count could be reactive underlying infectious etiology less likely but not entirely excluded 2-blood culture has been negative, inflammatory markers are mildly elevated with a procalcitonin 0.47, sputum cultures negative and resistant pathogen 3-patient did have resolution of her fever and white count has normalized, 4-patient slowly clinically improving patient will complete her 7-day course of IV Zosyn as of today and will monitor the patient closely off antibiotic therapy after that Dictation was produced using [employer] dictation software. please excuse any grammatical, word or spelling errors. Time with Patient: Less than 30
[2023-07-27 06:23] LABS: Glucose,Whole Blood 133 mg/dL (70-110)
[2023-07-27 08:43] LABS: Basophils % (A) 0 %; Eosinophils # (A) 0.1 k/uL (0-0.7); Eosinophils % (A) 1 %; HCT 38.8 % (34.0-46.0); HGB 12.7 gm/dL (11.4-16.0); Lymphocytes # (A) 0.4 k/uL (1.0-4.8); Lymphocytes % (A) 4 %; MCH 32.1 pg (25.0-35.0); MCHC 32.8 g/dL (31.0-37.0); MCV 97.7 fL (80.0-100.0); Mean Platelet Volume 9.4; Monocytes # (A) 0.5 k/uL (0-1.0); Monocytes % (A) 5 %; Neutrophils # (A) 8.8 k/uL (1.3-7.7); Neutrophils % (A) 89 %; Platelet Count 152 k/uL (150-450); RBC 3.97 m/uL (3.80-5.40); RDW 13.1 % (11.5-15.5); WBC 9.9 k/uL (3.8-10.6)
[2023-07-27 08:50] LABS: African American GFR (CKD) >90 (>60 ml/min/1.73 sqM); Anion Gap 3 mmol/L; Blood Urea Nitrogen 22 mg/dL (7-17); Calcium 8.3 mg/dL (8.4-10.2); Carbon Dioxide 37 mmol/L (22-30); Chloride 96 mmol/L (98-107); Glucose 127 mg/dL (74-99); Non-African American GFR(CKD) >90 (>60 ml/min/1.73 sqM); Potassium 3.3 mmol/L (3.5-5.1); Sodium 136 mmol/L (137-145)
[2023-07-27 11:23] LABS: Glucose,Whole Blood 133 mg/dL (70-110)
--- NOTE | 2023-07-27 12:55 | P.PN ---
Subjective Progress Note Date: 07/27/23 Principal diagnosis: Shortness of breath. This is a 62-year-old female patient with a history of hyperlipidemia, mild intermittent chronic bronchial asthma, chronic tobacco dependence, anxiety/depression, previous right breast cancer status postmastectomy and chemotherapy over 6 years ago. 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 She had recently undergone a biopsy at [facility] with Dr. Wray of the abdominal mass. He was found to have metastatic lesions. She was to start whole brain radiation at [facility] on 07/16/2023 however she ended up coming here on 07/15/2023 with abdominal pain, nausea and vomiting. CT scan of the chest revealed a 7.6 x 7.7 x 7.4 cm mediastinal mass. Innumerable pulmonary nodules likely metastatic in nature. Multiple centrally necrotic pancreatic masses. Tumor thrombosis within the portosystemic confluence from the previously described pancreatic masses. Right adrenal mass. Metastatic lesions to the liver. Left adrenal mass. Centrally necrotic left inguinal lymph node. She was initially maintaining good O2 saturations in the 90s on 2 L/min per nasal cannula. The last few hours her oxygen requirements h ave gone up to 10 L high flow oxygen. We are consulted today for the same. Chest x-ray today reveals ongoing patchy upper and midlung opacities. Now with small to moderate left pleural effusion. She is currently sitting up in bed. Awake and alert in no acute distress. Somewhat of a poor historian. She is dyspneic with conversation. Dyspneic with exertion. She denies any worsening cough or congestion. No hemoptysis. She is currently on DuoNeb ventilations, Decadron, heparin for DVT prophylaxis. She has been given additional Lasix today. She is on antibiotics in the form of Zosyn. White count 9.2. Hemoglobin 12.2. Platelets 176. Sodium 137. Potassium 3.8. Bicarb 32. BUN 29. Creatinine 0.54. Glucose 187. Amylase 60. Lipase 297. Procalcitonin was 0.47. Patient was reevaluated today on 07/20/2023, patient is now on Airvo 60% FiO2 and 40 L flow, feels comfortable, does not seem to be in any distress, reviewed the CT of the chest also reviewed ultrasound of the chest, the pleural effusion is rather small, and there is all lung tissue floating in the pocket of pleural effusion, makes thoracentesis less safe, and again the effusion is not large enough to proceed with thoracentesis at this point. I believe the patient's shortness of breath is multifactorial related to her underlying small cell lung cancer patient does have a very large mediastinal mass, she has small pleural effusion, she has cardiomyopathy and LV dysfunction, and she came in with acute pancreatitis. Overall prognosis extremely poor, nonetheless the patient will be treated for her issues as they are accordingly. And she will be receiving bronchodilators for her underlying COPD. WBC count today is 9.3 hemoglobin 12.9 basic metabolic profile is normal renal profile is normal bicarb is 34 Progress note dated July 21, 2023. The patient is seen today in room 363. The patient is getting saline at 20 cc an hour. The patient is on Airvo, at 35 L/min, with an FiO2 of 55%. She appears relatively comfortable. She does have a history of small cell lung cancer. Current laboratory data includes a white count of 9.9, hemoglobin 13.1, hematocrit 40.7, and a normal platelet count. Sodium 136, potassium 3.8, chlorides 98, CO2 38, BUN 24, and creatinine 0.52. Glucose is 297. Albumin is 3.3. Sputum and blood cultures are thus far negative. X-ray from July 19 shows similar right hilar soft tissue and mild patchy upper lobe densities, right greater than left. In addition, there is a left-sided pleural effusion, which is small to moderate. Progress note dated July 22, 2023. The patient is again seen today in room 363. The patient is getting saline at 20 cc an hour. Yesterday, she was on Airvo. Today, the patient is on high flow O2, at 8 L. She looks relatively comfortable today, and states that her breathing is improved. Labs today include a white count 9.9, hemoglobin 13.9, hematocrit 41.5, and a normal platelet count. Sodium 135, potassium 3.6, chloride 79, CO2 37, BUN 26, and creatinine 0.51. Glucose is 240. Calcium is 8.6. Sputum and blood cultures are all negative. No recent chest x-ray. Progress note dated July 23, 2023. The patient is seen today in room 363. Currently, the patient is on 8 L high flow nasal cannula. The patient is receiving Zosyn. The patient's procalcitonin level was elevated at 0.47. She appears in no distress. Her respiratory status is improved. She denies any cough, phlegm production, chest tightness, or wheezing. Laboratory data includes a sodium 138, potassium 3.7, chloride 95, CO2 38, BUN 27, creatinine 0.67. Glucose is 192. Calcium 8.4. Blood and sputum sampling is thus far all negative. No recent chest x-ray. Progress note dated July 24, 2023. 62-year-old female seen today in room 363. Currently, the patient is on saline at 20 cc an hour. She is receiving oxygen by high flow nasal cannula at 8 L/min. This is what she was on yesterday. Today, we will switch her Solu- Medrol to prednisone, 30 mg a day. No new labs today other than a glucose of 155. Clinically, she appears to be relatively stable. Blood and sputum cultures are negative. No recent chest x-ray. Progress note dated July 25, 2023. 62-year-old female seen today in room 363. Currently, the patient is on 6 L high flow nasal cannula. That was turned down from 8 L yesterday. She does continue on Zosyn. She is not receiving any IV fluids. Labs include a white count 9.6, hemoglobin 13.1, hematocrit 40.6, and a platelet count of 154,000. Sodium 135, potassium 3.6, chloride 95, CO2 38, BUN 22, creatinine 0.41. Glucose is 124. Calcium is 8.4. Blood and sputum sampling has been negative thus far. No recent chest x-ray today. Progress note dated July 26, 2023. The patient is seen today in room 363. The patient apparently is refusing treatments, and does not want anything done more at this point. The patient is currently on 7 L high flow oxygen. She continues on Zosyn. No new labs today other than a glucose of 135. Progress note dated July 27, 2023. 62-year-old patient seen today in room 363. The patient continues on nasal O2, high flow, at 7 L. The patient is not receiving any IV fluids. The patient is currently resting comfortably in her room. She has no specific complaints today. White count is 9.9, hemoglobin 12.7, hematocrit 38.8, and a platelet count is 152,000. Sodium 136, potassium 3.3, chlorides 96, CO2 37, BUN 22, and creatinine 0.38. Glucose is 133. Calcium is 8.3. Blood and sputum sampling is thus far negative. Objective - Vital Signs Vital signs: Vital Signs Temp 97.8 F 07/27/23 08:00 Pulse 80 07/27/23 09:02 Resp 18 07/27/23 08:00 BP 130/79 07/27/23 08:00 Pulse Ox 91 L 07/27/23 08:00 FiO2 54 07/21/23 12:36 Intake & Output 07/26/23 07/27/23 07/27/23 18:59 06:59 18:59 Intake Total 480 240 Balance 480 240 Intake: Oral 480 240 Other: Voiding Method Bedside Commode Toilet Toilet # Voids 2 - Exam No acute distress, oriented 3. Patient is currently on 7 L high flow oxygen. Saturations are 93 %. HEENT examination is grossly unremarkable. Mucous membranes are moist. No oral lesions. Neck supple. Full range of motion. No adenopathy thyromegaly or neck vein distention. Cardiovascular examination reveals regular rhythm rate. S1-S2 normal. No S3 or S4. No discernible murmur noted. Heart sounds are distant. Heart rate 80 bpm. Lungs reveal scattered rhonchi. Breath sounds are equal bilaterally. No crackles. No wheezes are appreciated. Abdomen soft bowel sounds are heard. No masses or tenderness. Extremities are intact. No cyanosis clubbing or edema. Skin is without rash or lesion. Neurologic examination is brief but nonfocal. - Labs CBC & Chem 7: 07/27/23 07:14 07/27/23 07:14 Labs: Abnormal Lab Results - Last 24 Hours (Table) 07/26/23 07/26/23 07/26/23 Range/Units 14:32 14:32 16:46 Plt Count 145 L (150-450) k/uL Neutrophils # 9.3 H (1.3-7.7) k/uL Lymphocytes # 0.5 L (1.0-4.8) k/uL Sodium 135 L (137-145) mmol/L Potassium (3.5-5.1) mmol/L Chloride 97 L (98-107) mmol/L Carbon Dioxide 38 H (22-30) mmol/L BUN 22 H (7-17) mg/dL Creatinine 0.29 L (0.52-1.04) mg/dL Glucose 116 H (74-99) mg/dL POC Glucose (mg/dL) 122 H (70-110) mg/dL Calcium 8.2 L (8.4-10.2) mg/dL 07/26/23 07/27/23 07/27/23 Range/Units 20:16 06:19 07:14 Plt Count (150-450) k/uL Neutrophils # 8.8 H (1.3-7.7) k/uL Lymphocytes # 0.4 L (1.0-4.8) k/uL Sodium (137-145) mmol/L Potassium (3.5-5.1) mmol/L Chloride (98-107) mmol/L Carbon Dioxide (22-30) mmol/L BUN (7-17) mg/dL Creatinine (0.52-1.04) mg/dL Glucose (74-99) mg/dL POC Glucose (mg/dL) 180 H 133 H (70-110) mg/dL Calcium (8.4-10.2) mg/dL 07/27/23 07/27/23 Range/Units 07:14 11:22 Plt Count (150-450) k/uL Neutrophils # (1.3-7.7) k/uL Lymphocytes # (1.0-4.8) k/uL Sodium 136 L (137-145) mmol/L Potassium 3.3 L (3.5-5.1) mmol/L Chloride 96 L (98-107) mmol/L Carbon Dioxide 37 H (22-30) mmol/L BUN 22 H (7-17) mg/dL Creatinine 0.38 L (0.52-1.04) mg/dL Glucose 127 H (74-99) mg/dL POC Glucose (mg/dL) 133 H (70-110) mg/dL Calcium 8.3 L (8.4-10.2) mg/dL Assessment and Plan Assessment: Acute hypoxemic respiratory failure, multifactorial. Extensive small cell lung cancer, as noted on CT scan. Acute pancreatitis. Left pleural effusion. Abdominal pain, secondary to pancreatitis. Severe LV dysfunction with an ejection fraction of 25 to 30%. Bilateral pleural effusions, most likely related to cardiac issues. Generalized weakness. Tobacco dependence syndrome. Benign essential hypertension. History of breast cancer, and previous right mastectomy. Plan: Plan dated July 21, 2023. The patient is seen today in room 363. The patient is on Airvo, at 35 L/min with an FiO2 of 55%. She appears relatively comfortable. Labs, x-rays, medications are reviewed. We will continue to titrate down the oxygen. The patient is overall prognosis remains guarded. She does continue on bronchodilators. Additional recommendations and suggestions are forthcoming. Plan dated July 22, 2023. The patient appears to be doing better. Yesterday, she was on Airvo. Today she has been weaned down to 8 L high flow oxygen. The patient continues on saline, at 20 cc an hour. Labs, x-rays, and all medications are reviewed. The patient is overall prognosis remains guarded. Will continue to follow the patient, make recommendations along the way. She denies any worsening shortness of breath, cough, wheezing, chest tightness, or phlegm production. She also denies any chest pain or chest discomfort. Plan dated July 23, 2023. The patient again appears reasonably stable. Like yesterday, she continues on nasal O2, high flow, 8 L. Saturations are in the low to mid 90s. The patient continues on Zosyn. The patient has a procalcitonin level which is elevated at 0.47. Labs, x-rays, and medications are reviewed. We will continue to follow the patient, make recommendations along the way. The patient is overall prognosis remains guarded. As above, the patient denies any shortness of breat h, cough, wheezing, chest tightness, or phlegm production. Plan dated July 24, 2023. The patient appears to be doing relatively well. She is on 8 L high flow nasal cannula. Saturations are in the mid 90s. The patient is getting saline at 20 cc an hour. The patient's Solu-Medrol will be converted to prednisone, 30 mg a day. Labs, x-rays, medications are reviewed. Will continue to follow patient, make recommendations along the way. The patient's prognosis is guarded. Plan dated July 25, 2023. The patient's oxygen has been turned down from 8 L, down to 6 L. Saturations are in the mid 90s. She is not receiving any IV fluids. The patient does continue on Zosyn. We will continue to follow and make recommendations along the way. Labs, x-rays, and medications are reviewed. Will continue to follow the patient. Prognosis is guarded. Plan dated July 26, 2023. The patient is currently on 7 L high flow oxygen. She is not on any IV fluids. She continues on Zosyn. Apparently she was given the nurse a hard time, refusing treatments, and pulling on IVs, and refusing various treatments. Labs, x-rays, and medications are reviewed. The patient's overall prognosis remains guarded. We will continue to follow. Plan dated July 27, 2023. The patient continues on high flow nasal O2, at 7 L. The patient is not receiving any supplemental fluids. Labs, x-rays, and medications are reviewed. The patient continues on appropriate medications, as well as pain medications, for her cancer pain. She also continues on prednisone 30 mg a day. We will continue to follow the patient, and make recommendations along the way. Overall prognosis remains very guarded. Time with Patient: Less than 30
[2023-07-27] MEDS: POTASSIUM CHLORIDE ER 20 MEQ TAB.ER PO STA (13:19)
--- NOTE | 2023-07-27 15:39 | P.PN ---
Subjective Progress Note Date: 07/27/23 62-year-old female patient with a history of hyperlipidemia, mild intermittent chronic bronchial asthma, chronic tobacco dependence, anxiety/depression, previous right breast cancer status postmastectomy and chemotherapy over 6 years ago. 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 She had recently undergone a biopsy at [facility] with Dr. Wray of the abdominal mass. He was found to have metastatic lesions. She was to start whole brain radiation at [facility] on 07/16/2023 however she ended up coming here on 07/15/2023 with abdominal pain, nausea and vomiting. CT scan of the c hest revealed a 7.6 x 7.7 x 7.4 cm mediastinal mass. Innumerable pulmonary nodules likely metastatic in nature. Multiple centrally necrotic pancreatic masses. Tumor thrombosis within the portosystemic confluence from the previously described pancreatic masses. Right adrenal mass. Metastatic lesions to the liver. Left adrenal mass. Centrally necrotic left inguinal lymph node. She was initially maintaining good O2 saturations in the 90s on 2 L/min per nasal cannula. The last few hours her oxygen requirements have gone up to 10 L high flow oxygen. We are consulted today for the same. Chest x-ray today reveals ongoing patchy upper and midlung opacities. Now with small to moderate left pleural effusion. She is currently sitting up in bed. Awake and alert in no acute distress. Somewhat of a poor historian. She is dyspneic with conversation. Dyspneic with exertion. She denies any worsening cough or congestion. No hemoptysis. She is currently on DuoNeb ventilations, Decadron, heparin for DVT prophylaxis. 24-hour interval change 07/26/2023 Patient is seen and evaluated in room at bedside; sitting up in bedside chair; per nursing staff patient has pulled out IV and refusing all treatment and refusing to wear court recording monitor --Patient sitting up in bedside chair; somewhat agitated; reports she wants to go home; according to patient she was told she was going home this morning by pulmonary team -- Patient remains on O2 at 7 L per nasal cannula; plan is still to titrate or wean as able patient presented to hospital with intractable abdominal pain nausea vomiting and this patient who did have a extensive abnormality seen on the CT of the chest abdominal pelvis concerning for necrotic masses in the pancreas and renal could be responsible for most of her symptomatology with a low-grade fever elevated white count could be reactive underlying infectious etiology less likely but not entirely excluded -blood culture has been negative, inflammatory markers are mildly elevated with a procalcitonin 0.47, sputum cultures negative and resistant pathogen -patient did have resolution of her fever and white count has normalized, -patient slowly clinically improving continue Zosyn and monitor clinical course closely 07/27/2023 Patient is seen and evaluated sitting up in bedside chair; remains on O2 at 7 L HFNC Vital signs are reviewed and reveal a temperature of 97.8, pulse 80, respirations 20, blood pressure 130/79; O2 saturation 91% on an FIO2 of 54% White count is 9.9, hemoglobin 12.7, hematocrit 38.8, and a platelet count is 152,000. Sodium 136, potassium 3.3, chlorides 96, CO2 37, BUN 22, and creatini ne 0.38. Glucose is 133. Calcium is 8.3. Blood and sputum sampling is thus far negative. Patient remains on IV antibiotics in the form of IV Zosyn; patient has been transitioned to oral prednisone per pulmonary recommendations Objective - Vital Signs Vital signs: Vital Signs Temp 97.8 F 07/26/23 20:55 Pulse 80 07/27/23 09:02 Resp 18 07/27/23 04:00 BP 131/80 07/27/23 04:00 Pulse Ox 88 L 07/27/23 04:00 FiO2 54 07/21/23 12:36 Intake & Output 07/26/23 07/27/23 07/27/23 18:59 06:59 18:59 Intake Total 480 Balance 480 Intake: Oral 480 Other: Voiding Method Bedside Commode Toilet # Voids 2 - Exam Patient is lying in the bed comfortably, no acute distress, awake alert and oriented.. HEENT: Normocephalic. Neck is supple. Pupils reactive. Nostrils clear. Oral cavity is moist. Neck reveals no JVD, carotid bruits, or thyromegaly. CHEST EXAMINATION: Trachea is central. Symmetrical expansion. Bibasilar diminished sounds. No wheezing or rhonchi. CARDIAC: Normal S1, S2 with no gallops. No murmurs ABDOMEN: Soft. Bowel sounds normal. No organomegaly. No abdominal bruits. Extremities: reveal no edema. Bilateral upper extremity swelling. No clubbing or cyanosis Neurologically awake, alert, oriented x3 with well-coordinated movements. No focal deficits noted Skin: No rash or skin lesions. Psychiatric: Coperative. Nonsuicidal Musculoskeletal: No joint swelling or deformity. Normal range of motion. - Labs CBC & Chem 7: 07/27/23 07:14 07/27/23 07:14 Labs: Abnormal Lab Results - Last 24 Hours (Table) 07/26/23 07/26/23 07/26/23 Range/Units 11:32 14:32 14:32 Plt Count 145 L (150-450) k/uL Neutrophils # 9.3 H (1.3-7.7) k/uL Lymphocytes # 0.5 L (1.0-4.8) k/uL Sodium 135 L (137-145) mmol/L Potassium (3.5-5.1) mmol/L Chloride 97 L (98-107) mmol/L Carbon Dioxide 38 H (22-30) mmol/L BUN 22 H (7-17) mg/dL Creatinine 0.29 L (0.52-1.04) mg/dL Glucose 116 H (74-99) mg/dL POC Glucose (mg/dL) 135 H (70-110) mg/dL Calcium 8.2 L (8.4-10.2) mg/dL 07/26/23 07/26/23 07/27/23 Range/Units 16:46 20:16 06:19 Plt Count (150-450) k/uL Neutrophils # (1.3-7.7) k/uL Lymphocytes # (1.0-4.8) k/uL Sodium (137-145) mmol/L Potassium (3.5-5.1) mmol/L Chloride (98-107) mmol/L Carbon Dioxide (22-30) mmol/L BUN (7-17) mg/dL Creatinine (0.52-1.04) mg/dL Glucose (74-99) mg/dL POC Glucose (mg/dL) 122 H 180 H 133 H (70-110) mg/dL Calcium (8.4-10.2) mg/dL 07/27/23 07/27/23 Range/Units 07:14 07:14 Plt Count (150-450) k/uL Neutrophils # 8.8 H (1.3-7.7) k/uL Lymphocytes # 0.4 L (1.0-4.8) k/uL Sodium 136 L (137-145) mmol/L Potassium 3.3 L (3.5-5.1) mmol/L Chloride 96 L (98-107) mmol/L Carbon Dioxide 37 H (22-30) mmol/L BUN 22 H (7-17) mg/dL Creatinine 0.38 L (0.52-1.04) mg/dL Glucose 127 H (74-99) mg/dL POC Glucose (mg/dL) (70-110) mg/dL Calcium 8.3 L (8.4-10.2) mg/dL Assessment and Plan Assessment: Acute pancreatitis without necrosis or infection. Improved clinically. 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 Currently on high flow 8 L Hypertension History of breast cancer with prior mastectomy Left pleural effusion Chronic CHF with systolic dysfunction ejection fraction 25 to 30% Generalized weakness History of smoking Plan: Patient be continued on high flow oxygen at 8 L. Continue with DuoNebs and IV Solu-Medrol 40 mg every 8 hourly. Patient is also on IV Lasix 20 mg daily Continue to titrate down oxygen. Continue with pain management and follow-up closely. Patient will be started on insulin sliding scale for better blood sugar control. Patient to follow-up with radiation oncology as an outpatient. Oncology and pulmonary is on board. Prognosis is guarded.
[2023-07-27 16:25] LABS: Glucose,Whole Blood 114 mg/dL (70-110)
[2023-07-27 21:06] LABS: Glucose,Whole Blood 134 mg/dL (70-110)
[2023-07-28 06:15] LABS: Glucose,Whole Blood 153 mg/dL (70-110)
--- NOTE | 2023-07-28 08:40 | P.PN ---
Subjective Progress Note Date: 07/27/23 Principal diagnosis: Reason for follow-up is fever Patient is a 62-year-old female past medical history significant for hyperlipidemia asthma diverticulitis and right breast cancer as well as small cell cancer of the lung presenting to the hospital for evaluation of severe abdominal pain along with nausea and vomiting, CT abdominal pelvis with metastatic mass and necrotic pancreatic masses did have low-grade fever prompting this consultation. On today's evaluation that is 07/27/2023, patient has been afebrile, patient is breathing comfortably and is currently on 7 L nasal cannula oxygen patient denies having any significant cough no chest pain shortness of breath, patient denies nausea vomiting or diarrhea and no abdominal pain, patient is feeling better and insisting on going home. Patient white count is 9.9, creatinine 0.38 blood and sputum culture has been negative Objective - Vital Signs Vital signs: Vital Signs Temp 97.8 F 07/27/23 08:00 Pulse 80 07/27/23 09:02 Resp 18 07/27/23 08:00 BP 130/79 07/27/23 08:00 Pulse Ox 91 L 07/27/23 08:00 FiO2 54 07/21/23 12:36 Intake & Output 07/26/23 07/27/23 07/27/23 18:59 06:59 18:59 Intake Total 480 358 Balance 480 358 Intake: Oral 480 358 Other: Voiding Method Bedside Commode Toilet Toilet # Voids 2 - Exam GENERAL DESCRIPTION: Middle-aged female lying in bed in no distress RESPIRATORY SYSTEM: Unlabored breathing , coarse breath sounds bilaterally HEART: S1 S2 regular rate and rhythm , ABDOMEN: Soft , no tenderness EXTREMITIES: No edema feet - Labs CBC & Chem 7: 07/27/23 07:14 07/27/23 07:14 Labs: Abnormal Lab Results - Last 24 Hours (Table) 07/26/23 07/26/23 07/26/23 Range/Units 14:32 14:32 16:46 Plt Count 145 L (150-450) k/uL Neutrophils # 9.3 H (1.3-7.7) k/uL Lymphocytes # 0.5 L (1.0-4.8) k/uL Sodium 135 L (137-145) mmol/L Potassium (3.5-5.1) mmol/L Chloride 97 L (98-107) mmol/L Carbon Dioxide 38 H (22-30) mmol/L BUN 22 H (7-17) mg/dL Creatinine 0.29 L (0.52-1.04) mg/dL Glucose 116 H (74-99) mg/dL POC Glucose (mg/dL) 122 H (70-110) mg/dL Calcium 8.2 L (8.4-10.2) mg/dL 07/26/23 07/27/23 07/27/23 Range/Units 20:16 06:19 07:14 Plt Count (150-450) k/uL Neutrophils # 8.8 H (1.3-7.7) k/uL Lymphocytes # 0.4 L (1.0-4.8) k/uL Sodium (137-145) mmol/L Potassium (3.5-5.1) mmol/L Chloride (98-107) mmol/L Carbon Dioxide (22-30) mmol/L BUN (7-17) mg/dL Creatinine (0.52-1.04) mg/dL Glucose (74-99) mg/dL POC Glucose (mg/dL) 180 H 133 H (70-110) mg/dL Calcium (8.4-10.2) mg/dL 07/27/23 07/27/23 Range/Units 07:14 11:22 Plt Count (150-450) k/uL Neutrophils # (1.3-7.7) k/uL Lymphocytes # (1.0-4.8) k/uL Sodium 136 L (137-145) mmol/L Potassium 3.3 L (3.5-5.1) mmol/L Chloride 96 L (98-107) mmol/L Carbon Dioxide 37 H (22-30) mmol/L BUN 22 H (7-17) mg/dL Creatinine 0.38 L (0.52-1.04) mg/dL Glucose 127 H (74-99) mg/dL POC Glucose (mg/dL) 133 H (70-110) mg/dL Calcium 8.3 L (8.4-10.2) mg/dL Assessment and Plan (1) Fever Current Visit: Yes Status: Acute Code(s): R50.9 - FEVER, UNSPECIFIED SNOMED Code(s): 289407093 (2) Leukocytosis Current Visit: Yes Status: Acute Code(s): D72.829 - ELEVATED WHITE BLOOD CELL COUNT, UNSPECIFIED SNOMED Code(s): 704597102 Plan: 1patient presented to hospital with intractable abdominal pain nausea vomiting and this patient who did have a extensive abnormality seen on the CT of the chest abdominal pelvis concerning for necrotic masses in the pancreas and renal could be responsible for most of her symptomatology with a low-grade fever elevated white count could be reactive underlying infectious etiology less likely but not entirely excluded 2-blood culture has been negative, inflammatory markers are mildly elevated with a procalcitonin 0.47, sputum cultures negative and resistant pathogen 3-patient did have resolution of her fever and white count has normalized, 4-patient has completed course of Zosyn patient is currently being monitored closely off antibiotic therapy and continue supportive care Dictation was produced using [employer] dictation software. please excuse any grammatical, word or spelling errors. Time with Patient: Less than 30
[2023-07-28 10:04] VITALS: TEMP 97.9
[2023-07-28 11:10] LABS: African American GFR (CKD) >90 (>60 ml/min/1.73 sqM); Anion Gap 2 mmol/L; Blood Urea Nitrogen 21 mg/dL (7-17); Calcium 8.1 mg/dL (8.4-10.2); Carbon Dioxide 38 mmol/L (22-30); Chloride 94 mmol/L (98-107); Glucose 220 mg/dL (74-99); Non-African American GFR(CKD) >90 (>60 ml/min/1.73 sqM); Potassium 3.2 mmol/L (3.5-5.1); Sodium 134 mmol/L (137-145)
[2023-07-28 11:33] LABS: Glucose,Whole Blood 254 mg/dL (70-110)
[2023-07-28] MEDS ORDERED: Potassium Replacement Protocol 1 EACH MISC MISCELLANE PRN (12:07)
[2023-07-28] MEDS: POTASSIUM CHLORIDE ER 20 MEQ TAB.ER PO SCH (12:45)
[2023-07-28 13:22] LABS: Basophils % (A) 0 %; Eosinophils # (A) 0.1 k/uL (0-0.7); Eosinophils % (A) 1 %; HCT 35.6 % (34.0-46.0); HGB 12.3 gm/dL (11.4-16.0); Lymphocytes # (A) 0.3 k/uL (1.0-4.8); Lymphocytes % (A) 3 %; MCH 34.6 pg (25.0-35.0); MCHC 34.5 g/dL (31.0-37.0); MCV 100.4 fL (80.0-100.0); Mean Platelet Volume 8.7; Monocytes # (A) 0.9 k/uL (0-1.0); Monocytes % (A) 7 %; Neutrophils # (A) 11.3 k/uL (1.3-7.7); Neutrophils % (A) 89 %; Platelet Count 198 k/uL (150-450); RBC 3.55 m/uL (3.80-5.40); RDW 13.3 % (11.5-15.5); WBC 12.7 k/uL (3.8-10.6)
--- NOTE | 2023-07-28 15:21 | P.PN ---
Progress Note - Text Progress Note Date: 07/28/23 Patient will require nebulizer on discharge as she is doing DuoNeb breathing treatments 4 times daily to manage COPD.
--- NOTE | 2023-07-28 15:26 | P.PN ---
Subjective Progress Note Date: 07/28/23 This is a 62-year-old female patient with a history of hyperlipidemia, mild intermittent chronic bronchial asthma, chronic tobacco dependence, anxiety/depression, previous right breast cancer status postmastectomy and chemotherapy over 6 years ago. 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 She had recently undergone a biopsy at [facility] with Dr. Wray of the abdominal mass. He was found to have metastatic lesions. She was to start whole brain radiation at [facility] on 07/16/2023 however she ended up coming here on 07/15/2023 with abdominal pain, nausea and vomiting. CT scan of the chest revealed a 7.6 x 7.7 x 7.4 cm mediastinal mass. Innumerable pulmonary nodules likely metastatic in nature. Multiple centrally necrotic pancreatic masses. Tumor thrombosis within the portosystemic confluence from the previously described pancreatic masses. Right adrenal mass. Metastatic lesions to the liver. Left adrenal mass. Centrally necrotic left inguinal lymph node On today's evaluation of 07/23/2023, the patient is feeling well. Oxygenation has progressively improved and the patient is currently on 7 L and I was able to further wean her down to 5 L with a pulse ox of 92%. She remains bronchospastic and wheezy. She remains on Decadron. She remains on DuoNeb updrafts [id number]. No altered mentation. No headaches. No focal neurological deficits. No significant dyspnea at rest. Does come 12.7 hemoglobin 12.3, sodium is at 134, BUN is at 21 with a creatinine of 0.44 and a potassium level is at 3.2. The patient has no specific complaints and she wants to go home. She does have metastatic small cell lung cancer. She has not started systemic chemotherapy at this point in time. She completed brain radiation therapy. Objective - Vital Signs Vital signs: Vital Signs Temp 97.9 F 07/28/23 08:00 Pulse 80 07/28/23 09:02 Resp 22 07/28/23 08:00 BP 135/77 07/28/23 10:02 Pulse Ox 90 L 07/28/23 08:44 FiO2 54 07/21/23 12:36 Intake & Output 07/27/23 07/28/23 07/28/23 18:59 06:59 18:59 Intake Total 478 10 Balance 478 10 Intake: IV 10 Invasive Line 7 10 Oral 478 Other: Voiding Method Toilet Bedside Commode Bedside Commode # Voids 1 - Exam No acute distress, oriented 3. Patient is currently on 5 L of oxygen by nasal cannula HEENT examination is grossly unremarkable. Mucous membranes are moist. No oral lesions. Neck supple. Full range of motion. No adenopathy thyromegaly or neck vein distention. Cardiovascular examination reveals regular rhythm rate. S1-S2 normal. No S3 or S4. No discernible murmur noted. Heart sounds are distant. Lungs reveal scattered rhonchi. Breath sounds are equal bilaterally. No crackles. No wheezes are appreciated. Abdomen soft bowel sounds are heard. No masses or tenderness. Extremities are intact. No cyanosis clubbing or edema. Skin is without rash or lesion. Neurologic examination is brief but nonfocal. - Labs CBC & Chem 7: 07/28/23 12:37 07/28/23 09:43 Labs: Abnormal Lab Results - Last 24 Hours (Table) 07/27/23 07/27/23 07/27/23 Range/Units 11:22 16:12 21:04 Sodium (137-145) mmol/L Potassium (3.5-5.1) mmol/L Chloride (98-107) mmol/L Carbon Dioxide (22-30) mmol/L BUN (7-17) mg/dL Creatinine (0.52-1.04) mg/dL Glucose (74-99) mg/dL POC Glucose (mg/dL) 133 H 114 H 134 H (70-110) mg/dL Calcium (8.4-10.2) mg/dL 07/28/23 07/28/23 Range/Units 06:13 09:43 Sodium 134 L (137-145) mmol/L Potassium 3.2 L (3.5-5.1) mmol/L Chloride 94 L (98-107) mmol/L Carbon Dioxide 38 H (22-30) mmol/L BUN 21 H (7-17) mg/dL Creatinine 0.44 L (0.52-1.04) mg/dL Glucose 220 H (74-99) mg/dL POC Glucose (mg/dL) 153 H (70-110) mg/dL Calcium 8.1 L (8.4-10.2) mg/dL Assessment and Plan Plan: Acute hypoxemic respiratory failure, multifactorial. The patient has bulky tumor consistent with small cell lung cancer with significant narrowing of the distal trachea and bilateral mainstem bronchi. The patient also has metastatic disease throughout the lungs bilaterally. She does have background COPD. She is recovering from acute hypoxic respiratory failure. She has been weaned down to 5 L of O2 nasal cannula. Extensive small cell lung cancer, as noted on CT scan. The patient has received brain radiation therapy and the patient has not started systemic chemotherapy at this point in time. Acute pancreatitis. Left pleural effusion. Abdominal pain, secondary to pancreatitis. Severe LV dysfunction with an ejection fraction of 25 to 30%. Bilateral pleural effusions, most likely related to cardiac issues. Generalized weakness. Tobacco dependence syndrome. Benign essential hypertension. History of breast cancer, and previous right mastectomy. Plan: Arrange for home O2 at 5 L/min nasal cannula The patient will need immediate follow-up with oncology regarding systemic chemotherapy due to her small cell lung cancer which is metastatic at this point in time. She does have significant narrowing of the bilateral mainstem bronchi due to above mediastinal mass. Continue Decadron DuoNeb [facility] Overall prognosis remains very guarded.
[2023-07-28] MEDS: dexAMETHasone 4 MG TAB PO SCH (16:05)
--- NOTE | 2023-07-28 16:25 | P.PN ---
Subjective Progress Note Date: 07/28/23 In follow-up today patient is resting comfortably in bed, family at bedside. Patient is reporting significant improvement in pain control since pain med adjustment. Also reporting improvement in breathing. Denies n/v, tolerating oral intake. Headache/pressure now resolved, denies any other neuro deficits Objective - Vital Signs Vital signs: Vital Signs Temp 97.9 F 07/28/23 08:00 Pulse 83 07/28/23 16:00 Resp 16 07/28/23 16:00 BP 102/65 07/28/23 16:00 Pulse Ox 92 L 07/28/23 16:00 FiO2 54 07/21/23 12:36 Intake & Output 07/27/23 07/28/23 07/28/23 18:59 06:59 18:59 Intake Total 478 260 Balance 478 260 Weight 69 kg Intake: IV 20 Invasive Line 7 20 Oral 478 240 Other: Voiding Method Toilet Bedside Commode Bedside Commode # Voids 1 2 - Constitutional General appearance: Present: average body habitus, no acute distress - EENT Eyes: Present: anicteric sclerae, EOMI ENT: Present: hearing grossly normal - Respiratory Details: breathing is even and unlabored - Cardiovascular Details: skin warm and dry - Gastrointestinal General gastrointestinal: Present: soft. Absent: tenderness - Integumentary Integumentary: Absent: cyanotic - Neurologic Neurologic: Present: CNII-XII intact - Musculoskeletal Musculoskeletal: Present: strength equal bilaterally - Psychiatric Psychiatric: Present: A&O x's 3 - Labs CBC & Chem 7: 07/28/23 12:37 07/28/23 09:43 Labs: Abnormal Lab Results - Last 24 Hours (Table) 07/27/23 07/27/23 07/28/23 Range/Units 16:12 21:04 06:13 WBC (3.8-10.6) k/uL RBC (3.80-5.40) m/uL MCV (80.0-100.0) fL Neutrophils # (1.3-7.7) k/uL Lymphocytes # (1.0-4.8) k/uL Sodium (137-145) mmol/L Potassium (3.5-5.1) mmol/L Chloride (98-107) mmol/L Carbon Dioxide (22-30) mmol/L BUN (7-17) mg/dL Creatinine (0.52-1.04) mg/dL Glucose (74-99) mg/dL POC Glucose (mg/dL) 114 H 134 H 153 H (70-110) mg/dL Calcium (8.4-10.2) mg/dL 07/28/23 07/28/23 07/28/23 Range/Units 09:43 11:32 12:37 WBC 12.7 H (3.8-10.6) k/uL RBC 3.55 L (3.80-5.40) m/uL MCV 100.4 H (80.0-100.0) fL Neutrophils # 11.3 H (1.3-7.7) k/uL Lymphocytes # 0.3 L (1.0-4.8) k/uL Sodium 134 L (137-145) mmol/L Potassium 3.2 L (3.5-5.1) mmol/L Chloride 94 L (98-107) mmol/L Carbon Dioxide 38 H (22-30) mmol/L BUN 21 H (7-17) mg/dL Creatinine 0.44 L (0.52-1.04) mg/dL Glucose 220 H (74-99) mg/dL POC Glucose (mg/dL) 254 H (70-110) mg/dL Calcium 8.1 L (8.4-10.2) mg/dL Assessment and Plan (1) Abdominal pain Current Visit: Yes Status: Acute Priority: High Code(s): R10.9 - UNSPECIFIED ABDOMINAL PAIN SNOMED Code(s): 75725940 (2) Extensive stage primary small cell carcinoma of lung Current Visit: Yes Status: Acute Priority: High Code(s): C34.90 - MALIGNANT NEOPLASM OF UNSP PART OF UNSP BRONCHUS OR LUNG SNOMED Code(s): 097255620602814 (3) Pancreatitis Current Visit: Yes Status: Resolved Priority: High Code(s): K85.90 - ACUTE PANCREATITIS WITHOUT NECROSIS OR INFECTION, UNSP SNOMED Code(s): 07972431 (4) Metastasis to brain Current Visit: Yes Status: Acute Priority: High Code(s): C79.31 - SECONDARY MALIGNANT NEOPLASM OF BRAIN SNOMED Code(s): 04449224 Plan: Pancreatitis -Resolved. Tolerating oral intake well Intractable pain -Now reported as generalized vs abdominal -Pain from malignancy? Pain control has been poorly controlled. Resumed fentanyl with dose increase, and added MS IR for breakthrough pain as pt reports adverse effect with norco (violence). Reporting pain is much better controlled at todays visit -Medications for prevention of narcotic induced constipation ordered -Pt understands that pain may not be zero, but manageable so she can be disch arged home -Plan for discharge today. Discussed case with IM team, will send pain medications from clinic EMR Extensive stage small cell lung cancer -Was scheduled to receive first treatment of whole brain radiation therapy on 07/16/[address] Kruger at [facility]. She cont to plan on going for radiation treatment once she is discharged. Will restart pt on dexamethasone taper, script has been sent to her pharmacy -Patient still unsure if she wants to undergo systemic treatment. Will schedule clinic f/u in the next 2-3 weeks with her primary oncologist, to further discuss her wishes regarding treatment as she moves forward. She agrees with this plan SOB -Pulm following -Pt was not previously O2 dependent, she is now. Will likely need home O2, unless she can be weaned to acceptable level prior to discharge
[2023-07-28 16:40] VITALS: BP 102/65; PULSE 83; RESP 16
--- NOTE | 2023-07-29 08:18 | P.PN ---
Subjective Progress Note Date: 07/28/23 Principal diagnosis: Reason for follow-up is fever Patient is a 62-year-old female past medical history significant for hyperlipidemia asthma diverticulitis and right breast cancer as well as small cell cancer of the lung presenting to the hospital for evaluation of severe abdominal pain along with nausea and vomiting, CT abdominal pelvis with metastatic mass and necrotic pancreatic masses did have low-grade fever prompting this consultation. On today's evaluation that is 07/28/2023,the patient denies any fever or any chills, patient is breathing comfortably on 5 L nasal oxygen the patient denies chest pain shortness of breath and no significant cough, patient denies abdominal pain, no nausea vomiting or diarrhea, patient mention feeling better and has been insisting on going home. Patient white count is 12.7, creatinine 0.44 culture has been negative Objective - Vital Signs Vital signs: Vital Signs Temp 97.9 F 07/28/23 08:00 Pulse 83 07/28/23 16:00 Resp 16 07/28/23 16:00 BP 102/65 07/28/23 16:00 Pulse Ox 92 L 07/28/23 16:00 FiO2 54 07/21/23 12:36 Intake & Output 07/27/23 07/28/23 07/28/23 18:59 06:59 18:59 Intake Total 478 260 Balance 478 260 Weight 69 kg Intake: IV 20 Invasive Line 7 20 Oral 478 240 Other: Voiding Method Toilet Bedside Commode Bedside Commode # Voids 1 2 - Exam GENERAL DESCRIPTION: Middle-aged female lying in bed in no distress RESPIRATORY SYSTEM: Unlabored breathing , coarse breath sounds bilaterally HEART: S1 S2 regular rate and rhythm , ABDOMEN: Soft , no tenderness EXTREMITIES: No edema feet - Labs CBC & Chem 7: 07/28/23 12:37 07/28/23 09:43 Labs: Abnormal Lab Results - Last 24 Hours (Table) 07/27/23 07/28/23 07/28/23 Range/Units 21:04 06:13 09:43 WBC (3.8-10.6) k/uL RBC (3.80-5.40) m/uL MCV (80.0-100.0) fL Neutrophils # (1.3-7.7) k/uL Lymphocytes # (1.0-4.8) k/uL Sodium 134 L (137-145) mmol/L Potassium 3.2 L (3.5-5.1) mmol/L Chloride 94 L (98-107) mmol/L Carbon Dioxide 38 H (22-30) mmol/L BUN 21 H (7-17) mg/dL Creatinine 0.44 L (0.52-1.04) mg/dL Glucose 220 H (74-99) mg/dL POC Glucose (mg/dL) 134 H 153 H (70-110) mg/dL Calcium 8.1 L (8.4-10.2) mg/dL 07/28/23 07/28/23 Range/Units 11:32 12:37 WBC 12.7 H (3.8-10.6) k/uL RBC 3.55 L (3.80-5.40) m/uL MCV 100.4 H (80.0-100.0) fL Neutrophils # 11.3 H (1.3-7.7) k/uL Lymphocytes # 0.3 L (1.0-4.8) k/uL Sodium (137-145) mmol/L Potassium (3.5-5.1) mmol/L Chloride (98-107) mmol/L Carbon Dioxide (22-30) mmol/L BUN (7-17) mg/dL Creatinine (0.52-1.04) mg/dL Glucose (74-99) mg/dL POC Glucose (mg/dL) 254 H (70-110) mg/dL Calcium (8.4-10.2) mg/dL Assessment and Plan (1) Fever Status: Acute Code(s): R50.9 - FEVER, UNSPECIFIED SNOMED Code(s): 388730346 (2) Leukocytosis Status: Acute Code(s): D72.829 - ELEVATED WHITE BLOOD CELL COUNT, UNSPECIFIED SNOMED Code(s): 928549757 Plan: 1patient presented to hospital with intractable abdominal pain nausea vomiting and this patient who did have a extensive abnormality seen on the CT of the chest abdominal pelvis concerning for necrotic masses in the pancreas and renal could be responsible for most of her symptomatology with a low-grade fever elevated white count could be reactive underlying infectious etiology less li tommy but not entirely excluded 2-blood culture has been negative, inflammatory markers are mildly elevated with a procalcitonin 0.47, sputum cultures negative and resistant pathogen 3-patient did have resolution of her fever and patient has completed course of Zosyn and seem to be doing well for the last few days of antibiotic therapy will monitor closely off antibiotic Dictation was produced using [employer] dictation software. please excuse any grammatical, word or spelling errors. Time with Patient: Less than 30
== END 2023-07-28 16:16 | disposition home health service (06) | DRG 282 ==
LOC: EC 02:03 → 5NMEDONC 06:08 → 3SCARD 07-19 13:21
PROVIDERS: ADMIT Hospitalist; ATTEND Hospitalist
PROC: 05HF33Z Insertion of Infusion Device into Left Cephalic Vein, Percutaneous Approach (ICD-10-PCS; principal; 2023-07-21 18:40)
DX: K85.90 Acute pancreatitis without necrosis or infection, unspecified (principal); C7A.8 Other malignant neuroendocrine tumors; C34.90 Malignant neoplasm of unspecified part of unspecified bronchus or lung; C50.919 Malignant neoplasm of unspecified site of unspecified female breast; C78.7 Secondary malignant neoplasm of liver and intrahepatic bile duct; C79.31 Secondary malignant neoplasm of brain; C79.72 Secondary malignant neoplasm of left adrenal gland; F17.210 Nicotine dependence, cigarettes, uncomplicated; F32.A Depression, unspecified; I11.0 Hypertensive heart disease with heart failure; F41.9 Anxiety disorder, unspecified; I42.9 Cardiomyopathy, unspecified; I50.23 Acute on chronic systolic (congestive) heart failure; I21.4 Non-ST elevation (NSTEMI) myocardial infarction; E78.5 Hyperlipidemia, unspecified; K59.00 Constipation, unspecified; J96.21 Acute and chronic respiratory failure with hypoxia; J44.89 Other specified chronic obstructive pulmonary disease; J98.11 Atelectasis; C78.1 Secondary malignant neoplasm of mediastinum; I08.1 Rheumatic disorders of both mitral and tricuspid valves; D72.829 Elevated white blood cell count, unspecified; Z90.11 Acquired absence of right breast and nipple; Z92.21 Personal history of antineoplastic chemotherapy; Z11.52 Encounter for screening for COVID-19; Z79.82 Long term (current) use of aspirin; Z79.899 Other long term (current) drug therapy; Z79.811 Long term (current) use of aromatase inhibitors; Z71.3 Dietary counseling and surveillance; Z87.81 Personal history of (healed) traumatic fracture; Z79.891 Long term (current) use of opiate analgesic
CPT/HCPCS: 36410; 36415; 71045; 71275; 74177; 76604; 76937; 80048; 80053; 80061; 82150; 82533; 83036; 83605; 83690; 84145; 84484; 85025; 86140; 87040; 87070; 87205; 87636; 93005; 93306; 94640; 94760; 96361; 96365; 96367; 96375; 99291